=== PATIENT | male | born 1935 | race Asian ===

== ENCOUNTER 2018-06-25 16:22 | Inpatient (IN) | payer OTHER ==
--- NOTE | 2018-06-25 16:40 | PDOC ---
Rapid Medical Evaluation Time Seen by Provider: 06/25/18 16:35 Medical Evaluation: Allergies Allergy/AdvReac Type Severity Reaction Status Date / Time No Known Allergies Allergy Verified 06/25/18 16:32 06/25/18 16:35 I have performed a brief in-person evaluation of this patient. 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 No LOC, WHITEHEAD, dizziness, n/v. Pt also c/o diarrhea, ?chronic w/ weight loss. No abd pain, f/c. Had recent scope w/ ? pre-cancerous polyp, scheduled for CT in near future per son in law. Pt resides alone w/ h/o alzheimers, HTN, diverticulitis, gout. Sent to ED by outside PMD for evaluation and ? admission per son in law who also verbalized that family wants placement PMD Dr Caballero Pertinent physical exam findings:Stable and well tara and in NAD I have ordered the following:CTH/labs The patient will proceed to the ED for further evaluation. Discharge Disposition - Diagnosis FTT (failure to thrive) in adult Fall Qualifiers: Encounter type: initial encounter Qualified Code(s): W19.XXXA - Unspecified fall, initial encounter - Referrals - Patient Instructions - Post Discharge Activity
[2018-06-25] MEDS ORDERED: ONDANSETRON 4 MG/2 ML VIAL IVPUSH ONE (18:21)
[2018-06-25] MEDS ORDERED: SODIUM CHLORIDE 0.9% 500 ML INFUS.BAG IV ONE (18:22)
[2018-06-25] MEDS ORDERED: DEXTROSE 5%-NORMAL SALINE 1,000 ML IV SCH (18:30)
[2018-06-25 18:35] LABS: BASO % 0.4 % (0-2.0); EOS % 0.1 % (0-4.5); HEMATOCRIT 49.3 % (35.4-49); HEMOGLOBIN 17.1 GM/dL (11.7-16.9); LYMPH % 7.4 % (8-40); MCH 32.9 pg (25.7-33.7); MCHC 34.8 g/dl (32.0-35.9); MEAN CELL VOLUME 94.7 fl (80-96); MEAN PLT VOLUME 7.3 fl (7.5-11.1); MONO % 4.5 % (3.8-10.2); NEUT % 87.6 % (42.8-82.8); PLATELET COUNT 244 K/MM3 (134-434); RDW 13.3 % (11.9-15.9); WHITE BLOOD COUNT 12.4 K/mm3 (4.0-10.0)
--- NOTE | 2018-06-25 18:36 | PDOC ---
Documentation entered by Neha Steen SCRIBE, acting as scribe for Taya Pedraza MD. Taya Pedraza MD: This documentation has been prepared by the anjue, Neha Steen SCRIBE, under my direction and personally reviewed by me in its entirety. I confirm that the documentation accurately reflects all work, treatment, procedures, and medical decision making performed by me. History of Present Illness - General Chief Complaint: Altered Mental Status Stated Complaint: SENT BY PCP/UNSTEADY GAIT Time Seen by Provider: 06/25/18 16:35 History Source: Patient, Family Exam Limitations: No Limitations - History of Present Illness Initial Comments: 06/25/18 18:29 The patient is a 82 year old male with a significant past medical history of BPH , gout, hypertension, diverticulitis, arthritis, inguinal hernia, H. pylori, tubular adenoma, polyps, Alzheimer's dementia, hemorrhoids, kidney stones and leg edema who presents to the emergency department with frequent falls and gait instability for several months and progressively worsening memory loss/dementia x at least 1 year. As per the patients family, the patient went out last night to a restaurant and fell, amnesic to the event and was subsequently driven home by an employee of the restaurant. The patients family at bedside states that the patient has been experiencing deteriorating episodes in the past several months with noted weight loss, decreased PO intake, anorexia, generalized weakness, unsteady gait, and progressive short term memory loss. Of note there has been diarrhea/loose nonbloody stools x several months. The patient's family reports that the patient went to see his PCP Dr Ferrer this afternoon at about 3:30 pm subsequently sent him here for admission. It is noted that the patient had a recent colonoscopy procedure done approx 4 weeks ago for surveillance, which noted premalignant polyps. The patient's son in law and daughter states that the patient lives in his home alone but they live in the same building complex; he states that the patient is unable to properly take care of himself and they have been in the process of getting him a dietary service aide and/or facility placement given progression of his dementia. The patient denies any fever, chills, nausea, vomiting, diarrhea, constipation or urinary symptoms. He denies any chest pain, shortness of breath, headache or abdomen pain. Code status: full Allergies: Lisinopril Social history: Lives at home alone. No Tobacco use. No ETOH or drug use. Surgical history: cystoscopy with laser vaporization. Meds: as documented in EMR PMD: Dr. Ferrer Past History - Past Medical History Allergies/Adverse Reactions: Allergies Allergy/AdvReac Type Severity Reaction Status Date / Time No Known Allergies Allergy Verified 06/25/18 16:32 Home Medications: Ambulatory Orders Allopurinol [Zyloprim -] 100 mg PO DAILY 09/08/14 Amlodipine Besylate [Norvasc -] 10 mg PO DAILY 09/08/14 Losartan Potassium 50 mg PO DAILY 09/08/14 Cephalexin [Keflex] 500 mg PO TID #21 capsule 02/05/16 Tramadol HCl 50 mg PO TID #12 tablet MDD 3 02/05/16 COPD: No HTN: Yes Hypercholesterolemia: Yes Psychiatric Problems: Yes (DEMENTIA) Other medical history: GOUT - Suicide/Smoking/Psychosocial Hx Smoking Status: No Smoking History: Never smoked Have you smoked in the past 12 months: No If you are a former smoker, when did you quit?: 8 YRS Hx Alcohol Use: No Drug/Substance Use Hx: No Substance Use Type: None Hx Substance Use Treatment: No Review of Systems - Review of Systems Able to Perform ROS?: Yes Comments:: 06/25/18 18:29 Review of systems Constitutional: no fevers or chills. (+)weight loss. +anorexia, +generalized weakness. HEENT: no headache or dizziness. No visual/hearing disturbances. CVS: no cp or syncope. Resp: no sob. No cough. Gastrointestinal: no abdominal pain, nausea or vomiting. +diarrhea. Genitourinary: no urinary sx, hematuria. MUSCULOSKELETAL: No joint pain and swelling. No neck or back pain. SKIN: no redness or skin changes, no discharge, no rash. No wounds. Hematologic: no easy bruising/bleeding. NEUROLOGIC:(+)amnesia, general weakness, unsteady gait. +AMS. No headache, dizziness, LOC. No numbness or tingling. Psych: +depression. Allergic/Immunologic: no allergies All other systems reviewed and negative, or as documented in HPI. *Physical Exam - Vital Signs Last Vital Signs Temp Pulse Resp BP Pulse Ox 98.0 F 94 H 18 128/93 98 06/25/18 16:37 06/25/18 16:37 06/25/18 16:37 06/25/18 16:37 06/25/18 16:37 - Physical Exam Comments: 06/25/18 18:30 Physical exam: General: awake and alert, NAD. HEENT: (+)swelling and erythema with tenderness of small scab to right lateral upper eyebrow, +tenderness/swelling to right cheekbone, healing ecchymosis to left lateral eyebrow. PERRL, EOMI, clear conjunctiva, anicteric, very dry mucus membranes, clear oropharynx, no oral lesions.. no trismus, TMJ stable. Neck: neck supple, FROM Resp: CTAB, normal and even respirations, no respiratory distress CVS: RRR, no murmurs, 2+ peripheral pulses throughout, no peripheral edema Abdomen: soft, NTND, no peritoneal signs. Back: nontender, normal inspection and ROM MSK: no edema, SMALL x4, ROM intact. No clubbing or cyanosis. normal bulk and tone. pelvis stable, FROM at the hip and all prox joints. Neuro: alert, oriented to person time and place, speech clear. 5/5 loan manager and prox /distal strength in all extrem, SILT in all extrem. no cerebellar dysfunction, bilateral equal and symmetric finger to nose. unable to assess gait due to weakness Skin: warm and well perfused, cap refill <2 sec, normal color Psych: flat affect, calm and cooperative. 06/25/18 18:33 Heart Score/ECG Review #1 ECG reviewed & interpreted by me at: 16:55 General ECG Interpretation: Sinus Rhythm, Normal Rate, Normal Intervals Compared to previous ECG there are: No significant change 06/25/18 18:34 EKG normal sinus rhythm at 88 bpm, no interval abnormalities, narrow QRS, ST and T wave segments and morphology normal. Nonspecific T wave abnormalities ED Treatment Course - LABORATORY CBC & Chemistry Diagram: 06/26/18 05:30 06/26/18 05:30 - RADIOLOGY Radiology Studies Ordered: Category Date Time Status CERVICAL SPINE CT W/O CONTR [CT] Stat CT Scan 06/25/18 16:[address] W/O CONTRAST [CT] Stat CT Scan 06/25/18 17:[address] WITHOUT CONTRAST [CT] Stat CT Scan 06/25/18 16:59 Ordered Medical Decision Making - Medical Decision Making 06/25/18 18:33 I, Taya Pedraza MD, attest that this document has been prepared under my direction and personally reviewed by me in its entirety. I further attest, that it accurately reflects all work, treatment, procedures and medical decision -making performed by me. See HPI for details Vital signs reviewed, wnl. no systemic findings. DDx weakness: dehydration, infection, delirium, UTI, pneumonia, CVA, electrolyte /metabolic derangements, deconditioning, FTT, anorexia Prior notes reviewed, including admissions, discharges and consultations. laboratory results and imaging reviewed, basic labs and lytes wnl, notable for mild leukocytosis but no fever or systemic findings, also noted for hemoconcentration, clinically dehydrated so given IVF. UA_pending bilis mildly elevated, but no AP/RUQ tenderness Cardiac panel_unremarkable EKG normal sinus rhythm at 88 bpm, no interval abnormalities, narrow QRS, ST and T wave segments and morphology normal. Nonspecific T wave abnormalities ED course - IVF and zofran, had episode of N/V while getting IV/blood work - CT head/C spine and facial to eval for fx/bleed due to recent falls and facial trauma Admit for dehydration, worsening dementia, unsafe at home and frequent falls. Discussed results and management plan with pt and family member at bedside, agree with impression and plan 06/25/18 18:50 06/25/18 18:57 06/26/18 16:16 06/26/18 16:16 *DC/Admit/Observation/Transfer Diagnosis at time of Disposition: FTT (failure to thrive) in adult, Contusion of face, Dehydration Fall Qualifiers: Encounter type: initial encounter Qualified Code(s): W19.XXXA - Unspecified fall, initial encounter - Discharge Dispostion Condition at time of disposition: Guarded Decision to Admit order: Yes Decision to Admit order Date/Time: 06/25/18 18:57 Decision to Admit Order Category Date Time Status Decision to Admit to Hospital Routine Admission 06/25/18 18:56 Ordered - Referrals - Patient Instructions - Post Discharge Activity
[2018-06-25 19:57] LABS: ALBUMIN 3.7 g/dl (3.4-5.0); ALK PHOS 119 U/L (45-117); ANION GAP 13 MMOL/L (8-16); BILIRUBIN,TOTAL 2.6 mg/dL (0.2-1); BLOOD UREA NITROGEN 17 mg/dL (7-18); CALCIUM 9.1 mg/dL (8.5-10.1); CHLORIDE 96 mmol/L (98-107); CO2 23 mmol/L (21-32); CREATININE 0.7 mg/dL (0.55-1.3); GLUCOSE,RANDOM 135 mg/dL (74-106); LIPASE 87 U/L (73-393); SODIUM 132 mmol/L (136-145); TOT PROT 6.8 g/dl (6.4-8.2)
[2018-06-25 19:58] LABS: POTASSIUM 4.6 mmol/L (3.5-5.1); SGOT/AST 64 U/L (15-37); SGPT/ALT 19 U/L (13-61)
[2018-06-25] MEDS ORDERED: ONDANSETRON 4 MG/2 ML VIAL ONE (20:28)
--- NOTE | 2018-06-25 20:29 | PDOC ---
*Physical Exam - Vital Signs Last Vital Signs Temp Pulse Resp BP Pulse Ox 98.0 F 94 H 18 128/93 98 06/25/18 16:37 06/25/18 16:37 06/25/18 16:37 06/25/18 16:37 06/25/18 16:37 ED Treatment Course - LABORATORY CBC & Chemistry Diagram: 06/25/18 18:27 06/25/18 18:27 - ADDITIONAL ORDERS Additional order review: Laboratory Results 06/25/18 06/25/18 18:27 18:27 Sodium 132 L Potassium 4.6 Chloride 96 L Carbon Dioxide 23 Anion Gap 13 BUN 17 Creatinine 0.7 Creat Clearance w eGFR 108.24 Random Glucose 135 H Calcium 9.1 Total Bilirubin 2.6 H AST 64 H ALT 19 Alkaline Phosphatase 119 H Creatine Kinase 381 H Creatine Kinase Index 1.1 CK-MB (CK-2) 4.3 H Troponin I < 0.02 Total Protein 6.8 Albumin 3.7 Lipase 87 06/25/18 18:27 RBC 5.20 MCV 94.7 MCHC 34.8 RDW 13.3 MPV 7.3 L Neutrophils % 87.6 H D Lymphocytes % 7.4 L D Monocytes % 4.5 Eosinophils % 0.1 D Basophils % 0.4 Medical Decision Making - Medical Decision Making 06/25/18 20:28 Pt signed out to me. He lives alone and has progressive confusion. Fall. He will be admitted for 24hr obs. He is alert and awake at this time. He has a bruise at the right cheekbone. He has no fractures or findings on head. cspine CT, chest XR and all labs are normal. 06/25/18 20:30 Pt is slightly dehydrated; elevated hb/hct. And darrel card enzyme is higher than negative, but not positive. Needs further eval/monitoring. *DC/Admit/Observation/Transfer Diagnosis at time of Disposition: FTT (failure to thrive) in adult, Contusion of face, Dehydration Fall Qualifiers: Encounter type: initial encounter Qualified Code(s): W19.XXXA - Unspecified fall, initial encounter - Discharge Dispostion Condition at time of disposition: Guarded Decision to Admit order: Yes - Referrals Referrals: Liz Ferrer [Primary Care Provider] - - Patient Instructions - Post Discharge Activity
--- NOTE | 2018-06-25 20:48 | PN ---
Teaching Attending Note Name of Resident: Mercy Phelps ATTENDING PHYSICIAN STATEMENT I saw and evaluated the patient. I reviewed the resident's note and discussed the case with the resident. I agree with the resident's findings and plan as documented. SUBJECTIVE: Patient is an 82 year old man with PMH of BPH, gout, hypertension, diverticulitis, arthritis, inguinal hernia, H. pylori, tubular adenoma, polyps, Alzheimer's dementia, hemorrhoids, kidney stones and leg edema who presents to the ER with frequent falls and gait instability for several months and progressively worsening memory loss/dementia x at least 1 year. As per the patients family, the patient went out last night to a restaurant and fell, amnesic to the event and was subsequently driven home by an employee of the restaurant. Also has had weight loss, decreased PO intake, anorexia, generalized weakness, unsteady gait, and progressive short term memory loss. Of note there has been diarrhea/loose nonbloody stools for several months. The patient's family reports that the patient went to see his PCP Dr Ferrer this afternoon at about 3 :30 pm subsequently sent him here for admission. It is noted that the patient had a recent colonoscopy procedure done approx 4 weeks ago for surveillance, which noted premalignant polyps. Patient lives alone and is unable to properly take care of himself. The patient denies any fever, chills, nausea, vomiting, diarrhea, constipation or urinary symptoms. He denies any chest pain, shortness of breath, headache or abdominal pain. OBJECTIVE: Alert Vital Signs Period Temp Pulse Resp BP Sys/Rosales Pulse Ox Last 24 Hr 98.0 F 94 18 128/93 98 HEENT: No Jaundice, eye redness or discharge, PERRLA, EOMI. Normocephalic, atraumatic. Right cheek bone bruise. External ears are normal and hearing is grossly intact. No nasal discharge. Neck: Supple, nontender. No palpable adenopathy or thyromegaly. No JVD Chest: Good effort. Clear to auscultation and percussion. Heart: Regular. No S3, rub or murmur Abdomen: Not distended, soft, nontender and no HSM. No rebound or guarding. Normal bowel sounds. Ext: Peripheral pulses intact. No leg edema. Skin: Warm and dry. No petechiae, rash or ecchymosis. Neuro: Alert. Oriented x3. CN 2-12 grossly intact. Sensation grossly intact in all four extremities and DTR are symmetric. Psych: Appropriate mood and affect. Good insight. Current Medications Generic Name Dose Route Start Last Admin Trade Name Meliza PRN Reason Stop Dose Admin Dextrose/Sodium Chloride 1,000 mls @ 100 mls/hr 06/25/18 18:30 D5-Ns - IV ASDIR [facility] Home Medications Medication Instructions Recorded Allopurinol [Zyloprim -] 100 mg PO DAILY 09/08/14 Amlodipine Besylate [Norvasc -] 10 mg PO DAILY 09/08/14 Losartan Potassium 50 mg PO DAILY 09/08/14 Cephalexin [Keflex] 500 mg PO TID #21 capsule 02/05/16 Tramadol HCl 50 mg PO TID #12 tablet MDD 3 02/05/16 Abnormal Lab Results 06/25/18 06/25/18 06/25/18 18:27 18:27 18:27 WBC 12.4 H Hgb 17.1 H Hct 49.3 H D MPV 7.3 L Absolute Neuts (auto) 10.8 H Neutrophils % 87.6 H D Lymphocytes % 7.4 L D Sodium 132 L Chloride 96 L Random Glucose 135 H Total Bilirubin 2.6 H AST 64 H Alkaline Phosphatase 119 H Creatine Kinase 381 H CK-MB (CK-2) 4.3 H ASSESSMENT AND PLAN: 1. Altered Mental Status and Frequent Falls - Etiology unclear. Global debility may signal progression of his dementia. No fracture or abnormality on face, cervical and head CT scans. No acute infiltrate on CXR. Has features of dehydration, elevated LFTs and unexplained leukocytosis. Will get stat urinalysis, upper abdominal sonogram, hepatitis serology and trend LFTs. Hydrate gently with IV NS. Implement strict fall precautions. Consult Neurology and consider brain MRI after neurology input. Consult PT, province archivist and social secretary (?placement). 2. Hypertension - Restart outpatient antihypertensive drugs and revise regimen to ensure smooth [id number] good BP control. Nonpharmacologic measures to control hypertension like weight loss, salt restriction and exercise discussed. 3. DVT prophylaxis - Lovenox 40 mg SQ q 24 hours. 4. Advance directives - Full code
[2018-06-25 22:07] LABS: EPI CELLS 7.1 /HPF (0-5/HPF); URINE APPEARANCE CLOUDY; URINE BACTERIA 12.3 /hpf (NEGATIVE); URINE BILIRUBIN 1+ (NEGATIVE); URINE CASTS 78 /lpf (0-8); URINE COLOR DK YELLOW; URINE GLUCOSE (UA) NEGATIVE (NEGATIVE); URINE KETONE TRACE (NEGATIVE); URINE LEUK ESTERASE NEGATIVE (NEGATIVE); URINE NITRITE NEGATIVE (NEGATIVE); URINE PROTEIN 1+ (NEGATIVE); URINE RBC 2 /hpf (0-4); URINE WBC 8 /hpf (0-5)
--- NOTE | 2018-06-25 22:19 | HP ---
CHIEF COMPLAINT: PCP: Dr. Caballero HISTORY OF PRESENT ILLNESS: Patient is an 82 yo M with a past medical history of BPH, gout, hypertension, diverticulitis, arthritis, inguinal hernia, H. pylori, tubular adenoma, polyps, Alzheimer's dementia, hemorrhoids, kidney stones and leg edema, was dropped off by his Son in law because "him and his daughter didn't want to deal with me". Patient denies any symptoms. As per ER documentation, daughter and son in law stated he has been frequently falling over the last few months with decreased PO intake and weight loss. They also mentioned short term memory loss. Patient lives alone at home but his daughter and son in law live in the same apartment complex. He says his daughter has not been giving him much attention since marrying her "[place]" . He says things are difficult at home with his family but denies any form of abuse. He says his son in law didnt want to deal with him and told him the best place to go was the hospital. He denies urinary symptoms, sob, nausea, vomiting, chest pain, dizziness, diarrhea, headaches. ER course was notable for: (1) D5 NS @ 100 (2) Head, C Spine CT negative Recent Travel: denies PAST MEDICAL HISTORY: per hpi PAST SURGICAL HISTORY: n/a Social History: Smoking:denies Alcohol: denies Drugs: denies Family History: Allergies No Known Allergies Allergy (Verified 06/25/18 16:32) HOME MEDICATIONS: Home Medications Medication Instructions Recorded Allopurinol [Zyloprim -] 100 mg PO DAILY 09/08/14 Amlodipine Besylate [Norvasc -] 10 mg PO DAILY 09/08/14 Losartan Potassium 50 mg PO DAILY 09/08/14 Cephalexin [Keflex] 500 mg PO TID #21 capsule 02/05/16 Tramadol HCl 50 mg PO TID #12 tablet MDD 3 02/05/16 REVIEW OF SYSTEMS CONSTITUTIONAL: Absent: fever, chills, diaphoresis, generalized weakness, malaise, loss of appetite, weight change HEENT: Absent: rhinorrhea, nasal congestion, throat pain, throat swelling, difficulty swallowing, mouth swelling, ear pain, eye pain, visual changes CARDIOVASCULAR: Absent: chest pain, syncope, palpitations, irregular heart rate, lightheadedness , peripheral edema RESPIRATORY: Absent: cough, shortness of breath, dyspnea with exertion, orthopnea, wheezing, stridor, hemoptysis GASTROINTESTINAL: Absent: abdominal pain, abdominal distension, nausea, vomiting, diarrhea, constipation, melena, hematochezia GENITOURINARY: Absent: dysuria, frequency, urgency, hesitancy, hematuria, flank pain, genital pain HEMATOLOGIC/IMMUNOLOGIC: Absent: easy bleeding, easy bruising, lymphadenopathy, frequent infections ENDOCRINE: Absent: unexplained weight gain, unexplained weight loss, heat intolerance, cold intolerance PHYSICAL EXAMINATION Vital Signs - 24 hr 06/25/18 16:37 Temperature 98.0 F Pulse Rate 94 H Respiratory 18 Rate Blood Pressure 128/93 O2 Sat by Pulse 98 Oximetry (%) GENERAL: a/o x 3, in nad EYES: Pupils equal, round and reactive to light, extraocular movements intact, sclera anicteric, conjunctiva clear. No lid lag. EARS, NOSE, THROAT: oropharynx clear without exudates. Moist mucous membranes. NECK: supple without lymphadenopathy, JVD, or masses. LUNGS: Breath sounds equal, clear to auscultation bilaterally. No wheezes, and no crackles. No accessory muscle use. HEART: Regular rate and rhythm, normal S1 and S2 without murmur, rub or gallop. ABDOMEN: Soft, nontender, not distended, normoactive bowel sounds No hepatomegaly LOWER EXTREMITIES: 2+ pulses, warm, well-perfused. No calf tenderness. No peripheral edema. NEUROLOGICAL: Cranial nerves II-XII intact Laboratory Results - last 24 hr 06/25/18 06/25/18 06/25/18 18:27 18:27 18:27 WBC 12.4 H RBC 5.20 Hgb 17.1 H Hct 49.3 H D MCV 94.7 MCH 32.9 MCHC 34.8 RDW 13.3 Plt Count 244 MPV 7.3 L Absolute Neuts (auto) 10.8 H Neutrophils % 87.6 H D Lymphocytes % 7.4 L D Monocytes % 4.5 Eosinophils % 0.1 D Basophils % 0.4 Nucleated RBC % 0 Sodium 132 L Potassium 4.6 Chloride 96 L Carbon Dioxide 23 Anion Gap 13 BUN 17 Creatinine 0.7 Creat Clearance w eGFR 108.24 Random Glucose 135 H Calcium 9.1 Total Bilirubin 2.6 H AST 64 H ALT 19 Alkaline Phosphatase 119 H Creatine Kinase 381 H Creatine Kinase Index 1.1 CK-MB (CK-2) 4.3 H Troponin I < 0.02 Total Protein 6.8 Albumin 3.7 Lipase 87 ASSESSMENT/PLAN: 82 yo M with a pmhx of BPH, gout, hypertension, diverticulitis, arthritis, inguinal hernia, H. pylori, tubular adenoma, polyps, Alzheimer's dementia, hemorrhoids, kidney stones and leg edema, admitted for frequent falls over the last few months with decreased PO intake, weight loss, and memory loss. #AMS/Frequent falls -AMS likely from progression of Alzheimers dementia -Has features of Dehydration -U/A negative -Head CT negative -C spine CT negative -CXR unremarkable -Physical therapy -Fall precautions #Transaminitis -T. bili 2.4,Alk phos 381,AST 64, CK 381 -RUQ ultrasound -Hep panel #Hyponatremia -likely volume depleted -IV fluids -FU Am BMP #Hypochloremia -likely volume depleted -IV fluids -FU am BMP #HTN -resume home meds -needs [facility] rec. #FEN -IV fluids D5 ns @ 75 -monitor lytes -sodium controlled diet #Dvt ppx -hep sq Will likely need placement Visit type - Emergency Visit Emergency Visit: Yes ED Registration Date: 06/25/18 Care time: The patient presented to the Emergency Department on the above date and was hospitalized for further evaluation of their emergent condition. - New Patient This patient is new to me today: Yes Date on this admission: 06/29/18 - Critical Care Critical Care patient: No
[2018-06-26] MEDS: DEXTROSE 5%-0.45% SALINE 1,000 ML IV SCH ×2 (01:12→21:45)
[2018-06-26] MEDS: HEPARIN NA (PORCINE) 5,000 UNITS/ML 1ML VIAL SQ SCH ×3 (06:09→21:42)
[2018-06-26] MEDS: INSULIN SLIDING SCALE (NOVOLOG) 1 VIAL SQ SCH ×2 (06:09→17:40)
--- NOTE | 2018-06-26 08:19 | PN ---
Progress Note, Physician Chief Complaint: pleasantly demented denies any complaints History of Present Illness: 82 yo M with a past medical history of BPH, gout, hypertension, diverticulitis, arthritis, inguinal hernia, H. pylori, tubular adenoma, polyps, Alzheimer's dementia, hemorrhoids, kidney stones and leg edema, was dropped off by his Son in law because they are unable to take his care, patient had frequent falls yesterdu fall after eating out in restaurant a restaurant with family no LOC, lately patient had poor gait. - Current Medication List Current Medications: Active Medications Active Medications Allopurinol (Zyloprim -) 100 mg PO DAILY [facility] Amlodipine Besylate (Norvasc -) 10 mg PO DAILY [facility] Heparin Sodium (Porcine) (Heparin -) 5,000 unit SQ TID [facility] Last Admin: 06/26/18 06:09 Dose: 5,000 unit Dextrose/Sodium Chloride (D5-1/2ns -) 1,000 mls @ 75 mls/hr IV ASDIR [facility] Last Admin: 06/26/18 01:12 Dose: 75 mls/hr Insulin Aspart (Novolog Vial Sliding Scale -) 1 vial SQ BIDAC [facility]; Protocol Last Admin: 06/26/18 06:09 Dose: Not Given Losartan Potassium (Cozaar -) 50 mg PO DAILY [facility] Tramadol HCl (Ultram -) 50 mg PO Q8H PRN PRN Reason: PAIN 4-6 - Objective Vital Signs: Vital Signs Temperature 98.4 F 06/26/18 06:00 Pulse Rate 68 06/26/18 06:00 Respiratory Rate 18 06/26/18 06:00 Blood Pressure 132/91 06/26/18 06:00 O2 Sat by Pulse Oximetry (%) 96 06/26/18 06:16 Elderly man comfortable, not in distress HEENT: Mm moist, no anemia NECK: no JVd No Bruit CHEST: CTA B/L CVS: S2S2 r ABD: No distention, non tender EXT: No edema, Pulses + GUMMED TAPE PRESS OPERATOR: AOX2 non focal Additional Findings/Remarks: CBC, BMP 06/26/18 05:30 06/26/18 05:30 Problem List - Problems (1) Frequent falls Assessment/Plan: advancing dementia, needs fall precautions, PT evaluation, patient says, possible placement after discussing with the family. Code(s): R29.6 - REPEATED FALLS (2) Contusion of face Assessment/Plan: S/P Fall no fracture in CT head Code(s): S00.83XA - CONTUSION OF OTHER PART OF HEAD, INITIAL ENCOUNTER (3) Hypertension Assessment/Plan: Cont home meds BP is well controlled Code(s): I10 - ESSENTIAL (PRIMARY) HYPERTENSION (4) Gait difficulty Assessment/Plan: worsening Dementia, PT evaluation, possible placement for TRENA Code(s): R26.9 - UNSPECIFIED ABNORMALITIES OF GAIT AND MOBILITY (5) Gout Assessment/Plan: Cont allopurinol Code(s): M10.9 - GOUT, UNSPECIFIED
[2018-06-26 08:23] LABS: ALK PHOS 97 U/L (45-117); ANION GAP 9 MMOL/L (8-16); BILIRUBIN,TOTAL 2.7 mg/dL (0.2-1); BLOOD UREA NITROGEN 14 mg/dL (7-18); CALCIUM 8.4 mg/dL (8.5-10.1); CHLORIDE 101 mmol/L (98-107); CO2 26 mmol/L (21-32); CREATININE 0.7 mg/dL (0.55-1.3); GLUCOSE,RANDOM 100 mg/dL (74-106); MAGNESIUM 2.2 mg/dL (1.8-2.4); PHOSPHOROUS 2.5 mg/dL (2.5-4.9); POTASSIUM 3.8 mmol/L (3.5-5.1); SGOT/AST 42 U/L (15-37); SGPT/ALT 12 U/L (13-61); SODIUM 136 mmol/L (136-145); TOT PROT 5.5 g/dl (6.4-8.2)
[2018-06-26 09:51] LABS: BASO % 0.7 % (0-2.0); EOS % 0.3 % (0-4.5); HEMATOCRIT 41.7 % (35.4-49); HEMOGLOBIN 14.6 GM/dL (11.7-16.9); LYMPH % 12.3 % (8-40); MCH 33.5 pg (25.7-33.7); MCHC 35.1 g/dl (32.0-35.9); MEAN CELL VOLUME 95.4 fl (80-96); MEAN PLT VOLUME 7.5 fl (7.5-11.1); MONO % 7.2 % (3.8-10.2); NEUT % 79.5 % (42.8-82.8); PLATELET COUNT 203 K/MM3 (134-434); RBC 4.37 M/mm3 (4.00-5.60); RDW 13.3 % (11.9-15.9)
[2018-06-26] MEDS ORDERED: CEPHALEXIN MONOHYDRATE 500 MG CAPSULE (UD) PO SCH (14:00)
[2018-06-26] MEDS ORDERED: traMADol HCL 50 MG TABLET PO PRN (14:00)
--- NOTE | 2018-06-26 15:11 | EKG ---
Test Reason : Blood Pressure : / mmHG Vent. Rate : 088 BPM Atrial Rate : 088 BPM P-R Int : 154 ms QRS Dur : 086 ms QT Int : 390 ms P-R-T Axes : 055 029 055 degrees QTc Int : 471 ms NORMAL SINUS RHYTHM NORMAL ECG WHEN COMPARED WITH ECG OF 08-SEP-2014 09:01, NO SIGNIFICANT CHANGE WAS FOUND Confirmed by ANN MARIE DOSHI MD ([id number]) on 06/26/2018 3:10:39 PM Referred By: Confirmed By:ANN MARIE DOSHI MD
[2018-06-26 15:29] LABS: BILIRUBIN,DIRECT 0.5 mg/dL (0.0-0.2)
[2018-06-27 06:36] LABS: HEP.C VIRUS AB <0.1 s/co ratio (0.0-0.9)
[2018-06-27] MEDS: HEPARIN NA (PORCINE) 5,000 UNITS/ML 1ML VIAL SQ SCH ×3 (06:43→22:27)
[2018-06-27] MEDS: INSULIN SLIDING SCALE (NOVOLOG) 1 VIAL SQ SCH ×2 (06:44→17:28)
--- NOTE | 2018-06-27 07:52 | PN ---
Teaching Attending Note Name of Resident: [facility] ATTENDING PHYSICIAN STATEMENT I saw and evaluated the patient. I reviewed the resident's note and discussed the case with the resident. I agree with the resident's findings and plan as documented. SUBJECTIVE: Remained at base line feeling weak OBJECTIVE: Vital Signs Temperature 98.4 F 06/26/18 06:00 Pulse Rate 68 06/26/18 06:00 Respiratory Rate 18 06/26/18 06:00 Blood Pressure 132/91 06/26/18 06:00 O2 Sat by Pulse Oximetry (%) 96 06/26/18 06:16 Elderly man comfortable, not in distress HEENT: Mm moist, no anemia NECK: no JVd No Bruit CHEST: CTA B/L CVS: S2S2 r ABD: No distention, non tender EXT: No edema, Pulses + CAREER CENTER DIRECTOR: AOX2 non focal Active Medications Allopurinol (Zyloprim -) 100 mg PO DAILY [facility] Amlodipine Besylate (Norvasc -) 10 mg PO DAILY [facility] Heparin Sodium (Porcine) (Heparin -) 5,000 unit SQ TID [facility] Last Admin: 06/27/18 06:43 Dose: 5,000 unit Dextrose/Sodium Chloride (D5-1/2ns -) 1,000 mls @ 75 mls/hr IV ASDIR [facility] Last Admin: 06/26/18 21:45 Dose: Not Given Insulin Aspart (Novolog Vial Sliding Scale -) 1 vial SQ BIDAC [facility]; Protocol Last Admin: 06/27/18 06:44 Dose: Not Given Losartan Potassium (Cozaar -) 50 mg PO DAILY [facility] Tramadol HCl (Ultram -) 50 mg PO Q8H PRN PRN Reason: PAIN 4-6 ASSESSMENT AND PLAN:82 year old male with a significant past medical history of BPH, gout, hypertension, diverticulitis, arthritis, inguinal hernia, H. pylori, tubular adenoma, polyps, Alzheimer's dementia, hemorrhoids, kidney stones and leg edema who presents to the emergency department with frequent falls and gait instability for several months and progressively worsening memory loss/dementia x at least 1 year. today lab shows Hypokalemia Problem List - Problems (1) Frequent falls Assessment/Plan: advancing dementia, needs fall precautions, PT evaluation, patient says, possible placement after discussing with the family. Code(s): R29.6 - REPEATED FALLS (2) Contusion of face Assessment/Plan: S/P Fall no fracture in CT head Code(s): S00.83XA - CONTUSION OF OTHER PART OF HEAD, INITIAL ENCOUNTER (3) Hypertension Assessment/Plan: Cont home meds BP is well controlled Code(s): I10 - ESSENTIAL (PRIMARY) HYPERTENSION (4) Gait difficulty Assessment/Plan: worsening Dementia, PT evaluation, possible placement for [facility] Code(s): R26.9 - UNSPECIFIED ABNORMALITIES OF GAIT AND MOBILITY (5) Gout Assessment/Plan: Cont allopurinol Code(s): M10.9 - GOUT, UNSPECIFIED (6) Hypokalemia Assessment/Plan: Replete K F/U BMP anfd Magnesium Code(s): E87.6 - HYPOKALEMIA
[2018-06-27 07:53] LABS: BASO % 0.8 % (0-2.0); EOS % 1.5 % (0-4.5); HEMATOCRIT 41.1 % (35.4-49); HEMOGLOBIN 14.5 GM/dL (11.7-16.9); LYMPH % 19.5 % (8-40); MCH 33.3 pg (25.7-33.7); MCHC 35.3 g/dl (32.0-35.9); MEAN CELL VOLUME 94.3 fl (80-96); MEAN PLT VOLUME 7.4 fl (7.5-11.1); MONO % 7.9 % (3.8-10.2); NEUT % 70.3 % (42.8-82.8); PLATELET COUNT 189 K/MM3 (134-434); RBC 4.35 M/mm3 (4.00-5.60); RDW 13.3 % (11.9-15.9); WHITE BLOOD COUNT 6.2 K/mm3 (4.0-10.0)
[2018-06-27 08:18] LABS: ANION GAP 9 MMOL/L (8-16); BLOOD UREA NITROGEN 5 mg/dL (7-18); CALCIUM 8.3 mg/dL (8.5-10.1); CHLORIDE 96 mmol/L (98-107); CO2 27 mmol/L (21-32); CREATININE 0.6 mg/dL (0.55-1.3); GLUCOSE,RANDOM 118 mg/dL (74-106); SODIUM 132 mmol/L (136-145)
[2018-06-27] MEDS ORDERED: POTASSIUM CHLORIDE TABS 20 MEQ TABLET.ER (FP) PO ONE (08:52)
[2018-06-27] MEDS: ALLOPURINOL 100 MG TABLET (FP) PO SCH (09:51)
[2018-06-27] MEDS: LOSARTAN POTASSIUM 50 MG TABLET (FP) PO SCH (09:51)
[2018-06-27] MEDS: amLODIPine BESYLATE 10 MG TABLET (FP) PO SCH (09:52)
--- NOTE | 2018-06-27 13:52 | PN ---
Physical Exam: SUBJECTIVE: Patient seen and examined. No acute events overnight. Patient offers no new complaints. OBJECTIVE: Vital Signs Period Temp Pulse Resp BP Sys/Rosales Pulse Ox Last 24 Hr 98.0 F-99 F 72-87 20-20 119-158/80-104 96-96 GENERAL: a/o x 3, in nad EYES: Pupils equal, round and reactive to light, extraocular movements intact, sclera anicteric, conjunctiva clear. No lid lag. EARS, NOSE, THROAT: oropharynx clear without exudates. Moist mucous membranes. NECK: supple without lymphadenopathy, JVD, or masses. LUNGS: Breath sounds equal, clear to auscultation bilaterally. No wheezes, and no crackles. No accessory muscle use. HEART: Regular rate and rhythm, normal S1 and S2 without murmur, rub or gallop. ABDOMEN: Soft, nontender, not distended, normoactive bowel sounds No hepatomegaly LOWER EXTREMITIES: 2+ pulses, warm, well-perfused. No calf tenderness. No peripheral edema. NEUROLOGICAL: Cranial nerves II-XII intact Laboratory Results - last 24 hr 06/25/18 06/26/18 06/26/18 18:27 05:30 16:45 WBC RBC Hgb Hct MCV MCH MCHC RDW Plt Count MPV Absolute Neuts (auto) Neutrophils % Lymphocytes % Monocytes % Eosinophils % Basophils % Nucleated RBC % Sodium 132 L Potassium 4.6 Chloride 96 L Carbon Dioxide 23 Anion Gap 13 BUN 17 Creatinine 0.7 Creat Clearance w eGFR 108.24 POC Glucometer 122 Random Glucose 135 H Calcium 9.1 Total Bilirubin 2.6 H Direct Bilirubin 0.5 H AST 64 H ALT 19 Alkaline Phosphatase 119 H Total Protein 6.8 Albumin 3.7 Lipase 87 Hepatitis A IgM Ab Negative Hep Bs Antigen Negative Hep B Core IgM Ab Negative Hepatitis C Antibody <0.1 06/27/18 06/27/18 06/27/18 06:30 06:30 06:32 WBC 6.2 RBC 4.35 Hgb 14.5 Hct 41.1 MCV 94.3 MCH 33.3 MCHC 35.3 RDW 13.3 Plt Count 189 MPV 7.4 L Absolute Neuts (auto) 4.3 Neutrophils % 70.3 Lymphocytes % 19.5 D Monocytes % 7.9 Eosinophils % 1.5 D Basophils % 0.8 Nucleated RBC % 0 Sodium 132 L Potassium 3.0 L Chloride 96 L Carbon Dioxide 27 Anion Gap 9 BUN 5 L Creatinine 0.6 Creat Clearance w eGFR 129.31 POC Glucometer 120 Random Glucose 118 H Calcium 8.3 L Total Bilirubin Direct Bilirubin AST ALT Alkaline Phosphatase Total Protein Albumin Lipase Hepatitis A IgM Ab Hep Bs Antigen Hep B Core IgM Ab Hepatitis C Antibody 06/27/18 11:40 WBC RBC Hgb Hct MCV MCH MCHC RDW Plt Count MPV Absolute Neuts (auto) Neutrophils % Lymphocytes % Monocytes % Eosinophils % Basophils % Nucleated RBC % Sodium Potassium Chloride Carbon Dioxide Anion Gap BUN Creatinine Creat Clearance w eGFR POC Glucometer 133 Random Glucose Calcium Total Bilirubin Direct Bilirubin AST ALT Alkaline Phosphatase Total Protein Albumin Lipase Hepatitis A IgM Ab Hep Bs Antigen Hep B Core IgM Ab Hepatitis C Antibody Active Medications Generic Name Dose Route Start Last Admin Trade Name Freq PRN Reason Stop Dose Admin Allopurinol 100 mg 06/27/18 10:00 06/27/18 09:51 Zyloprim - PO 100 mg DAILY [facility] Administration Amlodipine Besylate 10 mg 06/27/18 10:00 06/27/18 09:52 Norvasc - PO 10 mg DAILY [facility] Administration Heparin Sodium (Porcine) 5,000 unit 06/26/18 06:00 06/27/18 13:17 Heparin - SQ 5,000 unit TID [facility] Administration Dextrose/Sodium Chloride 1,000 mls @ 75 mls/hr 06/25/18 22:15 06/26/18 21:45 D5-1/2ns - IV Not Given ASDIR [facility] Insulin Aspart 1 vial 06/26/18 07:00 06/27/18 06:44 Novolog Vial Sliding Scale - SQ Not Given BIDAC [facility] Protocol Losartan Potassium 50 mg 06/27/18 10:00 06/27/18 09:51 Cozaar - PO 50 mg DAILY [facility] Administration Tramadol HCl 50 mg 06/26/18 14:00 Ultram - PO Q8H PRN PAIN 4-6 ASSESSMENT/PLAN: 82 yo M with a pmhx of BPH, gout, hypertension, diverticulitis, arthritis, inguinal hernia, H. pylori, tubular adenoma, polyps, Alzheimer's dementia, hemorrhoids, kidney stones and leg edema, admitted for frequent falls over the last few months with decreased PO intake, weight loss, and memory loss. #Frequent falls -advancing dementia -needs fall precautions -PT evaluation -Will likely need placement #Contusion of face S/P Fall no fracture in CT head #Hypertension -Cont home meds -Cozaar 50mg, Amlodipine 10mg #Gait difficulty -worsening Dementia -PT evaluation -will likely need placement #Gout Cont allopurinol #FEN -d5 1/2NS @ 75ml/hour #dvt ppx -hep sq Visit type - Emergency Visit Emergency Visit: Yes ED Registration Date: 06/25/18 Care time: The patient presented to the Emergency Department on the above date and was hospitalized for further evaluation of their emergent condition. - New Patient This patient is new to me today: Yes Date on this admission: 06/27/18 - Critical Care Critical Care patient: No
[2018-06-27] MEDS: DEXTROSE 5%-0.45% SALINE 1,000 ML IV SCH (22:27)
[2018-06-28] MEDS ORDERED: LORazepam 2 MG/ML SDV VIAL IVPUSH ONE ×2 (00:15→22:24)
[2018-06-28] MEDS ORDERED: diphenhydrAMINE HCL 25 MG CAPSULE (FP) PO ONE (03:27)
[2018-06-28 07:21] LABS: ANION GAP 8 MMOL/L (8-16); BLOOD UREA NITROGEN 5 mg/dL (7-18); CALCIUM 8.9 mg/dL (8.5-10.1); CHLORIDE 94 mmol/L (98-107); CO2 28 mmol/L (21-32); CREATININE 0.6 mg/dL (0.55-1.3); GLUCOSE,RANDOM 107 mg/dL (74-106); POTASSIUM 3.3 mmol/L (3.5-5.1); SODIUM 131 mmol/L (136-145)
[2018-06-28] MEDS: HEPARIN NA (PORCINE) 5,000 UNITS/ML 1ML VIAL SQ SCH ×3 (07:28→23:39)
[2018-06-28] MEDS: INSULIN SLIDING SCALE (NOVOLOG) 1 VIAL SQ SCH ×2 (07:31→19:51)
[2018-06-28 08:18] LABS: BILIRUBIN,TOTAL 2.5 mg/dL (0.2-1)
[2018-06-28 13:23] VITALS: BMI 19.2
[2018-06-28] MEDS ORDERED: POTASSIUM CHLORIDE TABS 20 MEQ TABLET.ER (FP) PO ONE (15:22)
--- NOTE | 2018-06-28 15:39 | PN ---
Physical Exam: SUBJECTIVE: Patient seen and examined this AM. No acute overnight events as per nursing. OBJECTIVE: Vital Signs Period Temp Pulse Resp BP Sys/Rosales Pulse Ox Last 24 Hr 98.4 F-98.5 F 77-84 18-20 119-129/84-88 98-98 GENERAL: A&Ox1 (to person only; believes its november and denies being in the hospital), NAD HEAD: NCAT EYES: PERRL, EOMI ENT: moist mucous membranes LUNGS: Diminished breath sounds at the bases, no wheezes, no crackles HEART: Regular rate and rhythm, S1, S2 without murmur ABDOMEN: Soft, nontender, nondistended, + bowel sounds, no guarding EXTREMITIES: no edema NEUROLOGICAL: Confused, moving extremities freely SKIN: Warm, dry Laboratory Results - last 24 hr 06/27/18 06/28/18 06/28/18 16:45 05:30 06:29 Sodium 131 L Potassium 3.3 L Chloride 94 L Carbon Dioxide 28 Anion Gap 8 BUN 5 L Creatinine 0.6 Creat Clearance w eGFR 129.31 POC Glucometer 120 116 Random Glucose 107 H Calcium 8.9 Total Bilirubin 2.5 H Microbiology 06/25/18 21:57 Urine - Urine Clean Catch Urine Culture - Final Contaminated: Please Repeat Active Medications Allopurinol (Zyloprim -) 100 mg PO DAILY [facility] Last Admin: 06/27/18 09:51 Dose: 100 mg Amlodipine Besylate (Norvasc -) 10 mg PO DAILY [facility] Last Admin: 06/27/18 09:52 Dose: 10 mg Heparin Sodium (Porcine) (Heparin -) 5,000 unit SQ TID [facility] Last Admin: 06/28/18 07:28 Dose: Not Given Dextrose/Sodium Chloride (D5-1/2ns -) 1,000 mls @ 75 mls/hr IV ASDIR [facility] Last Admin: 06/27/18 22:27 Dose: Not Given Potassium Chloride (Potassium Chloride 10 Meq Premix Ivpb -) 10 meq in 100 mls @ 100 mls/hr IVPB Q60M [facility] Stop: 06/28/18 18:29 Insulin Aspart (Novolog Vial Sliding Scale -) 1 vial SQ BIDAC [facility]; Protocol Last Admin: 06/28/18 07:31 Dose: Not Given Losartan Potassium (Cozaar -) 50 mg PO DAILY [facility] Last Admin: 06/27/18 09:51 Dose: 50 mg Tramadol HCl (Ultram -) 50 mg PO Q8H PRN PRN Reason: PAIN 4-6 IMAGING: -CXR: Hyperinflation. No acute chest pathology. -CT C-Spine: No fracture is identified. -Head CT without contrast: No CT evidence of acute intracranial pathology. The intracranial structures demonstrate no definite interval change in comparison to a prior CT exam of 09/08/2014. There is a probable small parietal scalp soft tissue contusion along the midline posteriorly. -Facial bones CT without contrast: No acute fracture is identified. -Abdominal US: Fatty infiltration of the liver -EKG: NSR, VR 88, QTc 471 ASSESSMENT/PLAN: 82 y/o M with PMHx of BPH, Gout, HTN, Alzheimer's dementia admitted for frequent falls with decreased PO intake, weight loss, and memory loss. #Frequent falls -In the setting of advancing dementia -Tramadol 50mg PO Q8H PRN -PT evaluation -Fall precautions -Will likely need placement #Contusion of face -S/P Fall -Imaging noted above not suggestive of fx -Monitor #Elevated TBili + Elevated Alk Phos -In the setting of Fatty Liver (Noted on Abdominal US above) -Hep panel negative #HTN -Continue Amlodipine 10mg PO Daily, Losartan Potassium 50mg PO Daily #Gout -Allopurinol 100mg PO Daily #FEN -D5-1/2ns @ 75 mls/hr -Hypokalemia, Repleted -Sodium controlled diet #PPx -DVT: Heparin TID Visit type - Emergency Visit Emergency Visit: Yes ED Registration Date: 06/25/18 Care time: The patient presented to the Emergency Department on the above date and was hospitalized for further evaluation of their emergent condition. - New Patient This patient is new to me today: Yes Date on this admission: 06/28/18 - Critical Care Critical Care patient: No - Discharge Referral Referred to [facility] Med P.C.: No
--- NOTE | 2018-06-28 16:45 | PN ---
Physical Exam: SUBJECTIVE: Patient seen and examined at bedside. Remains comfortable albeit confused. OBJECTIVE: Vital Signs Period Temp Pulse Resp BP Sys/Rosales Pulse Ox Last 24 Hr 98.3 F-98.5 F 77-85 18-20 119-129/58-88 98-98 GENERAL: The patient is AAOX1 ? AT BASELINE HEENT : NAD, small bruise over fore head LUNGS: Breath sounds equal, clear to auscultation bilaterally, no wheezes, no crackles, no accessory muscle use. HEART: Regular rate and rhythm, S1, S2 without murmur, rub or gallop. ABDOMEN: Soft, nontender, nondistended, normoactive bowel sounds, no guarding, no rebound, no hepatosplenomegaly, no masses. EXTREMITIES: 2+ pulses, warm, well-perfused, no edema. NEUROLOGICAL: Cranial nerves II through XII grossly intact. Normal speech, gait not observed. PSYCH: Normal mood, normal affect. SKIN: Warm, dry, normal turgor, no rashes or lesions noted Laboratory Results - last 24 hr 06/27/18 06/28/18 06/28/18 16:45 05:30 06:29 Sodium 131 L Potassium 3.3 L Chloride 94 L Carbon Dioxide 28 Anion Gap 8 BUN 5 L Creatinine 0.6 Creat Clearance w eGFR 129.31 POC Glucometer 120 116 Random Glucose 107 H Calcium 8.9 Total Bilirubin 2.5 H Active Medications Generic Name Dose Route Start Last Admin Trade Name Freq PRN Reason Stop Dose Admin Allopurinol 100 mg 06/27/18 10:00 06/27/18 09:51 Zyloprim - PO 100 mg DAILY [facility] Administration Amlodipine Besylate 10 mg 06/27/18 10:00 06/27/18 09:52 Norvasc - PO 10 mg DAILY [facility] Administration Heparin Sodium (Porcine) 5,000 unit 06/26/18 06:00 06/28/18 07:28 Heparin - SQ Not Given TID [facility] Dextrose/Sodium Chloride 1,000 mls @ 75 mls/hr 06/25/18 22:15 06/27/18 22:27 D5-1/2ns - IV Not Given ASDIR [facility] Potassium Chloride 10 meq in 100 mls @ 100 mls/hr 06/28/18 15:30 Potassium Chloride 10 Meq Premix Ivpb - IVPB 06/28/18 18:29 Q60M [facility] Insulin Aspart 1 vial 06/26/18 07:00 06/28/18 07:31 Novolog Vial Sliding Scale - SQ Not Given BIDAC [facility] Protocol Losartan Potassium 50 mg 06/27/18 10:00 06/27/18 09:51 Cozaar - PO 50 mg DAILY [facility] Administration Tramadol HCl 50 mg 06/26/18 14:00 Ultram - PO Q8H PRN PAIN 4-6 ASSESSMENT/PLAN: 82 y/o M with PMHx of BPH, Gout, HTN, Alzheimer's dementia admitted for frequent falls with decreased PO intake, weight loss, and memory loss. # Functional decline with Frequent falls >> Trauma w/u negative. -In the setting of advancing dementia -Tramadol 50mg PO Q8H PRN -PT evaluation -Fall precautions -Will likely need placement #Contusion of face -S/P Fall -Imaging noted above not suggestive of fx #Elevated TBili + Elevated Alk Phos -In the setting of Fatty Liver (Noted on Abdominal US above) -Hep panel negative #HTN -Continue Amlodipine 10mg PO Daily, Losartan Potassium 50mg PO Daily #Gout -Allopurinol 100mg PO Daily #FEN -D5-1/2ns @ 75 mls/hr -Hypokalemia, being Repleted -Sodium controlled diet #PPx -DVT: Heparin TID Visit type - Emergency Visit Emergency Visit: Yes ED Registration Date: 06/25/18 Care time: The patient presented to the Emergency Department on the above date and was hospitalized for further evaluation of their emergent condition. - New Patient This patient is new to me today: Yes Date on this admission: 06/28/18 - Critical Care Critical Care patient: No - Discharge Referral Referred to [facility] Med P.C.: No
[2018-06-28] MEDS: LOSARTAN POTASSIUM 50 MG TABLET (FP) PO SCH (17:30)
[2018-06-28] MEDS: ALLOPURINOL 100 MG TABLET (FP) PO SCH (17:30)
[2018-06-28] MEDS: amLODIPine BESYLATE 10 MG TABLET (FP) PO SCH (17:30)
[2018-06-28] MEDS: KCL 10 MEQ IVPB 10 MEQ/100 ML INFUS.BAG IVPB SCH ×3 (17:31→23:40)
[2018-06-28] MEDS: DEXTROSE 5%-0.45% SALINE 1,000 ML IV SCH (23:38)
[2018-06-29] MEDS: HEPARIN NA (PORCINE) 5,000 UNITS/ML 1ML VIAL SQ SCH ×4 (05:49→21:08)
[2018-06-29] MEDS: INSULIN SLIDING SCALE (NOVOLOG) 1 VIAL SQ SCH ×2 (06:01→17:45)
[2018-06-29 07:41] LABS: ANION GAP 9 MMOL/L (8-16); BLOOD UREA NITROGEN 7 mg/dL (7-18); CALCIUM 9.2 mg/dL (8.5-10.1); CHLORIDE 95 mmol/L (98-107); CO2 28 mmol/L (21-32); CREATININE 0.6 mg/dL (0.55-1.3); GLUCOSE,RANDOM 105 mg/dL (74-106); MAGNESIUM 2.2 mg/dL (1.8-2.4); PHOSPHOROUS 2.9 mg/dL (2.5-4.9); POTASSIUM 3.6 mmol/L (3.5-5.1); SODIUM 133 mmol/L (136-145)
--- NOTE | 2018-06-29 10:38 | PN ---
Physical Exam: SUBJECTIVE: Patient seen and examined this AM. No new complaints. No acute overnight events as per nursing. OBJECTIVE: Vital Signs Period Temp Pulse Resp BP Sys/Rosales Pulse Ox Last 24 Hr 97.7 F-98.3 F 73-85 20-20 108-130/58-84 95 GENERAL: A&Ox2, NAD HEAD: Healing contusion over the Left lateral Orbital EYES: PERRL, EOMI ENT: moist mucous membranes LUNGS: Diminished breath sounds at the bases, no wheezes, no crackles HEART: Regular rate and rhythm, S1, S2 without murmur ABDOMEN: Soft, nontender, nondistended, + bowel sounds, no guarding EXTREMITIES: no edema NEUROLOGICAL: Confused, moving extremities freely SKIN: Warm, dry Laboratory Results - last 24 hr 06/28/18 06/29/18 06/29/18 18:35 05:30 05:44 Sodium 133 L Potassium 3.6 Chloride 95 L Carbon Dioxide 28 Anion Gap 9 BUN 7 Creatinine 0.6 Creat Clearance w eGFR 129.31 POC Glucometer 209 157 Random Glucose 105 Calcium 9.2 Phosphorus 2.9 Magnesium 2.2 Microbiology 06/25/18 21:57 Urine - Urine Clean Catch Urine Culture - Final Contaminated: Please Repeat Active Medications Allopurinol (Zyloprim -) 100 mg PO DAILY [facility] Last Admin: 06/28/18 17:30 Dose: 100 mg Amlodipine Besylate (Norvasc -) 10 mg PO DAILY [facility] Last Admin: 06/28/18 17:30 Dose: 10 mg Heparin Sodium (Porcine) (Heparin -) 5,000 unit SQ TID [facility] Last Admin: 06/29/18 05:49 Dose: 5,000 unit Dextrose/Sodium Chloride (D5-1/2ns -) 1,000 mls @ 75 mls/hr IV ASDIR [facility] Last Admin: 06/28/18 23:38 Dose: Not Given Insulin Aspart (Novolog Vial Sliding Scale -) 1 vial SQ BIDAC [facility]; Protocol Last Admin: 06/29/18 06:01 Dose: 2 units Losartan Potassium (Cozaar -) 50 mg PO DAILY [facility] Last Admin: 06/28/18 17:30 Dose: 50 mg Tramadol HCl (Ultram -) 50 mg PO Q8H PRN PRN Reason: PAIN 4-6 IMAGING: -CXR: Hyperinflation. No acute chest pathology. -CT C-Spine: No fracture is identified. -Head CT without contrast: No CT evidence of acute intracranial pathology. The intracranial structures demonstrate no definite interval change in comparison to a prior CT exam of 09/08/2014. There is a probable small parietal scalp soft tissue contusion along the midline posteriorly. -Facial bones CT without contrast: No acute fracture is identified. -Abdominal US: Fatty infiltration of the liver -EKG: NSR, VR 88, QTc 471 ASSESSMENT/PLAN: 82 y/o M with PMHx of BPH, Gout, HTN, Alzheimer's dementia admitted for frequent falls with decreased PO intake, weight loss, and memory loss. #Frequent falls -In the setting of advancing dementia -Tramadol 50mg PO Q8H PRN -PT evaluation -Fall precautions -Pending placement #Contusion of face -S/P Fall -Monitor #Elevated TBili + Elevated Alk Phos -In the setting of Fatty Liver (Noted on Abdominal US above) #HTN -Amlodipine 10mg PO Daily, Losartan Potassium 50mg PO Daily #Gout -Allopurinol 100mg PO Daily #FEN -D5-1/2ns @ 75 mls/hr -Hypokalemia, Repleted -Sodium controlled diet #PPx -DVT: Heparin TID Dispo: Pending placement Visit type - Emergency Visit Emergency Visit: Yes ED Registration Date: 06/25/18 Care time: The patient presented to the Emergency Department on the above date and was hospitalized for further evaluation of their emergent condition. - New Patient This patient is new to me today: No - Critical Care Critical Care patient: No - Discharge Referral Referred to [facility] Med P.C.: No
[2018-06-29] MEDS: LOSARTAN POTASSIUM 50 MG TABLET (FP) PO SCH (10:59)
[2018-06-29] MEDS: ALLOPURINOL 100 MG TABLET (FP) PO SCH (10:59)
[2018-06-29] MEDS: amLODIPine BESYLATE 10 MG TABLET (FP) PO SCH (10:59)
[2018-06-29] MEDS ORDERED: POTASSIUM CHLORIDE TABS 20 MEQ TABLET.ER (FP) PO ONE (11:00)
--- NOTE | 2018-06-29 11:10 | PN ---
Physical Exam: SUBJECTIVE: Patient seen and examined at bedside. Resting comfortably in bed. No events over night. OBJECTIVE: Vital Signs Period Temp Pulse Resp BP Sys/Rosales Pulse Ox Last 24 Hr 97.7 F-98.3 F 73-85 20-20 108-130/58-84 95 GENERAL: The patient is AA0X2 HEENT : Healing bruise over left orbit LUNGS: Breath sounds equal, clear to auscultation bilaterally, no wheezes, no crackles, no accessory muscle use. HEART: Regular rate and rhythm, S1, S2 without murmur, rub or gallop. ABDOMEN: Soft, nontender, nondistended, normoactive bowel sounds, no guarding, no rebound, no hepatosplenomegaly, no masses. EXTREMITIES: 2+ pulses, warm, well-perfused, no edema. NEUROLOGICAL: Cranial nerves II through XII grossly intact. Normal speech, gait not observed. Appears confused at baseline. PSYCH: No agitation. SKIN: Warm, dry, normal turgor, no rashes or lesions noted Laboratory Results - last 24 hr 06/28/18 06/29/18 06/29/18 18:35 05:30 05:44 Sodium 133 L Potassium 3.6 Chloride 95 L Carbon Dioxide 28 Anion Gap 9 BUN 7 Creatinine 0.6 Creat Clearance w eGFR 129.31 POC Glucometer 209 157 Random Glucose 105 Calcium 9.2 Phosphorus 2.9 Magnesium 2.2 Active Medications Generic Name Dose Route Start Last Admin Trade Name Freq PRN Reason Stop Dose Admin Allopurinol 100 mg 06/27/18 10:00 06/29/18 10:59 Zyloprim - PO 100 mg DAILY [facility] Administration Amlodipine Besylate 10 mg 06/27/18 10:00 06/29/18 10:59 Norvasc - PO 10 mg DAILY [facility] Administration Heparin Sodium (Porcine) 5,000 unit 06/26/18 06:00 06/29/18 05:49 Heparin - SQ 5,000 unit TID [facility] Administration Dextrose/Sodium Chloride 1,000 mls @ 75 mls/hr 06/25/18 22:15 06/28/18 23:38 D5-1/2ns - IV Not Given ASDIR [facility] Insulin Aspart 1 vial 06/26/18 07:00 06/29/18 06:01 Novolog Vial Sliding Scale - SQ 2 units BIDAC [facility] Administration Protocol Losartan Potassium 50 mg 06/27/18 10:00 06/29/18 10:59 Cozaar - PO 50 mg DAILY [facility] Administration Tramadol HCl 50 mg 06/26/18 14:00 Ultram - PO Q8H PRN PAIN 4-6 ASSESSMENT/PLAN: 82 y/o M with PMHx of BPH, Gout, HTN, Alzheimer's dementia admitted for frequent falls with decreased PO intake, weight loss, and memory loss. # Functional decline with Frequent falls >> Trauma w/u negative. -In the setting of advancing dementia -Tramadol 50mg PO Q8H PRN -PT evaluation -Fall precautions -Will likely need placement # Hyponatremia , mild. # Hypokalemia >> repleted. #Contusion of face -S/P Fall -Imaging noted above not suggestive of fx #Elevated TBili + Elevated Alk Phos -In the setting of Fatty Liver (Noted on Abdominal US above) -Hep panel negative #HTN -Continue Amlodipine 10mg PO Daily, Losartan Potassium 50mg PO Daily #Gout -Allopurinol 100mg PO Daily #FEN - Would d/c IVF given tolerating diet. #PPx -DVT: Heparin sc TID Awaiting placement to SNF/STR. pLAN d/w the physician internist in round. Visit type - Emergency Visit Emergency Visit: Yes ED Registration Date: 06/25/18 Care time: The patient presented to the Emergency Department on the above date and was hospitalized for further evaluation of their emergent condition. - New Patient This patient is new to me today: No - Critical Care Critical Care patient: No - Discharge Referral Referred to [facility] Med P.C.: No
[2018-06-30] MEDS: INSULIN SLIDING SCALE (NOVOLOG) 1 VIAL SQ SCH ×2 (06:28→16:07)
[2018-06-30 08:14] LABS: ANION GAP 6 MMOL/L (8-16); BLOOD UREA NITROGEN 7 mg/dL (7-18); CALCIUM 9.2 mg/dL (8.5-10.1); CHLORIDE 97 mmol/L (98-107); CO2 29 mmol/L (21-32); CREATININE 0.6 mg/dL (0.55-1.3); GLUCOSE,RANDOM 110 mg/dL (74-106); MAGNESIUM 2.3 mg/dL (1.8-2.4); PHOSPHOROUS 4.6 mg/dL (2.5-4.9); POTASSIUM 3.7 mmol/L (3.5-5.1); SODIUM 132 mmol/L (136-145)
[2018-06-30] MEDS: amLODIPine BESYLATE 10 MG TABLET (FP) PO SCH (10:04)
[2018-06-30] MEDS: LOSARTAN POTASSIUM 50 MG TABLET (FP) PO SCH (10:04)
[2018-06-30] MEDS: ALLOPURINOL 100 MG TABLET (FP) PO SCH (10:04)
[2018-06-30] MEDS: HEPARIN NA (PORCINE) 5,000 UNITS/ML 1ML VIAL SQ SCH ×2 (14:30→21:30)
--- NOTE | 2018-06-30 15:35 | PN ---
Physical Exam: SUBJECTIVE: Patient seen and examined this AM. No new complaints. No acute overnight events as per nursing. OBJECTIVE: Vital Signs Period Temp Pulse Resp BP Sys/Rosales Pulse Ox Last 24 Hr 97.4 F-98.3 F 72-86 18-20 98-130/66-86 99 GENERAL: A&Ox2, NAD HEAD: Healing contusion over the Left lateral Orbital EYES: PERRL, EOMI ENT: moist mucous membranes LUNGS: Diminished breath sounds at the bases, no wheezes, no crackles HEART: Regular rate and rhythm, S1, S2 without murmur ABDOMEN: Soft, nontender, nondistended, + bowel sounds, no guarding EXTREMITIES: no edema NEUROLOGICAL: Moving extremities freely SKIN: Warm, dry Laboratory Results - last 24 hr 06/29/18 06/30/18 17:43 06:30 Sodium 132 L Potassium 3.7 Chloride 97 L Carbon Dioxide 29 Anion Gap 6 L BUN 7 Creatinine 0.6 Creat Clearance w eGFR 129.31 POC Glucometer 126 Random Glucose 110 H Calcium 9.2 Phosphorus 4.6 Magnesium 2.3 Microbiology 06/25/18 21:57 Urine - Urine Clean Catch Urine Culture - Final Contaminated: Please Repeat Active Medications Allopurinol (Zyloprim -) 100 mg PO DAILY [facility] Last Admin: 06/30/18 10:04 Dose: 100 mg Amlodipine Besylate (Norvasc -) 10 mg PO DAILY [facility] Last Admin: 06/30/18 10:04 Dose: 10 mg Heparin Sodium (Porcine) (Heparin -) 5,000 unit SQ TID [facility] Last Admin: 06/29/18 21:08 Dose: 5,000 unit Insulin Aspart (Novolog Vial Sliding Scale -) 1 vial SQ BIDAC [facility]; Protocol Last Admin: 06/29/18 17:45 Dose: Not Given Losartan Potassium (Cozaar -) 50 mg PO DAILY [facility] Last Admin: 06/30/18 10:04 Dose: 50 mg Tramadol HCl (Ultram -) 50 mg PO Q8H PRN PRN Reason: PAIN 4-6 IMAGING: -CXR: Hyperinflation. No acute chest pathology. -CT C-Spine: No fracture is identified. -Head CT without contrast: No CT evidence of acute intracranial pathology. The intracranial structures demonstrate no definite interval change in comparison to a prior CT exam of 09/08/2014. There is a probable small parietal scalp soft tissue contusion along the midline posteriorly. -Facial bones CT without contrast: No acute fracture is identified. -Abdominal US: Fatty infiltration of the liver -EKG: NSR, VR 88, QTc 471 ASSESSMENT/PLAN: 82 y/o M with PMHx of BPH, Gout, HTN, Alzheimer's dementia admitted for frequent falls with decreased PO intake, weight loss, and memory loss. #Frequent falls -In the setting of advancing dementia -Tramadol 50mg PO Q8H PRN -Physical therapy, Fall precautions -Family request Palliative care consult, appreciate rec's -Psych (Dr. Hicsk) Consult pending for capacity #Contusion of face -S/P Fall -Monitor #Elevated TBili + Elevated Alk Phos -In the setting of Fatty Liver (Noted on Abdominal US above) #HTN -Amlodipine 10mg PO Daily, Losartan Potassium 50mg PO Daily #Gout -Allopurinol 100mg PO Daily #FEN -No standing fluids -Lytes WNL -Sodium controlled diet #PPx -DVT: Heparin TID Dispo: Pending placement Visit type - Emergency Visit Emergency Visit: Yes ED Registration Date: 06/25/18 Care time: The patient presented to the Emergency Department on the above date and was hospitalized for further evaluation of their emergent condition. - New Patient This patient is new to me today: No - Critical Care Critical Care patient: No - Discharge Referral Referred to [facility] Med [facility].C.: No
--- NOTE | 2018-06-30 17:41 | PN ---
Teaching Attending Note Name of Resident: Beverly Mix ATTENDING PHYSICIAN STATEMENT I saw and evaluated the patient. I reviewed the resident's note and discussed the case with the resident. I agree with the resident's findings and plan as documented. SUBJECTIVE: denies pain. OBJECTIVE: NAD Cv : RRR Lungs: CTAB Ext : no edema ASSESSMENT AND PLAN: 82 y/o man with h/o dementia, BPH, gout, HTN and other problems who presented with recurrent falls and decline in his functional status. 1- recurrent falls. - No fx on imaging - TSH , nl, check B12 - PT . 2- Transaminitis, with indirect bilirubinemia: US with fatty liver. monitor hepatitis serology , missing the Hep B surface Abs. will add 3- agitation , likely acute delirium. improved. off restraints since am 4- goals of care. psych eval for capacity, for MOLSt form. as of now, full code dispo : rehab probably tomorrow
--- NOTE | 2018-06-30 23:11 | PN ---
Mental Health Exam - Mental Status Exam Alert and Oriented to: Time (alert orientated by 2. ), Place Cognitive Function: Grossly Intact Patient Appearance: Unkempt, Disheveled (unshaven) Mood: Apprehensive Affect: Mood Congruent Patient Behavior: Restless, Cooperative Speech Pattern: Clear (accented british. ) Voice Loudness: Normal Thought Process: Intact, Goal Oriented Thought Disorder: Not Present Hallucinations: None Suicidal Ideation: None Homicidal Ideation: None Insight/Judgement: Fair Sleep: Fair Appetite: Fair Muscle strength/Tone: Normal Gait/Station: Deferred (having falln noted bruising on right side of head, confirmed ct scan of head) Additional Comments: Consult called for capacity to make own descisions. 82 yo man seeen at bedside, seeking water (was unable to find the word). He is alert, orientated by 2. Denies any psychiatric history. Unstable gait, clear in communication, no psychosis or depression but does have life review. Has diagnosis of dementia. Client currently has capacity to make own descisions.
[2018-07-01] MEDS: HEPARIN NA (PORCINE) 5,000 UNITS/ML 1ML VIAL SQ SCH (06:26)
[2018-07-01] MEDS: INSULIN SLIDING SCALE (NOVOLOG) 1 VIAL SQ SCH (06:27)
[2018-07-01 07:12] LABS: ANION GAP 7 MMOL/L (8-16); BLOOD UREA NITROGEN 11 mg/dL (7-18); CHLORIDE 98 mmol/L (98-107); CO2 29 mmol/L (21-32); CREATININE 0.8 mg/dL (0.55-1.3); GLUCOSE,RANDOM 87 mg/dL (74-106); MAGNESIUM 2.3 mg/dL (1.8-2.4); PHOSPHOROUS 4.5 mg/dL (2.5-4.9); POTASSIUM 3.8 mmol/L (3.5-5.1); SODIUM 134 mmol/L (136-145)
[2018-07-01] MEDS ORDERED: amLODIPine BESYLATE 10 MG TABLET (FP) PO SCH (10:00)
[2018-07-01] MEDS ORDERED: LOSARTAN POTASSIUM 50 MG TABLET (FP) PO SCH (10:00)
[2018-07-01] MEDS ORDERED: ALLOPURINOL 100 MG TABLET (FP) PO SCH (10:00)
[2018-07-01] MEDS ORDERED: HEPARIN NA (PORCINE) 5,000 UNITS/ML 1ML VIAL SQ SCH (14:00)
--- NOTE | 2018-07-01 14:05 | DS ---
Physical Exam: SUBJECTIVE: Patient seen and examined this AM. No new complaints. No acute overnight events as per nursing. OBJECTIVE: Vital Signs Period Temp Pulse Resp BP Sys/Rosales Pulse Ox Last 24 Hr 97.5 F-98.9 F 75-83 18-20 86-109/57-71 99 PHYSICAL EXAM GENERAL: A&Ox2, NAD HEAD: Healing contusion over the Left lateral Orbital EYES: PERRL, EOMI ENT: moist mucous membranes LUNGS: Diminished breath sounds at the bases, no wheezes, no crackles HEART: Regular rate and rhythm, S1, S2 without murmur ABDOMEN: Soft, nontender, nondistended, + bowel sounds, no guarding EXTREMITIES: no edema NEUROLOGICAL: Moving extremities freely SKIN: Warm, dry LABS Laboratory Last Values WBC 6.2 K/mm3 (4.0-10.0) 06/27/18 06:30 RBC 4.35 M/mm3 (4.00-5.60) 06/27/18 06:30 Hgb 14.5 GM/dL (11.7-16.9) 06/27/18 06:30 Hct 41.1 % (35.4-49) 06/27/18 06:30 MCV 94.3 fl (80-96) 06/27/18 06:30 MCH 33.3 pg (25.7-33.7) 06/27/18 06:30 MCHC 35.3 g/dl (32.0-35.9) 06/27/18 06:30 RDW 13.3 % (11.9-15.9) 06/27/18 06:30 Plt Count 189 K/MM3 (134-434) 06/27/18 06:30 MPV 7.4 fl (7.5-11.1) L 06/27/18 06:30 Absolute Neuts (auto) 4.3 K/mm3 (1.5-8.0) 06/27/18 06:30 Neutrophils % 70.3 % (42.8-82.8) 06/27/18 06:30 Lymphocytes % 19.5 % (8-40) D 06/27/18 06:30 Monocytes % 7.9 % (3.8-10.2) 06/27/18 06:30 Eosinophils % 1.5 % (0-4.5) D 06/27/18 06:30 Basophils % 0.8 % (0-2.0) 06/27/18 06:30 Nucleated RBC % 0 % (0-0) 06/27/18 06:30 Sodium 134 mmol/L (136-145) L 07/01/18 06:00 Potassium 3.8 mmol/L (3.5-5.1) 07/01/18 06:00 Chloride 98 mmol/L (98-107) 07/01/18 06:00 Carbon Dioxide 29 mmol/L (21-32) 07/01/18 06:00 Anion Gap 7 MMOL/L (8-16) L 07/01/18 06:00 BUN 11 mg/dL (7-18) 07/01/18 06:00 Creatinine 0.8 mg/dL (0.55-1.3) 07/01/18 06:00 Creat Clearance w eGFR 92.78 (>60) 07/01/18 06:00 POC Glucometer 113 UNITS (80-120) 06/30/18 16:06 Random Glucose 87 mg/dL (74-106) 07/01/18 06:00 Calcium 9.0 mg/dL (8.5-10.1) 07/01/18 06:00 Phosphorus 4.5 mg/dL (2.5-4.9) 07/01/18 06:00 Magnesium 2.3 mg/dL (1.8-2.4) 07/01/18 06:00 Total Bilirubin 2.5 mg/dL (0.2-1) H 06/28/18 05:30 Direct Bilirubin 0.5 mg/dL (0.0-0.2) H 06/25/18 18:27 AST 42 U/L (15-37) H 06/26/18 05:30 ALT 12 U/L (13-61) L 06/26/18 05:30 Alkaline Phosphatase 97 U/L (45-117) 06/26/18 05:30 Creatine Kinase 381 U/L (26-308) H 06/25/18 18:27 Creatine Kinase Index 1.1 % (0.0-5.0) 06/25/18 18:27 CK-MB (CK-2) 4.3 ng/mL (0.5-3.6) H 06/25/18 18:27 Troponin I < 0.02 ng/ml (0.00-0.05) 06/25/18 18:27 Total Protein 5.5 g/dl (6.4-8.2) L 06/26/18 05:30 Albumin 3.0 g/dl (3.4-5.0) L 06/26/18 05:30 Lipase 87 U/L (73-393) 06/25/18 18:27 Vitamin B12 721 pg/ml (193-986) 06/30/18 06:30 TSH 0.68 uIU/ml (0.358-3.74) 06/26/18 05:30 Urine Color Dk yellow 06/25/18 21:57 Urine Appearance Cloudy 06/25/18 21:57 Urine pH 5.0 (5.0-8.0) 06/25/18 21:57 Ur Specific [place] 1.027 (1.010-1.035) 06/25/18 21:57 Urine Protein 1+ (NEGATIVE) H 06/25/18 21:57 Urine Glucose (UA) Negative (NEGATIVE) 06/25/18 21:57 Urine Ketones Trace (NEGATIVE) H 06/25/18 21:57 Urine Blood Negative (NEGATIVE) 06/25/18 21:57 Urine Nitrite Negative (NEGATIVE) 06/25/18 21:57 Urine Bilirubin 1+ (NEGATIVE) H 06/25/18 21:57 Urine Urobilinogen 1.0 mg/dL (0.2-1.0) 06/25/18 21:57 Ur Leukocyte Esterase Negative (NEGATIVE) 06/25/18 21:57 Urine WBC (Auto) 8 /hpf (0-5) 06/25/18 21:57 Urine RBC (Auto) 2 /hpf (0-4) 06/25/18 21:57 Urine Casts (Auto) 78 /lpf (0-8) 06/25/18 21:57 U Epithel Cells (Auto) 7.1 /HPF (0-5/HPF) 06/25/18 21:57 Urine Bacteria (Auto) 12.3 /hpf (NEGATIVE) 06/25/18 21:57 Hepatitis A IgM Ab Negative (Negative) 06/26/18 05:30 Hep Bs Antigen Negative (Negative) 06/26/18 05:30 Hep B Core IgM Ab Negative (Negative) 06/26/18 05:30 Hepatitis C Antibody <0.1 s/co ratio (0.0-0.9) 06/26/18 05:30 Microbiology 06/25/18 21:57 Urine - Urine Clean Catch Urine Culture - Final Contaminated: Please Repeat IMAGING: -CXR: Hyperinflation. No acute chest pathology. -CT C-Spine: No fracture is identified. -Head CT without contrast: No CT evidence of acute intracranial pathology. The intracranial structures demonstrate no definite interval change in comparison to a prior CT exam of 09/08/2014. There is a probable small parietal scalp soft tissue contusion along the midline posteriorly. -Facial bones CT without contrast: No acute fracture is identified. -Abdominal US: Fatty infiltration of the liver -EKG: NSR, VR 88, QTc 471 HOSPITAL COURSE: Date of Admission:06/25/18 Date of Discharge: 07/01/18 82 y/o M with PMHx of BPH, Gout, HTN, Alzheimer's dementia admitted for frequent falls with decreased PO intake, weight loss, and memory loss. Micro and labwork noted above. Patient has multiple falls in the setting of advancing dementia. Imaging was not significant for any fractures. Patient received physical therapy during his stay. His Left orbital contusion improved. He continued all of his home meds during his stay. Patient was evaluated by Psych and deemed to have capacity. Palliative care was consulted for goals of care and at this time, patient remains full code. Patient was discharged to SNF with strict instructions for medication compliance and physician follow up. Minutes to complete discharge: 36 Discharge Summary Reason For Visit: SYNCOPE/CCONTUSION OF FACE/FAILURE TO THRIVE IN Current Active Problems Contusion of face (Acute) Dehydration (Acute) Frequent falls (Acute) Hypokalemia (Acute) Condition: Stable - Instructions Diet, Activity, Other Instructions: You were admitted to the hospital because after a fall. You are being discharged to rehab to help strengthen your muscles. Follow up with the following physicians: 1. Primary care physician in one week Continue all your other medications as prescribed Please return to the ER if you have any signs or symptoms of chest pain, shortness of breath, uncontrollable fever, chills, nausea, vomiting, numbness, tingling, or weakness in any part of your body, changes in vision, slurred speech, changes in speech/gait, or dizziness. Please return to the ER if symptoms persist, worsen, or new symptoms arise. Disposition: [facility] - Home Medications Comprehensive Discharge Medication List: Ambulatory Orders Allopurinol [Zyloprim -] 100 mg PO DAILY 09/08/14 Amlodipine Besylate [Norvasc -] 10 mg PO DAILY 09/08/14 Losartan Potassium 50 mg PO DAILY 09/08/14 This patient is new to me today: No Emergency Visit: Yes ED Registration Date: 06/25/18 Care time: The patient presented to the Emergency Department on the above date and was hospitalized for further evaluation of their emergent condition. Critical Care patient: No - Discharge Referral Referred to [facility] Med P.C.: No
[2018-07-01] MEDS ORDERED: INSULIN SLIDING SCALE (NOVOLOG) 1 VIAL SQ SCH (16:30)
[2018-07-01 17:25] VITALS: BP 96/64; PULSE 76; TEMP 98.2
[2018-07-01] MEDS ORDERED: INSULIN (NOVOLOG) ASPART 100 UNITS/ML 10ML VIAL ONE (17:25)
--- NOTE | 2018-07-01 17:58 | PN ---
Teaching Attending Note Name of Resident: Beverly Mix ATTENDING PHYSICIAN STATEMENT I saw and evaluated the patient. I reviewed the resident's note and discussed the case with the resident. I agree with the resident's findings and plan as documented. SUBJECTIVE: Seen and examined at bedside. Feeling better, no acute events OBJECTIVE: Vital Signs Period Temp Pulse Resp BP Sys/Rosales Pulse Ox Last 24 Hr 97.5 F-98.9 F 71-83 18-20 86-109/57-71 99 Active Medications Allopurinol (Zyloprim -) 100 mg PO DAILY [facility] Last Admin: 07/01/18 09:58 Dose: 100 mg Amlodipine Besylate (Norvasc -) 10 mg PO DAILY [facility] Last Admin: 07/01/18 09:58 Dose: 10 mg Heparin Sodium (Porcine) (Heparin -) 5,000 unit SQ TID [facility] Last Admin: 07/01/18 14:09 Dose: 5,000 unit Insulin Aspart (Novolog Vial Sliding Scale -) 1 vial SQ BIDAC [facility]; Protocol Last Admin: 07/01/18 17:41 Dose: Not Given Losartan Potassium (Cozaar -) 50 mg PO DAILY [facility] Last Admin: 07/01/18 09:58 Dose: 50 mg Laboratory Last Values WBC 6.2 K/mm3 (4.0-10.0) 06/27/18 06:30 RBC 4.35 M/mm3 (4.00-5.60) 06/27/18 06:30 Hgb 14.5 GM/dL (11.7-16.9) 06/27/18 06:30 Hct 41.1 % (35.4-49) 06/27/18 06:30 MCV 94.3 fl (80-96) 06/27/18 06:30 MCH 33.3 pg (25.7-33.7) 06/27/18 06:30 MCHC 35.3 g/dl (32.0-35.9) 06/27/18 06:30 RDW 13.3 % (11.9-15.9) 06/27/18 06:30 Plt Count 189 K/MM3 (134-434) 06/27/18 06:30 MPV 7.4 fl (7.5-11.1) L 06/27/18 06:30 Absolute Neuts (auto) 4.3 K/mm3 (1.5-8.0) 06/27/18 06:30 Neutrophils % 70.3 % (42.8-82.8) 06/27/18 06:30 Lymphocytes % 19.5 % (8-40) D 06/27/18 06:30 Monocytes % 7.9 % (3.8-10.2) 06/27/18 06:30 Eosinophils % 1.5 % (0-4.5) D 06/27/18 06:30 Basophils % 0.8 % (0-2.0) 06/27/18 06:30 Nucleated RBC % 0 % (0-0) 06/27/18 06:30 Sodium 134 mmol/L (136-145) L 07/01/18 06:00 Potassium 3.8 mmol/L (3.5-5.1) 07/01/18 06:00 Chloride 98 mmol/L (98-107) 07/01/18 06:00 Carbon Dioxide 29 mmol/L (21-32) 07/01/18 06:00 Anion Gap 7 MMOL/L (8-16) L 07/01/18 06:00 BUN 11 mg/dL (7-18) 07/01/18 06:00 Creatinine 0.8 mg/dL (0.55-1.3) 07/01/18 06:00 Creat Clearance w eGFR 92.78 (>60) 07/01/18 06:00 POC Glucometer 97 UNITS (80-120) 07/01/18 17:40 Random Glucose 87 mg/dL (74-106) 07/01/18 06:00 Calcium 9.0 mg/dL (8.5-10.1) 07/01/18 06:00 Phosphorus 4.5 mg/dL (2.5-4.9) 07/01/18 06:00 Magnesium 2.3 mg/dL (1.8-2.4) 07/01/18 06:00 Total Bilirubin 2.5 mg/dL (0.2-1) H 06/28/18 05:30 Direct Bilirubin 0.5 mg/dL (0.0-0.2) H 06/25/18 18:27 AST 42 U/L (15-37) H 06/26/18 05:30 ALT 12 U/L (13-61) L 06/26/18 05:30 Alkaline Phosphatase 97 U/L (45-117) 06/26/18 05:30 Creatine Kinase 381 U/L (26-308) H 06/25/18 18:27 Creatine Kinase Index 1.1 % (0.0-5.0) 06/25/18 18:27 CK-MB (CK-2) 4.3 ng/mL (0.5-3.6) H 06/25/18 18:27 Troponin I < 0.02 ng/ml (0.00-0.05) 06/25/18 18:27 Total Protein 5.5 g/dl (6.4-8.2) L 06/26/18 05:30 Albumin 3.0 g/dl (3.4-5.0) L 06/26/18 05:30 Lipase 87 U/L (73-393) 06/25/18 18:27 Vitamin B12 721 pg/ml (193-986) 06/30/18 06:30 TSH 0.68 uIU/ml (0.358-3.74) 06/26/18 05:30 Urine Color Dk yellow 06/25/18 21:57 Urine Appearance Cloudy 06/25/18 21:57 Urine pH 5.0 (5.0-8.0) 06/25/18 21:57 Ur Specific [place] 1.027 (1.010-1.035) 06/25/18 21:57 Urine Protein 1+ (NEGATIVE) H 06/25/18 21:57 Urine Glucose (UA) Negative (NEGATIVE) 06/25/18 21:57 Urine Ketones Trace (NEGATIVE) H 06/25/18 21:57 Urine Blood Negative (NEGATIVE) 06/25/18 21:57 Urine Nitrite Negative (NEGATIVE) 06/25/18 21:57 Urine Bilirubin 1+ (NEGATIVE) H 06/25/18 21:57 Urine Urobilinogen 1.0 mg/dL (0.2-1.0) 06/25/18 21:57 Ur Leukocyte Esterase Negative (NEGATIVE) 06/25/18 21:57 Urine WBC (Auto) 8 /hpf (0-5) 06/25/18 21:57 Urine RBC (Auto) 2 /hpf (0-4) 06/25/18 21:57 Urine Casts (Auto) 78 /lpf (0-8) 06/25/18 21:57 U Epithel Cells (Auto) 7.1 /HPF (0-5/HPF) 06/25/18 21:57 Urine Bacteria (Auto) 12.3 /hpf (NEGATIVE) 06/25/18 21:57 Hepatitis A IgM Ab Negative (Negative) 06/26/18 05:30 Hep Bs Antigen Negative (Negative) 06/26/18 05:30 Hep B Core IgM Ab Negative (Negative) 06/26/18 05:30 Hepatitis C Antibody <0.1 s/co ratio (0.0-0.9) 06/26/18 05:30 ALL IMAGING REPORTS REVIEWED PHYSICAL EXAM: GENERAL: NAD, LEFT ORBITAL CONTUSION HEALING, SMALL AREA OF BRUISING CVS: S1S2 RRR LUNGS CTA BL UNLABORED ABDOMEN: SOFT, NTND, NABS EXT: 2+DPP, NO C/C/E ASSESSMENT AND PLAN: 82 y/o man with h/o dementia, BPH, HTN and other problems who presented with recurrent falls and decline in his functional status. 1) Unstable Gait, multiple falls, advanced dementia -no acute fractures -PT eval appreciated -STR transfer for conditioning -comfortable and off restraints -has full capacity 2) Transaminitis, with indirect bilirubinemia -US with fatty liver -monitor o/p, trending down -Hep B surface Abs pending, otherwise negative panel 3)HTN controlled on norvasc and losartan 4)Gout on allopurinol
== END 2018-07-01 19:03 | DRG 57 ==
LOC: JER 16:22 → JERBED 20:32 → J4W 06-26 02:01 → J8W 06-29 20:32
PROVIDERS: ADMIT Internal Medicine; ATTEND Internal Medicine
DX: G30.9 Alzheimer's disease, unspecified (principal); E87.8 Other disorders of electrolyte and fluid balance, not elsewhere classified; E86.0 Dehydration; Z78.1 Physical restraint status; F02.80 Dementia in other diseases classified elsewhere, unspecified severity, without behavioral disturbance, psychotic disturbance, mood disturbance, and anxiety; R63.0 Anorexia; E87.6 Hypokalemia; R55 Syncope and collapse; R29.6 Repeated falls; R26.9 Unspecified abnormalities of gait and mobility; I10 Essential (primary) hypertension; Z87.891 Personal history of nicotine dependence; S00.83XA Contusion of other part of head, initial encounter; W01.0XXA Fall on same level from slipping, tripping and stumbling without subsequent striking against object, initial encounter; Z91.81 History of falling; Y93.89 Activity, other specified; Y92.511 Restaurant or cafe as the place of occurrence of the external cause; Y99.8 Other external cause status; Z86.73 Personal history of transient ischemic attack (TIA), and cerebral infarction without residual deficits
CPT/HCPCS: 36415; 70450-TC; 70486-TC; 71045-TC-FY; 72125-TC; 76705-TC; 80048; 80053; 80074; 81003; 82247; 82248; 82550; 82553; 82607; 82962; 83690; 83735; 84100; 84443; 84484; 85025; 86706; 87086; 93005; 93010; 97116-GP; 99283-25; J1644

== ENCOUNTER 2018-10-13 18:01 | Inpatient (IN) | payer OTHER ==
[2018-10-13 18:22] VITALS: BMI 21.3
--- NOTE | 2018-10-13 19:05 | PDOC ---
History of Present Illness - General Chief Complaint: Injury Stated Complaint: FALL Time Seen by Provider: 10/13/18 19:05 History Source: Patient, Skilled Nursing Records Exam Limitations: Dementia, Language Barrier (divehi, cyracom [id number]) - History of Present Illness Initial Comments: 10/13/18 22:31 82 yo M pmh HTN and dementia sent from [facility] after an unwitnessed fall with pos head strike and probable LOC. Not on AC. Patient does not remember event and is a poor historian. He is not endorsing f/c/n/v/abdpain/chestpain/sob/ lightheaded/numbness/tingling/weakness. NKDA Past History - Past Medical History Allergies/Adverse Reactions: Allergies Allergy/AdvReac Type Severity Reaction Status Date / Time No Known Allergies Allergy Verified 10/13/18 18:16 Home Medications: Ambulatory Orders Allopurinol [Zyloprim -] 100 mg PO DAILY 09/08/14 Amlodipine Besylate [Norvasc -] 10 mg PO DAILY 09/08/14 Losartan Potassium 50 mg PO DAILY 09/08/14 COPD: No Dementia: Yes GI Disorders: Yes (H. PYLORI, DIVERTICULITIS) Disorders: Yes (KIDNEY STONES, BPH) HTN: Yes Hypercholesterolemia: Yes Psychiatric Problems: Yes (DEMENTIA) - Suicide/Smoking/Psychosocial Hx Smoking Status: No Smoking History: Unknown if ever smoked Have you smoked in the past 12 months: No If you are a former smoker, when did you quit?: 8 YRS Information on smoking cessation initiated: No Hx Alcohol Use: No Drug/Substance Use Hx: No Substance Use Type: None Hx Substance Use Treatment: No Review of Systems - Review of Systems Able to Perform ROS?: Yes Comments:: 10/13/18 22:31 CONSTITUTIONAL: Denies F / C HEENT: Denies headache, lightheadedness. Denies sore throat, rhinorrhea. RESP: Denies SOB, cough CARD: Denies chest pain, palpitations GI: Denies N / V / D, abdominal pain, bloody stool, inability to tolerate PO : Denies dysuria, hematuria, frequency NEURO: Denies numbness, tingling, weakness *Physical Exam - Vital Signs Last Vital Signs Temp Pulse Resp BP Pulse Ox 97.3 F L 79 18 101/59 L 97 10/13/18 18:12 10/13/18 18:12 10/13/18 18:12 10/13/18 18:12 10/13/18 18:12 - Physical Exam Comments: 10/13/18 22:32 GEN: Resting comfortably in bed, NAD. HEENT: 2x2cm hematoma on the left posterior scalp, no active bleeding or oozing. No bony deformities. EOMI, PERRLA, CN II-XII intact. No cervical spinal tenderness. NEURO: Alert and oriented x2 to person and time only, does not recognize place. Sensation equal and intact throughout. 5/5 strength UE b/l. 4/5 strength LE b/ l. Can ambulate well. BACK: No TTP of vertebral column or paraspinal region. CV: S1/S2, RRR, no m/r/g LUNG: CTAB, no wheezes, crackles, rales, rhonchi. GI: soft, ndnt, +BS. Mass palpated in the suprapubic/LLQ. EXTREMITIES: 2+ distal pulses. No LE edema. No obvious deformities of all extremities. ED Treatment Course - LABORATORY CBC & Chemistry Diagram: 10/13/18 20:50 10/13/18 20:50 Medical Decision Making - Medical Decision Making 10/13/18 21:27 82 yo M sent from [facility] for unwitnessed fall w/ head strike and probable LOC ; not on AC. Has a nonbleeding posterior scalp hematoma. Pt is a poor historian. Syncope vs Mechanical Fall vs Dehydration - CBC, CMP, BNP, cardiac, PT/INR - CT Head and Neck - CXR, EKG 10/13/18 22:14 Trop neg f/u CT fluids admit obs-tele //signed out to night team *DC/Admit/Observation/Transfer Diagnosis at time of Disposition: Syncope Qualifiers: Syncope type: unspecified Qualified Code(s): R55 - Syncope and collapse - Discharge Dispostion Condition at time of disposition: Guarded Decision to Admit order: Yes - Referrals - Patient Instructions - Post Discharge Activity
[2018-10-13] MEDS ORDERED: DIPHTH,PERTUSS(ACELL),TET 0.5 ML DISP.SYRIN IM ONE (19:49)
[2018-10-13 21:21] LABS: INR 0.93 (0.83-1.09)
[2018-10-13 21:22] LABS: BASO % 0.7 % (0-2.0); EOS % 16.5 % (0-4.5); HEMATOCRIT 38.8 % (35.4-49); HEMOGLOBIN 13.4 GM/dL (11.7-16.9); LYMPH % 17.9 % (8-40); MCHC 34.4 g/dl (32.0-35.9); MEAN CELL VOLUME 89.9 fl (80-96); MEAN PLT VOLUME 6.8 fl (7.5-11.1); MONO % 8.2 % (3.8-10.2); NEUT % 56.7 % (42.8-82.8); PLATELET COUNT 314 K/MM3 (134-434); RBC 4.31 M/mm3 (4.00-5.60); RDW 12.6 % (11.9-15.9); WHITE BLOOD COUNT 7.1 K/mm3 (4.0-10.0)
[2018-10-13] MEDS ORDERED: OLANZapine 7.5 MG TABLET PO ONE (21:22)
[2018-10-13 21:24] LABS: ACTIVATED PTT 33.8 SECONDS (25.2-36.5)
[2018-10-13 21:28] LABS: ALBUMIN 3.6 g/dl (3.4-5.0); BILIRUBIN,TOTAL 0.8 mg/dL (0.2-1); BLOOD UREA NITROGEN 22.9 mg/dL (7-18); CALCIUM 9.2 mg/dL (8.5-10.1); CREATININE 0.7 mg/dL (0.55-1.3); N-TERMINAL BNP 18.7 pg/ml (5-450); POTASSIUM 4.2 mmol/L (3.5-5.1); TOT PROT 6.4 g/dl (6.4-8.2)
[2018-10-13] MEDS ORDERED: SODIUM CHLORIDE 0.9% 500 ML INFUS.BAG IV ONE (21:40)
[2018-10-13] MEDS ORDERED: OLANZapine 10 MG TABLET ONE (21:41)
[2018-10-13] MEDS ORDERED: INSULIN (NOVOLOG) ASPART 100 UNITS/ML 10ML VIAL ONE (21:42)
--- NOTE | 2018-10-13 23:01 | PDOC ---
Documentation entered by Ely Dunn SCRIBE, acting as scribe for Nicole Solorzano DO. Nicole Solorzano DO: This documentation has been prepared by the Mona srivastava Mackenzie, SCRIBE, under my direction and personally reviewed by me in its entirety. I confirm that the documentation accurately reflects all work, treatment, procedures, and medical decision making performed by me. 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 Patient is unaware if he suffered a LOC or struck his head. Denies any genitourinary symptoms. 10/13/18 21:25 - Physicial Exam PE: GENERAL: Awake, in no acute distress HEAD: No signs of trauma EYES: ENT:clear without exudates. Moist mucosa NECK: Normal ROM, LUNGS:. Normal work of breathing. HEART: Regular rate and rhythm, ABDOMEN: Soft, nondistended CHEST WALL: BACK: No midline tenderness. EXTREMITIES:. No erythema, or tenderness NEUROLOGICAL: Alert, SKIN: Warm, Dry 10/13/18 21:27 - Medical Decision Making 10/13/18 22:50 82-year-old male with history of dementia found on the floor at his living facility CT scan head and cervical spine show no acute traumatic injury Will admit for presumed syncope
--- NOTE | 2018-10-13 23:20 | PDOC ---
*Physical Exam - Vital Signs Last Vital Signs Temp Pulse Resp BP Pulse Ox 97.3 F L 79 18 101/59 L 97 10/13/18 18:12 10/13/18 18:12 10/13/18 18:12 10/13/18 18:12 10/13/18 18:12 ED Treatment Course - LABORATORY CBC & Chemistry Diagram: 10/13/18 20:50 10/13/18 20:50 - ADDITIONAL ORDERS Additional order review: Laboratory Results 10/13/18 10/13/18 10/13/18 20:50 20:50 20:50 PT with INR 11.00 INR 0.93 PTT (Actin FS) 33.8 Sodium 137 Potassium 4.2 Chloride 101 Carbon Dioxide 28 Anion Gap 8 BUN 22.9 H Creatinine 0.7 Est GFR (CKD-EPI)AfAm 102.58 Est GFR (CKD-EPI)NonAf 88.50 Random Glucose 127 H Calcium 9.2 Total Bilirubin 0.8 AST 20 ALT 11 L Alkaline Phosphatase 70 Creatine Kinase 268 Creatine Kinase Index 0.7 CK-MB (CK-2) 2.0 Troponin I < 0.02 B-Natriuretic Peptide 18.7 Total Protein 6.4 Albumin 3.6 10/13/18 20:50 RBC 4.31 MCV 89.9 MCHC 34.4 RDW 12.6 MPV 6.8 L Neutrophils % 56.7 Lymphocytes % 17.9 Monocytes % 8.2 Eosinophils % 16.5 H D Basophils % 0.7 - Medications Given in the ED: ED Medications Discontinued Medications Generic Name Dose Route Start Last Admin Trade Name Freq PRN Reason Stop Dose Admin Olanzapine 7.5 mg 10/13/18 21:22 10/13/18 21:45 Zyprexa - PO 10/13/18 21:23 7.5 mg ONCE ONE Administration Sodium Chloride 1,000 ml 10/13/18 21:40 10/13/18 22:38 Normal Saline - IV 10/13/18 21:41 1,000 ml ONCE ONE Administration Medical Decision Making - Medical Decision Making 10/13/18 23:15 Signed out by Niels Lopez 82 y/o M hx of dementia, bph, htn , hld, diverticulitis, gout, arthritis, inguinal hernia, presents from [facility] after and unwitnessed fall. Ddx: Syncope vs mechanical fall vs dehydration To Do's: patient admitted for presumed syncope. Awaiting Ct head and spine results. Pt admitted to tele-obs for syncope. Results Head CT:No acute intracranial pathology. No change from previous CT on 06/25/2018 CT C-spine: No fracture identified. multiple degenerative changes and advanced periodontal disease. -Pt. agitated in the ED. Received olanzapine ,haldol and ativan x1 10/14/18 07:24 *DC/Admit/Observation/Transfer Diagnosis at time of Disposition: Syncope Qualifiers: Syncope type: unspecified Qualified Code(s): R55 - Syncope and collapse - Discharge Dispostion Condition at time of disposition: Guarded - Referrals - Patient Instructions - Post Discharge Activity
[2018-10-13] MEDS ORDERED: HALOPERIDOL LACTATE 5 MG/ML ONE (23:33)
[2018-10-13] MEDS ORDERED: HALOPERIDOL LACTATE 5 MG/ML IM ONE (23:54)
[2018-10-14] MEDS ORDERED: DIPHTH,PERTUSS(ACELL),TET 0.5 ML DISP.SYRIN IM ONE (00:17)
[2018-10-14] MEDS ORDERED: LORazepam 20 MG/10 ML 10 ML MDV ONE (00:38)
--- NOTE | 2018-10-14 06:15 | HP ---
CHIEF COMPLAINT: s/p fall PCP: Dr. Benavides HISTORY OF PRESENT ILLNESS: 82 year old male with PMHX of BPH, HTN, HLD, Kidney stone, Diverticulitis, gout, arthritis, inguinal hernia, Alzheimer's dementia sent from [facility] after an unwitnessed fall with posterior head strike and probable LOC. Patient is not on AC. Patient does not remember event and is a poor historian. Patient denies CP,SOB, lightheaded/numbness/tingling/weakness. ER course was notable for: (1) head CT, CT spine- negative (2) given 1L IVF (3)agitated will ativan, haldol, and zyprexa x1 Recent Travel: no PAST MEDICAL HISTORY: BPH, HTN, HLD, Kidney stone, Diverticulitis, gout, arthritis, inguinal hernia, Alzheimer's dementia PAST SURGICAL HISTORY:Cataract Removal, hemorrhoidectomy at age 21 in [facility] Social History: Smoking:former smoker quite 8 years ago Alcohol: history, currently denies Drugs: no Family History: Heart Disease: Father (80s of heart), Other: Father, Mother ( at 104) Allergies: No Known Allergies Allergy (Verified 10/13/18 18:16) HOME MEDICATIONS: Home Medications Medication Instructions Recorded Allopurinol [Zyloprim -] 100 mg PO DAILY 09/08/14 Amlodipine Besylate [Norvasc -] 10 mg PO DAILY 09/08/14 Losartan Potassium 50 mg PO DAILY 09/08/14 REVIEW OF SYSTEMS ROS: limited due dementia CONSTITUTIONAL: Denies fever HEENT: Denies headache, no change in vision RESP: Denies cough CARD: Denies chest pain GI: Denies N / V / abdominal pain : Denies dysuria, hematuria NEURO: Denies weakness PHYSICAL EXAMINATION Vital Signs - 24 hr 10/13/18 18:12 Temperature 97.3 F L Pulse Rate 79 Respiratory 18 Rate Blood Pressure 101/59 L O2 Sat by Pulse 97 Oximetry (%) GEN: confused, NAD HEENT: posterior hematoma, EOMI, PERRLA, No JVD Cardio: s1/s2, no s3 resp; CTA b/l abd: soft, NT, ND, BS+ Extremity : no edema Neuro: awake with confusion Laboratory Results - last 24 hr 10/13/18 10/13/18 10/13/18 20:50 20:50 20:50 WBC 7.1 RBC 4.31 Hgb 13.4 Hct 38.8 MCV 89.9 MCH 31.0 MCHC 34.4 RDW 12.6 Plt Count 314 D MPV 6.8 L Absolute Neuts (auto) 4.0 Neutrophils % 56.7 Lymphocytes % 17.9 Monocytes % 8.2 Eosinophils % 16.5 H D Basophils % 0.7 Nucleated RBC % 0 PT with INR 11.00 INR 0.93 PTT (Actin FS) 33.8 Sodium Potassium Chloride Carbon Dioxide Anion Gap BUN Creatinine Est GFR (CKD-EPI)AfAm Est GFR (CKD-EPI)NonAf Random Glucose Calcium Total Bilirubin AST ALT Alkaline Phosphatase Creatine Kinase 268 Creatine Kinase Index 0.7 CK-MB (CK-2) 2.0 Troponin I < 0.02 B-Natriuretic Peptide Total Protein Albumin 10/13/18 20:50 WBC RBC Hgb Hct MCV MCH MCHC RDW Plt Count MPV Absolute Neuts (auto) Neutrophils % Lymphocytes % Monocytes % Eosinophils % Basophils % Nucleated RBC % PT with INR INR PTT (Actin FS) Sodium 137 Potassium 4.2 Chloride 101 Carbon Dioxide 28 Anion Gap 8 BUN 22.9 H Creatinine 0.7 Est GFR (CKD-EPI)AfAm 102.58 Est GFR (CKD-EPI)NonAf 88.50 Random Glucose 127 H Calcium 9.2 Total Bilirubin 0.8 AST 20 ALT 11 L Alkaline Phosphatase 70 Creatine Kinase Creatine Kinase Index CK-MB (CK-2) Troponin I B-Natriuretic Peptide 18.7 Total Protein 6.4 Albumin 3.6 ASSESSMENT/PLAN: 82 year old male with PMHX of BPH, HTN, HLD, Kidney stone, Diverticulitis, gout , arthritis, inguinal hernia, Alzheimer's dementia sent from [facility] after an unwitnessed fall with posterior head strike and probable LOC. Patient is not on AC. Patient does not remember event and is a poor historian. # Syncope # Mechanical Fall -admit to tel for obs Head CT:No acute intracranial pathology. CT C-spine: No fracture identified. multiple degenerative changes and advanced periodontal disease. Trops: negative lytes normal In ED given I L IVF, haldol, ativan, Zyprexa x1 - consider cardiology follow up if noted with further episode of syncope - monitor for safety/ fall precaution #HTN - continue with Norvasc - continue with Losartan #Gout - continue with Allopurinol Problem List - Problem (1) Syncope Code(s): R55 - SYNCOPE AND COLLAPSE Qualifiers: Syncope type: unspecified Qualified Code(s): R55 - Syncope and collapse (2) Frequent falls Code(s): R29.6 - REPEATED FALLS (3) Dementia Code(s): F03.90 - UNSPECIFIED DEMENTIA WITHOUT BEHAVIORAL DISTURBANCE (4) Gout Code(s): M10.9 - GOUT, UNSPECIFIED (5) Hypertension Code(s): I10 - ESSENTIAL (PRIMARY) HYPERTENSION Visit type - Emergency Visit Emergency Visit: Yes ED Registration Date: 10/13/18 Care time: The patient presented to the Emergency Department on the above date and was hospitalized for further evaluation of their emergent condition. - New Patient This patient is new to me today: Yes Date on this admission: 10/14/18 - Critical Care Critical Care patient: No
[2018-10-14] MEDS ORDERED: amLODIPine BESYLATE 10 MG TABLET (FP) PO SCH ×2 (10:00→13:34)
[2018-10-14] MEDS ORDERED: LOSARTAN POTASSIUM 50 MG TABLET (FP) PO SCH ×2 (10:00→13:34)
--- NOTE | 2018-10-14 11:00 | EKG ---
Test Reason : Blood Pressure : / mmHG Vent. Rate : 072 BPM Atrial Rate : 072 BPM P-R Int : 142 ms QRS Dur : 086 ms QT Int : 426 ms P-R-T Axes : 044 017 044 degrees QTc Int : 466 ms SINUS RHYTHM WITH FUSION COMPLEXES Confirmed by VALERIO CARSON MD ([id number]) on 10/14/2018 11:00:28 AM Referred By: Confirmed By:VALERIO CARSON MD
--- NOTE | 2018-10-14 11:07 | EKG ---
Test Reason : Blood Pressure : / mmHG Vent. Rate : 074 BPM Atrial Rate : 074 BPM P-R Int : 118 ms QRS Dur : 082 ms QT Int : 408 ms P-R-T Axes : 024 015 027 degrees QTc Int : 452 ms POOR DATA QUALITY, INTERPRETATION MAY BE ADVERSELY AFFECTED NORMAL SINUS RHYTHM NORMAL ECG WHEN COMPARED WITH ECG OF 25-JUN-2018 16:54, NO SIGNIFICANT CHANGE WAS FOUND Confirmed by VALERIO CARSON MD ([id number]) on 10/14/2018 11:07:00 AM Referred By: Confirmed By:VALERIO CARSON MD
[2018-10-14] MEDS: HEPARIN NA (PORCINE) 5,000 UNITS/ML 1ML VIAL SQ SCH ×2 (12:04→22:00)
[2018-10-14] MEDS: ALLOPURINOL 100 MG TABLET (FP) PO SCH (12:05)
--- NOTE | 2018-10-14 13:31 | PN ---
Progress Note, Physician Chief Complaint: pateint admitted s/p fall awake - Current Medication List Current Medications: Active Medications Allopurinol (Zyloprim -) 100 mg PO DAILY [facility] Last Admin: 10/14/18 12:05 Dose: 100 mg Amlodipine Besylate (Norvasc -) 10 mg PO DAILY [facility] Last Admin: 10/14/18 12:04 Dose: 10 mg Heparin Sodium (Porcine) (Heparin -) 5,000 unit SQ BID [facility] Last Admin: 10/14/18 12:04 Dose: 5,000 unit Losartan Potassium (Cozaar -) 50 mg PO DAILY [facility] Last Admin: 10/14/18 12:05 Dose: 50 mg - Objective Vital Signs: Vital Signs Temperature 97.3 F L 10/13/18 18:12 Pulse Rate 100 H 10/14/18 06:24 Respiratory Rate 18 10/14/18 06:24 Blood Pressure 105/65 10/14/18 06:24 O2 Sat by Pulse Oximetry (%) 98 10/14/18 06:24 Constitutional: Yes: Calm Cardiovascular: Yes: Regular Rate and Rhythm, S1, S2 Respiratory: Yes: Diminished Gastrointestinal: Yes: Normal Bowel Sounds, Soft Edema: No Labs: CBC, BMP 10/13/18 20:50 10/13/18 20:50 INR, PTT INR 0.93 (0.83-1.09) 10/13/18 20:50 Problem List - Problems (1) Dementia Assessment/Plan: neurology eval psych eval Code(s): F03.90 - UNSPECIFIED DEMENTIA WITHOUT BEHAVIORAL DISTURBANCE (2) Frequent falls Assessment/Plan: ct scan c spine no fracture PT eval neurology dvt ppx UA and urine culture ordered r/o infectious eiltoogy check b12,folate,tsh,rpr hold norvasc and losartan dvt ppx Code(s): R29.6 - REPEATED FALLS
[2018-10-14] MEDS ORDERED: OLANZapine 5 MG TABLET PO ONE (14:11)
--- NOTE | 2018-10-14 14:14 | CON.PSY ---
Psychiatry Consult Chief Complaint: 82 [place] old male with Dementia with severe BVehavioral disturbances seen for Psych eval. [facility] Very agitated and thrashing in Bed. Symptoms: reports: Memory Impairment, Restlessness, Aggressivity, Impulsivity - Previous Psychiatric Treatment Outpatient: None Inpatient: None - Previous Substance Abuse Treatment Outpatient: None Inpatient: None - Current Medications Current Medications: Active Medications Allopurinol (Zyloprim -) 100 mg PO DAILY [facility] Last Admin: 10/14/18 12:05 Dose: 100 mg Heparin Sodium (Porcine) (Heparin -) 5,000 unit SQ BID [facility] Last Admin: 10/14/18 12:04 Dose: 5,000 unit - Allergies Allergies: Allergies Allergy/AdvReac Type Severity Reaction Status Date / Time No Known Allergies Allergy Verified 10/13/18 18:16 - Current Living Status Usual Living Arrangement: Care Home - Current Mental Status Evaluation Appearance: Disheveled Attitude: Guarded - Affect Affect: Constrictive Appropriateness: Not Appropriate - Mood Mood: Irritable - Speech/Language Expressive: Delayed - Psychomotor Activity Psychomotor Activity: Agitated - Thought Process Thought Process: Circumstantial - Thought Content Hallucinations: Absent Delusions: Absent - Self Perception Self Perception: Depersonalization - Cognition Attention: Diminished Memory, Short Term: 0/3 Memory, Remote with Promptin/3 - Concentration Serial Sevens Intact: No Simple Calculations Intact: No - Abstraction Proverb Interpretation: Idiosyncratic Judgement: Severely Impaired - Insight Insight: Impaired - Impulse Control Impulse Control: Severly Impaired - Suicidal Ideation Suicidal Ideation: No - Homicidal Ideation Homicidal Ideation: No Assessment/Plan 1) re start Zyprexa 5mg po bid.
[2018-10-14] MEDS ORDERED: OLANZapine 5 MG TABLET PO SCH (22:00)
[2018-10-14] MEDS: OLANZapine 5 MG TABLET PO SCH (22:00)
[2018-10-15 07:48] LABS: BASO % 0.4 % (0-2.0); EOS % 13.3 % (0-4.5); HEMATOCRIT 42.4 % (35.4-49); HEMOGLOBIN 14.5 GM/dL (11.7-16.9); LYMPH % 16.7 % (8-40); MCH 31.4 pg (25.7-33.7); MCHC 34.3 g/dl (32.0-35.9); MEAN CELL VOLUME 91.5 fl (80-96); MEAN PLT VOLUME 6.9 fl (7.5-11.1); MONO % 7.2 % (3.8-10.2); NEUT % 62.4 % (42.8-82.8); PLATELET COUNT 336 K/MM3 (134-434); RBC 4.63 M/mm3 (4.00-5.60); RDW 12.6 % (11.9-15.9); WHITE BLOOD COUNT 7.7 K/mm3 (4.0-10.0)
[2018-10-15 08:12] LABS: ALBUMIN 3.8 g/dl (3.4-5.0); BILIRUBIN,TOTAL 1.1 mg/dL (0.2-1); BLOOD UREA NITROGEN 14.8 mg/dL (7-18); CALCIUM 9.5 mg/dL (8.5-10.1); CREATININE 0.6 mg/dL (0.55-1.3); TOT PROT 6.9 g/dl (6.4-8.2)
[2018-10-15] MEDS: HEPARIN NA (PORCINE) 5,000 UNITS/ML 1ML VIAL SQ SCH ×2 (10:15→22:32)
[2018-10-15] MEDS: ALLOPURINOL 100 MG TABLET (FP) PO SCH (10:18)
[2018-10-15] MEDS: OLANZapine 5 MG TABLET PO SCH ×2 (10:18→23:47)
--- NOTE | 2018-10-15 10:22 | CONSULT ---
Consult - text type - Consultation Consultation Note: NEUROLOGY CONSULT GREATLY APPRECIATED: Events discussed with nursing staff who report pt's bladder distended and inability to void. This 82 yo man from [facility] with pmhx HTN, dementia, and gout. Hx of recurrent falls and imbalance per last hospitalization 05/2018. On: allopurinol, amlodipine, losartan. Found in [facility] after unwitnessed fall. Pt unable to provide cogent history. While in ED, became agitated and multiple attempts to get OOB. Seen by psych and started on Zyprexa 5 mg po BID. Head Ct (reviewed): Mod diffuse cerebral atrophy with deep sulcal widening. CT of c spine: noted marked C4/C5 central canal stenosis WBC 7.1; K74=176; TSH 0.54; RPR= non-reactive EKG NSR ANDREW: BP 105/65 supine. Cor reg. No bruit. Scabbed small hematoma posterior scalp. Sl reduced neck ROM. Neg SLR. Ecchymosis R knee. Wearing diaper. NEURO: Awakens to name but rests with eyes closed. Calm, cooperative. OX to name. Knows his . No Place. Month. Year. + glabella. CNII-CNXII: Full EOM's with full landry. No facial. gag ok. Motor: No drift or tremor. Strength normal. Reflexes brisk with spread into finger flexors, crossed adduction at knees and present AJ's. Plantars silent. Coordination: No obvious FTN dystaxia. Sensation: Feels pinch in all fours. Gait: deferred Impression: Fall with possible head injury (age indeterminate). 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 Possibly worsened by Toxic-Metabolic Encephalopathy (r/o UTI) All likely contributing to gait dysfunction Suggest: Encourage hydration. [place] with TV. OOB to Chair. Mobilize with PT. Await UA, C & S via straight cath, bladder scan and perdomo per nursing/house team Orthostatic BP's MRI of C spine (C-) Avoid oversedation. Consider use of Zyprexa (as per Psyche) on a PRN basis. Pt eval for gait safety Consider Donepezil 5 mg q AM (may improve cognition and behavior). Pt requires SNF level of care Thank you very much, Phil Patel MD
[2018-10-15 13:37] LABS: PH,URINE 5.5 (5.0-8.0); URINE APPEARANCE CLEAR; URINE BILIRUBIN NEGATIVE (NEGATIVE); URINE COLOR YELLOW; URINE GLUCOSE (UA) NEGATIVE (NEGATIVE); URINE KETONE NEGATIVE (NEGATIVE); URINE LEUK ESTERASE NEGATIVE (NEGATIVE); URINE NITRITE NEGATIVE (NEGATIVE); URINE PROTEIN NEGATIVE (NEGATIVE); URINE UROBILINOGEN 0.2 mg/dL (0.2-1.0)
--- NOTE | 2018-10-15 14:48 | PN ---
Progress Note, Physician Chief Complaint: patient seen and examined and in bed - Current Medication List Current Medications: Active Medications Allopurinol (Zyloprim -) 100 mg PO DAILY [facility] Last Admin: 10/15/18 10:18 Dose: 100 mg Heparin Sodium (Porcine) (Heparin -) 5,000 unit SQ BID [facility] Last Admin: 10/15/18 10:15 Dose: 5,000 unit Olanzapine (Zyprexa -) 5 mg PO BID [facility] Last Admin: 10/15/18 10:18 Dose: 5 mg - Objective Vital Signs: Vital Signs Temperature 98.5 F 10/15/18 14:00 Pulse Rate 102 H 10/15/18 14:00 Respiratory Rate 20 10/15/18 14:00 Blood Pressure 155/84 10/15/18 14:00 O2 Sat by Pulse Oximetry (%) 95 10/15/18 09:00 Constitutional: Yes: Calm Cardiovascular: Yes: Regular Rate and Rhythm, S1, S2 Respiratory: Yes: CTA Bilaterally, Diminished Gastrointestinal: Yes: Normal Bowel Sounds, Soft Labs: CBC, BMP 10/15/18 06:00 10/15/18 06:00 INR, PTT INR 0.93 (0.83-1.09) 10/13/18 20:50 Problem List - Problems (1) Dementia Assessment/Plan: neurology eval psych eval noited for zyprexa bid Code(s): F03.90 - UNSPECIFIED DEMENTIA WITHOUT BEHAVIORAL DISTURBANCE (2) Frequent falls Assessment/Plan: ct scan c spine no fracture PT eval dvt ppx UA and urine culture ordered r/o infectious eiltoogy check b12,folate,tsh,rpr hold norvasc and losartan dvt ppx Code(s): R29.6 - REPEATED FALLS
[2018-10-15] MEDS: amLODIPine BESYLATE 10 MG TABLET (FP) PO SCH (15:24)
[2018-10-16] MEDS: amLODIPine BESYLATE 10 MG TABLET (FP) PO SCH (10:36)
[2018-10-16] MEDS: ALLOPURINOL 100 MG TABLET (FP) PO SCH (10:36)
[2018-10-16] MEDS: HEPARIN NA (PORCINE) 5,000 UNITS/ML 1ML VIAL SQ SCH ×2 (10:36→21:32)
[2018-10-16] MEDS: OLANZapine 5 MG TABLET PO SCH ×2 (10:37→22:44)
--- NOTE | 2018-10-16 13:18 | PN ---
Progress Note, Physician Chief Complaint: AWAKE EVENTS AND NOTES REVIEWED ON TELE NO NEW ALARMS - Current Medication List Current Medications: Active Medications Allopurinol (Zyloprim -) 100 mg PO DAILY [facility] Last Admin: 10/16/18 10:36 Dose: 100 mg Amlodipine Besylate (Norvasc -) 10 mg PO DAILY [facility] Last Admin: 10/16/18 10:36 Dose: 10 mg Heparin Sodium (Porcine) (Heparin -) 5,000 unit SQ BID [facility] Last Admin: 10/16/18 10:36 Dose: 5,000 unit Olanzapine (Zyprexa -) 5 mg PO BID [facility] Last Admin: 10/16/18 10:37 Dose: 5 mg - Objective Vital Signs: Vital Signs Temperature 97.9 F 10/16/18 10:00 Pulse Rate 80 10/16/18 10:00 Respiratory Rate 20 10/16/18 10:00 Blood Pressure 106/59 L 10/16/18 10:00 O2 Sat by Pulse Oximetry (%) 97 10/16/18 09:00 Constitutional: Yes: Mild Distress Cardiovascular: Yes: Pulse Irregular Respiratory: Yes: WNL Gastrointestinal: Yes: Soft Genitourinary: Yes: Incontinence Musculoskeletal: Yes: Muscle Weakness Edema: Yes Edema: LLE: Trace, RLE: Trace Integumentary: Yes: Rash, Venous Stasis Changes Wound/Incision: Yes: Open to air Neurological: Yes: Confusion, Pre-Existing Deficit, Weakness ...Motor Strength: LLE, RLE Psychiatric: Yes: Other Labs: CBC, BMP 10/15/18 06:00 10/15/18 06:00 INR, PTT INR 0.93 (0.83-1.09) 10/13/18 20:50 Problem List - Problems (1) Dementia Code(s): F03.90 - UNSPECIFIED DEMENTIA WITHOUT BEHAVIORAL DISTURBANCE (2) Syncope Code(s): R55 - SYNCOPE AND COLLAPSE Qualifiers: Syncope type: unspecified Qualified Code(s): R55 - Syncope and collapse (3) Contusion of face Code(s): S00.83XA - CONTUSION OF OTHER PART OF HEAD, INITIAL ENCOUNTER (4) Dehydration Code(s): E86.0 - DEHYDRATION (5) Frequent falls Code(s): R29.6 - REPEATED FALLS (6) Gait difficulty Code(s): R26.9 - UNSPECIFIED ABNORMALITIES OF GAIT AND MOBILITY (7) Hypertension Code(s): I10 - ESSENTIAL (PRIMARY) HYPERTENSION Assessment/Plan NEUROLOGY WORKUP CHECK PT EVAL OOB WITH ASSIST ONLY SNF PLACEMENT MONITOR TELE ALARMS
[2018-10-17] MEDS: OLANZapine 5 MG TABLET PO SCH ×2 (10:13→22:00)
[2018-10-17] MEDS: amLODIPine BESYLATE 10 MG TABLET (FP) PO SCH (10:13)
[2018-10-17] MEDS: ALLOPURINOL 100 MG TABLET (FP) PO SCH (10:13)
[2018-10-17] MEDS: HEPARIN NA (PORCINE) 5,000 UNITS/ML 1ML VIAL SQ SCH ×2 (10:14→21:59)
--- NOTE | 2018-10-17 10:24 | PN ---
Progress Note, Physician Chief Complaint: NO CHANGES MORE ALERT TODAY - Current Medication List Current Medications: Active Medications Allopurinol (Zyloprim -) 100 mg PO DAILY [facility] Last Admin: 10/17/18 10:13 Dose: 100 mg Amlodipine Besylate (Norvasc -) 10 mg PO DAILY [facility] Last Admin: 10/17/18 10:13 Dose: 10 mg Heparin Sodium (Porcine) (Heparin -) 5,000 unit SQ BID [facility] Last Admin: 10/17/18 10:14 Dose: 5,000 unit Olanzapine (Zyprexa -) 5 mg PO BID [facility] Last Admin: 10/17/18 10:13 Dose: 5 mg - Objective Vital Signs: Vital Signs Temperature 98.2 F 10/17/18 05:00 Pulse Rate 78 10/17/18 05:00 Respiratory Rate 20 10/17/18 09:00 Blood Pressure 106/71 10/17/18 05:00 O2 Sat by Pulse Oximetry (%) 97 10/17/18 09:00 Constitutional: Yes: Mild Distress Cardiovascular: Yes: Regular Rate and Rhythm Respiratory: Yes: WNL Gastrointestinal: Yes: WNL Genitourinary: Yes: Incontinence Musculoskeletal: Yes: Muscle Weakness Edema: No Neurological: Yes: Confusion ...Motor Strength: LLE, RLE Labs: CBC, BMP 10/15/18 06:00 10/15/18 06:00 INR, PTT INR 0.93 (0.83-1.09) 10/13/18 20:50 Problem List - Problems (1) Dementia Code(s): F03.90 - UNSPECIFIED DEMENTIA WITHOUT BEHAVIORAL DISTURBANCE (2) Syncope Code(s): R55 - SYNCOPE AND COLLAPSE Qualifiers: Syncope type: unspecified Qualified Code(s): R55 - Syncope and collapse (3) Contusion of face Code(s): S00.83XA - CONTUSION OF OTHER PART OF HEAD, INITIAL ENCOUNTER (4) Dehydration Code(s): E86.0 - DEHYDRATION (5) Frequent falls Code(s): R29.6 - REPEATED FALLS (6) Gait difficulty Code(s): R26.9 - UNSPECIFIED ABNORMALITIES OF GAIT AND MOBILITY (7) Hypertension Code(s): I10 - ESSENTIAL (PRIMARY) HYPERTENSION Assessment/Plan NEUROLOGY WORKUP MRI CSPINE PENDING CHECK PT EVAL OOB WITH ASSIST ONLY SNF PLACEMENT MONITOR TELE ALARMS
[2018-10-17 11:36] LABS: HEMATOCRIT 39.4 % (35.4-49); HEMOGLOBIN 13.7 GM/dL (11.7-16.9); MCH 31.1 pg (25.7-33.7); MCHC 34.7 g/dl (32.0-35.9); MEAN CELL VOLUME 89.4 fl (80-96); MEAN PLT VOLUME 6.8 fl (7.5-11.1); PLATELET COUNT 326 K/MM3 (134-434); RBC 4.41 M/mm3 (4.00-5.60); RDW 12.8 % (11.9-15.9); WHITE BLOOD COUNT 6.6 K/mm3 (4.0-10.0)
[2018-10-17 11:58] LABS: BLOOD UREA NITROGEN 14.4 mg/dL (7-18); CREATININE 0.7 mg/dL (0.55-1.3); MAGNESIUM 2.2 mg/dL (1.8-2.4); POTASSIUM 3.9 mmol/L (3.5-5.1)
[2018-10-17] MEDS ORDERED: PT OWN MED DRAWER 7, Y5N ONE (21:12)
[2018-10-18] MEDS: OLANZapine 5 MG TABLET PO SCH ×2 (09:18→21:31)
[2018-10-18] MEDS: HEPARIN NA (PORCINE) 5,000 UNITS/ML 1ML VIAL SQ SCH ×2 (09:18→21:31)
[2018-10-18] MEDS: ALLOPURINOL 100 MG TABLET (FP) PO SCH (09:18)
[2018-10-18] MEDS: amLODIPine BESYLATE 10 MG TABLET (FP) PO SCH (09:18)
--- NOTE | 2018-10-18 14:17 | PN ---
Progress Note, Physician Chief Complaint: awake alert calm no restraints - Current Medication List Current Medications: Active Medications Allopurinol (Zyloprim -) 100 mg PO DAILY [facility] Last Admin: 10/18/18 09:18 Dose: 100 mg Amlodipine Besylate (Norvasc -) 10 mg PO DAILY [facility] Last Admin: 10/18/18 09:18 Dose: 10 mg Heparin Sodium (Porcine) (Heparin -) 5,000 unit SQ BID [facility] Last Admin: 10/18/18 09:18 Dose: 5,000 unit Olanzapine (Zyprexa -) 5 mg PO BID [facility] Last Admin: 10/18/18 09:18 Dose: 5 mg - Objective Vital Signs: Vital Signs Temperature 98 F 10/18/18 05:45 Pulse Rate 111 H 10/18/18 05:45 Respiratory Rate 18 10/18/18 07:38 Blood Pressure 110/74 10/18/18 05:45 O2 Sat by Pulse Oximetry (%) 97 10/18/18 07:38 Constitutional: Yes: Calm, Thin Cardiovascular: Yes: Regular Rate and Rhythm, S1, S2 Respiratory: Yes: CTA Bilaterally Gastrointestinal: Yes: Normal Bowel Sounds, Soft Edema: No Labs: CBC, BMP 10/17/18 11:10 10/17/18 11:10 INR, PTT INR 0.93 (0.83-1.09) 10/13/18 20:50 Problem List - Problems (1) Dementia Assessment/Plan: neurology eval noted donezipil 5mg psych eval noited for zyprexa bid Code(s): F03.90 - UNSPECIFIED DEMENTIA WITHOUT BEHAVIORAL DISTURBANCE (2) Frequent falls Assessment/Plan: ct scan c spine no fracture PT eval noted MRI of c spine ordered dvt ppx UA clear check b12,folate,tsh,rpr- all normal hold norvasc and losartan given low BP dvt ppx Code(s): R29.6 - REPEATED FALLS
--- NOTE | 2018-10-19 08:16 | PN ---
Progress Note, Physician History of Present Illness: PERIODS OF AGITATION - Current Medication List Current Medications: Active Medications Allopurinol (Zyloprim -) 100 mg PO DAILY [facility] Last Admin: 10/18/18 09:18 Dose: 100 mg Donepezil HCl (Aricept -) 5 mg PO DAILY [facility] Heparin Sodium (Porcine) (Heparin -) 5,000 unit SQ BID [facility] Last Admin: 10/18/18 21:31 Dose: 5,000 unit Olanzapine (Zyprexa -) 5 mg PO BID [facility] Last Admin: 10/18/18 21:31 Dose: 5 mg - Objective Vital Signs: Vital Signs Temperature 98.4 F 10/19/18 05:00 Pulse Rate 78 10/19/18 05:00 Respiratory Rate 18 10/19/18 05:00 Blood Pressure 120/76 10/19/18 05:00 O2 Sat by Pulse Oximetry (%) 95 10/18/18 21:00 Cardiovascular: Yes: Regular Rate and Rhythm Respiratory: Yes: Regular, CTA Bilaterally Gastrointestinal: Yes: Normal Bowel Sounds, Soft Labs: CBC, BMP 10/17/18 11:10 10/17/18 11:10 INR, PTT INR 0.93 (0.83-1.09) 10/13/18 20:50 Assessment/Plan Problems (1) Dementia Assessment/Plan: neurology eval noted donezipil 5mg psych eval noited for zyprexa bid NEURO AND PSYCH FOLLOW UP Code(s): F03.90 - UNSPECIFIED DEMENTIA WITHOUT BEHAVIORAL DISTURBANCE (2) Frequent falls Assessment/Plan: ct scan c spine no fracture PT eval noted MRI of c spine ordered dvt ppx UA clear check b12,folate,tsh,rpr- all normal hold norvasc and losartan given low BP dvt ppx Code(s): R29.6 - REPEATED FALLS
[2018-10-19] MEDS ORDERED: PT OWN MED DRAWER 7, Y5N ONE (10:04)
[2018-10-19] MEDS: OLANZapine 5 MG TABLET PO SCH ×2 (10:12→21:01)
[2018-10-19] MEDS: ALLOPURINOL 100 MG TABLET (FP) PO SCH (10:12)
[2018-10-19] MEDS: DONEPEZIL HCL 5 MG TABLET (FP) PO SCH (10:12)
[2018-10-19] MEDS: HEPARIN NA (PORCINE) 5,000 UNITS/ML 1ML VIAL SQ SCH ×2 (10:13→21:02)
--- NOTE | 2018-10-20 08:51 | PN ---
Progress Note, Physician - Current Medication List Current Medications: Active Medications Allopurinol (Zyloprim -) 100 mg PO DAILY [facility] Last Admin: 10/19/18 10:12 Dose: 100 mg Donepezil HCl (Aricept -) 5 mg PO DAILY [facility] Last Admin: 10/19/18 10:12 Dose: 5 mg Heparin Sodium (Porcine) (Heparin -) 5,000 unit SQ BID [facility] Last Admin: 10/19/18 21:02 Dose: 5,000 unit Olanzapine (Zyprexa -) 5 mg PO BID [facility] Last Admin: 10/19/18 21:01 Dose: 5 mg - Objective Vital Signs: Vital Signs Temperature 98.9 F 10/20/18 05:00 Pulse Rate 109 H 10/20/18 05:00 Respiratory Rate 20 10/20/18 08:25 Blood Pressure 116/78 10/20/18 05:00 O2 Sat by Pulse Oximetry (%) 95 10/20/18 08:25 Cardiovascular: Yes: Regular Rate and Rhythm Respiratory: Yes: Regular, CTA Bilaterally Gastrointestinal: Yes: Normal Bowel Sounds, Soft Labs: CBC, BMP 10/17/18 11:10 10/17/18 11:10 INR, PTT INR 0.93 (0.83-1.09) 10/13/18 20:50 Assessment/Plan Problems (1) Dementia Assessment/Plan: neurology eval noted donezipil 5mg psych eval noited for zyprexa bid NEURO AND PSYCH FOLLOW UP Code(s): F03.90 - UNSPECIFIED DEMENTIA WITHOUT BEHAVIORAL DISTURBANCE (2) Frequent falls Assessment/Plan: ct scan c spine no fracture--neuro noted--difficult to get mri NS consult PT eval noted MRI of c spine ordered dvt ppx UA clear check b12,folate,tsh,rpr- all normal hold norvasc and losartan given low BP dvt ppx Code(s): R29.6 - REPEATED FALLS
[2018-10-20] MEDS: OLANZapine 5 MG TABLET PO SCH ×2 (09:39→23:17)
[2018-10-20] MEDS: HEPARIN NA (PORCINE) 5,000 UNITS/ML 1ML VIAL SQ SCH ×2 (09:40→21:53)
[2018-10-20] MEDS: ALLOPURINOL 100 MG TABLET (FP) PO SCH (09:42)
[2018-10-20] MEDS: DONEPEZIL HCL 5 MG TABLET (FP) PO SCH (09:42)
[2018-10-20] MEDS ORDERED: PT OWN MED DRAWER 7, Y5N ONE (23:16)
--- NOTE | 2018-10-21 08:13 | PN ---
Progress Note, Physician - Current Medication List Current Medications: Active Medications Allopurinol (Zyloprim -) 100 mg PO DAILY [facility] Last Admin: 10/20/18 09:42 Dose: 100 mg Donepezil HCl (Aricept -) 5 mg PO DAILY [facility] Last Admin: 10/20/18 09:42 Dose: 5 mg Heparin Sodium (Porcine) (Heparin -) 5,000 unit SQ BID [facility] Last Admin: 10/20/18 21:53 Dose: 5,000 unit Olanzapine (Zyprexa -) 5 mg PO BID [facility] Last Admin: 10/20/18 23:17 Dose: 5 mg - Objective Vital Signs: Vital Signs Temperature 97.9 F 10/21/18 06:00 Pulse Rate 104 H 10/21/18 06:00 Respiratory Rate 20 10/21/18 06:00 Blood Pressure 145/81 10/21/18 06:00 O2 Sat by Pulse Oximetry (%) 95 10/20/18 21:00 Cardiovascular: Yes: S1, S2 Respiratory: Yes: Regular, CTA Bilaterally Gastrointestinal: Yes: Soft, Tenderness Labs: CBC, BMP 10/17/18 11:10 10/17/18 11:10 INR, PTT INR 0.93 (0.83-1.09) 10/13/18 20:50 Problem List - Problems (1) Abdominal pain Assessment/Plan: labs ct scan monitor Code(s): R10.9 - UNSPECIFIED ABDOMINAL PAIN Assessment/Plan Problems (1) Dementia Assessment/Plan: neurology eval noted donezipil 5mg psych eval noited for zyprexa bid NEURO AND PSYCH FOLLOW UP Code(s): F03.90 - UNSPECIFIED DEMENTIA WITHOUT BEHAVIORAL DISTURBANCE (2) Frequent falls Assessment/Plan: ct scan c spine no fracture--neuro noted--difficult to get mri NS consult PT eval noted MRI of c spine ordered dvt ppx UA clear check b12,folate,tsh,rpr- all normal hold norvasc and losartan given low BP dvt ppx Code(s): R29.6 - REPEATED FALLS
[2018-10-21 11:25] LABS: BASO % 0.6 % (0-2.0); EOS % 5.8 % (0-4.5); HEMATOCRIT 38.7 % (35.4-49); HEMOGLOBIN 13.3 GM/dL (11.7-16.9); MCH 30.8 pg (25.7-33.7); MCHC 34.2 g/dl (32.0-35.9); MEAN CELL VOLUME 89.9 fl (80-96); MEAN PLT VOLUME 7.4 fl (7.5-11.1); MONO % 7.8 % (3.8-10.2); NEUT % 75.8 % (42.8-82.8); PLATELET COUNT 352 K/MM3 (134-434); RBC 4.31 M/mm3 (4.00-5.60); RDW 12.7 % (11.9-15.9); WHITE BLOOD COUNT 13.3 K/mm3 (4.0-10.0)
[2018-10-21 11:43] LABS: ALBUMIN 3.1 g/dl (3.4-5.0); BLOOD UREA NITROGEN 17.9 mg/dL (7-18); CREATININE 0.7 mg/dL (0.55-1.3); POTASSIUM 4.1 mmol/L (3.5-5.1); TOT PROT 6.1 g/dl (6.4-8.2)
--- NOTE | 2018-10-21 19:37 | FALL ---
Fall Exam - Event Witnessed fall: No Location of Fall: Patient Room Fall from: Bed - Pre-Fall Mental Status: Alert, Disoriented Current Medications: Current Medications Generic Name Dose Route Start Last Admin Trade Name Meliza PRN Reason Stop Dose Admin Allopurinol 100 mg 10/21/18 19:30 Zyloprim - PO DAILY [facility] Donepezil HCl 5 mg 10/21/18 19:30 Aricept - PO DAILY [facility] Olanzapine 5 mg 10/21/18 22:00 Zyprexa - PO BID [facility] - Post-Fall Patient Outcome: No Injury Exam Findings: Alert, Oriented to name.Head: Normocephalic non traumatic. Neck: soft-nontender, FROM. Heart: RRR, S1,S2, Lungs- CTAB, Musculoskeletal: non- tender, no obvious deformity. Extremities: FROM, no external rotation, no shortening. Hips/Pelvis: nontender, no crepitus. Treatment: None Vital Signs: Vital Signs Temperature 98.9 F 10/21/18 16:01 Pulse Rate 78 10/21/18 16:01 Respiratory Rate 18 10/21/18 16:01 Blood Pressure 122/78 10/21/18 16:01 O2 Sat by Pulse Oximetry (%) 95 10/20/18 21:00 LOC Post-Fall: Unchanged Identify factors for HIGH RISK for Head Injury: None of the above (unwitnessed fall has Dementia hx- denies pain)
--- NOTE | 2018-10-21 19:42 | HOSP ---
Subjective - Review of Symptoms Events since last encounter: Hospitalist Encounter Notified by RN that the patient had an unwitnessed fall, was asked to assess. Subjective: Arrived to nursing station, patient is alert to name only- baseline. Hx Dementia Per the RN, patient was at nursing station earlier and fell asleep, he was placed back in bed, with bed alarm. Bed alarm went off, RN found patient on the floor, he denies pain or injury. This is a 82 y/o man with a PMHx of Dementia. Admitted for Cystitis. Plan: Fall Exam Protocol Head CT Fall Precautions Neurological: Yes: Confusion Physical Examination Vital Signs: Vital Signs Temperature 98.9 F 10/21/18 16:01 Pulse Rate 78 10/21/18 16:01 Respiratory Rate 18 10/21/18 16:01 Blood Pressure 122/78 10/21/18 16:01 O2 Sat by Pulse Oximetry (%) 95 10/20/18 21:00 Constitutional: Yes: No Distress, Calm, Thin Eyes: Yes: WNL, Conjunctiva Clear, EOM Intact, PERRL HENT: Yes: WNL, Atraumatic, Normocephalic Neck: Yes: WNL, Supple, Trachea Midline Cardiovascular: Yes: WNL, Regular Rate and Rhythm, S1, S2 Respiratory: Yes: WNL, Regular, CTA Bilaterally Gastrointestinal: Yes: Normal Bowel Sounds, Soft. No: Tenderness ...Rectal Exam: Yes: Deferred Renal/: Yes: Incontinence Breast(s): Yes: WNL Musculoskeletal: Yes: WNL Extremities: Yes: WNL Edema: No Peripheral Pulses WNL: Yes Integumentary: Yes: WNL Neurological: Yes: Alert, Confusion, Cran Nerves II-XII Intact ...Motor Strength: WNL Psychiatric: Yes: Alert Labs: CBC, BMP 10/21/18 10:25 10/21/18 10:25 Hospitalist Encounter Outcome: Head CT report- No ICH Patient per RN remains confused, restless.
[2018-10-21] MEDS ORDERED: PT OWN MED DRAWER 7, Y5N ONE (20:31)
[2018-10-21] MEDS: ALLOPURINOL 100 MG TABLET (FP) PO SCH (20:33)
[2018-10-21] MEDS: DONEPEZIL HCL 5 MG TABLET (FP) PO SCH (20:33)
[2018-10-21] MEDS: OLANZapine 5 MG TABLET PO SCH (21:48)
[2018-10-21] MEDS ORDERED: diphenhydrAMINE HCL 25 MG CAPSULE (FP) PO ONE (23:11)
[2018-10-22] MEDS ORDERED: ALLOPURINOL 100 MG TABLET (FP) PO SCH (10:00)
[2018-10-22] MEDS ORDERED: DONEPEZIL HCL 5 MG TABLET (FP) PO SCH (10:00)
[2018-10-22] MEDS ORDERED: BISACODYL 5 MG TABLET.DR (FP) PO ONE (10:15)
--- NOTE | 2018-10-22 10:17 | PN ---
Progress Note, Physician - Current Medication List Current Medications: Active Medications Allopurinol (Zyloprim -) 100 mg PO DAILY [facility] Last Admin: 10/21/18 20:33 Dose: 100 mg Donepezil HCl (Aricept -) 5 mg PO DAILY [facility] Last Admin: 10/21/18 20:33 Dose: 5 mg Olanzapine (Zyprexa -) 5 mg PO BID [facility] Last Admin: 10/21/18 21:48 Dose: 5 mg - Objective Vital Signs: Vital Signs Temperature 98.8 F 10/22/18 05:37 Pulse Rate 105 H 10/22/18 05:37 Respiratory Rate 18 10/22/18 05:37 Blood Pressure 133/79 10/22/18 05:37 O2 Sat by Pulse Oximetry (%) 95 10/21/18 21:00 Cardiovascular: Yes: S1, S2 Respiratory: Yes: Regular, CTA Bilaterally Gastrointestinal: Yes: Normal Bowel Sounds, Soft, Tenderness Labs: CBC, BMP 10/21/18 10:25 10/21/18 10:25 INR, PTT INR 0.93 (0.83-1.09) 10/13/18 20:50 Problem List - Problems (1) Abdominal pain Assessment/Plan: labs ct scan noted -constipation--thick bladder monitor Code(s): R10.9 - UNSPECIFIED ABDOMINAL PAIN (2) Constipation Assessment/Plan: dulcolox and enema Code(s): K59.00 - CONSTIPATION, UNSPECIFIED (3) Bladder wall thickening Assessment/Plan: urology consult initial ua neg--repeat Code(s): N32.89 - OTHER SPECIFIED DISORDERS OF BLADDER Assessment/Plan Problems (1) Dementia Assessment/Plan: neurology eval noted donezipil 5mg psych eval noited for zyprexa bid NEURO AND PSYCH FOLLOW UP Code(s): F03.90 - UNSPECIFIED DEMENTIA WITHOUT BEHAVIORAL DISTURBANCE (2) Frequent falls Assessment/Plan: ct scan c spine no fracture--neuro noted--difficult to get mri NS consult PT eval noted MRI of c spine ordered dvt ppx UA clear check b12,folate,tsh,rpr- all normal hold norvasc and losartan given low BP dvt ppx Code(s): R29.6 - REPEATED FALLS
[2018-10-22] MEDS: ALLOPURINOL 100 MG TABLET (FP) PO SCH (10:25)
[2018-10-22] MEDS: DONEPEZIL HCL 5 MG TABLET (FP) PO SCH (10:25)
[2018-10-22] MEDS: OLANZapine 5 MG TABLET PO SCH ×2 (10:26→22:04)
--- NOTE | 2018-10-22 12:38 | CON.GU ---
Consult Consult Specialty:: Reason for Consultation:: bladder wall thickening - History of Present Illness Chief Complaint: fall History of Present Illness: 82 year old male with PMHX of BPH, HTN, HLD, Kidney stone, Diverticulitis, gout , arthritis, inguinal hernia, Alzheimer's dementia sent from [facility] after an unwitnessed fall with posterior head strike and probable LOC. Patient is not on AC. Patient does not remember event and is a poor historian. Patient denies CP,SOB, lightheaded/numbness/tingling/weakness. CTAP showed bladder wall thickening and perivesical fat stranding w neg u/a and cons req. ER course was notable for: (1) head CT, CT spine- negative (2) given 1L IVF (3)agitated will ativan, haldol, and zyprexa x1 - History Source History Provided By: Medical Record Limitations to Obtaining History: No Limitations - Past Medical History Cardio/Vascular: Yes: HTN Gastrointestinal: Yes: Diverticulitis (diagnoses at [facility] 09/06/14 ) Renal/: Yes: UTI Rheumatology: Yes: Gout - Past Surgical History Past Surgical History: Yes: Cataract Removal (pt is not sure of the type of his recent eye surgery) - Alcohol/Substance Use Hx Alcohol Use: No History of Substance Use: reports: None - Smoking History Smoking history: Former smoker Have you smoked in the past 12 months: No If you are a former smoker, when did you quit?: 8 YRS - Social History Usual Living Arrangement: [employer] 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 Home Medications - Allergies Allergies/Adverse Reactions: Allergies Allergy/AdvReac Type Severity Reaction Status Date / Time No Known Allergies Allergy Verified 10/13/18 18:16 - Home Medications Home Medications: Ambulatory Orders Allopurinol [Zyloprim -] 100 mg PO DAILY 09/08/14 Amlodipine Besylate [Norvasc -] 10 mg PO DAILY 09/08/14 Losartan Potassium 50 mg PO DAILY 09/08/14 Family Disease History - Family Disease History Family Disease History: Heart Disease: Father (80s of heart), Other: Father, Mother ( at 104), Brother (7 brothers all in [place]), Sister (in [place]) Physical Exam- Vital Signs: Vital Signs Temperature 98.8 F 10/22/18 05:37 Pulse Rate 105 H 10/22/18 05:37 Respiratory Rate 18 10/22/18 05:37 Blood Pressure 133/79 10/22/18 05:37 O2 Sat by Pulse Oximetry (%) 95 10/21/18 21:00 Labs: CBC, BMP 10/21/18 10:25 10/21/18 10:25 Imaging - Results Cat Scan: Report Reviewed Problem List - Problems (1) Bladder wall thickening Assessment/Plan: rpt u/a, ur cx, rx w abxs if +, cystoscopy in my office after disch Code(s): N32.89 - OTHER SPECIFIED DISORDERS OF BLADDER (2) Incomplete bladder emptying Assessment/Plan: would rec perdomo but he pulls them out so do intermitt st cath prn, tamsulosin Code(s): R33.9 - RETENTION OF URINE, UNSPECIFIED
[2018-10-22] MEDS ORDERED: PT OWN MED DRAWER 7, Y5N ONE (21:24)
[2018-10-22] MEDS: POLYETHYLENE GLYCOL 3350 119 GM BTL PO SCH (22:04)
[2018-10-22 23:22] LABS: EPI CELLS 0.3 /HPF (0-5/HPF); HYALINE CASTS 79 /lpf (0-8); PH,URINE 7.5 (5.0-8.0); URINE APPEARANCE CLOUDY; URINE BACTERIA 2188.9 /hpf (NEGATIVE); URINE BILIRUBIN NEGATIVE (NEGATIVE); URINE COLOR YELLOW; URINE GLUCOSE (UA) NEGATIVE (NEGATIVE); URINE KETONE NEGATIVE (NEGATIVE); URINE LEUK ESTERASE 2+ (NEGATIVE); URINE NITRITE NEGATIVE (NEGATIVE); URINE PROTEIN 3+ (NEGATIVE); URINE RBC 30 /hpf (0-4); URINE WBC 164 /hpf (0-5)
[2018-10-23 01:05] LABS: URINE CRYSTALS TRIPLE PHOSPHATE /hpf
[2018-10-23] MEDS ORDERED: PT OWN MED DRAWER 7, Y5N ONE (09:40)
[2018-10-23] MEDS ORDERED: CEFTRIAXONE 1 GM in DEXTROSE 5%-WATER - 100 ML IVPB SCH (10:00)
[2018-10-23 10:08] LABS: BASO % 0.3 % (0-2.0); EOS % 1.1 % (0-4.5); HEMATOCRIT 38.1 % (35.4-49); HEMOGLOBIN 13.3 GM/dL (11.7-16.9); LYMPH % 5.9 % (8-40); MCH 31.1 pg (25.7-33.7); MEAN CELL VOLUME 88.9 fl (80-96); MEAN PLT VOLUME 7.2 fl (7.5-11.1); MONO % 6.5 % (3.8-10.2); NEUT % 86.2 % (42.8-82.8); PLATELET COUNT 386 K/MM3 (134-434); RBC 4.28 M/mm3 (4.00-5.60); RDW 12.5 % (11.9-15.9); WHITE BLOOD COUNT 14.9 K/mm3 (4.0-10.0)
[2018-10-23] MEDS: ALLOPURINOL 100 MG TABLET (FP) PO SCH (10:17)
[2018-10-23] MEDS: DONEPEZIL HCL 5 MG TABLET (FP) PO SCH (10:17)
[2018-10-23] MEDS: DUTASTERIDE 0.5 MG CAP (FP) PO SCH (10:17)
[2018-10-23] MEDS: POLYETHYLENE GLYCOL 3350 119 GM BTL PO SCH ×2 (10:17→22:58)
[2018-10-23] MEDS: OLANZapine 5 MG TABLET PO SCH ×2 (10:17→22:56)
[2018-10-23] MEDS ORDERED: CEFTRIAXONE 1 GM in DEXTROSE 5%-WATER - 50 ML IVPB SCH (10:45)
[2018-10-23 10:50] LABS: BILIRUBIN,TOTAL 1.3 mg/dL (0.2-1); BLOOD UREA NITROGEN 27.7 mg/dL (7-18); CALCIUM 8.7 mg/dL (8.5-10.1); CREATININE 0.9 mg/dL (0.55-1.3); POTASSIUM 3.9 mmol/L (3.5-5.1); TOT PROT 6.2 g/dl (6.4-8.2)
--- NOTE | 2018-10-23 12:09 | PN ---
Progress Note, Physician - Current Medication List Current Medications: Active Medications Allopurinol (Zyloprim -) 100 mg PO DAILY [facility] Last Admin: 10/23/18 10:17 Dose: 100 mg Donepezil HCl (Aricept -) 5 mg PO DAILY [facility] Last Admin: 10/23/18 10:17 Dose: 5 mg Dutasteride (Avodart -) 0.5 mg PO DAILY [facility] Last Admin: 10/23/18 10:17 Dose: 0.5 mg Ceftriaxone Sodium 1 gm/ (Dextrose) 50 mls @ 100 mls/hr IVPB DAILY [facility]; Protocol Olanzapine (Zyprexa -) 5 mg PO BID [facility] Last Admin: 10/23/18 10:17 Dose: 5 mg Polyethylene Glycol (Miralax (For Daily Use) -) 17 gm PO BID [facility] Last Admin: 10/23/18 10:17 Dose: 17 grams - Objective Vital Signs: Vital Signs Temperature 98.3 F 10/23/18 09:00 Pulse Rate 100 H 10/23/18 09:00 Respiratory Rate 20 10/23/18 09:00 Blood Pressure 124/78 10/23/18 09:00 O2 Sat by Pulse Oximetry (%) 95 10/23/18 09:00 Cardiovascular: Yes: S1, S2 Respiratory: Yes: Regular, CTA Bilaterally Gastrointestinal: Yes: Normal Bowel Sounds, Soft Genitourinary: Yes: Bladder Distention Labs: CBC, BMP 10/23/18 09:38 10/23/18 09:38 INR, PTT INR 0.93 (0.83-1.09) 10/13/18 20:50 Problem List - Problems (1) Abdominal pain Assessment/Plan: labs ct scan noted -constipation--thick bladder monitor Code(s): R10.9 - UNSPECIFIED ABDOMINAL PAIN (2) Constipation Assessment/Plan: dulcolox and enema Code(s): K59.00 - CONSTIPATION, UNSPECIFIED (3) Bladder wall thickening Assessment/Plan: urology consult initial ua neg--repeat Code(s): N32.89 - OTHER SPECIFIED DISORDERS OF BLADDER (4) Urinary retention Assessment/Plan: intermittent cath avodart Code(s): R33.9 - RETENTION OF URINE, UNSPECIFIED Assessment/Plan Problems (1) Dementia Assessment/Plan: neurology eval noted donezipil 5mg psych eval noited for zyprexa bid NEURO AND PSYCH FOLLOW UP Code(s): F03.90 - UNSPECIFIED DEMENTIA WITHOUT BEHAVIORAL DISTURBANCE (2) Frequent falls Assessment/Plan: ct scan c spine no fracture--neuro noted--difficult to get mri NS consult PT eval noted MRI of c spine ordered dvt ppx UA clear check b12,folate,tsh,rpr- all normal hold norvasc and losartan given low BP dvt ppx Code(s): R29.6 - REPEATED FALLS
[2018-10-23] MEDS ORDERED: cefTRIAXone SODIUM 1 GM VIAL ONE (12:22)
[2018-10-23] MEDS ORDERED: DEXTROSE 5%-WATER - 50 ML IVPB ONE (12:23)
[2018-10-23] MEDS: CEFTRIAXONE 1 GM in DEXTROSE 5%-WATER - 50 ML IVPB SCH (12:42)
[2018-10-24] MEDS: POLYETHYLENE GLYCOL 3350 119 GM BTL PO SCH ×2 (10:00→21:38)
[2018-10-24] MEDS ORDERED: PT OWN MED DRAWER 7, Y5N ONE (10:14)
[2018-10-24] MEDS: DUTASTERIDE 0.5 MG CAP (FP) PO SCH (10:55)
[2018-10-24] MEDS: ALLOPURINOL 100 MG TABLET (FP) PO SCH (10:55)
[2018-10-24] MEDS: DONEPEZIL HCL 5 MG TABLET (FP) PO SCH (10:55)
[2018-10-24] MEDS: CEFTRIAXONE 1 GM in DEXTROSE 5%-WATER - 50 ML IVPB SCH (10:55)
[2018-10-24] MEDS: OLANZapine 5 MG TABLET PO SCH ×2 (10:56→21:38)
[2018-10-24] MEDS ORDERED: TAMSULOSIN HCL 0.4 MG CAP PO ONE (11:40)
--- NOTE | 2018-10-24 11:40 | PN ---
Progress Note, Physician - Current Medication List Current Medications: Active Medications Allopurinol (Zyloprim -) 100 mg PO DAILY [facility] Last Admin: 10/24/18 10:55 Dose: 100 mg Donepezil HCl (Aricept -) 5 mg PO DAILY [facility] Last Admin: 10/24/18 10:55 Dose: 5 mg Dutasteride (Avodart -) 0.5 mg PO DAILY [facility] Last Admin: 10/24/18 10:55 Dose: 0.5 mg Ceftriaxone Sodium 1 gm/ (Dextrose) 50 mls @ 100 mls/hr IVPB DAILY [facility]; Protocol Last Admin: 10/24/18 10:55 Dose: 100 mls/hr Olanzapine (Zyprexa -) 5 mg PO BID [facility] Last Admin: 10/24/18 10:56 Dose: 5 mg Polyethylene Glycol (Miralax (For Daily Use) -) 17 gm PO BID [facility] Last Admin: 10/23/18 22:58 Dose: 17 grams - Objective Vital Signs: Vital Signs Temperature 98 F 10/24/18 05:00 Pulse Rate 88 10/24/18 05:00 Respiratory Rate 18 10/24/18 05:00 Blood Pressure 109/45 L 10/24/18 05:00 O2 Sat by Pulse Oximetry (%) 93 L 10/23/18 21:00 Cardiovascular: Yes: Regular Rate and Rhythm Respiratory: Yes: Regular, CTA Bilaterally Gastrointestinal: Yes: Normal Bowel Sounds, Soft Genitourinary: Yes: Other (retention) Labs: CBC, BMP 10/23/18 09:38 10/23/18 09:38 INR, PTT INR 0.93 (0.83-1.09) 10/13/18 20:50 Problem List - Problems (1) Abdominal pain Assessment/Plan: labs ct scan noted -constipation--thick bladder monitor Code(s): R10.9 - UNSPECIFIED ABDOMINAL PAIN (2) Constipation Assessment/Plan: dulcolox and enema Code(s): K59.00 - CONSTIPATION, UNSPECIFIED (3) Bladder wall thickening Assessment/Plan: urology consult initial ua neg--repeat Code(s): N32.89 - OTHER SPECIFIED DISORDERS OF BLADDER (4) Urinary retention Assessment/Plan: intermittent cath avodart and flomax Code(s): R33.9 - RETENTION OF URINE, UNSPECIFIED Assessment/Plan Problems (1) Dementia Assessment/Plan: neurology eval noted donezipil 5mg psych eval noited for zyprexa bid NEURO AND PSYCH FOLLOW UP Code(s): F03.90 - UNSPECIFIED DEMENTIA WITHOUT BEHAVIORAL DISTURBANCE (2) Frequent falls Assessment/Plan: ct scan c spine no fracture--neuro noted--difficult to get mri NS consult PT eval noted MRI of c spine ordered dvt ppx UA clear check b12,folate,tsh,rpr- all normal hold norvasc and losartan given low BP dvt ppx Code(s): R29.6 - REPEATED FALLS
[2018-10-25 07:07] LABS: EOS % 9.9 % (0-4.5); HEMATOCRIT 35.4 % (35.4-49); HEMOGLOBIN 12.4 GM/dL (11.7-16.9); LYMPH % 18.7 % (8-40); MEAN CELL VOLUME 88.4 fl (80-96); MONO % 9.4 % (3.8-10.2); PLATELET COUNT 428 K/MM3 (134-434); RBC 4.01 M/mm3 (4.00-5.60); RDW 12.7 % (11.9-15.9); WHITE BLOOD COUNT 7.5 K/mm3 (4.0-10.0)
[2018-10-25 07:18] LABS: ALBUMIN 2.8 g/dl (3.4-5.0); BILIRUBIN,TOTAL 0.6 mg/dL (0.2-1); BLOOD UREA NITROGEN 11.9 mg/dL (7-18); CALCIUM 8.7 mg/dL (8.5-10.1); CREATININE 0.5 mg/dL (0.55-1.3); TOT PROT 5.7 g/dl (6.4-8.2)
[2018-10-25] MEDS ORDERED: cefTRIAXone SODIUM 1 GM VIAL ONE (09:25)
[2018-10-25] MEDS ORDERED: DEXTROSE 5%-WATER - 50 ML IVPB ONE (09:26)
[2018-10-25] MEDS: DUTASTERIDE 0.5 MG CAP (FP) PO SCH (09:35)
[2018-10-25] MEDS: ALLOPURINOL 100 MG TABLET (FP) PO SCH (09:36)
[2018-10-25] MEDS: TAMSULOSIN HCL 0.4 MG CAP PO SCH (09:36)
[2018-10-25] MEDS: DONEPEZIL HCL 5 MG TABLET (FP) PO SCH (09:36)
[2018-10-25] MEDS: OLANZapine 5 MG TABLET PO SCH ×2 (09:36→21:11)
[2018-10-25] MEDS: POLYETHYLENE GLYCOL 3350 119 GM BTL PO SCH ×2 (09:36→21:12)
--- NOTE | 2018-10-25 11:59 | PN ---
Progress Note, Physician Chief Complaint: patient seen in bed with vest restraint urinary retetion to see patient - Current Medication List Current Medications: Active Medications Allopurinol (Zyloprim -) 100 mg PO DAILY [facility] Last Admin: 10/25/18 09:36 Dose: 100 mg Donepezil HCl (Aricept -) 5 mg PO DAILY [facility] Last Admin: 10/25/18 09:36 Dose: 5 mg Dutasteride (Avodart -) 0.5 mg PO DAILY [facility] Last Admin: 10/25/18 09:35 Dose: 0.5 mg Ceftriaxone Sodium 1 gm/ (Dextrose) 50 mls @ 100 mls/hr IVPB DAILY [facility]; Protocol Last Admin: 10/24/18 10:55 Dose: 100 mls/hr Olanzapine (Zyprexa -) 5 mg PO BID [facility] Last Admin: 10/25/18 09:36 Dose: 5 mg Polyethylene Glycol (Miralax (For Daily Use) -) 17 gm PO BID [facility] Last Admin: 10/25/18 09:36 Dose: 17 grams Tamsulosin HCl (Flomax -) 0.4 mg PO DAILY@0830 [facility] Last Admin: 10/25/18 09:36 Dose: 0.4 mg - Objective Vital Signs: Vital Signs Temperature 97.8 F 10/25/18 09:00 Pulse Rate 97 H 10/25/18 09:00 Respiratory Rate 20 10/25/18 09:00 Blood Pressure 118/77 10/25/18 09:00 O2 Sat by Pulse Oximetry (%) 97 10/25/18 09:00 Constitutional: Yes: Calm Cardiovascular: Yes: Regular Rate and Rhythm, S1, S2 Respiratory: Yes: CTA Bilaterally Gastrointestinal: Yes: Normal Bowel Sounds, Soft Edema: No Neurological: Yes: Alert, Oriented (to name) Labs: CBC, BMP 10/25/18 05:50 10/25/18 05:50 INR, PTT INR 0.93 (0.83-1.09) 10/13/18 20:50 Problem List - Problems (1) Incomplete bladder emptying Assessment/Plan: urology follow up on flomax nursing stafe straight cath patient frequently possible cytoscopy elevated Alk phos check GGTP? bone sourse Code(s): R33.9 - RETENTION OF URINE, UNSPECIFIED (2) Dementia Assessment/Plan: neurology eval noted donezipil 5mg psych eval noited for zyprexa bid Code(s): F03.90 - UNSPECIFIED DEMENTIA WITHOUT BEHAVIORAL DISTURBANCE (3) Frequent falls Assessment/Plan: ct scan c spine no fracture PT eval noted MRI of c spine ordered dvt ppx UA clear check b12,folate,tsh,rpr- all normal hold norvasc and losartan given low BP dvt ppx Code(s): R29.6 - REPEATED FALLS
[2018-10-25] MEDS: CEFTRIAXONE 1 GM in DEXTROSE 5%-WATER - 50 ML IVPB SCH (12:12)
--- NOTE | 2018-10-25 14:10 | PN ---
DIANA Salamanca Note Chief Complaint: pt unable to void, requires st cath History of Present Illness: ur retention - Objective Vital Signs: Vital Signs Temperature 97.8 F 10/25/18 09:00 Pulse Rate 97 H 10/25/18 09:00 Respiratory Rate 20 10/25/18 09:00 Blood Pressure 118/77 10/25/18 09:00 O2 Sat by Pulse Oximetry (%) 97 10/25/18 09:00 Gastrointestinal: Yes: Soft, Tenderness (SP) Labs/Additional Data: CBC, BMP 10/25/18 05:50 10/25/18 05:50 INR, PTT INR 0.93 (0.83-1.09) 10/13/18 20:50 Problem List - Problems (1) Bladder wall thickening Code(s): N32.89 - OTHER SPECIFIED DISORDERS OF BLADDER (2) Incomplete bladder emptying Assessment/Plan: cystoscopy Friday 10/27 Code(s): R33.9 - RETENTION OF URINE, UNSPECIFIED
[2018-10-26 08:16] LABS: BASO % 1.9 % (0-2.0); EOS % 11.8 % (0-4.5); HEMATOCRIT 36.6 % (35.4-49); HEMOGLOBIN 12.7 GM/dL (11.7-16.9); LYMPH % 19.1 % (8-40); MCH 30.9 pg (25.7-33.7); MCHC 34.7 g/dl (32.0-35.9); MEAN CELL VOLUME 88.9 fl (80-96); MEAN PLT VOLUME 7.1 fl (7.5-11.1); MONO % 11.2 % (3.8-10.2); PLATELET COUNT 469 K/MM3 (134-434); RBC 4.12 M/mm3 (4.00-5.60); RDW 12.4 % (11.9-15.9); WHITE BLOOD COUNT 6.3 K/mm3 (4.0-10.0)
--- NOTE | 2018-10-26 08:28 | PN ---
Progress Note, Physician - Current Medication List Current Medications: Active Medications Allopurinol (Zyloprim -) 100 mg PO DAILY [facility] Last Admin: 10/25/18 09:36 Dose: 100 mg Donepezil HCl (Aricept -) 5 mg PO DAILY [facility] Last Admin: 10/25/18 09:36 Dose: 5 mg Dutasteride (Avodart -) 0.5 mg PO DAILY [facility] Last Admin: 10/25/18 09:35 Dose: 0.5 mg Ceftriaxone Sodium 1 gm/ (Dextrose) 50 mls @ 100 mls/hr IVPB DAILY [facility]; Protocol Last Admin: 10/25/18 12:12 Dose: 100 mls/hr Olanzapine (Zyprexa -) 5 mg PO BID [facility] Last Admin: 10/25/18 21:11 Dose: 5 mg Polyethylene Glycol (Miralax (For Daily Use) -) 17 gm PO BID [facility] Last Admin: 10/25/18 21:12 Dose: 17 grams Tamsulosin HCl (Flomax -) 0.4 mg PO DAILY@0830 [facility] Last Admin: 10/25/18 09:36 Dose: 0.4 mg - Objective Vital Signs: Vital Signs Temperature 9797.6 F H 10/26/18 05:00 Pulse Rate 79 10/26/18 05:00 Respiratory Rate 20 10/26/18 05:00 Blood Pressure 119/86 10/26/18 05:00 O2 Sat by Pulse Oximetry (%) 97 10/25/18 21:00 Cardiovascular: Yes: Regular Rate and Rhythm Respiratory: Yes: Regular, CTA Bilaterally Gastrointestinal: Yes: Normal Bowel Sounds, Soft, Other (suprapubic tenderness) Labs: INR, PTT INR 0.93 (0.83-1.09) 10/13/18 20:50 Problem List - Problems (1) Abdominal pain Assessment/Plan: labs ct scan noted -constipation--thick bladder monitor Code(s): R10.9 - UNSPECIFIED ABDOMINAL PAIN (2) Constipation Assessment/Plan: dulcolox and enema Code(s): K59.00 - CONSTIPATION, UNSPECIFIED (3) Bladder wall thickening Assessment/Plan: urology consult initial ua neg--repeat Code(s): N32.89 - OTHER SPECIFIED DISORDERS OF BLADDER (4) Urinary retention Assessment/Plan: intermittent cath avodart and flomax CYSTO in AM Code(s): R33.9 - RETENTION OF URINE, UNSPECIFIED Assessment/Plan Problems (1) Dementia Assessment/Plan: neurology eval noted donezipil 5mg psych eval noited for zyprexa bid NEURO AND PSYCH FOLLOW UP Code(s): F03.90 - UNSPECIFIED DEMENTIA WITHOUT BEHAVIORAL DISTURBANCE (2) Frequent falls Assessment/Plan: ct scan c spine no fracture--neuro noted--difficult to get mri NS consult PT eval noted MRI of c spine ordered dvt ppx UA clear check b12,folate,tsh,rpr- all normal hold norvasc and losartan given low BP dvt ppx Code(s): R29.6 - REPEATED FALLS
[2018-10-26 09:04] LABS: BILIRUBIN,TOTAL 0.5 mg/dL (0.2-1); BLOOD UREA NITROGEN 10.7 mg/dL (7-18); CALCIUM 9.1 mg/dL (8.5-10.1); CREATININE 0.5 mg/dL (0.55-1.3); POTASSIUM 4.2 mmol/L (3.5-5.1)
[2018-10-26] MEDS ORDERED: cefTRIAXone SODIUM 1 GM VIAL ONE (09:23)
[2018-10-26] MEDS ORDERED: DEXTROSE 5%-WATER - 50 ML IVPB ONE (09:23)
[2018-10-26] MEDS: DONEPEZIL HCL 5 MG TABLET (FP) PO SCH (09:51)
[2018-10-26] MEDS: CEFTRIAXONE 1 GM in DEXTROSE 5%-WATER - 50 ML IVPB SCH (09:51)
[2018-10-26] MEDS: POLYETHYLENE GLYCOL 3350 119 GM BTL PO SCH ×2 (09:51→21:48)
[2018-10-26] MEDS: TAMSULOSIN HCL 0.4 MG CAP PO SCH (09:51)
[2018-10-26] MEDS: DUTASTERIDE 0.5 MG CAP (FP) PO SCH (09:51)
[2018-10-26] MEDS: ALLOPURINOL 100 MG TABLET (FP) PO SCH (09:51)
[2018-10-26] MEDS ORDERED: PT OWN MED DRAWER 7, Y5N ONE ×2 (10:35→10:46)
[2018-10-26] MEDS: OLANZapine 5 MG TABLET PO SCH ×2 (10:36→21:48)
--- NOTE | 2018-10-27 08:00 | PN ---
Progress Note, Physician - Current Medication List Current Medications: Active Medications Allopurinol (Zyloprim -) 100 mg PO DAILY [facility] Last Admin: 10/26/18 09:51 Dose: 100 mg Donepezil HCl (Aricept -) 5 mg PO DAILY [facility] Last Admin: 10/26/18 09:51 Dose: 5 mg Dutasteride (Avodart -) 0.5 mg PO DAILY [facility] Last Admin: 10/26/18 09:51 Dose: 0.5 mg Ceftriaxone Sodium 1 gm/ (Dextrose) 50 mls @ 100 mls/hr IVPB DAILY [facility]; Protocol Last Admin: 10/26/18 09:51 Dose: 100 mls/hr Olanzapine (Zyprexa -) 5 mg PO BID [facility] Last Admin: 10/26/18 21:48 Dose: 5 mg Polyethylene Glycol (Miralax (For Daily Use) -) 17 gm PO BID [facility] Last Admin: 10/26/18 21:48 Dose: 17 grams Tamsulosin HCl (Flomax -) 0.4 mg PO DAILY@0830 [facility] Last Admin: 10/26/18 09:51 Dose: 0.4 mg - Objective Vital Signs: Vital Signs Temperature 97.7 F 10/27/18 06:10 Pulse Rate 79 10/27/18 06:10 Respiratory Rate 20 10/27/18 06:10 Blood Pressure 121/85 10/27/18 06:10 O2 Sat by Pulse Oximetry (%) 97 10/26/18 21:00 Labs: CBC, BMP 10/26/18 06:39 10/26/18 06:39 INR, PTT INR 0.93 (0.83-1.09) 10/13/18 20:50 Problem List - Problems (1) Abdominal pain Code(s): R10.9 - UNSPECIFIED ABDOMINAL PAIN (2) Constipation Code(s): K59.00 - CONSTIPATION, UNSPECIFIED (3) Bladder wall thickening Code(s): N32.89 - OTHER SPECIFIED DISORDERS OF BLADDER (4) Urinary retention Code(s): R33.9 - RETENTION OF URINE, UNSPECIFIED
[2018-10-27] MEDS ORDERED: DEXTROSE 5%-WATER - 50 ML IVPB ONE (08:54)
[2018-10-27] MEDS ORDERED: cefTRIAXone SODIUM 1 GM VIAL ONE (08:54)
[2018-10-27] MEDS: DONEPEZIL HCL 5 MG TABLET (FP) PO SCH (09:03)
[2018-10-27] MEDS: TAMSULOSIN HCL 0.4 MG CAP PO SCH (09:03)
[2018-10-27] MEDS: ALLOPURINOL 100 MG TABLET (FP) PO SCH (09:03)
[2018-10-27] MEDS: CEFTRIAXONE 1 GM in DEXTROSE 5%-WATER - 50 ML IVPB SCH (09:03)
[2018-10-27] MEDS: DUTASTERIDE 0.5 MG CAP (FP) PO SCH (09:03)
[2018-10-27] MEDS: OLANZapine 5 MG TABLET PO SCH ×2 (09:03→21:16)
[2018-10-27] MEDS: POLYETHYLENE GLYCOL 3350 119 GM BTL PO SCH ×2 (09:04→21:02)
--- NOTE | 2018-10-27 09:25 | PN ---
Progress Note, Physician - Current Medication List Current Medications: Active Medications Allopurinol (Zyloprim -) 100 mg PO DAILY [facility] Last Admin: 10/27/18 09:03 Dose: 100 mg Donepezil HCl (Aricept -) 5 mg PO DAILY [facility] Last Admin: 10/27/18 09:03 Dose: 5 mg Dutasteride (Avodart -) 0.5 mg PO DAILY [facility] Last Admin: 10/27/18 09:03 Dose: 0.5 mg Ceftriaxone Sodium 1 gm/ (Dextrose) 50 mls @ 100 mls/hr IVPB DAILY [facility]; Protocol Last Admin: 10/27/18 09:03 Dose: 100 mls/hr Olanzapine (Zyprexa -) 5 mg PO BID [facility] Last Admin: 10/27/18 09:03 Dose: 5 mg Polyethylene Glycol (Miralax (For Daily Use) -) 17 gm PO BID [facility] Last Admin: 10/27/18 09:04 Dose: Not Given Tamsulosin HCl (Flomax -) 0.4 mg PO DAILY@0830 [facility] Last Admin: 10/27/18 09:03 Dose: 0.4 mg - Objective Vital Signs: Vital Signs Temperature 97.8 F 10/27/18 09:02 Pulse Rate 75 10/27/18 09:02 Respiratory Rate 18 10/27/18 09:02 Blood Pressure 108/63 10/27/18 09:02 O2 Sat by Pulse Oximetry (%) 97 10/26/18 21:00 Cardiovascular: Yes: S1, S2 Respiratory: Yes: Regular, CTA Bilaterally Gastrointestinal: Yes: Normal Bowel Sounds, Soft, Other (SP tenderness) Labs: CBC, BMP 10/26/18 06:39 10/26/18 06:39 INR, PTT INR 0.93 (0.83-1.09) 10/13/18 20:50 Problem List - Problems (1) Abdominal pain Assessment/Plan: labs ct scan noted -constipation--thick bladder monitor Code(s): R10.9 - UNSPECIFIED ABDOMINAL PAIN (2) Constipation Assessment/Plan: dulcolox and enema Code(s): K59.00 - CONSTIPATION, UNSPECIFIED (3) Bladder wall thickening Assessment/Plan: urology consult initial ua neg--repeat Code(s): N32.89 - OTHER SPECIFIED DISORDERS OF BLADDER (4) Urinary retention Assessment/Plan: intermittent cath avodart and flomax CYSTO Today Code(s): R33.9 - RETENTION OF URINE, UNSPECIFIED Assessment/Plan Problems (1) Dementia Assessment/Plan: neurology eval noted donezipil 5mg psych eval noited for zyprexa bid NEURO AND PSYCH FOLLOW UP Code(s): F03.90 - UNSPECIFIED DEMENTIA WITHOUT BEHAVIORAL DISTURBANCE (2) Frequent falls Assessment/Plan: ct scan c spine no fracture--neuro noted--difficult to get mri NS consult PT eval noted MRI of c spine ordered dvt ppx UA clear check b12,folate,tsh,rpr- all normal hold norvasc and losartan given low BP dvt ppx Code(s): R29.6 - REPEATED FALLS
[2018-10-27] MEDS ORDERED: LIDOCAINE HCL 2% JELLY 10 ML CARTRIDGE TP ONE (14:00)
[2018-10-27] MEDS ORDERED: MIDAZOLAM HCL 2 MG/2 ML SINGLE DOSE VIAL ONE (14:32)
[2018-10-27] MEDS ORDERED: LIDOCAINE HCL 2% JELLY 10 ML CARTRIDGE ONE (15:07)
[2018-10-27] MEDS ORDERED: PROPOFOL 20 ML ONE (15:21)
--- NOTE | 2018-10-27 16:12 | OP ---
Operative Note - Note: Operative Date: 10/27/18 Pre-Operative Diagnosis: urinary retention Operation: cystoscopy Findings: 1000 ml PVR, nl prostate Post-Operative Diagnosis: Same as Pre-op Surgeon: Ry Gamez Anesthesiologist/SIDE PIECE COVERER: Leila Rayo Anesthesia: Fractional Estimated Blood Loss (mls): 0 Operative Report Dictated: Yes
--- NOTE | 2018-10-27 22:06 | OP ---
DATE OF OPERATION: 10/27/2018 PREOPERATIVE DIAGNOSIS: Urinary retention. POSTOPERATIVE DIAGNOSIS: Urinary retention. PROCEDURE: Flexible cystoscopy. SURGEON: Ry Gamez MD OSTEOPATHIC NEUROLOGIST: None. ANESTHESIA: IV sedation plus local. ANESTHESIOLOGIST: MARILU Shipley SPECIMENS: None. CULTURES: None. DRAINS: An 18-Greenlandic Hernandez catheter. ESTIMATED BLOOD LOSS: None. COMPLICATIONS: None. DESCRIPTION OF PROCEDURE: Patient was brought in the operating room, placed on the operating table in supine position. After the administration of intravenous sedation, intravenous antibiotics were administered. Genitals were prepped and draped in usual sterile manner. Next, 10 mL of 2% lidocaine gel was instilled per urethra. Flexible cystoscope was introduced into the anterior urethra under direct vision. Anterior urethra was normal. The prostatic urethra was nonobstructive. The bladder was entered and thoroughly inspected. There were no foreign bodies, tumors, stones, or inflammation. Both ureteral orifices were in their usual location with clear efflux bilaterally. Prior to doing the cystoscopy, the bladder was emptied with a post-void residual of approximately 1 L. Bladder was emptied. Cystoscope removed. He tolerated the procedure well, transferred to recovery in stable condition. PLAN: Patient needs a suprapubic cystostomy. We will schedule this for October 29. Nick [id number] cc: Marybeth Benavides MD
[2018-10-28] MEDS ORDERED: DEXTROSE 5%-WATER - 50 ML IVPB ONE (09:06)
[2018-10-28] MEDS ORDERED: cefTRIAXone SODIUM 1 GM VIAL ONE (09:06)
[2018-10-28] MEDS: OLANZapine 5 MG TABLET PO SCH ×2 (09:10→22:30)
[2018-10-28] MEDS: DONEPEZIL HCL 5 MG TABLET (FP) PO SCH (09:10)
[2018-10-28] MEDS: ALLOPURINOL 100 MG TABLET (FP) PO SCH (09:10)
[2018-10-28] MEDS: TAMSULOSIN HCL 0.4 MG CAP PO SCH (09:10)
[2018-10-28] MEDS: CEFTRIAXONE 1 GM in DEXTROSE 5%-WATER - 50 ML IVPB SCH (09:11)
[2018-10-28] MEDS ORDERED: PT OWN MED DRAWER 7, Y5N ONE (09:37)
--- NOTE | 2018-10-28 09:39 | PN ---
Progress Note, Physician Chief Complaint: Urinary Retention Frequent Falls Dementia History of Present Illness: Previous notes and events reviewed awake and alert, confused NAD denies chest pain or SOB patient in bed with vest restraint cystoscopy done yesterday - Current Medication List Current Medications: Active Medications Allopurinol (Zyloprim -) 100 mg PO DAILY [facility] Last Admin: 10/28/18 09:10 Dose: 100 mg Donepezil HCl (Aricept -) 5 mg PO DAILY [facility] Last Admin: 10/28/18 09:10 Dose: 5 mg Dutasteride (Avodart -) 0.5 mg PO DAILY [facility] Ceftriaxone Sodium 1 gm/ (Dextrose) 50 mls @ 100 mls/hr IVPB DAILY [facility]; Protocol Last Admin: 10/28/18 09:11 Dose: 100 mls/hr Olanzapine (Zyprexa -) 5 mg PO BID [facility] Last Admin: 10/28/18 09:10 Dose: 5 mg Polyethylene Glycol (Miralax (For Daily Use) -) 17 gm PO BID [facility] Last Admin: 10/27/18 21:02 Dose: Not Given Tamsulosin HCl (Flomax -) 0.4 mg PO DAILY@0830 [facility] Last Admin: 10/28/18 09:10 Dose: 0.4 mg - Objective Vital Signs: Vital Signs Temperature 98.1 F 10/28/18 09:24 Pulse Rate 74 10/28/18 09:24 Respiratory Rate 20 10/28/18 09:24 Blood Pressure 110/68 10/28/18 09:24 O2 Sat by Pulse Oximetry (%) 98 10/27/18 21:00 Constitutional: Yes: No Distress, Calm Eyes: Yes: Conjunctiva Clear HENT: Yes: Atraumatic Cardiovascular: Yes: Regular Rate and Rhythm Respiratory: Yes: Regular, CTA Bilaterally Gastrointestinal: Yes: Normal Bowel Sounds, Soft Genitourinary: Yes: Incontinence Musculoskeletal: Yes: Muscle Weakness Extremities: Yes: WNL Edema: No Neurological: Yes: Alert, Pre-Existing Deficit, Weakness Psychiatric: Yes: Alert, Oriented (to name only) Labs: CBC, BMP 10/26/18 06:39 10/26/18 06:39 INR, PTT INR 0.93 (0.83-1.09) 10/13/18 20:50 Microbiology 10/22/18 23:00 Urine - Urine - Catheterized Urine Culture - Final Proteus Mirabilis 10/15/18 11:30 Urine - Urine Hernandez Urine Culture - Final NO GROWTH OBTAINED Problem List - Problems (1) Dementia Assessment/Plan: -Aricept and Zyprexa -Neurology and Psychology on board Code(s): F03.90 - UNSPECIFIED DEMENTIA WITHOUT BEHAVIORAL DISTURBANCE (2) Syncope Assessment/Plan: -Fall precaution -PT -Head CT scan no CT evidence of acute intracranial pathology Code(s): R55 - SYNCOPE AND COLLAPSE Qualifiers: Syncope type: unspecified Qualified Code(s): R55 - Syncope and collapse (3) Urinary retention Assessment/Plan: -Urology on board -cystoscopy yesterday -Flomax -urology plan for suprapubic cystostomy -bladder scan prn -straight cath q6h prn Code(s): R33.9 - RETENTION OF URINE, UNSPECIFIED (4) Frequent falls Assessment/Plan: -fall precaution -PT Code(s): R29.6 - REPEATED FALLS (5) Hypertension Assessment/Plan: -BP meds on hold / fall -monitor BP Code(s): I10 - ESSENTIAL (PRIMARY) HYPERTENSION Assessment/Plan see problem list dvt ppx
[2018-10-28] MEDS: DUTASTERIDE 0.5 MG CAP (FP) PO SCH (09:42)
[2018-10-28] MEDS: POLYETHYLENE GLYCOL 3350 119 GM BTL PO SCH ×2 (09:42→22:29)
[2018-10-29 07:18] LABS: HEMATOCRIT 37.3 % (35.4-49); HEMOGLOBIN 12.7 GM/dL (11.7-16.9); MCH 30.5 pg (25.7-33.7); MCHC 34.2 g/dl (32.0-35.9); MEAN CELL VOLUME 89.2 fl (80-96); MEAN PLT VOLUME 6.4 fl (7.5-11.1); PLATELET COUNT 490 K/MM3 (134-434); RBC 4.18 M/mm3 (4.00-5.60); RDW 12.4 % (11.9-15.9)
[2018-10-29 07:40] LABS: BILIRUBIN,TOTAL 0.3 mg/dL (0.2-1); BLOOD UREA NITROGEN 11.9 mg/dL (7-18); CALCIUM 9.1 mg/dL (8.5-10.1); CREATININE 0.6 mg/dL (0.55-1.3); POTASSIUM 4.3 mmol/L (3.5-5.1); TOT PROT 5.7 g/dl (6.4-8.2)
[2018-10-29] MEDS: TAMSULOSIN HCL 0.4 MG CAP PO SCH (09:41)
[2018-10-29] MEDS ORDERED: cefTRIAXone SODIUM 1 GM VIAL ONE (09:44)
[2018-10-29] MEDS ORDERED: DEXTROSE 5%-WATER - 50 ML IVPB ONE (09:45)
[2018-10-29] MEDS: DONEPEZIL HCL 5 MG TABLET (FP) PO SCH (10:14)
[2018-10-29] MEDS: DUTASTERIDE 0.5 MG CAP (FP) PO SCH (10:14)
[2018-10-29] MEDS: OLANZapine 5 MG TABLET PO SCH ×2 (10:15→21:27)
[2018-10-29] MEDS: POLYETHYLENE GLYCOL 3350 119 GM BTL PO SCH ×2 (10:15→21:27)
[2018-10-29] MEDS: CEFTRIAXONE 1 GM in DEXTROSE 5%-WATER - 50 ML IVPB SCH (10:15)
[2018-10-29] MEDS: ALLOPURINOL 100 MG TABLET (FP) PO SCH (10:15)
[2018-10-29] MEDS ORDERED: SODIUM CHLORIDE 1,000 ML IV SCH ×2 (11:00→16:22)
--- NOTE | 2018-10-29 11:40 | EKG ---
Test Reason : Blood Pressure : / mmHG Vent. Rate : 070 BPM Atrial Rate : 070 BPM P-R Int : 156 ms QRS Dur : 098 ms QT Int : 422 ms P-R-T Axes : 046 016 047 degrees QTc Int : 455 ms NORMAL SINUS RHYTHM Confirmed by VALERIO CARSON MD ([id number]) on 10/29/2018 11:40:24 AM Referred By: TESSA WALSH DR Confirmed By:VALERIO CARSON MD
--- NOTE | 2018-10-29 12:58 | PN ---
Progress Note, Physician Chief Complaint: Urinary Retention Frequent Falls Dementia History of Present Illness: Previous notes and events reviewed awake and alert, confused NAD denies chest pain or SOB cystoscopy done patient is NPO for suprapubic cystostomy--EKG NSR and CXR shows no acute pathology - Current Medication List Current Medications: Active Medications Allopurinol (Zyloprim -) 100 mg PO DAILY [facility] Last Admin: 10/29/18 10:15 Dose: Not Given Donepezil HCl (Aricept -) 5 mg PO DAILY [facility] Last Admin: 10/29/18 10:14 Dose: Not Given Dutasteride (Avodart -) 0.5 mg PO DAILY [facility] Last Admin: 10/29/18 10:14 Dose: Not Given Ceftriaxone Sodium 1 gm/ (Dextrose) 50 mls @ 100 mls/hr IVPB DAILY [facility]; Protocol Last Admin: 10/29/18 10:15 Dose: 100 mls/hr Sodium Chloride (Normal Saline -) 1,000 mls @ 42 mls/hr IV ASDIR [facility] Last Admin: 10/29/18 11:11 Dose: 42 mls/hr Olanzapine (Zyprexa -) 5 mg PO BID [facility] Last Admin: 10/29/18 10:15 Dose: Not Given Polyethylene Glycol (Miralax (For Daily Use) -) 17 gm PO BID [facility] Last Admin: 10/29/18 10:15 Dose: Not Given Tamsulosin HCl (Flomax -) 0.4 mg PO DAILY@0830 [facility] Last Admin: 10/29/18 09:41 Dose: Not Given - Objective Vital Signs: Vital Signs Temperature 97.6 F 10/29/18 10:00 Pulse Rate 72 10/29/18 10:00 Respiratory Rate 22 H 10/29/18 10:00 Blood Pressure 111/76 10/29/18 10:00 O2 Sat by Pulse Oximetry (%) 95 10/28/18 21:00 Constitutional: Yes: No Distress, Calm Eyes: Yes: Conjunctiva Clear HENT: Yes: Atraumatic Cardiovascular: Yes: Regular Rate and Rhythm Respiratory: Yes: Regular, CTA Bilaterally Gastrointestinal: Yes: Normal Bowel Sounds, Soft Genitourinary: Yes: Incontinence Musculoskeletal: Yes: Muscle Weakness Extremities: Yes: WNL Edema: No Neurological: Yes: Alert, Pre-Existing Deficit Psychiatric: Yes: Alert Labs: CBC, BMP 10/29/18 06:30 10/29/18 06:30 INR, PTT INR 0.93 (0.83-1.09) 10/13/18 20:50 Microbiology 10/22/18 23:00 Urine - Urine - Catheterized Urine Culture - Final Proteus Mirabilis 10/15/18 11:30 Urine - Urine Hernandez Urine Culture - Final NO GROWTH OBTAINED Problem List - Problems (1) Dementia Assessment/Plan: -Aricept and Zyprexa -Neurology and Psychology on board Code(s): F03.90 - UNSPECIFIED DEMENTIA WITHOUT BEHAVIORAL DISTURBANCE (2) Syncope Assessment/Plan: -Fall precaution -PT -Head CT scan no CT evidence of acute intracranial pathology Code(s): R55 - SYNCOPE AND COLLAPSE Qualifiers: Syncope type: unspecified Qualified Code(s): R55 - Syncope and collapse (3) Urinary retention Assessment/Plan: -Urology on board -cystoscopy yesterday -Flomax -urology plan for suprapubic cystostomy today-NPO maintained -EKG NSR and CXR no acute pathology -bladder scan prn -straight cath q6h prn Code(s): R33.9 - RETENTION OF URINE, UNSPECIFIED (4) Frequent falls Assessment/Plan: -fall precaution -PT Code(s): R29.6 - REPEATED FALLS (5) Hypertension Assessment/Plan: -BP meds on hold 2/ fall -monitor BP Code(s): I10 - ESSENTIAL (PRIMARY) HYPERTENSION Assessment/Plan see problem list dvt ppx
--- NOTE | 2018-10-29 13:50 | OP ---
Operative Note - Note: Operative Date: 10/29/18 Pre-Operative Diagnosis: urinary retention, neurogenic bladder Operation: cystoscopy, suprapubic cystostomy Findings: neurogenic bladder Post-Operative Diagnosis: Same as Pre-op Surgeon: Ry Gamez Anesthesiologist/RESORT MANAGER: Chad Thompson Anesthesia: General Estimated Blood Loss (mls): 0 Drains & Tubes with Location: 24 fr SP perdomo, 60 ml balloon Operative Report Dictated: Yes
[2018-10-29] MEDS ORDERED: GENTAMICIN SO4 80 MG/2 ML VIAL ONE (15:38)
[2018-10-29] MEDS ORDERED: GENTAMICIN 80MG PREMIX BAG IVPB ONE (15:38)
[2018-10-29] MEDS ORDERED: ONDANSETRON 4 MG/2 ML VIAL IVPUSH PRN (16:34)
--- NOTE | 2018-10-29 18:18 | OP ---
DATE OF OPERATION: 10/29/2018 PREOPERATIVE DIAGNOSIS: Neurogenic bladder, urinary retention. POSTOPERATIVE DIAGNOSIS: Neurogenic bladder, urinary retention. PROCEDURE: Cystoscopy and suprapubic cystostomy. SURGEON: Vladimir Gamez MD ANESTHESIOLOGY TEACHER: None. ANESTHESIA: General via laryngeal mask. ANESTHESIOLOGIST: Rajinder Mcclain MD SPECIMENS: None. CULTURES: None. DRAINS: 24-Kiswahili suprapubic Hernandez catheter, 60 mL in the balloon. ESTIMATED BLOOD LOSS: None. COMPLICATIONS: None. DESCRIPTION OF PROCEDURE: Patient was brought into the operating room, placed on the operating room table in supine position. After administration of intravenous antibiotics, sequential compression devices were placed. General anesthesia was administered via laryngeal mask. The patient was placed in a dorsal lithotomy position, and the groin was shaved 1st and the lower abdomen and genitals were prepped and draped in usual sterile manner. Curved Lowsley retractor was inserted into the anterior urethra and advanced into the bladder. It was brought up against the anterior abdominal wall, and a 1-cm transverse incision was made 2 fingerbreadths cephalad to the symphysis pubis in the midline. Using a scalpel, the fascia was incised. Now the Lowsley retractor was brought up against the anterior abdominal wall. Using electrocautery, it was cut down upon the Lowsley retractor then it was brought out through the skin incision. The Lowsley retractor was opened. A 0 silk tie was placed through it and through the eye of the 24-Kiswahili Hernandez catheter. Lowsley retractor was then closed, and the Hernandez catheter was now brought into the bladder with the Lowsley retractor and then brought out through the urethra. The silk stitch was cut and now under cystoscopic guidance, the suprapubic Hernandez catheter was withdrawn into the bladder under direct vision. Once in the bladder, the Hernandez catheter suprapubic tube balloon was inflated with 60 mL of water. It was brought up against the anterior bladder wall. Drainage was clear. He tolerated the procedure well. Cystoscope was removed. The wound was sterilely dressed with compressive dressing and suprapubic was placed to gravity drainage. Transferred to the recovery room in stable condition. PLAN: Change suprapubic tube in 6 weeks in my office or at the [place] [facility]. VLADIMIR GAMEZ M.D. [id number] cc: Marybeth Benavides MD
[2018-10-29] MEDS: LACTATED RINGERS SOLUTION 1,000 ML IV SCH (19:50)
[2018-10-29] MEDS ORDERED: ACETAMINOPHEN 325 MG TABLET (FP) PO ONE (23:42)
[2018-10-30] MEDS ORDERED: DEXTROSE 5%-WATER - 50 ML IVPB ONE (09:09)
[2018-10-30] MEDS ORDERED: cefTRIAXone SODIUM 1 GM VIAL ONE (09:09)
[2018-10-30] MEDS: ALLOPURINOL 100 MG TABLET (FP) PO SCH (09:13)
[2018-10-30] MEDS: CEFTRIAXONE 1 GM in DEXTROSE 5%-WATER - 50 ML IVPB SCH (09:13)
[2018-10-30] MEDS: OLANZapine 5 MG TABLET PO SCH ×2 (09:13→21:13)
[2018-10-30] MEDS: DUTASTERIDE 0.5 MG CAP (FP) PO SCH (09:14)
[2018-10-30] MEDS: TAMSULOSIN HCL 0.4 MG CAP PO SCH (09:15)
[2018-10-30] MEDS: DONEPEZIL HCL 5 MG TABLET (FP) PO SCH (09:28)
[2018-10-30] MEDS: POLYETHYLENE GLYCOL 3350 119 GM BTL PO SCH ×2 (09:28→21:13)
--- NOTE | 2018-10-30 13:32 | PN ---
Progress Note, Physician - Current Medication List Current Medications: Active Medications Allopurinol (Zyloprim -) 100 mg PO DAILY [facility] Last Admin: 10/30/18 09:13 Dose: 100 mg Donepezil HCl (Aricept -) 5 mg PO DAILY [facility] Last Admin: 10/30/18 09:28 Dose: 5 mg Dutasteride (Avodart -) 0.5 mg PO DAILY [facility] Last Admin: 10/30/18 09:14 Dose: 0.5 mg Ceftriaxone Sodium 1 gm/ (Dextrose) 50 mls @ 100 mls/hr IVPB DAILY [facility]; Protocol Last Admin: 10/30/18 09:13 Dose: 100 mls/hr Sodium Chloride (Normal Saline -) 1,000 mls @ 42 mls/hr IV ASDIR [facility] Last Admin: 10/29/18 19:50 Dose: 42 mls/hr Lactated Ringer's (Lactated Ringers Solution) 1,000 mls @ 75 mls/hr IV ASDIR [facility] Last Admin: 10/29/18 19:50 Dose: Not Given Olanzapine (Zyprexa -) 5 mg PO BID [facility] Last Admin: 10/30/18 09:13 Dose: 5 mg Ondansetron HCl (Zofran Injection) 4 mg IVPUSH Q6H PRN PRN Reason: NAUSEA AND/OR VOMITING Polyethylene Glycol (Miralax (For Daily Use) -) 17 gm PO BID [facility] Last Admin: 10/30/18 09:28 Dose: 17 gm Tamsulosin HCl (Flomax -) 0.4 mg PO DAILY@0830 [facility] Last Admin: 10/30/18 09:15 Dose: 0.4 mg - Objective Vital Signs: Vital Signs Temperature 99.1 F 10/30/18 10:00 Pulse Rate 84 10/30/18 10:00 Respiratory Rate 18 10/30/18 10:00 Blood Pressure 124/78 10/30/18 10:00 O2 Sat by Pulse Oximetry (%) 90 L 10/29/18 21:00 Cardiovascular: Yes: Regular Rate and Rhythm Respiratory: Yes: Regular, CTA Bilaterally Gastrointestinal: Yes: Normal Bowel Sounds, Soft Genitourinary: Yes: Other (SPT) Labs: CBC, BMP 10/29/18 06:30 10/29/18 06:30 INR, PTT INR 0.93 (0.83-1.09) 10/13/18 20:50 Problem List - Problems (1) Abdominal pain Code(s): R10.9 - UNSPECIFIED ABDOMINAL PAIN (2) Constipation Code(s): K59.00 - CONSTIPATION, UNSPECIFIED (3) Bladder wall thickening Code(s): N32.89 - OTHER SPECIFIED DISORDERS OF BLADDER (4) Urinary retention Code(s): R33.9 - RETENTION OF URINE, UNSPECIFIED Assessment/Plan - Problems (1) Dementia Assessment/Plan: -Aricept and Zyprexa -Neurology and Psychology on board Code(s): F03.90 - UNSPECIFIED DEMENTIA WITHOUT BEHAVIORAL DISTURBANCE (2) Syncope Assessment/Plan: -Fall precaution -PT -Head CT scan no CT evidence of acute intracranial pathology Code(s): R55 - SYNCOPE AND COLLAPSE Qualifiers: Syncope type: unspecified Qualified Code(s): R55 - Syncope and collapse (3) Urinary retention Assessment/Plan: -Urology on board -cystoscopy SPT Placed -Flomax -urology plan for suprapubic cystostomy today-NPO maintained -EKG NSR and CXR no acute pathology Code(s): R33.9 - RETENTION OF URINE, UNSPECIFIED (4) Frequent falls Assessment/Plan: -fall precaution -PT Code(s): R29.6 - REPEATED FALLS (5) Hypertension Assessment/Plan: -BP meds on hold 2/2 fall -monitor BP Code(s): I10 - ESSENTIAL (PRIMARY) HYPERTENSION Assessment/Plan see problem list dvt ppx
[2018-10-30] MEDS: LACTATED RINGERS SOLUTION 1,000 ML IV SCH (16:45)
--- NOTE | 2018-10-30 17:22 | PN ---
Progress Note (short form) - Note Progress Note: Anesthesia post op note POD#1. S/P cystoscopy and suprapubic cystostomy under GA, pat seen and examined. VSS. No apparent post anesthesia complications.
[2018-10-31] MEDS ORDERED: cefTRIAXone SODIUM 1 GM VIAL ONE (08:53)
[2018-10-31] MEDS ORDERED: DEXTROSE 5%-WATER - 50 ML IVPB ONE (08:53)
[2018-10-31] MEDS: DUTASTERIDE 0.5 MG CAP (FP) PO SCH (09:58)
[2018-10-31] MEDS: TAMSULOSIN HCL 0.4 MG CAP PO SCH (09:58)
[2018-10-31] MEDS: ALLOPURINOL 100 MG TABLET (FP) PO SCH (09:58)
[2018-10-31] MEDS: CEFTRIAXONE 1 GM in DEXTROSE 5%-WATER - 50 ML IVPB SCH (09:58)
[2018-10-31] MEDS: OLANZapine 5 MG TABLET PO SCH ×2 (09:58→21:36)
[2018-10-31] MEDS: DONEPEZIL HCL 5 MG TABLET (FP) PO SCH (09:58)
[2018-10-31] MEDS: POLYETHYLENE GLYCOL 3350 119 GM BTL PO SCH ×2 (10:02→21:37)
--- NOTE | 2018-10-31 10:59 | PN ---
Progress Note, Physician - Current Medication List Current Medications: Active Medications Allopurinol (Zyloprim -) 100 mg PO DAILY [facility] Last Admin: 10/31/18 09:58 Dose: 100 mg Donepezil HCl (Aricept -) 5 mg PO DAILY [facility] Last Admin: 10/31/18 09:58 Dose: 5 mg Dutasteride (Avodart -) 0.5 mg PO DAILY [facility] Last Admin: 10/31/18 09:58 Dose: 0.5 mg Ceftriaxone Sodium 1 gm/ (Dextrose) 50 mls @ 100 mls/hr IVPB DAILY [facility]; Protocol Last Admin: 10/31/18 09:58 Dose: 100 mls/hr Ondansetron HCl (Zofran Injection) 4 mg IVPUSH Q6H PRN PRN Reason: NAUSEA AND/OR VOMITING Polyethylene Glycol (Miralax (For Daily Use) -) 17 gm PO BID [facility] Last Admin: 10/31/18 10:02 Dose: 17 gm Tamsulosin HCl (Flomax -) 0.4 mg PO DAILY@0830 [facility] Last Admin: 10/31/18 09:58 Dose: 0.4 mg - Objective Vital Signs: Vital Signs Temperature 97.1 F L 10/31/18 10:00 Pulse Rate 68 10/31/18 10:00 Respiratory Rate 18 10/31/18 10:00 Blood Pressure 131/88 10/31/18 10:00 O2 Sat by Pulse Oximetry (%) 95 10/30/18 21:00 Cardiovascular: Yes: Regular Rate and Rhythm Respiratory: Yes: Regular, CTA Bilaterally Gastrointestinal: Yes: Normal Bowel Sounds, Soft Genitourinary: Yes: Other (SPT) Labs: CBC, BMP 10/29/18 06:30 10/29/18 06:30 INR, PTT INR 0.93 (0.83-1.09) 10/13/18 20:50 Problem List - Problems (1) Abdominal pain Code(s): R10.9 - UNSPECIFIED ABDOMINAL PAIN (2) Constipation Code(s): K59.00 - CONSTIPATION, UNSPECIFIED (3) Bladder wall thickening Code(s): N32.89 - OTHER SPECIFIED DISORDERS OF BLADDER (4) Urinary retention Code(s): R33.9 - RETENTION OF URINE, UNSPECIFIED Assessment/Plan - Problems (1) Dementia Assessment/Plan: -Aricept -Increase Zyprexa -Neurology and Psychology on board Code(s): F03.90 - UNSPECIFIED DEMENTIA WITHOUT BEHAVIORAL DISTURBANCE (2) Syncope Assessment/Plan: -Fall precaution -PT -Head CT scan no CT evidence of acute intracranial pathology Code(s): R55 - SYNCOPE AND COLLAPSE Qualifiers: Syncope type: unspecified Qualified Code(s): R55 - Syncope and collapse (3) Urinary retention Assessment/Plan: -Urology on board -cystoscopy SPT Placed -Flomax -SPT placed -EKG NSR and CXR no acute pathology Code(s): R33.9 - RETENTION OF URINE, UNSPECIFIED (4) Frequent falls Assessment/Plan: -fall precaution -PT Code(s): R29.6 - REPEATED FALLS (5) Hypertension Assessment/Plan: -BP meds on hold 2/2 fall -monitor BP Code(s): I10 - ESSENTIAL (PRIMARY) HYPERTENSION Assessment/Plan see problem list dvt ppx
[2018-10-31] MEDS ORDERED: OLANZapine 5 MG TABLET PO SCH (11:15)
[2018-10-31] MEDS ORDERED: OLANZapine 5 MG TABLET PO ONE (12:15)
[2018-10-31] MEDS: ACETAMINOPHEN 325 MG TABLET (FP) PO SCH ×3 (12:24→21:34)
[2018-11-01] MEDS: ACETAMINOPHEN 325 MG TABLET (FP) PO SCH ×6 (01:17→21:01)
[2018-11-01 06:49] LABS: BASO % 0.8 % (0-2.0); EOS % 8.4 % (0-4.5); HEMATOCRIT 37.6 % (35.4-49); HEMOGLOBIN 12.8 GM/dL (11.7-16.9); LYMPH % 18.4 % (8-40); MCH 30.5 pg (25.7-33.7); MCHC 34.2 g/dl (32.0-35.9); MEAN CELL VOLUME 89.2 fl (80-96); MEAN PLT VOLUME 6.3 fl (7.5-11.1); MONO % 8.3 % (3.8-10.2); NEUT % 64.1 % (42.8-82.8); PLATELET COUNT 463 K/MM3 (134-434); RBC 4.21 M/mm3 (4.00-5.60); RDW 12.8 % (11.9-15.9); WHITE BLOOD COUNT 10.3 K/mm3 (4.0-10.0)
[2018-11-01] MEDS: TAMSULOSIN HCL 0.4 MG CAP PO SCH (08:31)
[2018-11-01] MEDS ORDERED: DEXTROSE 5%-WATER - 50 ML IVPB ONE (09:16)
[2018-11-01] MEDS ORDERED: cefTRIAXone SODIUM 1 GM VIAL ONE (09:16)
[2018-11-01] MEDS: DUTASTERIDE 0.5 MG CAP (FP) PO SCH (09:18)
[2018-11-01] MEDS: ALLOPURINOL 100 MG TABLET (FP) PO SCH (09:18)
[2018-11-01] MEDS: OLANZapine 5 MG TABLET PO SCH ×2 (09:18→21:01)
[2018-11-01] MEDS: CEFTRIAXONE 1 GM in DEXTROSE 5%-WATER - 50 ML IVPB SCH (09:18)
[2018-11-01] MEDS: DONEPEZIL HCL 5 MG TABLET (FP) PO SCH (09:18)
[2018-11-01] MEDS: POLYETHYLENE GLYCOL 3350 119 GM BTL PO SCH ×2 (09:38→21:02)
--- NOTE | 2018-11-01 11:54 | PN ---
Progress Note, Physician - Current Medication List Current Medications: Active Medications Acetaminophen (Tylenol -) 650 mg PO Q4H [facility] Last Admin: 11/01/18 08:30 Dose: 650 mg Allopurinol (Zyloprim -) 100 mg PO DAILY [facility] Last Admin: 11/01/18 09:18 Dose: 100 mg Donepezil HCl (Aricept -) 5 mg PO DAILY [facility] Last Admin: 11/01/18 09:18 Dose: 5 mg Dutasteride (Avodart -) 0.5 mg PO DAILY [facility] Last Admin: 11/01/18 09:18 Dose: 0.5 mg Ceftriaxone Sodium 1 gm/ (Dextrose) 50 mls @ 100 mls/hr IVPB DAILY [facility]; Protocol Last Admin: 11/01/18 09:18 Dose: 100 mls/hr Olanzapine (Zyprexa -) 10 mg PO BID [facility] Last Admin: 11/01/18 09:18 Dose: 10 mg Ondansetron HCl (Zofran Injection) 4 mg IVPUSH Q6H PRN PRN Reason: NAUSEA AND/OR VOMITING Polyethylene Glycol (Miralax (For Daily Use) -) 17 gm PO BID [facility] Last Admin: 11/01/18 09:38 Dose: 17 grams Tamsulosin HCl (Flomax -) 0.4 mg PO DAILY@0830 [facility] Last Admin: 11/01/18 08:31 Dose: 0.4 mg - Objective Vital Signs: Vital Signs Temperature 97.9 F 11/01/18 05:45 Pulse Rate 64 11/01/18 05:45 Respiratory Rate 20 11/01/18 05:45 Blood Pressure 129/84 11/01/18 05:45 O2 Sat by Pulse Oximetry (%) 96 10/31/18 21:00 Cardiovascular: Yes: S1, S2 Respiratory: Yes: Regular, CTA Bilaterally Gastrointestinal: Yes: Normal Bowel Sounds, Soft Genitourinary: Yes: Other (spt) Labs: CBC, BMP 11/01/18 06:25 10/29/18 06:30 INR, PTT INR 0.93 (0.83-1.09) 10/13/18 20:50 Problem List - Problems (1) Abdominal pain Assessment/Plan: labs ct scan noted -constipation--thick bladder monitor Code(s): R10.9 - UNSPECIFIED ABDOMINAL PAIN (2) Constipation Assessment/Plan: dulcolox and enema Code(s): K59.00 - CONSTIPATION, UNSPECIFIED (3) Bladder wall thickening Assessment/Plan: urology consult initial ua neg--repeat Code(s): N32.89 - OTHER SPECIFIED DISORDERS OF BLADDER (4) Urinary retention Assessment/Plan: intermittent cath avodart and flomax CYSTO Today Code(s): R33.9 - RETENTION OF URINE, UNSPECIFIED
[2018-11-02] MEDS: ACETAMINOPHEN 325 MG TABLET (FP) PO SCH ×5 (01:13→17:06)
[2018-11-02] MEDS: TAMSULOSIN HCL 0.4 MG CAP PO SCH (08:30)
[2018-11-02] MEDS: DONEPEZIL HCL 5 MG TABLET (FP) PO SCH (10:26)
[2018-11-02] MEDS: DUTASTERIDE 0.5 MG CAP (FP) PO SCH (10:27)
[2018-11-02] MEDS: POLYETHYLENE GLYCOL 3350 119 GM BTL PO SCH (10:27)
[2018-11-02] MEDS: OLANZapine 5 MG TABLET PO SCH (10:27)
[2018-11-02] MEDS: ALLOPURINOL 100 MG TABLET (FP) PO SCH (10:27)
[2018-11-02] MEDS ORDERED: cefTRIAXone SODIUM 1 GM VIAL ONE (12:14)
[2018-11-02] MEDS ORDERED: DEXTROSE 5%-WATER - 50 ML IVPB ONE (12:15)
[2018-11-02] MEDS: CEFTRIAXONE 1 GM in DEXTROSE 5%-WATER - 50 ML IVPB SCH (12:17)
[2018-11-02 13:04] VITALS: BP 119/67
[2018-11-02 13:27] VITALS: PULSE 77; TEMP 97.6
--- NOTE | 2018-11-02 15:17 | DS ---
Physical Examination Vital Signs: Vital Signs Temperature 97.6 F 11/02/18 13:26 Pulse Rate 77 11/02/18 13:26 Respiratory Rate 18 11/02/18 13:26 Blood Pressure 119/67 11/02/18 13:26 O2 Sat by Pulse Oximetry (%) 94 L 11/02/18 09:00 Constitutional: Yes: No Distress, Calm Eyes: Yes: Conjunctiva Clear HENT: Yes: Atraumatic Cardiovascular: Yes: Regular Rate and Rhythm Respiratory: Yes: Regular, CTA Bilaterally Gastrointestinal: Yes: Normal Bowel Sounds, Soft Renal/: Yes: Hernandez Present Musculoskeletal: Yes: Muscle Weakness Extremities: Yes: WNL Edema: No Neurological: Yes: Alert, Confusion, Pre-Existing Deficit Psychiatric: Yes: Alert Labs: CBC, BMP 11/01/18 06:25 10/29/18 06:30 Discharge Summary Reason For Visit: SYNCOPE Current Active Problems Abdominal pain (Acute) Bladder wall thickening (Acute) Constipation (Acute) Dementia (Acute) Incomplete bladder emptying (Acute) Syncope (Acute) Urinary retention (Acute) Procedures: Principal: Suprapubic cystostomy Hospital Course: Patient is an 82 y/o male with past medical history of BPH, HTN, HLD, Kidney Stone, Diverticulitis, Gout, Arthritis, Inguinal Hernia, Alzheimer's Dementia. Patient was sent from [facility] for unwitnessed fall, with posterior head strike and possible LOC. While in patient he was found with UTI and was treated and completed antibiotic course. Followed by urology for urine retention. Patient had cystoscopy done then had suprapubic catheter placed. Condition: Stable - Instructions Diet, Activity, Other Instructions: follow up with pmd follow up with Urologist Dr Gamez continue with medication as prescribed return to ER if develop fever, respiratory distress, chest pain Referrals: Ry Gamez MD [Staff Physician] - Disposition: LONGTERM FACILITY - Home Medications Comprehensive Discharge Medication List: Ambulatory Orders Allopurinol [Zyloprim -] 100 mg PO DAILY 09/08/14 Amlodipine Besylate [Norvasc -] 10 mg PO DAILY 09/08/14 Losartan Potassium 50 mg PO DAILY 09/08/14 Acetaminophen [Tylenol .Regular Strength -] 650 mg PO Q4H tablet 11/02/18 Donepezil HCl [Aricept -] 5 mg PO DAILY tablet 11/02/18 Dutasteride [Avodart] 0.5 mg PO DAILY cap 11/02/18 Olanzapine [Zyprexa -] 10 mg PO BID tablet 11/02/18 Polyethylene Glycol 3350 [Miralax 119 gm Btl -] 17 gm PO BID bottle 11/02/18 Tamsulosin HCl [Flomax -] 0.4 mg PO DAILY@0830 cap.er.24h 11/02/18
== END 2018-11-02 20:35 | DRG 57 ==
LOC: JER 18:01 → JERBED 22:12 → OBSVTOIN 10-14 07:01 → J4W 10-14 08:28 → J5S 10-27 18:41 → J6S 10-31 20:48
PROVIDERS: ADMIT Family Medicine; ATTEND Family Medicine
PROC: 0TJB8ZZ Inspection of Bladder, Via Natural or Artificial Opening Endoscopic (ICD-10-PCS; principal; 2018-10-27 13:00)
PROC: 0T9B80Z Drainage of Bladder with Drainage Device, Via Natural or Artificial Opening Endoscopic (ICD-10-PCS; 2018-10-29)
DX: G30.9 Alzheimer's disease, unspecified (principal); G95.89 Other specified diseases of spinal cord; F02.80 Dementia in other diseases classified elsewhere, unspecified severity, without behavioral disturbance, psychotic disturbance, mood disturbance, and anxiety; R55 Syncope and collapse; I10 Essential (primary) hypertension; N40.0 Benign prostatic hyperplasia without lower urinary tract symptoms; E78.5 Hyperlipidemia, unspecified; N30.90 Cystitis, unspecified without hematuria; M10.9 Gout, unspecified; K40.90 Unilateral inguinal hernia, without obstruction or gangrene, not specified as recurrent; Z87.891 Personal history of nicotine dependence; R29.6 Repeated falls; M48.02 Spinal stenosis, cervical region; E86.0 Dehydration; S00.03XA Contusion of scalp, initial encounter; K59.00 Constipation, unspecified; N32.89 Other specified disorders of bladder; R33.9 Retention of urine, unspecified; N31.9 Neuromuscular dysfunction of bladder, unspecified; W19.XXXA Unspecified fall, initial encounter; Y93.89 Activity, other specified; Y92.128 Other place in nursing home as the place of occurrence of the external cause; Y99.8 Other external cause status
CPT/HCPCS: 36415; 70450-TC; 71045-TC-FY; 72125-TC; 74177-TC; 80048; 80053; 81003; 82550; 82553; 82607; 82962; 82977; 83690; 83735; 83880; 84443; 84484; 85025; 85027; 85610; 85730; 86593; 87086; 87186; 90715; 93005; 93010; 94760; 97116-GP; 97161-GP; 99284-25; G0378; J1644; J7030

== ENCOUNTER 2018-11-03 03:16 | Inpatient (IN) | payer OTHER ==
[2018-11-03 08:23] LABS: BASO % 1.3 % (0-2.0); EOS % 7.1 % (0-4.5); HEMATOCRIT 38.2 % (35.4-49); LYMPH % 16.2 % (8-40); MCH 30.2 pg (25.7-33.7); MEAN CELL VOLUME 88.7 fl (80-96); MEAN PLT VOLUME 6.5 fl (7.5-11.1); MONO % 5.6 % (3.8-10.2); NEUT % 69.8 % (42.8-82.8); PLATELET COUNT 448 K/MM3 (134-434); RBC 4.31 M/mm3 (4.00-5.60); RDW 12.7 % (11.9-15.9); WHITE BLOOD COUNT 7.7 K/mm3 (4.0-10.0)
[2018-11-03 08:53] LABS: ALBUMIN 3.1 g/dl (3.4-5.0); BILIRUBIN,TOTAL 0.2 mg/dL (0.2-1); BLOOD UREA NITROGEN 11.3 mg/dL (7-18); CALCIUM 9.3 mg/dL (8.5-10.1); CREATININE 0.7 mg/dL (0.55-1.3); POTASSIUM 4.4 mmol/L (3.5-5.1); TOT PROT 6.2 g/dl (6.4-8.2)
--- NOTE | 2018-11-03 08:56 | PDOC ---
Documentation entered by Liza Maguire SCRIBE, acting as scribe for Vladimir Ivey MD. Vladimir Ivey MD: This documentation has been prepared by the Andrez srivastava Sammi, SCRIBE, under my direction and personally reviewed by me in its entirety. I confirm that the documentation accurately reflects all work, treatment, procedures, and medical decision making performed by me. History of Present Illness - General Chief Complaint: Urinary Catheter Problem Stated Complaint: ACCIDENTAL REMOVAL OF CATHETER Time Seen by Provider: 11/03/18 07:21 - History of Present Illness Initial Comments: 11/03/18 07:53 The patient is an 82 year old male with h/o BPH, HTN, HLD, Kidney Stone, Diverticulitis, Gout, Arthritis, Inguinal Hernia, Alzheimer's Dementia, urinary retention s/p suprapubic catheter (10/27/18) who presents from [facility] to the emergency department for evaluation of a cut to his suprapubic catheter. The patient is demented and unable to provide a history. Per MA report, pt somehow cut the distal end of his suprapubic catheter. Pt has no recollection. Denies any complaints at this time. Allergies: NKA Past History - Past Medical History Allergies/Adverse Reactions: Allergies Allergy/AdvReac Type Severity Reaction Status Date / Time No Known Allergies Allergy Verified 11/03/18 06:22 Home Medications: Ambulatory Orders Allopurinol [Zyloprim -] 100 mg PO DAILY 09/08/14 Amlodipine Besylate [Norvasc -] 10 mg PO DAILY 09/08/14 Losartan Potassium 50 mg PO DAILY 09/08/14 Acetaminophen [Tylenol .Regular Strength -] 650 mg PO Q4H tablet 11/02/18 Donepezil HCl [Aricept -] 5 mg PO DAILY tablet 11/02/18 Dutasteride [Avodart] 0.5 mg PO DAILY cap 11/02/18 Olanzapine [Zyprexa -] 10 mg PO BID tablet 11/02/18 Polyethylene Glycol 3350 [Miralax 119 gm Btl -] 17 gm PO BID bottle 11/02/18 Tamsulosin HCl [Flomax -] 0.4 mg PO DAILY@0830 cap.er.24h 11/02/18 COPD: No Dementia: Yes GI Disorders: Yes (H. PYLORI, DIVERTICULITIS) Disorders: Yes (KIDNEY STONES, BPH) HTN: Yes Hypercholesterolemia: Yes Psychiatric Problems: Yes (DEMENTIA) - Suicide/Smoking/Psychosocial Hx Smoking Status: No Smoking History: Never smoked Have you smoked in the past 12 months: No If you are a former smoker, when did you quit?: 8 YRS Hx Alcohol Use: No Drug/Substance Use Hx: No Substance Use Type: None Hx Substance Use Treatment: No Review of Systems - Review of Systems Comments:: 11/03/18 07:54 GENERAL/CONSTITUTIONAL: No fever or chills. No weakness. HEAD, EYES, EARS, NOSE AND THROAT: No change in vision. No ear pain or discharge. No sore throat. CARDIOVASCULAR: No chest pain, no shortness of breath, no loss of consciousness RESPIRATORY: No cough, wheezing, or hemoptysis. GASTROINTESTINAL: No nausea, vomiting, diarrhea or constipation. GENITOURINARY: No dysuria, frequency, or change in urination. MUSCULOSKELETAL: No joint or muscle swelling or pain. No neck or back pain. SKIN: No rash NEUROLOGIC: No vertigo, no change in strength/sensation. ENDOCRINE: No increased thirst. No abnormal weight change. HEMATOLOGIC/LYMPHATIC: No anemia, easy bleeding, or history of blood clots. ALLERGIC/IMMUNOLOGIC: No hives or skin allergy. *Physical Exam - Vital Signs Last Vital Signs Temp Pulse Resp BP Pulse Ox 98.5 F 82 18 148/87 99 11/03/18 03:40 11/03/18 03:40 11/03/18 03:40 11/03/18 03:40 11/03/18 03:40 - Physical Exam Comments: 11/03/18 08:58 GENERAL: Awake, alert, in no acute distress. HEAD: No signs of trauma EYES: PERRLA, EOMI, sclera anicteric, conjunctiva clear ENT: Auricles normal inspection, hearing grossly normal, nares patent, oropharynx clear without exudates. Moist mucosa NECK: Nontender, no stepoffs, Normal ROM, supple, no lymphadenopathy, JVD, or masses LUNGS: Breath sounds equal, clear to auscultation bilaterally. No wheezes, and no crackles HEART: Regular rate and rhythm, normal S1 and S2, no murmurs, rubs or gallops ABDOMEN: + suprapubic catheter in place, distal end cut off, draining clear urine, abdomen soft, nontender, normoactive bowel sounds. No guarding, no rebound. No masses EXTREMITIES: Normal range of motion, no edema. No clubbing or cyanosis. No cords, erythema, or tenderness NEUROLOGICAL: Cranial nerves II through XII intact. 5/5 strength and sensation in all extremities, Normal speech, normal gait, normal cerebellar function SKIN: Warm, Dry, normal turgor, no rashes or lesions noted. ED Treatment Course - LABORATORY CBC & Chemistry Diagram: 11/03/18 08:00 11/03/18 08:00 Medical Decision Making - Medical Decision Making 11/03/18 08:01 82 M with recent suprapubic cath placed for urinary retention, presenting to ED after cutting off the end of his catheter. Pt with no complaints at this time. Call placed to Dr. Gamez awaiting call back. 11/03/18 08:[address] Gamez. Suprapubic cath cannot be changed out until 1 month after placement. Pt will either need to leave current catheter in place or will need to go to OR for replacement. Discussed with Krishna Henderson and Dr. Benavides, who will admit pt. *DC/Admit/Observation/Transfer Diagnosis at time of Disposition: Suprapubic catheter dysfunction - Discharge Dispostion Decision to Admit order: Yes - Referrals - Patient Instructions - Post Discharge Activity - Attestations Physician Attestion: 11/03/18 09:02 I, Dr. Vladimir Ivey MD, attest that this document has been prepared under my direction and personally reviewed by me in its entirety. I further attest, that it accurately reflects all work, treatment, procedures and medical decision -making performed by me.
[2018-11-03 09:05] LABS: EPI CELLS 4.4 /HPF (0-5/HPF); HYALINE CASTS 10 /lpf (0-8); URINE APPEARANCE CLEAR; URINE BACTERIA 2.7 /hpf (NEGATIVE); URINE BILIRUBIN NEGATIVE (NEGATIVE); URINE COLOR YELLOW; URINE GLUCOSE (UA) NEGATIVE (NEGATIVE); URINE KETONE NEGATIVE (NEGATIVE); URINE LEUK ESTERASE NEGATIVE (NEGATIVE); URINE NITRITE NEGATIVE (NEGATIVE); URINE PROTEIN NEGATIVE (NEGATIVE); URINE RBC 14 /hpf (0-4); URINE UROBILINOGEN 0.2 mg/dL (0.2-1.0); URINE WBC 2 /hpf (0-5)
[2018-11-03] MEDS: ACETAMINOPHEN 325 MG TABLET (FP) PO SCH ×3 (13:20→21:39)
--- NOTE | 2018-11-03 13:22 | CON.GU ---
Consult Consult Specialty:: Reason for Consultation:: damaged SPT - History of Present Illness Chief Complaint: cut SPT History of Present Illness: 82 year old male with h/o BPH, HTN, HLD, Kidney Stone, Diverticulitis, Gout, Arthritis, Inguinal Hernia, Alzheimer's Dementia, urinary retention s/p suprapubic catheter (10/27/18) who presents from [facility] to the emergency department for evaluation of a cut to his suprapubic catheter. The patient is demented and unable to provide a history. [facility] somehow [facility] the distal end of his suprapubic catheter. Pt has no recollection. Denies any complaints at this time. cons req. - History Source History Provided By: Medical Record Limitations to Obtaining History: No Limitations - Past Medical History Cardio/Vascular: Yes: HTN Gastrointestinal: Yes: Diverticulitis (diagnoses at [facility] 09/06/14 ) Renal/: Yes: Neurogenic Bladder, UTI Rheumatology: Yes: Gout - Past Surgical History Past Surgical History: Yes: Cataract Removal (pt is not sure of the type of his recent eye surgery) - Alcohol/Substance Use Hx Alcohol Use: No History of Substance Use: reports: None - Smoking History Smoking history: Never smoked Have you smoked in the past 12 months: No If you are a former smoker, when did you quit?: 8 YRS - Social History Usual Living Arrangement: Snf 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 Home Medications - Allergies Allergies/Adverse Reactions: Allergies Allergy/AdvReac Type Severity Reaction Status Date / Time No Known Allergies Allergy Verified 11/03/18 06:22 - Home Medications Home Medications: Ambulatory Orders Allopurinol [Zyloprim -] 100 mg PO DAILY 09/08/14 Amlodipine Besylate [Norvasc -] 10 mg PO DAILY 09/08/14 Losartan Potassium 50 mg PO DAILY 09/08/14 Acetaminophen [Tylenol .Regular Strength -] 650 mg PO Q4H tablet 11/02/18 Donepezil HCl [Aricept -] 5 mg PO DAILY tablet 11/02/18 Dutasteride [Avodart] 0.5 mg PO DAILY cap 11/02/18 Olanzapine [Zyprexa -] 10 mg PO BID tablet 11/02/18 Polyethylene Glycol 3350 [Miralax 119 gm Btl -] 17 gm PO BID bottle 11/02/18 Tamsulosin HCl [Flomax -] 0.4 mg PO DAILY@0830 cap.er.24h 11/02/18 Family Disease History - Family Disease History Family Disease History: Heart Disease: Father (80s of heart), Other: Father, Mother ( at 104), Brother (7 brothers all in [place]), Sister (in [place]) Physical Exam- Vital Signs: Vital Signs Temperature 98 F 11/03/18 08:25 Pulse Rate 73 11/03/18 08:25 Respiratory Rate 19 11/03/18 08:25 Blood Pressure 141/89 11/03/18 08:25 O2 Sat by Pulse Oximetry (%) 98 11/03/18 08:26 Gastrointestinal: Yes: Other (cut spt) Labs: CBC, BMP 11/03/18 08:00 11/03/18 08:00 Problem List - Problems (1) Suprapubic catheter dysfunction Assessment/Plan: cysto and SP cystostomy 11/04 Code(s): T83.010A - BREAKDOWN (MECHANICAL) OF CYSTOSTOMY CATHETER, INIT ENCNTR
--- NOTE | 2018-11-03 16:57 | HP ---
Admitting History and Physical - Primary Care Physician PCP: Marybeth Benavides - Admission Chief Complaint: Malfunction Suprapubic Catheter History of Present Illness: Patient is an 82 y/o male with past medical history of BPH, HTN, HLD, Kidney Stone, Diverticulitis, Gout, Arthritis, Inguinal Hernia, Alzheimer's Dementia, Urinary Retention s/p suprapubic catheter placement 10/27/18. Patient is poor informant and information taken from medical record. Patient presented to ER for evaluation after cut was made in suprapubic catheter. Patient has no recollection as to what happened or why he is in hospital. 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 Cardiovascular: Yes: HTN Gastrointestinal: Yes: Diverticulitis (diagnoses at [facility] 09/06/14 ) Renal/: Yes: Neurogenic Bladder, UTI Rheumatology: Yes: Gout - Past Surgical History Past Surgical History: Yes: Cataract Removal (pt is not sure of the type of his recent eye surgery) - Smoking History Smoking history: Never smoked Have you smoked in the past 12 months: No If you are a former smoker, when did you quit?: 8 YRS - Alcohol/Substance Use Hx Alcohol Use: No History of Substance Use: reports: None - Social History Usual Living Arrangement: Yes: Long-Term ADL: Support Services 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 History of Recent Travel: No Home Medications - Allergies Allergies/Adverse Reactions: Allergies Allergy/AdvReac Type Severity Reaction Status Date / Time No Known Allergies Allergy Verified 11/03/18 06:22 - Home Medications Home Medications: Ambulatory Orders Allopurinol [Zyloprim -] 100 mg PO DAILY 09/08/14 Amlodipine Besylate [Norvasc -] 10 mg PO DAILY 09/08/14 Losartan Potassium 50 mg PO DAILY 09/08/14 Acetaminophen [Tylenol .Regular Strength -] 650 mg PO Q4H tablet 11/02/18 Donepezil HCl [Aricept -] 5 mg PO DAILY tablet 11/02/18 Dutasteride [Avodart] 0.5 mg PO DAILY cap 11/02/18 Olanzapine [Zyprexa -] 10 mg PO BID tablet 11/02/18 Polyethylene Glycol 3350 [Miralax 119 gm Btl -] 17 gm PO BID bottle 11/02/18 Tamsulosin HCl [Flomax -] 0.4 mg PO DAILY@0830 cap.er.24h 11/02/18 Family Disease History - Family Disease History Family Disease History: Heart Disease: Father (80s of heart), Other: Father, Mother ( at 104), Brother (7 brothers all in [place]), Sister (in [place]) Review of Systems - Review of Systems Constitutional: reports: No Symptoms Eyes: reports: No Symptoms HENT: reports: No Symptoms Neck: reports: No Symptoms Cardiovascular: reports: No Symptoms Respiratory: reports: No Symptoms Gastrointestinal: reports: No Symptoms Genitourinary: reports: No Symptoms Breasts: reports: No Symptoms Reported Musculoskeletal: reports: No Symptoms Integumentary: reports: No Symptoms Neurological: reports: No Symptoms Endocrine: reports: No Symptoms Hematology/Lymphatic: reports: No Symptoms Psychiatric: reports: No Symptoms Physical Examination Vital Signs: Vital Signs Temperature 98.4 F 11/03/18 14:00 Pulse Rate 82 11/03/18 14:00 Respiratory Rate 18 11/03/18 14:00 Blood Pressure 127/74 11/03/18 14:00 O2 Sat by Pulse Oximetry (%) 98 11/03/18 08:26 Constitutional: Yes: No Distress, Calm Eyes: Yes: Conjunctiva Clear HENT: Yes: Atraumatic Neck: Yes: Supple Cardiovascular: Yes: Regular Rate and Rhythm Respiratory: Yes: Regular, CTA Bilaterally Gastrointestinal: Yes: Normal Bowel Sounds, Soft Renal/: Yes: Hernandez Present (cut suprapubic catheter) Musculoskeletal: Yes: Muscle Weakness Extremities: Yes: WNL Edema: No Neurological: Yes: Alert, Confusion, Pre-Existing Deficit Psychiatric: Yes: Alert, Oriented (to person and ) Labs: CBC, BMP 11/03/18 08:00 11/03/18 08:00 Problem List - Problems (1) Suprapubic catheter dysfunction Assessment/Plan: -Urology on board -patient scheduled for suprapubic cystostomy on 11/04 -EKG and CXR ordered for Preop Code(s): T83.010A - BREAKDOWN (MECHANICAL) OF CYSTOSTOMY CATHETER, INIT ENCNTR (2) Dementia Assessment/Plan: -Aricept Code(s): F03.90 - UNSPECIFIED DEMENTIA WITHOUT BEHAVIORAL DISTURBANCE (3) Gout Assessment/Plan: -Allopurinol Code(s): M10.9 - GOUT, UNSPECIFIED (4) Hypertension Assessment/Plan: -Amlodipine and losartan -low Na diet Code(s): I10 - ESSENTIAL (PRIMARY) HYPERTENSION Assessment/Plan see problem list dvt ppx
[2018-11-03 17:41] VITALS: BMI 26.5
[2018-11-03] MEDS: POLYETHYLENE GLYCOL 3350 119 GM BTL PO SCH (21:40)
[2018-11-03] MEDS: OLANZapine 5 MG TABLET PO SCH (21:41)
[2018-11-03] MEDS: HEPARIN NA (PORCINE) 5,000 UNITS/ML 1ML VIAL SQ SCH (23:32)
[2018-11-04] MEDS: ACETAMINOPHEN 325 MG TABLET (FP) PO SCH ×6 (02:58→21:06)
[2018-11-04 08:14] LABS: EOS % 11.1 % (0-4.5); HEMATOCRIT 36.3 % (35.4-49); HEMOGLOBIN 12.6 GM/dL (11.7-16.9); LYMPH % 25.8 % (8-40); MCH 30.5 pg (25.7-33.7); MCHC 34.6 g/dl (32.0-35.9); MEAN CELL VOLUME 88.1 fl (80-96); MEAN PLT VOLUME 6.9 fl (7.5-11.1); MONO % 7.8 % (3.8-10.2); NEUT % 54.3 % (42.8-82.8); PLATELET COUNT 439 K/MM3 (134-434); RBC 4.12 M/mm3 (4.00-5.60); RDW 12.9 % (11.9-15.9)
[2018-11-04] MEDS ORDERED: TAMSULOSIN HCL 0.4 MG CAP PO SCH (08:30)
[2018-11-04 08:36] LABS: ALBUMIN 3.2 g/dl (3.4-5.0); BILIRUBIN,TOTAL 0.4 mg/dL (0.2-1); BLOOD UREA NITROGEN 11.4 mg/dL (7-18); CREATININE 0.6 mg/dL (0.55-1.3); MAGNESIUM 2.3 mg/dL (1.8-2.4); PHOSPHOROUS 3.9 mg/dL (2.5-4.9); POTASSIUM 4.1 mmol/L (3.5-5.1); TOT PROT 6.2 g/dl (6.4-8.2)
[2018-11-04] MEDS: OLANZapine 5 MG TABLET PO SCH ×2 (09:53→21:05)
[2018-11-04] MEDS: HEPARIN NA (PORCINE) 5,000 UNITS/ML 1ML VIAL SQ SCH (09:53)
[2018-11-04] MEDS: POLYETHYLENE GLYCOL 3350 119 GM BTL PO SCH ×2 (09:53→21:10)
[2018-11-04] MEDS ORDERED: LOSARTAN POTASSIUM 50 MG TABLET (FP) PO SCH (10:00)
[2018-11-04] MEDS ORDERED: DUTASTERIDE 0.5 MG CAP (FP) PO SCH (10:00)
[2018-11-04] MEDS ORDERED: ALLOPURINOL 100 MG TABLET (FP) PO SCH (10:00)
[2018-11-04] MEDS ORDERED: amLODIPine BESYLATE 10 MG TABLET (FP) PO SCH (10:00)
[2018-11-04] MEDS ORDERED: DONEPEZIL HCL 5 MG TABLET (FP) PO SCH ×2 (10:00→22:00)
[2018-11-04] MEDS ORDERED: ROCURONIUM BROMIDE 50 MG/5 ML SYRINGE ONE (12:39)
[2018-11-04] MEDS ORDERED: PROPOFOL 20 ML ONE (12:39)
[2018-11-04] MEDS ORDERED: SUCCINYLCHOLINE CHLORIDE 200 MG/10 ML SYRINGE ONE (12:39)
[2018-11-04] MEDS ORDERED: MIDAZOLAM HCL 2 MG/2 ML SINGLE DOSE VIAL ONE (12:40)
--- NOTE | 2018-11-04 12:49 | OP ---
Operative Note - Note: Operative Date: 11/04/18 Pre-Operative Diagnosis: malfuntioning SP tube, neurogenic bladder Operation: SP cystostomy, cystoscopy Findings: SP tube completely cut mid catheter Post-Operative Diagnosis: Same as Pre-op Anesthesia: Fractional Estimated Blood Loss (mls): 0 Drains & Tubes with Location: 24 fr perdomo SPT ml balloon Operative Report Dictated: Yes
--- NOTE | 2018-11-04 13:00 | PN ---
Progress Note, Physician Chief Complaint: Malfunction Suprapubic Catheter History of Present Illness: Previous notes and events reviewed awake and alert NAD CXR with no acute pathology and EKG NSR --medically cleared for procedure patient scheduled for suprapubic cystostomy, cystoscopy - Current Medication List Current Medications: Active Medications Acetaminophen (Tylenol -) 650 mg PO Q4HPO [facility] Last Admin: 11/04/18 10:46 Dose: Not Given Allopurinol (Zyloprim -) 100 mg PO DAILY [facility] Last Admin: 11/04/18 09:53 Dose: Not Given Amlodipine Besylate (Norvasc -) 10 mg PO DAILY [facility] Last Admin: 11/04/18 09:53 Dose: Not Given Donepezil HCl (Aricept -) 5 mg PO DAILY [facility] Last Admin: 11/04/18 09:52 Dose: Not Given Dutasteride (Avodart -) 0.5 mg PO DAILY [facility] Last Admin: 11/04/18 09:53 Dose: Not Given Losartan Potassium (Cozaar -) 50 mg PO DAILY [facility] Last Admin: 11/04/18 09:53 Dose: Not Given Olanzapine (Zyprexa -) 10 mg PO BID [facility] Last Admin: 11/04/18 09:53 Dose: Not Given Polyethylene Glycol (Miralax (For Daily Use) -) 17 gm PO BID [facility] Last Admin: 11/04/18 09:53 Dose: Not Given Tamsulosin HCl (Flomax -) 0.4 mg PO DAILY@0830 [facility] Last Admin: 11/04/18 08:32 Dose: Not Given - Objective Vital Signs: Vital Signs Temperature 98.6 F 11/04/18 09:34 Pulse Rate 78 11/04/18 09:34 Respiratory Rate 18 11/04/18 09:34 Blood Pressure 116/78 11/04/18 09:34 O2 Sat by Pulse Oximetry (%) 95 11/04/18 09:00 Constitutional: Yes: No Distress, Calm Eyes: Yes: Conjunctiva Clear HENT: Yes: Atraumatic Cardiovascular: Yes: Regular Rate and Rhythm Respiratory: Yes: Regular, CTA Bilaterally Gastrointestinal: Yes: Normal Bowel Sounds, Soft Genitourinary: Yes: Hernandez Present (suprapubic catheter) Musculoskeletal: Yes: Muscle Weakness Extremities: Yes: WNL Edema: No Neurological: Yes: Alert, Confusion Psychiatric: Yes: Alert Labs: CBC, BMP 11/04/18 06:30 11/04/18 06:30 - ....Imaging Chest X-ray: Report Reviewed Problem List - Problems (1) Suprapubic catheter dysfunction Assessment/Plan: -Urology on board -patient scheduled for suprapubic cystostomy this morning Code(s): T83.010A - BREAKDOWN (MECHANICAL) OF CYSTOSTOMY CATHETER, INIT ENCNTR (2) Dementia Assessment/Plan: -Aricept Code(s): F03.90 - UNSPECIFIED DEMENTIA WITHOUT BEHAVIORAL DISTURBANCE (3) Gout Assessment/Plan: -Allopurinol Code(s): M10.9 - GOUT, UNSPECIFIED (4) Hypertension Assessment/Plan: -Amlodipine and losartan -low Na diet Code(s): I10 - ESSENTIAL (PRIMARY) HYPERTENSION Assessment/Plan see problem list dvt ppx
[2018-11-04] MEDS ORDERED: ceFAZolin SODIUM 1 GM VIAL IVPB ONE (13:05)
--- NOTE | 2018-11-04 13:48 | OP ---
DATE OF OPERATION: 11/04/2018 PREOPERATIVE DIAGNOSIS: Malfunctioning suprapubic tube and neurogenic bladder. POSTOPERATIVE DIAGNOSIS: Malfunctioning suprapubic tube and neurogenic bladder. PROCEDURE: Cystoscopy and suprapubic cystostomy. SURGEON: Ry Perez MD DIGITAL DESIGN ENGINEER: None. ANESTHESIA: IV sedation. ANESTHESIOLOGIST: Ari Bernal MD SPECIMENS: None. CULTURES: None. DRAINS: A 24-Albanian Hernandez catheter suprapubic tube, 60-mL balloon. ESTIMATED BLOOD LOSS: None. COMPLICATIONS: None. DESCRIPTION OF PROCEDURE: Patient was brought into the operating room, placed on the operating room table in the supine position. After administration of intravenous sedation, intravenous antibiotics, patient was placed in the dorsal lithotomy position, and the genitals, perineum, lower abdomen, and thighs were prepped and draped in the usual sterile manner. The partially cut indwelling suprapubic tube sutures were cut. Balloon then was able to be emptied after these sutures were cut, and it was removed, and a new 24-Albanian suprapubic Hernandez catheter was placed, 20 mL was placed in the balloon. Cystoscopy was performed. Confirmed the balloons position within the bladder. The suprapubic Hernandez catheter balloon was inflated with an additional 40 mL for a total of 60 mL in the balloon. It was sutured in place with interrupted [address] It was place on gravity drainage. He tolerated the procedure well. Sterile dressing was applied. He transferred to recovery room in stable condition. RY PEREZ M.D. [id number]
[2018-11-04] MEDS ORDERED: ONDANSETRON 4 MG/2 ML VIAL IVPUSH PRN (13:51)
[2018-11-04] MEDS ORDERED: LACTATED RINGERS SOLUTION 1,000 ML IV SCH (14:00)
[2018-11-05] MEDS: ACETAMINOPHEN 325 MG TABLET (FP) PO SCH ×6 (01:43→22:18)
[2018-11-05 07:45] LABS: ALBUMIN 3.1 g/dl (3.4-5.0); BILIRUBIN,TOTAL 0.4 mg/dL (0.2-1); BLOOD UREA NITROGEN 10.2 mg/dL (7-18); CALCIUM 9.3 mg/dL (8.5-10.1); CREATININE 0.6 mg/dL (0.55-1.3); POTASSIUM 4.2 mmol/L (3.5-5.1); TOT PROT 5.9 g/dl (6.4-8.2)
[2018-11-05 07:47] LABS: HEMATOCRIT 38.4 % (35.4-49); HEMOGLOBIN 12.8 GM/dL (11.7-16.9); MCH 29.8 pg (25.7-33.7); MCHC 33.4 g/dl (32.0-35.9); MEAN CELL VOLUME 89.1 fl (80-96); MEAN PLT VOLUME 6.9 fl (7.5-11.1); PLATELET COUNT 416 K/MM3 (134-434); RBC 4.31 M/mm3 (4.00-5.60); RDW 12.8 % (11.9-15.9); WHITE BLOOD COUNT 6.5 K/mm3 (4.0-10.0)
[2018-11-05] MEDS: LOSARTAN POTASSIUM 50 MG TABLET (FP) PO SCH (10:44)
[2018-11-05] MEDS: ALLOPURINOL 100 MG TABLET (FP) PO SCH (10:44)
[2018-11-05] MEDS: TAMSULOSIN HCL 0.4 MG CAP PO SCH (10:44)
[2018-11-05] MEDS: OLANZapine 5 MG TABLET PO SCH ×2 (10:44→22:16)
[2018-11-05] MEDS: amLODIPine BESYLATE 10 MG TABLET (FP) PO SCH (10:45)
[2018-11-05] MEDS: DUTASTERIDE 0.5 MG CAP (FP) PO SCH (10:45)
[2018-11-05] MEDS: POLYETHYLENE GLYCOL 3350 119 GM BTL PO SCH ×2 (10:53→22:26)
--- NOTE | 2018-11-05 12:31 | PN ---
Progress Note, Physician Chief Complaint: patient seen and examined in vest restraint s/p suprapubic cath placement - Current Medication List Current Medications: Active Medications Acetaminophen (Tylenol -) 650 mg PO Q4HPO [facility] Last Admin: 11/05/18 10:50 Dose: 650 mg Allopurinol (Zyloprim -) 100 mg PO DAILY [facility] Last Admin: 11/05/18 10:44 Dose: 100 mg Amlodipine Besylate (Norvasc -) 10 mg PO DAILY [facility] Last Admin: 11/05/18 10:45 Dose: 10 mg Donepezil HCl (Aricept -) 5 mg PO HS [facility] Last Admin: 11/04/18 21:05 Dose: 5 mg Dutasteride (Avodart -) 0.5 mg PO DAILY [facility] Last Admin: 11/05/18 10:45 Dose: 0.5 mg Fentanyl (Sublimaze Injection -) 25 mcg IVPUSH [id number] PRN PRN Reason: PAIN-PACU ORDER X 4 DOSES ONLY Losartan Potassium (Cozaar -) 50 mg PO DAILY [facility] Last Admin: 11/05/18 10:44 Dose: 50 mg Olanzapine (Zyprexa -) 10 mg PO BID [facility] Last Admin: 11/05/18 10:44 Dose: 10 mg Ondansetron HCl (Zofran Injection) 4 mg IVPUSH Q6H PRN PRN Reason: NAUSEA AND/OR VOMITING Polyethylene Glycol (Miralax (For Daily Use) -) 17 gm PO BID [facility] Last Admin: 11/05/18 10:53 Dose: 17 gm Tamsulosin HCl (Flomax -) 0.4 mg PO DAILY@0830 [facility] Last Admin: 11/05/18 10:44 Dose: 0.4 mg - Objective Vital Signs: Vital Signs Temperature 97.8 F 11/05/18 05:49 Pulse Rate 79 11/05/18 05:49 Respiratory Rate 20 11/05/18 05:49 Blood Pressure 132/90 11/05/18 05:49 O2 Sat by Pulse Oximetry (%) 96 11/04/18 21:00 Constitutional: Yes: Anxious Cardiovascular: Yes: Regular Rate and Rhythm, S1, S2 Respiratory: Yes: CTA Bilaterally Gastrointestinal: Yes: Soft Edema: No Labs: CBC, BMP 11/05/18 06:55 11/05/18 06:55 Problem List - Problems (1) Suprapubic catheter dysfunction Assessment/Plan: suprapubic cystostomy and cystoscopy Code(s): T83.010A - BREAKDOWN (MECHANICAL) OF CYSTOSTOMY CATHETER, INIT ENCNTR (2) Dementia Assessment/Plan: psych eval [id number] bid aricept Code(s): F03.90 - UNSPECIFIED DEMENTIA WITHOUT BEHAVIORAL DISTURBANCE (3) Hypertension Assessment/Plan: cozaar Code(s): I10 - ESSENTIAL (PRIMARY) HYPERTENSION
--- NOTE | 2018-11-05 17:40 | CON.PSY ---
Psychiatry Consult Chief Complaint: Aggressive and self damagingt behaviour. patient with severe Dementia displaying significant behaviour disturbances, pulling out tubes. Symptoms: reports: Memory Impairment, Impulsivity, Depersonalization, Disorganized/Disruptive Thoughts - Previous Psychiatric Treatment Outpatient: None Inpatient: None - Previous Substance Abuse Treatment Outpatient: None Inpatient: None - Current Medications Current Medications: Active Medications Acetaminophen (Tylenol -) 650 mg PO Q4HPO [facility] Last Admin: 11/05/18 15:00 Dose: 650 mg Allopurinol (Zyloprim -) 100 mg PO DAILY [facility] Last Admin: 11/05/18 10:44 Dose: 100 mg Amlodipine Besylate (Norvasc -) 10 mg PO DAILY [facility] Last Admin: 11/05/18 10:45 Dose: 10 mg Dutasteride (Avodart -) 0.5 mg PO DAILY [facility] Last Admin: 11/05/18 10:45 Dose: 0.5 mg Fentanyl (Sublimaze Injection -) 25 mcg IVPUSH [id number] PRN PRN Reason: PAIN-PACU ORDER X 4 DOSES ONLY Heparin Sodium (Porcine) (Heparin -) 5,000 unit SQ BID [facility] Losartan Potassium (Cozaar -) 50 mg PO DAILY [facility] Last Admin: 11/05/18 10:44 Dose: 50 mg Olanzapine (Zyprexa -) 10 mg PO BID [facility] Last Admin: 11/05/18 10:44 Dose: 10 mg Ondansetron HCl (Zofran Injection) 4 mg IVPUSH Q6H PRN PRN Reason: NAUSEA AND/OR VOMITING Polyethylene Glycol (Miralax (For Daily Use) -) 17 gm PO BID [facility] Last Admin: 11/05/18 10:53 Dose: 17 gm Tamsulosin HCl (Flomax -) 0.4 mg PO DAILY@0830 [facility] Last Admin: 11/05/18 10:44 Dose: 0.4 mg - Allergies Allergies: Allergies Allergy/AdvReac Type Severity Reaction Status Date / Time No Known Allergies Allergy Verified 11/03/18 06:22 - Current Living Status Usual Living Arrangement: Correction - Current Mental Status Evaluation Appearance: Disheveled Attitude: Belligerent - Affect Affect: Constrictive Appropriateness: Not Appropriate - Mood Mood: Irritable - Speech/Language Expressive: Delayed - Psychomotor Activity Psychomotor Activity: Hyperactive - Thought Process Thought Process: Circumstantial - Thought Content Hallucinations: Absent Delusions: Absent - Self Perception Self Perception: Depersonalization - Concentration Serial Sevens Intact: No Simple Calculations Intact: No - Abstraction Proverb Interpretation: Impaired Judgement: Severely Impaired - Insight Insight: Impaired - Impulse Control Impulse Control: Severly Impaired - Suicidal Ideation Suicidal Ideation: No - Homicidal Ideation Homicidal Ideation: No Assessment/Plan 1) continue with Zyprexa 10 mg po bid. 2) add [id number] 125 mg SP caps Po bid.
[2018-11-05] MEDS: DIVALPROEX SODIUM 125 MG SPRINKLE CAPS PO SCH (22:16)
[2018-11-05] MEDS: HEPARIN NA (PORCINE) 5,000 UNITS/ML 1ML VIAL SQ SCH (22:19)
[2018-11-06] MEDS: ACETAMINOPHEN 325 MG TABLET (FP) PO SCH ×6 (01:52→22:35)
[2018-11-06] MEDS: TAMSULOSIN HCL 0.4 MG CAP PO SCH (09:53)
[2018-11-06] MEDS ORDERED: PT OWN MED DRAWER 7, Y5N ONE ×3 (10:40→21:56)
[2018-11-06] MEDS: DIVALPROEX SODIUM 125 MG SPRINKLE CAPS PO SCH ×2 (10:43→22:33)
[2018-11-06] MEDS: POLYETHYLENE GLYCOL 3350 119 GM BTL PO SCH ×2 (10:43→22:34)
[2018-11-06] MEDS: DUTASTERIDE 0.5 MG CAP (FP) PO SCH (10:43)
[2018-11-06] MEDS: LOSARTAN POTASSIUM 50 MG TABLET (FP) PO SCH (10:43)
[2018-11-06] MEDS: OLANZapine 5 MG TABLET PO SCH ×2 (10:43→22:33)
[2018-11-06] MEDS: amLODIPine BESYLATE 10 MG TABLET (FP) PO SCH (10:44)
[2018-11-06] MEDS: HEPARIN NA (PORCINE) 5,000 UNITS/ML 1ML VIAL SQ SCH ×2 (10:44→22:34)
[2018-11-06] MEDS: ALLOPURINOL 100 MG TABLET (FP) PO SCH (10:44)
--- NOTE | 2018-11-06 11:27 | PN ---
Progress Note, Physician - Current Medication List Current Medications: Active Medications Acetaminophen (Tylenol -) 650 mg PO Q4HPO [facility] Last Admin: 11/06/18 10:46 Dose: 650 mg Allopurinol (Zyloprim -) 100 mg PO DAILY [facility] Last Admin: 11/06/18 10:44 Dose: 100 mg Amlodipine Besylate (Norvasc -) 10 mg PO DAILY [facility] Last Admin: 11/06/18 10:44 Dose: 10 mg Divalproex Sodium (Depakote Sprinkle Caps -) 125 mg PO BID [facility] Last Admin: 11/06/18 10:43 Dose: 125 mg Dutasteride (Avodart -) 0.5 mg PO DAILY [facility] Last Admin: 11/06/18 10:43 Dose: 0.5 mg Fentanyl (Sublimaze Injection -) 25 mcg IVPUSH [id number] PRN PRN Reason: PAIN-PACU ORDER X 4 DOSES ONLY Heparin Sodium (Porcine) (Heparin -) 5,000 unit SQ BID [facility] Last Admin: 11/06/18 10:44 Dose: 5,000 unit Losartan Potassium (Cozaar -) 50 mg PO DAILY [facility] Last Admin: 11/06/18 10:43 Dose: 50 mg Olanzapine (Zyprexa -) 10 mg PO BID [facility] Last Admin: 11/06/18 10:43 Dose: 10 mg Ondansetron HCl (Zofran Injection) 4 mg IVPUSH Q6H PRN PRN Reason: NAUSEA AND/OR VOMITING Polyethylene Glycol (Miralax (For Daily Use) -) 17 gm PO BID [facility] Last Admin: 11/06/18 10:43 Dose: 17 gm Tamsulosin HCl (Flomax -) 0.4 mg PO DAILY@0830 [facility] Last Admin: 11/06/18 09:53 Dose: 0.4 mg - Objective Vital Signs: Vital Signs Temperature 98.1 F 11/06/18 06:00 Pulse Rate 82 11/06/18 06:00 Respiratory Rate 18 11/06/18 06:00 Blood Pressure 137/62 11/06/18 06:00 O2 Sat by Pulse Oximetry (%) 94 L 11/05/18 21:00 Cardiovascular: Yes: Regular Rate and Rhythm Respiratory: Yes: Regular, CTA Bilaterally Gastrointestinal: Yes: Normal Bowel Sounds, Soft Genitourinary: Yes: Other (spt) Labs: CBC, BMP 11/05/18 06:55 11/05/18 06:55 Assessment/Plan - Problems (1) Suprapubic catheter dysfunction Assessment/Plan: suprapubic cystostomy and cystoscopy Code(s): T83.010A - BREAKDOWN (MECHANICAL) OF CYSTOSTOMY CATHETER, INIT ENCNTR (2) Dementia Assessment/Plan: psych eval zyrepxa bid aricept Code(s): F03.90 - UNSPECIFIED DEMENTIA WITHOUT BEHAVIORAL DISTURBANCE (3) Hypertension Assessment/Plan: cozaar Code(s): I10 - ESSENTIAL (PRIMARY) HYPERTENSION
[2018-11-07] MEDS: ACETAMINOPHEN 325 MG TABLET (FP) PO SCH ×6 (01:36→17:40)
[2018-11-07] MEDS: TAMSULOSIN HCL 0.4 MG CAP PO SCH (08:47)
[2018-11-07] MEDS: LOSARTAN POTASSIUM 50 MG TABLET (FP) PO SCH (09:57)
[2018-11-07] MEDS: amLODIPine BESYLATE 10 MG TABLET (FP) PO SCH (09:57)
[2018-11-07] MEDS: OLANZapine 5 MG TABLET PO SCH ×2 (09:58→21:54)
[2018-11-07] MEDS: ALLOPURINOL 100 MG TABLET (FP) PO SCH (09:58)
[2018-11-07] MEDS: HEPARIN NA (PORCINE) 5,000 UNITS/ML 1ML VIAL SQ SCH ×2 (09:58→21:54)
[2018-11-07] MEDS: DIVALPROEX SODIUM 125 MG SPRINKLE CAPS PO SCH ×2 (09:58→21:54)
[2018-11-07] MEDS: POLYETHYLENE GLYCOL 3350 119 GM BTL PO SCH ×2 (09:58→21:54)
[2018-11-07] MEDS: DUTASTERIDE 0.5 MG CAP (FP) PO SCH (09:58)
--- NOTE | 2018-11-07 11:40 | PN ---
Progress Note, Physician - Current Medication List Current Medications: Active Medications Acetaminophen (Tylenol -) 650 mg PO Q4HPO [facility] Last Admin: 11/07/18 10:34 Dose: 650 mg Allopurinol (Zyloprim -) 100 mg PO DAILY [facility] Last Admin: 11/07/18 09:58 Dose: 100 mg Amlodipine Besylate (Norvasc -) 10 mg PO DAILY [facility] Last Admin: 11/07/18 09:57 Dose: 10 mg Divalproex Sodium (Depakote Sprinkle Caps -) 125 mg PO BID [facility] Last Admin: 11/07/18 09:58 Dose: 125 mg Dutasteride (Avodart -) 0.5 mg PO DAILY [facility] Last Admin: 11/07/18 09:58 Dose: 0.5 mg Fentanyl (Sublimaze Injection -) 25 mcg IVPUSH [id number] PRN PRN Reason: PAIN-PACU ORDER X 4 DOSES ONLY Heparin Sodium (Porcine) (Heparin -) 5,000 unit SQ BID [facility] Last Admin: 11/07/18 09:58 Dose: 5,000 unit Losartan Potassium (Cozaar -) 50 mg PO DAILY [facility] Last Admin: 11/07/18 09:57 Dose: 50 mg Olanzapine (Zyprexa -) 10 mg PO BID [facility] Last Admin: 11/07/18 09:58 Dose: 10 mg Ondansetron HCl (Zofran Injection) 4 mg IVPUSH Q6H PRN PRN Reason: NAUSEA AND/OR VOMITING Polyethylene Glycol (Miralax (For Daily Use) -) 17 gm PO BID [facility] Last Admin: 11/07/18 09:58 Dose: 17 gm Tamsulosin HCl (Flomax -) 0.4 mg PO DAILY@0830 [facility] Last Admin: 11/07/18 08:47 Dose: 0.4 mg - Objective Vital Signs: Vital Signs Temperature 97.5 F L 11/06/18 18:00 Pulse Rate 72 11/07/18 05:47 Respiratory Rate 18 11/07/18 05:47 Blood Pressure 114/75 11/07/18 05:47 O2 Sat by Pulse Oximetry (%) 96 11/06/18 09:00 Respiratory: Yes: Regular, CTA Bilaterally Gastrointestinal: Yes: Normal Bowel Sounds, Soft Genitourinary: Yes: Hernandez Present (spt) Labs: CBC, BMP 11/05/18 06:55 11/05/18 06:55 Assessment/Plan - Problems (1) Suprapubic catheter dysfunction Assessment/Plan: suprapubic cystostomy and cystoscopy Code(s): T83.010A - BREAKDOWN (MECHANICAL) OF CYSTOSTOMY CATHETER, INIT ENCNTR (2) Dementia Assessment/Plan: psych eval zyrepxa bid aricept Code(s): F03.90 - UNSPECIFIED DEMENTIA WITHOUT BEHAVIORAL DISTURBANCE (3) Hypertension Assessment/Plan: cozaar Code(s): I10 - ESSENTIAL (PRIMARY) HYPERTENSION
--- NOTE | 2018-11-07 17:11 | EKG ---
Test Reason : Blood Pressure : / mmHG Vent. Rate : 077 BPM Atrial Rate : 077 BPM P-R Int : 156 ms QRS Dur : 086 ms QT Int : 400 ms P-R-T Axes : 054 030 054 degrees QTc Int : 452 ms NORMAL SINUS RHYTHM NORMAL ECG WHEN COMPARED WITH ECG OF 29-OCT-2018 09:57, NO SIGNIFICANT CHANGE WAS FOUND Confirmed by HEIDI RICO MD ([id number]) on 11/07/2018 5:11:14 PM Referred By: Confirmed By:HEIDI RICO MD
[2018-11-08] MEDS: ACETAMINOPHEN 325 MG TABLET (FP) PO SCH ×7 (01:36→23:07)
[2018-11-08] MEDS ORDERED: PT OWN MED DRAWER 7, Y5N ONE ×3 (09:07→23:06)
[2018-11-08] MEDS: TAMSULOSIN HCL 0.4 MG CAP PO SCH (09:41)
[2018-11-08] MEDS: amLODIPine BESYLATE 10 MG TABLET (FP) PO SCH (09:42)
[2018-11-08] MEDS: OLANZapine 5 MG TABLET PO SCH ×2 (09:42→23:06)
[2018-11-08] MEDS: DUTASTERIDE 0.5 MG CAP (FP) PO SCH (09:42)
[2018-11-08] MEDS: HEPARIN NA (PORCINE) 5,000 UNITS/ML 1ML VIAL SQ SCH ×2 (09:42→23:07)
[2018-11-08] MEDS: LOSARTAN POTASSIUM 50 MG TABLET (FP) PO SCH (09:42)
[2018-11-08] MEDS: ALLOPURINOL 100 MG TABLET (FP) PO SCH (09:42)
[2018-11-08] MEDS: DIVALPROEX SODIUM 125 MG SPRINKLE CAPS PO SCH ×2 (09:48→23:07)
[2018-11-08] MEDS: POLYETHYLENE GLYCOL 3350 119 GM BTL PO SCH ×2 (09:50→23:08)
--- NOTE | 2018-11-08 12:07 | PN ---
Progress Note, Physician Chief Complaint: Malfunction Suprapubic Catheter History of Present Illness: Previous notes and events reviewed awake and alert NAD POD #4 suprapubic cystostomy denies complaints - Current Medication List Current Medications: Active Medications Acetaminophen (Tylenol -) 650 mg PO Q4HPO [facility] Last Admin: 11/08/18 09:47 Dose: 650 mg Allopurinol (Zyloprim -) 100 mg PO DAILY [facility] Last Admin: 11/08/18 09:42 Dose: 100 mg Amlodipine Besylate (Norvasc -) 10 mg PO DAILY [facility] Last Admin: 11/08/18 09:42 Dose: 10 mg Divalproex Sodium (Depakote Sprinkle Caps -) 125 mg PO BID [facility] Last Admin: 11/08/18 09:48 Dose: 125 mg Dutasteride (Avodart -) 0.5 mg PO DAILY [facility] Last Admin: 11/08/18 09:42 Dose: 0.5 mg Fentanyl (Sublimaze Injection -) 25 mcg IVPUSH [id number] PRN PRN Reason: PAIN-PACU ORDER X 4 DOSES ONLY Heparin Sodium (Porcine) (Heparin -) 5,000 unit SQ BID [facility] Last Admin: 11/08/18 09:42 Dose: 5,000 unit Losartan Potassium (Cozaar -) 50 mg PO DAILY [facility] Last Admin: 11/08/18 09:42 Dose: 50 mg Olanzapine (Zyprexa -) 10 mg PO BID [facility] Last Admin: 11/08/18 09:42 Dose: 10 mg Ondansetron HCl (Zofran Injection) 4 mg IVPUSH Q6H PRN PRN Reason: NAUSEA AND/OR VOMITING Polyethylene Glycol (Miralax (For Daily Use) -) 17 gm PO BID [facility] Last Admin: 11/08/18 09:50 Dose: 17 gm Tamsulosin HCl (Flomax -) 0.4 mg PO DAILY@0830 [facility] Last Admin: 11/08/18 09:41 Dose: 0.4 mg - Objective Vital Signs: Vital Signs Temperature 97.2 F L 11/08/18 09:02 Pulse Rate 82 11/08/18 09:02 Respiratory Rate 18 11/08/18 09:02 Blood Pressure 105/71 11/08/18 09:02 O2 Sat by Pulse Oximetry (%) 96 11/06/18 09:00 Constitutional: Yes: No Distress, Calm Eyes: Yes: Conjunctiva Clear HENT: Yes: Atraumatic Cardiovascular: Yes: Regular Rate and Rhythm Respiratory: Yes: Regular, CTA Bilaterally Gastrointestinal: Yes: Normal Bowel Sounds, Soft Genitourinary: Yes: Hernandez Present Musculoskeletal: Yes: Muscle Weakness Extremities: Yes: WNL Edema: No Neurological: Yes: Alert, Pre-Existing Deficit Psychiatric: Yes: Alert Labs: CBC, BMP 11/05/18 06:55 11/05/18 06:55 Microbiology 11/03/18 08:00 Urine - Urine Clean Catch Urine Culture - Final NO GROWTH OBTAINED Problem List - Problems (1) Suprapubic catheter dysfunction Assessment/Plan: -Urology on board -POD #4 suprapubic cystostomy Code(s): T83.010A - BREAKDOWN (MECHANICAL) OF CYSTOSTOMY CATHETER, INIT ENCNTR (2) Dementia Assessment/Plan: -Aricept and Zyprexa -Psych consult and ad Depakote SP to regimen Code(s): F03.90 - UNSPECIFIED DEMENTIA WITHOUT BEHAVIORAL DISTURBANCE (3) Gout Assessment/Plan: -Allopurinol Code(s): M10.9 - GOUT, UNSPECIFIED (4) Hypertension Assessment/Plan: -Amlodipine and losartan -low Na diet Code(s): I10 - ESSENTIAL (PRIMARY) HYPERTENSION Assessment/Plan see problem list dvt ppx begin d/c planning for return to SNF
[2018-11-09] MEDS: ACETAMINOPHEN 325 MG TABLET (FP) PO SCH ×6 (02:55→23:34)
[2018-11-09 07:59] LABS: HEMATOCRIT 38.6 % (35.4-49); HEMOGLOBIN 13.4 GM/dL (11.7-16.9); MCH 30.5 pg (25.7-33.7); MCHC 34.8 g/dl (32.0-35.9); MEAN CELL VOLUME 87.6 fl (80-96); MEAN PLT VOLUME 6.9 fl (7.5-11.1); PLATELET COUNT 403 K/MM3 (134-434); RBC 4.41 M/mm3 (4.00-5.60); RDW 12.6 % (11.9-15.9); WHITE BLOOD COUNT 8.8 K/mm3 (4.0-10.0)
[2018-11-09 08:23] LABS: ALBUMIN 3.2 g/dl (3.4-5.0); BILIRUBIN,TOTAL 0.5 mg/dL (0.2-1); BLOOD UREA NITROGEN 12.4 mg/dL (7-18); CALCIUM 9.5 mg/dL (8.5-10.1); CREATININE 0.6 mg/dL (0.55-1.3); POTASSIUM 4.1 mmol/L (3.5-5.1); TOT PROT 6.2 g/dl (6.4-8.2)
[2018-11-09] MEDS ORDERED: PT OWN MED DRAWER 7, Y5N ONE (09:15)
[2018-11-09] MEDS: TAMSULOSIN HCL 0.4 MG CAP PO SCH (10:20)
[2018-11-09] MEDS: HEPARIN NA (PORCINE) 5,000 UNITS/ML 1ML VIAL SQ SCH ×2 (10:20→23:31)
[2018-11-09] MEDS: DIVALPROEX SODIUM 125 MG SPRINKLE CAPS PO SCH ×2 (10:20→23:32)
[2018-11-09] MEDS: DUTASTERIDE 0.5 MG CAP (FP) PO SCH (10:20)
[2018-11-09] MEDS: ALLOPURINOL 100 MG TABLET (FP) PO SCH (10:21)
[2018-11-09] MEDS: OLANZapine 5 MG TABLET PO SCH ×2 (10:21→23:30)
[2018-11-09] MEDS: POLYETHYLENE GLYCOL 3350 119 GM BTL PO SCH ×2 (10:23→23:33)
[2018-11-09] MEDS: amLODIPine BESYLATE 10 MG TABLET (FP) PO SCH (10:27)
[2018-11-09] MEDS: LOSARTAN POTASSIUM 50 MG TABLET (FP) PO SCH (12:27)
--- NOTE | 2018-11-09 14:45 | DS ---
Physical Examination Vital Signs: Vital Signs Temperature 97.6 F 11/09/18 13:46 Pulse Rate 84 11/09/18 13:46 Respiratory Rate 20 11/09/18 13:46 Blood Pressure 116/68 11/09/18 13:46 O2 Sat by Pulse Oximetry (%) 94 L 11/09/18 09:00 Constitutional: Yes: No Distress, Calm Eyes: Yes: Conjunctiva Clear HENT: Yes: Atraumatic Cardiovascular: Yes: Regular Rate and Rhythm Respiratory: Yes: Regular, CTA Bilaterally Gastrointestinal: Yes: Normal Bowel Sounds, Soft Musculoskeletal: Yes: Muscle Weakness Extremities: Yes: WNL Edema: No Neurological: Yes: Alert, Oriented Psychiatric: Yes: Alert, Oriented Labs: CBC, BMP 11/09/18 07:32 11/09/18 07:32 Discharge Summary Reason For Visit: SUPRAPUBIC CATHETER DYSFUNCTION Current Active Problems Suprapubic catheter dysfunction (Acute) Hospital Course: Patient is an 82 y/o male with past medical history of BPH, HTN, HLD, Kidney Stone, Diverticulitis, Gout, Arthritis, Inguinal Hernia, Alzheimer's Dementia, Urinary Retention s/p suprapubic catheter placement 10/27/18. Patient is poor informant and information taken from medical record. Patient presented to ER for evaluation after cut was made in suprapubic catheter. Patient has no recollection as to what happened or why he is in hospital. Had suprapubic cystostomy with Urology Dr Gamez. Suprapubic catheter draining clear yellow urine. Laboratory Tests 11/03/18 11/03/18 11/03/18 08:00 08:00 08:00 WBC 7.7 RBC 4.31 Hgb 13.0 Hct 38.2 MCV 88.7 MCH 30.2 MCHC 34.0 RDW 12.7 Plt Count 448 H MPV 6.5 L Absolute Neuts (auto) 5.4 Neutrophils % 69.8 Lymphocytes % 16.2 Monocytes % 5.6 Eosinophils % 7.1 H Basophils % 1.3 Nucleated RBC % 0 Sodium 140 Potassium 4.4 Chloride 104 Carbon Dioxide 28 Anion Gap 7 L BUN 11.3 Creatinine 0.7 Est GFR (CKD-EPI)AfAm 102.58 Est GFR (CKD-EPI)NonAf 88.50 POC Glucometer Random Glucose 104 Calcium 9.3 Phosphorus Magnesium Total Bilirubin 0.2 AST 28 ALT 18 Alkaline Phosphatase 134 H Total Protein 6.2 L Albumin 3.1 L Urine Color Yellow Urine Appearance Clear Urine pH 6.0 Ur Specific [place] 1.007 L Urine Protein Negative Urine Glucose (UA) Negative Urine Ketones Negative Urine Blood 2+ H Urine Nitrite Negative Urine Bilirubin Negative Urine Urobilinogen 0.2 Ur Leukocyte Esterase Negative Urine WBC (Auto) 2 Urine RBC (Auto) 14 Urine Casts (Auto) 10 U Epithel Cells (Auto) 4.4 U Sm Round Cell (Auto) None seen Urine Bacteria (Auto) 2.7 11/03/18 11/04/18 11/04/18 12:04 06:30 06:30 WBC 7.0 RBC 4.12 Hgb 12.6 Hct 36.3 MCV 88.1 MCH 30.5 MCHC 34.6 RDW 12.9 Plt Count 439 H MPV 6.9 L Absolute Neuts (auto) 3.8 Neutrophils % 54.3 D Lymphocytes % 25.8 D Monocytes % 7.8 Eosinophils % 11.1 H Basophils % 1.0 Nucleated RBC % 0 Sodium 140 Potassium 4.1 Chloride 100 Carbon Dioxide 28 Anion Gap 12 BUN 11.4 Creatinine 0.6 Est GFR (CKD-EPI)AfAm 109.29 Est GFR (CKD-EPI)NonAf 94.29 POC Glucometer 95 Random Glucose 103 Calcium 9.0 Phosphorus 3.9 Magnesium 2.3 Total Bilirubin 0.4 AST 23 ALT 17 Alkaline Phosphatase 129 H Total Protein 6.2 L Albumin 3.2 L Urine Color Urine Appearance Urine pH Ur Specific [place] Urine Protein Urine Glucose (UA) Urine Ketones Urine Blood Urine Nitrite Urine Bilirubin Urine Urobilinogen Ur Leukocyte Esterase Urine WBC (Auto) Urine RBC (Auto) Urine Casts (Auto) U Epithel Cells (Auto) U Sm Round Cell (Auto) Urine Bacteria (Auto) 11/05/18 11/05/18 11/05/18 06:55 06:55 11:42 WBC 6.5 RBC 4.31 Hgb 12.8 Hct 38.4 MCV 89.1 MCH 29.8 MCHC 33.4 RDW 12.8 Plt Count 416 MPV 6.9 L Absolute Neuts (auto) Neutrophils % Lymphocytes % Monocytes % Eosinophils % Basophils % Nucleated RBC % Sodium 139 Potassium 4.2 Chloride 104 Carbon Dioxide 28 Anion Gap 7 L BUN 10.2 Creatinine 0.6 Est GFR (CKD-EPI)AfAm 109.29 Est GFR (CKD-EPI)NonAf 94.29 POC Glucometer 145 Random Glucose 106 Calcium 9.3 Phosphorus Magnesium Total Bilirubin 0.4 AST 27 ALT 17 Alkaline Phosphatase 118 H Total Protein 5.9 L Albumin 3.1 L Urine Color Urine Appearance Urine pH Ur Specific [place] Urine Protein Urine Glucose (UA) Urine Ketones Urine Blood Urine Nitrite Urine Bilirubin Urine Urobilinogen Ur Leukocyte Esterase Urine WBC (Auto) Urine RBC (Auto) Urine Casts (Auto) U Epithel Cells (Auto) U Sm Round Cell (Auto) Urine Bacteria (Auto) 11/05/18 11/05/18 11/06/18 17:40 21:04 06:09 WBC RBC Hgb Hct MCV MCH MCHC RDW Plt Count MPV Absolute Neuts (auto) Neutrophils % Lymphocytes % Monocytes % Eosinophils % Basophils % Nucleated RBC % Sodium Potassium Chloride Carbon Dioxide Anion Gap BUN Creatinine Est GFR (CKD-EPI)AfAm Est GFR (CKD-EPI)NonAf POC Glucometer 125 135 118 Random Glucose Calcium Phosphorus Magnesium Total Bilirubin AST ALT Alkaline Phosphatase Total Protein Albumin Urine Color Urine Appearance Urine pH Ur Specific [place] Urine Protein Urine Glucose (UA) Urine Ketones Urine Blood Urine Nitrite Urine Bilirubin Urine Urobilinogen Ur Leukocyte Esterase Urine WBC (Auto) Urine RBC (Auto) Urine Casts (Auto) U Epithel Cells (Auto) U Sm Round Cell (Auto) Urine Bacteria (Auto) 11/06/18 11/09/18 11/09/18 12:09 07:32 07:32 WBC 8.8 RBC 4.41 Hgb 13.4 Hct 38.6 MCV 87.6 MCH 30.5 MCHC 34.8 RDW 12.6 Plt Count 403 MPV 6.9 L Absolute Neuts (auto) Neutrophils % Lymphocytes % Monocytes % Eosinophils % Basophils % Nucleated RBC % Sodium 139 Potassium 4.1 Chloride 104 Carbon Dioxide 29 Anion Gap 6 L BUN 12.4 Creatinine 0.6 Est GFR (CKD-EPI)AfAm 109.29 Est GFR (CKD-EPI)NonAf 94.29 POC Glucometer 176 Random Glucose 115 H Calcium 9.5 Phosphorus Magnesium Total Bilirubin 0.5 AST 31 ALT 21 Alkaline Phosphatase 127 H Total Protein 6.2 L Albumin 3.2 L Urine Color Urine Appearance Urine pH Ur Specific [place] Urine Protein Urine Glucose (UA) Urine Ketones Urine Blood Urine Nitrite Urine Bilirubin Urine Urobilinogen Ur Leukocyte Esterase Urine WBC (Auto) Urine RBC (Auto) Urine Casts (Auto) U Epithel Cells (Auto) U Sm Round Cell (Auto) Urine Bacteria (Auto) Active Medications Generic Name Dose Route Start Last Admin Trade Name Meliza PRN Reason Stop Dose Admin Acetaminophen 650 mg 11/07/18 10:30 11/09/18 14:40 Tylenol - PO 650 mg Q4HPO [facility] Administration Allopurinol 100 mg 11/05/18 10:00 11/09/18 10:21 Zyloprim - PO 100 mg DAILY [facility] Administration Amlodipine Besylate 10 mg 11/05/18 10:00 11/09/18 10:27 Norvasc - PO 10 mg DAILY [facility] Administration Divalproex Sodium 125 mg 11/05/18 22:00 11/09/18 10:20 Depakote Sprinkle Caps - PO 125 mg BID [facility] Administration Dutasteride 0.5 mg 11/05/18 10:00 11/09/18 10:20 Avodart - PO 0.5 mg DAILY [facility] Administration Fentanyl 25 mcg 11/04/18 13:51 Sublimaze Injection - IVPUSH [id number] PRN PAIN-PACU ORDER X 4 DOSES ONLY Heparin Sodium (Porcine) 5,000 unit 11/05/18 22:00 11/09/18 10:20 Heparin - SQ 5,000 unit BID [facility] Administration Losartan Potassium 50 mg 11/05/18 10:00 11/09/18 12:27 Cozaar - PO 50 mg DAILY [facility] Administration Olanzapine 10 mg 11/04/18 22:00 11/09/18 10:21 Zyprexa - PO 10 mg BID [facility] Administration Ondansetron HCl 4 mg 11/04/18 13:51 Zofran Injection IVPUSH Q6H PRN NAUSEA AND/OR VOMITING Polyethylene Glycol 17 gm 11/04/18 22:00 11/09/18 10:23 Miralax (For Daily Use) - PO 17 gm BID [facility] Administration Tamsulosin HCl 0.4 mg 11/05/18 08:30 11/09/18 10:20 Flomax - PO 0.4 mg DAILY@0830 [facility] Administration Microbiology 11/03/18 08:00 Urine - Urine Clean Catch Urine Culture - Final NO GROWTH OBTAINED Condition: Stable - Instructions Diet, Activity, Other Instructions: follow up with PMD follow up with Urologist Dr Gamez continue with medication regimen as prescribed return to ER if develop severe pain, respiratory distress, chest pain Referrals: Ry Gamez MD [Staff Physician] - Disposition: [facility] HOME [facility]ILITY - Home Medications Comprehensive Discharge Medication List: Ambulatory Orders Allopurinol [Zyloprim -] 100 mg PO DAILY 09/08/14 Amlodipine Besylate [Norvasc -] 10 mg PO DAILY 09/08/14 Losartan Potassium 50 mg PO DAILY 09/08/14 Acetaminophen [Tylenol .Regular Strength -] 650 mg PO Q4H tablet 11/02/18 Donepezil HCl [Aricept -] 5 mg PO DAILY tablet 11/02/18 Dutasteride [Avodart] 0.5 mg PO DAILY cap 11/02/18 Olanzapine [Zyprexa -] 10 mg PO BID tablet 11/02/18 Polyethylene Glycol 3350 [Miralax 119 gm Btl -] 17 gm PO BID bottle 11/02/18 Tamsulosin HCl [Flomax -] 0.4 mg PO DAILY@0830 cap.er.24h 11/02/18
[2018-11-10] MEDS: ACETAMINOPHEN 325 MG TABLET (FP) PO SCH ×4 (03:34→10:16)
[2018-11-10 07:56] VITALS: BP 99/59; PULSE 86; TEMP 97.9
[2018-11-10] MEDS: DUTASTERIDE 0.5 MG CAP (FP) PO SCH (09:30)
[2018-11-10] MEDS: OLANZapine 5 MG TABLET PO SCH (09:30)
[2018-11-10] MEDS: TAMSULOSIN HCL 0.4 MG CAP PO SCH (09:30)
[2018-11-10] MEDS: ALLOPURINOL 100 MG TABLET (FP) PO SCH (09:30)
[2018-11-10] MEDS: HEPARIN NA (PORCINE) 5,000 UNITS/ML 1ML VIAL SQ SCH (09:31)
[2018-11-10] MEDS: LOSARTAN POTASSIUM 50 MG TABLET (FP) PO SCH (09:31)
[2018-11-10] MEDS: amLODIPine BESYLATE 10 MG TABLET (FP) PO SCH (09:31)
[2018-11-10] MEDS: DIVALPROEX SODIUM 125 MG SPRINKLE CAPS PO SCH (09:31)
[2018-11-10] MEDS: POLYETHYLENE GLYCOL 3350 119 GM BTL PO SCH (09:31)
== END 2018-11-10 10:50 | DRG 699 ==
LOC: JER 03:16 → JERBED 08:51 → J5S 10:14
PROVIDERS: ADMIT Family Medicine; ATTEND Family Medicine
PROC: 0T2BX0Z Change Drainage Device in Bladder, External Approach (ICD-10-PCS; principal; 2018-11-04 13:30)
DX: T83.010A Breakdown (mechanical) of cystostomy catheter, initial encounter (principal); F02.81 Dementia in other diseases classified elsewhere, unspecified severity, with behavioral disturbance; Y83.9 Surgical procedure, unspecified as the cause of abnormal reaction of the patient, or of later complication, without mention of misadventure at the time of the procedure; I10 Essential (primary) hypertension; G30.9 Alzheimer's disease, unspecified; N31.9 Neuromuscular dysfunction of bladder, unspecified; N40.0 Benign prostatic hyperplasia without lower urinary tract symptoms; E78.5 Hyperlipidemia, unspecified; M10.9 Gout, unspecified
CPT/HCPCS: 36415; 70450-TC; 71045-TC-FY; 72125-TC; 80053; 81003; 82962; 83735; 84100; 85025; 85027; 87086; 93005; 93010; 94760; 99284-25; J1644

== ENCOUNTER 2018-11-14 03:15 | Inpatient (IN) | payer OTHER ==
[2018-11-14 04:03] VITALS: BMI 21.0
--- NOTE | 2018-11-14 05:16 | PDOC ---
Attending Attestation - Resident Resident Name: Kimberli Ybarra - ED Attending Attestation I have performed the following: I have examined & evaluated the patient, The case was reviewed & discussed with the resident, I agree w/resident's findings & plan - HPI HPI: 11/14/18 06:28 Pt pulled out his suprapubic catheter, - Physicial Exam PE: 11/14/18 06:29 Agree with resident exam - Medical Decision Making 11/14/18 06:29 Pt will be admitted to hospitalist; urology will have to place another catheter.
--- NOTE | 2018-11-14 05:45 | PDOC ---
History of Present Illness - General Chief Complaint: Urinary Catheter Problem Stated Complaint: REMOVED SUPRAPUBIC TUBE Time Seen by Provider: 11/14/18 05:03 - History of Present Illness Initial Comments: 11/14/18 05:44 HPI: 82 y/o M with hx of BPH, HTN, HLD, Kidney Stone, Diverticulitis, Gout, Arthritis , Inguinal Hernia, Alzheimer's Dementia, urinary retention s/p suprapubic catheter (10/27/18) by Dr Vera pruett DCd 11/09/18 from [facility] for transected catheter presenting from [facility] for removed suprapubic catheter. Patient is poor historian and history was from handoff by EMS. Attempted to reach [facility] for further information but no asnwer after multiple calls. PMHx: as noted above ROS: as noted SHx: unkwn Allergies: NKDA ROS: unable to be performed 2/2 to patient mental status PE: GENERAL: Awake, alert, no acute distress HEAD: No signs of trauma, normocephalic, atraumatic EYES: EOMI, sclera anicteric, conjunctiva clear ENT: Auricles normal inspection, hearing grossly normal, nares patent, oropharynx clear without exudates. Moist mucosa NECK: Normal ROM, no lymphadenopathy LUNGS: No increased work of breathing, symmetrical chest rise, clear to auscultation bilaterally, no wheezes, crackles or rhonchi HEART: Regular rate and rhythm, normal S1 and S2, no murmurs, peripheral pulses 2+ and equal bilaterally. ABDOMEN: Soft, nondistended, nontender, normoactive bowel sounds. suprapubic catheter site clean with no surrounding erythema, unclear of tract maturation, catheter completely removed and attached to skin by single stitch, nontender, no purulent drainage EXTREMITIES: Normal inspection, Normal range of motion, no edema. No clubbing or cyanosis. NEUROLOGICAL: Cranial nerves II through XII grossly intact. Normal speech, normal gait, no focal sensorimotor deficits SKIN: Warm, Dry, normal turgor, no rashes or lesions noted Past History - Past Medical History Allergies/Adverse Reactions: Allergies Allergy/AdvReac Type Severity Reaction Status Date / Time No Known Allergies Allergy Verified 11/14/18 04:03 Home Medications: Ambulatory Orders Allopurinol [Zyloprim -] 100 mg PO DAILY 09/08/14 Amlodipine Besylate [Norvasc -] 10 mg PO DAILY 09/08/14 Losartan Potassium 50 mg PO DAILY 09/08/14 Donepezil HCl [Aricept -] 5 mg PO DAILY tablet 11/02/18 Dutasteride [Avodart] 0.5 mg PO DAILY cap 11/02/18 Olanzapine [Zyprexa -] 10 mg PO BID tablet 11/02/18 Polyethylene Glycol 3350 [Miralax 119 gm Btl -] 17 gm PO BID bottle 11/02/18 Tamsulosin HCl [Flomax -] 0.4 mg PO DAILY@0830 cap.er.24h 11/02/18 Divalproex Sprinkle [Depakote Sprinkle -] 125 mg PO BID cap.sprink 11/09/18 Acetaminophen [Tylenol .Regular Strength -] 325 mg PO Q4H PRN 11/14/18 Cholecalciferol (Vitamin D3) [D3-50] 50,000 unit PO WEEKLY 11/14/18 COPD: No Dementia: Yes GI Disorders: Yes (H. PYLORI, DIVERTICULITIS) Disorders: Yes (KIDNEY STONES, BPH) HTN: Yes Hypercholesterolemia: Yes Psychiatric Problems: Yes (DEMENTIA) Other medical history: GOUT - Suicide/Smoking/Psychosocial Hx Smoking Status: No Smoking History: Unknown if ever smoked Have you smoked in the past 12 months: No If you are a former smoker, when did you quit?: 8 YRS Hx Alcohol Use: No Drug/Substance Use Hx: No Substance Use Type: None Hx Substance Use Treatment: No *Physical Exam - Vital Signs Last Vital Signs Temp Pulse Resp BP Pulse Ox 97.6 F 71 18 110/80 97 11/14/18 03:51 11/14/18 03:51 11/14/18 03:51 11/14/18 03:51 11/14/18 03:51 ED Treatment Course - LABORATORY CBC & Chemistry Diagram: 11/14/18 05:40 11/14/18 05:40 Medical Decision Making - Medical Decision Making 11/14/18 05:57 82 y/o M with hx of BPH, HTN, HLD, Kidney Stone, Diverticulitis, Gout, Arthritis , Inguinal Hernia, Alzheimer's Dementia, urinary retention s/p suprapubic catheter (10/27/18) by Dr Vera pruett DCd 11/09/18 from [facility] for transected catheter presenting from [facility] for removed suprapubic catheter. Vitals wnl. PE notable for removed subprapubic catheter and patent insertion site with no erythmea, drainange, purulence -cbc, cmp, coags -will admit for urology consult and catheter placement -admitted under Dr Benavides *DC/Admit/Observation/Transfer Diagnosis at time of Disposition: Suprapubic catheter dysfunction Qualifiers: Encounter type: subsequent encounter Qualified Code(s): T83.010D - Breakdown ( mechanical) of cystostomy catheter, subsequent encounter - Discharge Dispostion Condition at time of disposition: Stable Decision to Admit order: Yes - Referrals - Patient Instructions - Post Discharge Activity
[2018-11-14 05:51] LABS: BASO % 0.3 % (0-2.0); EOS % 12.6 % (0-4.5); HEMATOCRIT 34.1 % (35.4-49); HEMOGLOBIN 11.6 GM/dL (11.7-16.9); LYMPH % 29.3 % (8-40); MCH 29.6 pg (25.7-33.7); MEAN CELL VOLUME 86.9 fl (80-96); MEAN PLT VOLUME 6.9 fl (7.5-11.1); MONO % 10.3 % (3.8-10.2); NEUT % 47.5 % (42.8-82.8); PLATELET COUNT 329 K/MM3 (134-434); RBC 3.93 M/mm3 (4.00-5.60); RDW 12.6 % (11.9-15.9); WHITE BLOOD COUNT 4.1 K/mm3 (4.0-10.0)
--- NOTE | 2018-11-14 06:01 | HP ---
Admitting History and Physical - Primary Care Physician PCP: Marybeth Benavides - Admission Chief Complaint: Pulled out Suprapubic Catheter History of Present Illness: This is a 82 y/o man from [facility] with a PMHx of Dementia, HTN, Urinary Retention, Gout, Frequent Falls. Who presents to the ED for dislodgement of suprapubic catheter. Patient was recently admitted and had a suprapubic catheter placed by Dr. Gamez. Patient is unable to provide HPI due to Dementia. 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: Yes: Alzheimer's, Dementia Cardiovascular: Yes: HTN Gastrointestinal: Yes: Diverticulitis (diagnoses at [facility] 09/06/14 ) Renal/: Yes: Neurogenic Bladder, UTI Rheumatology: Yes: Gout - Past Surgical History Past Surgical History: Yes: Cataract Removal (pt is not sure of the type of his recent eye surgery) - Smoking History Smoking history: Unknown if ever smoked Have you smoked in the past 12 months: No If you are a former smoker, when did you quit?: 8 YRS - Alcohol/Substance Use Hx Alcohol Use: No History of Substance Use: reports: None - Social History ADL: Support Services 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 [employer] History of Recent Travel: No Home Medications - Allergies Allergies/Adverse Reactions: Allergies Allergy/AdvReac Type Severity Reaction Status Date / Time No Known Allergies Allergy Verified 11/14/18 04:03 - Home Medications Home Medications: Ambulatory Orders Allopurinol [Zyloprim -] 100 mg PO DAILY 09/08/14 Amlodipine Besylate [Norvasc -] 10 mg PO DAILY 09/08/14 Losartan Potassium 50 mg PO DAILY 09/08/14 Donepezil HCl [Aricept -] 5 mg PO DAILY tablet 11/02/18 Dutasteride [Avodart] 0.5 mg PO DAILY cap 11/02/18 Olanzapine [Zyprexa -] 10 mg PO BID tablet 11/02/18 Polyethylene Glycol 3350 [Miralax 119 gm Btl -] 17 gm PO BID bottle 11/02/18 Tamsulosin HCl [Flomax -] 0.4 mg PO DAILY@0830 cap.er.24h 11/02/18 Divalproex Sprinkle [Depakote Sprinkle -] 125 mg PO BID cap.sprink 11/09/18 Acetaminophen [Tylenol .Regular Strength -] 325 mg PO Q4H PRN 11/14/18 Cholecalciferol (Vitamin D3) [D3-50] 50,000 unit PO WEEKLY 11/14/18 Family Disease History - Family Disease History Family Disease History: Heart Disease: Father (80s of heart), Other: Father, Mother ( at 104), Brother (7 brothers all in [place]), Sister (in [place]) Review of Systems Unable to obtain ROS, reason: Dementia Physical Examination Vital Signs: Vital Signs Temperature 97.6 F 11/14/18 03:51 Pulse Rate 71 11/14/18 03:51 Respiratory Rate 18 11/14/18 03:51 Blood Pressure 110/80 11/14/18 03:51 O2 Sat by Pulse Oximetry (%) 97 11/14/18 03:51 Constitutional: Yes: No Distress, Calm, Thin Eyes: Yes: Conjunctiva Clear, PERRL HENT: Yes: WNL, Atraumatic, Normocephalic Neck: Yes: WNL, Supple, Trachea Midline Cardiovascular: Yes: WNL, Regular Rate and Rhythm, S1, S2 Respiratory: Yes: WNL, Regular, CTA Bilaterally Gastrointestinal: Yes: Normal Bowel Sounds, Soft, Other (suprapubic opening- no drainage). No: Tenderness, Tenderness, Epigastrium ...Rectal Exam: Yes: Deferred Renal/: Yes: Incontinence Breast(s): Yes: WNL Musculoskeletal: Yes: WNL Extremities: Yes: WNL Edema: No Peripheral Pulses WNL: Yes Neurological: Yes: Confusion, Cran Nerves II-XII Intact ...Motor Strength: WNL Psychiatric: Yes: Alert Labs: Laboratory Results - last 24 hr 11/14/18 11/14/18 11/14/18 05:40 05:40 05:40 WBC 4.1 RBC 3.93 L Hgb 11.6 L Hct 34.1 L MCV 86.9 MCH 29.6 MCHC 34.0 RDW 12.6 Plt Count 329 MPV 6.9 L Absolute Neuts (auto) 1.9 Neutrophils % 47.5 Lymphocytes % 29.3 Monocytes % 10.3 H Eosinophils % 12.6 H Basophils % 0.3 Nucleated RBC % 0 PT with INR 11.60 INR 0.98 Sodium 136 Potassium 3.8 Chloride 101 Carbon Dioxide 28 Anion Gap 7 L BUN 13.1 Creatinine 0.6 Est GFR (CKD-EPI)AfAm 109.29 Est GFR (CKD-EPI)NonAf 94.29 Random Glucose 122 H Calcium 9.0 Total Bilirubin 0.6 AST 18 ALT 16 Alkaline Phosphatase 121 H Total Protein 6.0 L Albumin 3.1 L Problem List - Problems (1) Dislodged Hernandez catheter Assessment/Plan: Per [facility] records- patient removed suprapubic catheter- hx Dementia Appreciate Urology consult Code(s): T83.021A - DISPLACEMENT OF INDWELLING URETHRAL CATHETER, INIT (2) Urinary retention Assessment/Plan: Bladder scan Urology consult- placement of Suprapubic Catheter Code(s): R33.9 - RETENTION OF URINE, UNSPECIFIED (3) Dementia Assessment/Plan: Continue home meds fall precautions Code(s): F03.90 - UNSPECIFIED DEMENTIA WITHOUT BEHAVIORAL DISTURBANCE (4) Gait difficulty Assessment/Plan: Fall Precautions Code(s): R26.9 - UNSPECIFIED ABNORMALITIES OF GAIT AND MOBILITY (5) Gout Assessment/Plan: Stable Continue home meds Code(s): M10.9 - GOUT, UNSPECIFIED Assessment/Plan This is a 82 y/o man from [facility] with a PMHx of Dementia, HTN, Urinary Retention, Gout. Admitted for Dislodged Suprapubic Catheter for further evaluation of their emergent condition. Plan: See Problem List FEN PO fluids as tolerated Replete lytes prn Low Na Diet DVT ppx OOB SCDs Heparin SQ Dispo: Requires Inpatient Care Visit type - Emergency Visit Emergency Visit: Yes ED Registration Date: 11/14/18 Care time: The patient presented to the Emergency Department on the above date and was hospitalized for further evaluation of their emergent condition. - New Patient This patient is new to me today: Yes Date on this admission: 11/14/18 - Critical Care Critical Care patient: No
[2018-11-14 06:18] LABS: ALBUMIN 3.1 g/dl (3.4-5.0); BILIRUBIN,TOTAL 0.6 mg/dL (0.2-1); BLOOD UREA NITROGEN 13.1 mg/dL (7-18); CREATININE 0.6 mg/dL (0.55-1.3); POTASSIUM 3.8 mmol/L (3.5-5.1)
[2018-11-14 06:25] LABS: INR 0.98 (0.83-1.09); PROTHROMBIN TIME (PATIENT) 11.6 SEC (9.7-13.0)
[2018-11-14] MEDS ORDERED: ACETAMINOPHEN 325 MG TABLET (FP) PO PRN (07:58)
[2018-11-14] MEDS ORDERED: CHOLECALCIFEROL 50000 UNIT PO SCH (08:00)
[2018-11-14] MEDS ORDERED: [UNRECOGNIZED DRUG - OTHER] PO SCH (08:00)
[2018-11-14] MEDS ORDERED: TAMSULOSIN HCL 0.4 MG CAP ONE (08:34)
[2018-11-14] MEDS: TAMSULOSIN HCL 0.4 MG CAP PO SCH (08:36)
--- NOTE | 2018-11-14 10:37 | CON.GU ---
Consult Consult Specialty:: Reason for Consultation:: dislodged SPT - History of Present Illness Chief Complaint: dislodged SPT History of Present Illness: 82 y/o man from [facility] with a PMHx of Dementia, HTN, Urinary Retention, Gout, Frequent Falls. Who presents to the ED for dislodgement of suprapubic catheter. Patient was recently admitted and had a suprapubic catheter placed by Dr. Gamez. Patient is unable to provide HPI due to Dementia. cons req. 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: Alzheimer's, Dementia Cardio/Vascular: Yes: HTN Gastrointestinal: Yes: Diverticulitis (diagnoses at [facility] 09/06/14 ) Renal/: Yes: Neurogenic Bladder, UTI Rheumatology: Yes: Gout - Past Surgical History Past Surgical History: Yes: Cataract Removal (pt is not sure of the type of his recent eye surgery) - Alcohol/Substance Use Hx Alcohol Use: No History of Substance Use: reports: None - Smoking History Smoking history: Unknown if ever smoked Have you smoked in the past 12 months: No If you are a former smoker, when did you quit?: 8 YRS - Social History Usual Living Arrangement: Care Home ADL: Support Services 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 of 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 Travel: No Home Medications - Allergies Allergies/Adverse Reactions: Allergies Allergy/AdvReac Type Severity Reaction Status Date / Time No Known Allergies Allergy Verified 11/14/18 04:03 - Home Medications Home Medications: Ambulatory Orders Allopurinol [Zyloprim -] 100 mg PO DAILY 09/08/14 Amlodipine Besylate [Norvasc -] 10 mg PO DAILY 09/08/14 Losartan Potassium 50 mg PO DAILY 09/08/14 Donepezil HCl [Aricept -] 5 mg PO DAILY tablet 11/02/18 Dutasteride [Avodart] 0.5 mg PO DAILY cap 11/02/18 Olanzapine [Zyprexa -] 10 mg PO BID tablet 11/02/18 Polyethylene Glycol 3350 [Miralax 119 gm Btl -] 17 gm PO BID bottle 11/02/18 Tamsulosin HCl [Flomax -] 0.4 mg PO DAILY@0830 cap.er.24h 11/02/18 Divalproex Sprinkle [Depakote Sprinkle -] 125 mg PO BID cap.sprink 11/09/18 Acetaminophen [Tylenol .Regular Strength -] 325 mg PO Q4H PRN 11/14/18 Cholecalciferol (Vitamin D3) [D3-50] 50,000 unit PO WEEKLY 11/14/18 Family Disease History - Family Disease History Family Disease History: Heart Disease: Father (80s of heart), Other: Father, Mother ( at 104), Brother (7 brothers all in [place]), Sister (in [place]) Physical Exam- Vital Signs: Vital Signs Temperature 97.3 F L 11/14/18 08:20 Pulse Rate 74 11/14/18 08:20 Respiratory Rate 18 11/14/18 08:20 Blood Pressure 101/61 11/14/18 08:20 O2 Sat by Pulse Oximetry (%) 95 11/14/18 08:20 Gastrointestinal: Yes: Soft (SPT completely out, cystostomy tract closed) Labs: CBC, BMP 11/14/18 05:40 11/14/18 05:40 Problem List - Problems (1) Dislodged Hernandez catheter Code(s): T83.021A - DISPLACEMENT OF INDWELLING URETHRAL CATHETER, INIT (2) BPH NOS w ur obs/LUTS Assessment/Plan: tamsulosin, trial of void, turp if unable to void Code(s): N40.1 - BENIGN PROSTATIC HYPERPLASIA WITH LOWER URINARY TRACT SYMP (3) Incomplete bladder emptying Code(s): R33.9 - RETENTION OF URINE, UNSPECIFIED
[2018-11-14] MEDS ORDERED: PT OWN MED DRAWER 7, Y5N ONE (11:11)
--- NOTE | 2018-11-14 11:11 | PN ---
Progress Note, Physician Chief Complaint: Dislodged Suprapubic catheter History of Present Illness: NAD Demented+ agitated Seen by Urology - Current Medication List Current Medications: Active Medications Acetaminophen (Tylenol -) 325 mg PO Q4H PRN PRN Reason: PAIN Allopurinol (Zyloprim -) 100 mg PO DAILY [facility] Amlodipine Besylate (Norvasc -) 10 mg PO DAILY [facility] Divalproex Sodium (Depakote Sprinkle Caps -) 125 mg PO BID [facility] Donepezil HCl (Aricept -) 5 mg PO DAILY [facility] Dutasteride (Avodart -) 0.5 mg PO DAILY [facility] Enoxaparin Sodium (Lovenox -) 40 mg SQ DAILY [facility] Losartan Potassium (Cozaar -) 50 mg PO DAILY [facility] Non-Formulary Medication (Cholecalciferol (Vitamin D3) [D3-50]) 50,000 unit PO WEEKLY [facility] Olanzapine (Zyprexa -) 10 mg PO BID [facility] Polyethylene Glycol (Miralax (For Daily Use) -) 17 gm PO BID [facility] Tamsulosin HCl (Flomax -) 0.4 mg PO DAILY@0830 [facility] Last Admin: 11/14/18 08:36 Dose: 0.4 mg - Objective Vital Signs: Vital Signs Temperature 97.3 F L 11/14/18 08:20 Pulse Rate 74 11/14/18 08:20 Respiratory Rate 18 11/14/18 08:20 Blood Pressure 101/61 11/14/18 08:20 O2 Sat by Pulse Oximetry (%) 95 11/14/18 08:20 Constitutional: Yes: Anxious, Thin Cardiovascular: Yes: Regular Rate and Rhythm Respiratory: Yes: Regular Gastrointestinal: Yes: Normal Bowel Sounds, Soft Genitourinary: Yes: Incontinence Musculoskeletal: Yes: Muscle Weakness Extremities: Yes: WNL Edema: No Peripheral Pulses WNL: Yes Neurological: Yes: Alert, Confusion Psychiatric: Yes: Agitated Labs: CBC, BMP 11/14/18 05:40 11/14/18 05:40 INR, PTT INR 0.98 (0.83-1.09) 11/14/18 05:40 Problem List - Problems (1) BPH NOS w ur obs/LUTS Assessment/Plan: -Seen by Urology -Continue tamsulosin + Avodart -Voiding trial -Bladder scan in 12 hours -Would need TURP if unable to void Code(s): N40.1 - BENIGN PROSTATIC HYPERPLASIA WITH LOWER URINARY TRACT SYMP (2) Dislodged Hernandez catheter Code(s): T83.021A - DISPLACEMENT OF INDWELLING URETHRAL CATHETER, INIT (3) Dementia Assessment/Plan: -Continue meds Code(s): F03.90 - UNSPECIFIED DEMENTIA WITHOUT BEHAVIORAL DISTURBANCE Assessment/Plan see problem list DVT prophylaxis
[2018-11-14] MEDS: ALLOPURINOL 100 MG TABLET (FP) PO SCH (11:17)
[2018-11-14] MEDS: DUTASTERIDE 0.5 MG CAP (FP) PO SCH (11:17)
[2018-11-14] MEDS: DONEPEZIL HCL 5 MG TABLET (FP) PO SCH (11:17)
[2018-11-14] MEDS: LOSARTAN POTASSIUM 50 MG TABLET (FP) PO SCH (11:17)
[2018-11-14] MEDS: amLODIPine BESYLATE 10 MG TABLET (FP) PO SCH (11:17)
[2018-11-14] MEDS: POLYETHYLENE GLYCOL 3350 119 GM BTL PO SCH ×2 (11:21→22:07)
[2018-11-14] MEDS: ENOXAPARIN NA (PORCINE) 40 MG/0.4 ML DISP.SYRIN SQ SCH (11:22)
[2018-11-14] MEDS: OLANZapine 10 MG TABLET PO SCH ×2 (12:40→22:05)
[2018-11-14] MEDS: DIVALPROEX SODIUM 125 MG SPRINKLE CAPS PO SCH ×2 (13:43→22:05)
[2018-11-15] MEDS ORDERED: PT OWN MED DRAWER 7, Y5N ONE ×2 (06:13→21:39)
[2018-11-15] MEDS: ENOXAPARIN NA (PORCINE) 40 MG/0.4 ML DISP.SYRIN SQ SCH (10:42)
[2018-11-15] MEDS: TAMSULOSIN HCL 0.4 MG CAP PO SCH (10:42)
[2018-11-15] MEDS: LOSARTAN POTASSIUM 50 MG TABLET (FP) PO SCH (10:44)
[2018-11-15] MEDS: DUTASTERIDE 0.5 MG CAP (FP) PO SCH (10:44)
[2018-11-15] MEDS: DONEPEZIL HCL 5 MG TABLET (FP) PO SCH (10:44)
[2018-11-15] MEDS: DIVALPROEX SODIUM 125 MG SPRINKLE CAPS PO SCH ×2 (10:45→21:48)
[2018-11-15] MEDS: OLANZapine 10 MG TABLET PO SCH ×2 (10:45→21:48)
[2018-11-15] MEDS: ALLOPURINOL 100 MG TABLET (FP) PO SCH (10:45)
[2018-11-15] MEDS: POLYETHYLENE GLYCOL 3350 119 GM BTL PO SCH ×2 (10:45→21:49)
[2018-11-15] MEDS: amLODIPine BESYLATE 10 MG TABLET (FP) PO SCH (10:45)
--- NOTE | 2018-11-15 11:30 | PN ---
Progress Note, Physician Chief Complaint: patient seen and examined voiding minimally now had distended bladder NPO for TURP tpday - Current Medication List Current Medications: Active Medications Acetaminophen (Tylenol -) 325 mg PO Q4H PRN PRN Reason: PAIN Allopurinol (Zyloprim -) 100 mg PO DAILY [facility] Last Admin: 11/15/18 10:45 Dose: Not Given Amlodipine Besylate (Norvasc -) 10 mg PO DAILY [facility] Last Admin: 11/15/18 10:45 Dose: Not Given Divalproex Sodium (Depakote Sprinkle Caps -) 125 mg PO BID [facility] Last Admin: 11/15/18 10:45 Dose: Not Given Donepezil HCl (Aricept -) 5 mg PO DAILY [facility] Last Admin: 11/15/18 10:44 Dose: Not Given Dutasteride (Avodart -) 0.5 mg PO DAILY [facility] Last Admin: 11/15/18 10:44 Dose: Not Given Enoxaparin Sodium (Lovenox -) 40 mg SQ DAILY [facility] Last Admin: 11/15/18 10:42 Dose: Not Given Losartan Potassium (Cozaar -) 50 mg PO DAILY [facility] Last Admin: 11/15/18 10:44 Dose: Not Given Non-Formulary Medication (Cholecalciferol (Vitamin D3) [D3-50]) 50,000 unit PO WEEKLY [facility] Olanzapine (Zyprexa -) 10 mg PO BID [facility] Last Admin: 11/15/18 10:45 Dose: Not Given Polyethylene Glycol (Miralax (For Daily Use) -) 17 gm PO BID [facility] Last Admin: 11/15/18 10:45 Dose: Not Given Tamsulosin HCl (Flomax -) 0.4 mg PO DAILY@0830 [facility] Last Admin: 11/15/18 10:42 Dose: 0.4 mg - Objective Vital Signs: Vital Signs Temperature 98.1 F 11/15/18 10:00 Pulse Rate 99 H 11/15/18 10:00 Respiratory Rate 18 11/15/18 10:00 Blood Pressure 100/66 11/15/18 10:00 O2 Sat by Pulse Oximetry (%) 95 11/15/18 00:00 Constitutional: Yes: Calm Cardiovascular: Yes: Regular Rate and Rhythm, S1, S2 Respiratory: Yes: CTA Bilaterally Gastrointestinal: Yes: Normal Bowel Sounds, Soft Genitourinary: Yes: Bladder Distention (supratubic tenderness), Other Edema: No Neurological: Yes: Alert Labs: CBC, BMP 11/14/18 05:40 11/14/18 05:40 INR, PTT INR 0.98 (0.83-1.09) 11/14/18 05:40 Problem List - Problems (1) BPH NOS w ur obs/LUTS Assessment/Plan: NPO for turp today spoke to dr satish flynn [facility] Code(s): N40.1 - BENIGN PROSTATIC HYPERPLASIA WITH LOWER URINARY TRACT SYMP (2) Dementia Assessment/Plan: on depakote and aricept olanzipine bid Code(s): F03.90 - UNSPECIFIED DEMENTIA WITHOUT BEHAVIORAL DISTURBANCE (3) Hypertension Assessment/Plan: stop norvasc given low BP stop losartan for now Code(s): I10 - ESSENTIAL (PRIMARY) HYPERTENSION
--- NOTE | 2018-11-15 16:02 | OP ---
Operative Note - Note: Operative Date: 11/15/18 Pre-Operative Diagnosis: BPH, urinary retention Operation: TURP Findings: BPH w HANSEN Surgeon: Ry Gamez Anesthesiologist/PRIVATE INQUIRY AGENT: Chad Thompson Anesthesia: General Estimated Blood Loss (mls): 0 Drains & Tubes with Location: [address] 30 ml perdomo Operative Report Dictated: Yes
[2018-11-15] MEDS ORDERED: ceFAZolin SODIUM 1 GM VIAL IVPB ONE (16:07)
[2018-11-15] MEDS ORDERED: LIDOCAINE HCL/PF 2% SDV 5ML VIAL ONE (16:14)
[2018-11-15] MEDS ORDERED: PROPOFOL 20 ML ONE ×2 (16:15)
[2018-11-15] MEDS ORDERED: DEXAMETHASONE SOD PHOSPHATE 4 MG/1 ML VIAL ONE (16:40)
[2018-11-15] MEDS ORDERED: KETOROLAC TROMETHAMINE 30 MG/1 ML VIAL ONE (16:40)
[2018-11-15] MEDS ORDERED: PROMETHAZINE HCL 25 MG/1 ML VIAL IVPUSH PRN ×2 (16:45→17:40)
[2018-11-15] MEDS ORDERED: LACTATED RINGERS SOLUTION 1,000 ML IV SCH (16:45)
[2018-11-15] MEDS ORDERED: ONDANSETRON 4 MG/2 ML VIAL IVPUSH PRN ×2 (16:45→17:40)
[2018-11-15] MEDS ORDERED: ACETAMINOPHEN 325 MG TABLET (FP) PO PRN (17:40)
[2018-11-15] MEDS: CEFAZOLIN 1 GM in DEXTROSE 5%-WATER - 50 ML IVPB SCH (18:50)
--- NOTE | 2018-11-15 20:56 | OP ---
DATE OF OPERATION: 11/15/2018 PREOPERATIVE DIAGNOSES: Benign prostatic hyperplasia, urinary retention. POSTOPERATIVE DIAGNOSES: Benign prostatic hyperplasia, urinary retention. PROCEDURE: Transurethral resection of the prostate. SURGEON: Ry Gamez MD GRADUATE NURSE: None. ANESTHESIA: General via laryngeal mask. ANESTHESIOLOGIST: Chad Thompson MD SPECIMENS: Prostate tissue. CULTURES: None. DRAINS: A 22-Guamanian 3-way Hernandez catheter, 30-mL balloon. ESTIMATED BLOOD LOSS: 30 mL. COMPLICATIONS: None. DESCRIPTION OF PROCEDURE: Patient was brought in the operating room, placed on the operating table in supine position. After the administration of general anesthesia via laryngeal mask, intravenous antibiotics were administered. Sequential compression devices were placed. Patient was placed in dorsal lithotomy position. Perineum and genitals were prepped and draped in usual sterile manner. A 22-Guamanian continuous-flow resectoscope was inserted into the bladder under direct vision. Anterior urethra was normal. The prostatic urethra measured approximately 4 cm in length and demonstrated [id number] bilobar occlusion. The bladder was entered and thoroughly inspected. There were no foreign bodies, tumors, stones, or inflammation. Both ureteral orifices were in their usual location with clear efflux bilaterally. The working element, Fajardo resectoscope was inserted, and transurethral resection of the prostate was done in the standard fashion by first creating a groove in the 2 o'clock position of the left lateral lobe from the area of the bladder neck to the verumontanum down to the level of the capsular fibers. The left lateral lobe of the prostate was then sequentially resected from the 2 to the 6 o'clock position from the area of the bladder neck to the verumontanum down to the level of the capsular fibers. In a similar manner, the right lateral lobe of the prostate was resected. The roof of the prostate was resected, and the floor of the prostate was resected. All obstructive prostatic tissue from the bladder neck to the verumontanum was resected down to the capsular fibers. All resected prostatic tissue was removed from the bladder with the Melissa evacuator. Hemostasis was assured with electrocautery. The bladder was left full, the instruments removed. A 22-Guamanian 3-way Hernandez catheter was inserted into the bladder; 30 mL was placed in the balloon, placed on continuous bladder irrigation. Return blood tinged. He tolerated the procedure well, transferred to the recovery room in stable condition. RY GAMEZ M.D. [id number]
[2018-11-15] MEDS: LACTATED RINGERS SOLUTION 1,000 ML IV SCH (21:47)
[2018-11-16] MEDS ORDERED: ceFAZolin SODIUM 1 GM VIAL ONE ×2 (01:16→09:11)
[2018-11-16] MEDS ORDERED: DEXTROSE 5%-WATER - 50 ML IVPB ONE ×2 (01:16→09:11)
[2018-11-16] MEDS: CEFAZOLIN 1 GM in DEXTROSE 5%-WATER - 50 ML IVPB SCH ×2 (01:37→09:14)
[2018-11-16] MEDS: LACTATED RINGERS SOLUTION 1,000 ML IV SCH ×2 (03:11→17:58)
--- NOTE | 2018-11-16 07:32 | PN ---
Progres Note Chief Complaint: pt w/o c/o History of Present Illness: POD # 1 s/p TURP - Objective Vital Signs: Vital Signs Temperature 97.8 F 11/16/18 06:00 Pulse Rate 92 H 11/16/18 06:00 Respiratory Rate 18 11/16/18 06:00 Blood Pressure 140/69 11/16/18 06:00 O2 Sat by Pulse Oximetry (%) 97 11/15/18 18:11 Constitutional: Yes: Well Nourished, No Distress, Calm Gastrointestinal: Yes: WNL Genitourinary: Yes: Perdomo Present. No: Hematuria Labs/Additional Data: INR, PTT INR 0.98 (0.83-1.09) 11/14/18 05:40 Problem List - Problems (1) BPH NOS w ur obs/LUTS Assessment/Plan: krystle cbi, cont 1:1, will remove perdomo in AM 11/17 Code(s): N40.1 - BENIGN PROSTATIC HYPERPLASIA WITH LOWER URINARY TRACT SYMP (2) Incomplete bladder emptying Code(s): R33.9 - RETENTION OF URINE, UNSPECIFIED
[2018-11-16 07:40] LABS: BASO % 0.4 % (0-2.0); HEMATOCRIT 33.4 % (35.4-49); HEMOGLOBIN 11.3 GM/dL (11.7-16.9); LYMPH % 8.8 % (8-40); MCH 29.7 pg (25.7-33.7); MCHC 33.8 g/dl (32.0-35.9); MEAN CELL VOLUME 87.8 fl (80-96); MEAN PLT VOLUME 7.4 fl (7.5-11.1); MONO % 8.4 % (3.8-10.2); NEUT % 81.4 % (42.8-82.8); PLATELET COUNT 324 K/MM3 (134-434); RBC 3.81 M/mm3 (4.00-5.60); RDW 12.7 % (11.9-15.9); WHITE BLOOD COUNT 7.4 K/mm3 (4.0-10.0)
[2018-11-16 08:29] LABS: BILIRUBIN,TOTAL 1.1 mg/dL (0.2-1); BLOOD UREA NITROGEN 10.6 mg/dL (7-18); CALCIUM 8.6 mg/dL (8.5-10.1); CREATININE 0.6 mg/dL (0.55-1.3); POTASSIUM 4.2 mmol/L (3.5-5.1); TOT PROT 5.7 g/dl (6.4-8.2)
[2018-11-16] MEDS: TAMSULOSIN HCL 0.4 MG CAP PO SCH (08:58)
[2018-11-16] MEDS ORDERED: PT OWN MED DRAWER 7, Y5N ONE (09:11)
[2018-11-16] MEDS: ENOXAPARIN NA (PORCINE) 40 MG/0.4 ML DISP.SYRIN SQ SCH (09:13)
[2018-11-16] MEDS: ALLOPURINOL 100 MG TABLET (FP) PO SCH (09:14)
[2018-11-16] MEDS: OLANZapine 10 MG TABLET PO SCH ×2 (09:14→22:28)
[2018-11-16] MEDS: DONEPEZIL HCL 5 MG TABLET (FP) PO SCH (09:14)
[2018-11-16] MEDS: DIVALPROEX SODIUM 125 MG SPRINKLE CAPS PO SCH ×2 (09:14→22:28)
[2018-11-16] MEDS: POLYETHYLENE GLYCOL 3350 119 GM BTL PO SCH ×2 (09:14→22:28)
[2018-11-16] MEDS: DUTASTERIDE 0.5 MG CAP (FP) PO SCH (09:14)
--- NOTE | 2018-11-16 10:03 | PN ---
Progress Note, Physician Chief Complaint: Dislodged Suprapubic catheter History of Present Illness: NAD Demented Seen by Urology POD1 TURP Operative Date: 11/15/18 Pre-Operative Diagnosis: BPH, urinary retention Operation: TURP Findings: BPH w HANSEN Surgeon: Ry Gamez Anesthesiologist/KITCHEN OPERATOR: Chad Thompson - Current Medication List Current Medications: Active Medications Acetaminophen (Tylenol -) 325 mg PO Q4H PRN PRN Reason: PAIN Allopurinol (Zyloprim -) 100 mg PO DAILY [facility] Last Admin: 11/16/18 09:14 Dose: 100 mg Divalproex Sodium (Depakote Sprinkle Caps -) 125 mg PO BID [facility] Last Admin: 11/16/18 09:14 Dose: 125 mg Donepezil HCl (Aricept -) 5 mg PO DAILY [facility] Last Admin: 11/16/18 09:14 Dose: 5 mg Dutasteride (Avodart -) 0.5 mg PO DAILY [facility] Last Admin: 11/16/18 09:14 Dose: 0.5 mg Enoxaparin Sodium (Lovenox -) 40 mg SQ DAILY [facility] Last Admin: 11/16/18 09:13 Dose: 40 mg Cefazolin Sodium 1 gm/ (Dextrose) 50 mls @ 100 mls/hr IVPB Q8H-IV [facility] Last Admin: 11/16/18 09:14 Dose: 100 mls/hr Lactated Ringer's (Lactated Ringers Solution) 1,000 mls @ 125 mls/hr IV ASDIR [facility] Last Admin: 11/16/18 03:11 Dose: 125 mls/hr Non-Formulary Medication (Cholecalciferol (Vitamin D3) [D3-50]) 50,000 unit PO WEEKLY [facility] Olanzapine (Zyprexa -) 10 mg PO BID [facility] Last Admin: 11/16/18 09:14 Dose: 10 mg Ondansetron HCl (Zofran Injection) 4 mg IVPUSH Q6H PRN PRN Reason: NAUSEA AND/OR VOMITING Polyethylene Glycol (Miralax (For Daily Use) -) 17 gm PO BID [facility] Last Admin: 11/16/18 09:14 Dose: 17 gm Promethazine HCl (Phenergan Injection -) 12.5 mg IVPUSH Q6H PRN PRN Reason: NAUSEA-FOR RESCUE AFTER 15 MIN Tamsulosin HCl (Flomax -) 0.4 mg PO DAILY@0830 [facility] Last Admin: 11/16/18 08:58 Dose: 0.4 mg - Objective Vital Signs: Vital Signs Temperature 98.3 F 11/16/18 08:59 Pulse Rate 87 11/16/18 08:59 Respiratory Rate 20 11/16/18 08:59 Blood Pressure 127/71 11/16/18 08:59 O2 Sat by Pulse Oximetry (%) 97 11/16/18 00:00 Constitutional: Yes: No Distress, Calm, Thin Cardiovascular: Yes: Regular Rate and Rhythm Respiratory: Yes: Regular Gastrointestinal: Yes: WNL, Normal Bowel Sounds, Soft Genitourinary: Yes: Hernandez Present Musculoskeletal: Yes: Muscle Weakness Extremities: Yes: WNL Edema: No Peripheral Pulses WNL: Yes Neurological: Yes: Alert, Confusion Psychiatric: Yes: Alert Labs: CBC, BMP 11/16/18 06:35 11/16/18 06:35 INR, PTT INR 0.98 (0.83-1.09) 11/14/18 05:40 Problem List - Problems (1) BPH NOS w ur obs/LUTS Assessment/Plan: -Seen by Urology -Continue tamsulosin + Avodart -D/C Hernandez in AM -Voiding trial in AM Code(s): N40.1 - BENIGN PROSTATIC HYPERPLASIA WITH LOWER URINARY TRACT SYMP (2) Dislodged Hernandez catheter Code(s): T83.021A - DISPLACEMENT OF INDWELLING URETHRAL CATHETER, INIT (3) Dementia Assessment/Plan: -Continue meds Code(s): F03.90 - UNSPECIFIED DEMENTIA WITHOUT BEHAVIORAL DISTURBANCE
--- NOTE | 2018-11-16 14:04 | PN ---
Progress Note (short form) - Note Progress Note: POD 1 s/p TURP under [place]. Patient doing well, no complaints.
[2018-11-17] MEDS: LACTATED RINGERS SOLUTION 1,000 ML IV SCH (05:05)
[2018-11-17] MEDS: TAMSULOSIN HCL 0.4 MG CAP PO SCH ×3 (08:58→11:39)
--- NOTE | 2018-11-17 10:44 | PN ---
Progress Note, Physician Chief Complaint: Dislodged Suprapubic catheter History of Present Illness: NAD Demented Seen by Urology POD2 TURP Operative Date: 11/15/18 Pre-Operative Diagnosis: BPH, urinary retention Operation: TURP Findings: BPH w HANSEN Surgeon: Ry Gamez Anesthesiologist/DOUBLER OPERATOR: Chad Thompson - Current Medication List Current Medications: Active Medications Acetaminophen (Tylenol -) 325 mg PO Q4H PRN PRN Reason: PAIN Allopurinol (Zyloprim -) 100 mg PO DAILY [facility] Last Admin: 11/16/18 09:14 Dose: 100 mg Divalproex Sodium (Depakote Sprinkle Caps -) 125 mg PO BID [facility] Last Admin: 11/16/18 22:28 Dose: 125 mg Donepezil HCl (Aricept -) 5 mg PO DAILY [facility] Last Admin: 11/16/18 09:14 Dose: 5 mg Dutasteride (Avodart -) 0.5 mg PO DAILY [facility] Last Admin: 11/16/18 09:14 Dose: 0.5 mg Enoxaparin Sodium (Lovenox -) 40 mg SQ DAILY [facility] Last Admin: 11/16/18 09:13 Dose: 40 mg Ergocalciferol (Drisdol -) 50,000 unit PO Fr@1000 [facility] Lactated Ringer's (Lactated Ringers Solution) 1,000 mls @ 75 mls/hr IV ASDIR [facility] Last Admin: 11/17/18 05:05 Dose: 75 mls/hr Olanzapine (Zyprexa -) 10 mg PO BID [facility] Last Admin: 11/16/18 22:28 Dose: 10 mg Ondansetron HCl (Zofran Injection) 4 mg IVPUSH Q6H PRN PRN Reason: NAUSEA AND/OR VOMITING Polyethylene Glycol (Miralax (For Daily Use) -) 17 gm PO BID [facility] Last Admin: 11/16/18 22:28 Dose: 17 gm Promethazine HCl (Phenergan Injection -) 12.5 mg IVPUSH Q6H PRN PRN Reason: NAUSEA-FOR RESCUE AFTER 15 MIN Tamsulosin HCl (Flomax -) 0.4 mg PO DAILY@0830 [facility] Last Admin: 11/17/18 09:07 Dose: Not Given - Objective Vital Signs: Vital Signs Temperature 97.4 F L 11/17/18 08:58 Pulse Rate 79 09/18/19 08:58 Respiratory Rate 18 11/17/18 08:58 Blood Pressure 96/41 L 11/17/18 08:58 O2 Sat by Pulse Oximetry (%) 99 11/16/18 22:00 Constitutional: Yes: Well Nourished, No Distress, Calm Cardiovascular: Yes: Regular Rate and Rhythm Gastrointestinal: Yes: Normal Bowel Sounds, Soft Genitourinary: Yes: Incontinence Musculoskeletal: Yes: WNL Extremities: Yes: WNL Edema: No Peripheral Pulses WNL: Yes Neurological: Yes: Alert, Confusion Psychiatric: Yes: Alert Labs: CBC, BMP 11/16/18 06:35 11/16/18 06:35 INR, PTT INR 0.98 (0.83-1.09) 11/14/18 05:40 Problem List - Problems (1) BPH NOS w ur obs/LUTS Assessment/Plan: -Seen by Urology -Continue tamsulosin + Avodart -Hernandez discontinue this AM -Pt voided Code(s): N40.1 - BENIGN PROSTATIC HYPERPLASIA WITH LOWER URINARY TRACT SYMP (2) Dislodged Hernandez catheter Code(s): T83.021A - DISPLACEMENT OF INDWELLING URETHRAL CATHETER, INIT (3) Dementia Assessment/Plan: -Continue meds -D/C restraints x 24 hours, -d/c to SNF Code(s): F03.90 - UNSPECIFIED DEMENTIA WITHOUT BEHAVIORAL DISTURBANCE Assessment/Plan see problem list DVT prophylaxis
[2018-11-17] MEDS ORDERED: PT OWN MED DRAWER 7, Y5N ONE ×3 (10:56→20:40)
[2018-11-17] MEDS: ENOXAPARIN NA (PORCINE) 40 MG/0.4 ML DISP.SYRIN SQ SCH (10:57)
[2018-11-17] MEDS: DUTASTERIDE 0.5 MG CAP (FP) PO SCH (11:39)
[2018-11-17] MEDS: DONEPEZIL HCL 5 MG TABLET (FP) PO SCH (11:39)
[2018-11-17] MEDS: DIVALPROEX SODIUM 125 MG SPRINKLE CAPS PO SCH ×2 (11:40→21:35)
[2018-11-17] MEDS: ALLOPURINOL 100 MG TABLET (FP) PO SCH (11:40)
[2018-11-17] MEDS: OLANZapine 10 MG TABLET PO SCH ×2 (11:40→21:35)
[2018-11-17] MEDS: POLYETHYLENE GLYCOL 3350 119 GM BTL PO SCH ×2 (12:41→21:36)
--- NOTE | 2018-11-17 18:00 | PATH ---
Surgical Pathology Report Patient Name: MOOKIE LNAD [facility]. Rec. #: [id number] /Age/Gender: 1935 (Age: 82) / M Account: [id number] Location: [address] [place] [address]/[facility] Taken: 11/15/2018 Received: 11/16/2018 Reported: 11/17/2018 Physicians: Ry Gamez M.D. Specimen(s) Received PROSTATE TISSUE Clinical History BPH Final Diagnosis PROSTATE TISSUE, TRANSURETHRAL RESECTION OF PROSTATE: BENIGN PROSTATIC TISSUE WITH PATCHY ACUTE AND CHRONIC INFLAMMATION, GLANDULAR AND STROMAL HYPERPLASIA. Electronically Signed Payton Reyes M.D. Gross Description Received in formalin labeled "prostate tissue" are multiple fragments of white-pham soft tissue consistent with prostate chips measuring 6 x 4 x 1.5 cm in aggregate. Entire specimen is submitted in 4 cassettes. MLSZ/11/16/2018 sanml/11/16/2018
[2018-11-17] MEDS ORDERED: LORazepam 2 MG/ML SDV VIAL IVPUSH ONE (19:41)
[2018-11-18] MEDS ORDERED: LORazepam 2 MG/ML SDV VIAL IVPUSH ONE (03:04)
[2018-11-18] MEDS: TAMSULOSIN HCL 0.4 MG CAP PO SCH (08:41)
[2018-11-18] MEDS ORDERED: PT OWN MED DRAWER 7, Y5N ONE ×3 (10:14→20:23)
[2018-11-18] MEDS: OLANZapine 10 MG TABLET PO SCH ×2 (10:27→21:38)
[2018-11-18] MEDS: DONEPEZIL HCL 5 MG TABLET (FP) PO SCH (10:27)
[2018-11-18] MEDS: ALLOPURINOL 100 MG TABLET (FP) PO SCH (10:27)
[2018-11-18] MEDS: DIVALPROEX SODIUM 125 MG SPRINKLE CAPS PO SCH ×2 (10:27→21:38)
[2018-11-18] MEDS: DUTASTERIDE 0.5 MG CAP (FP) PO SCH (10:28)
[2018-11-18] MEDS: POLYETHYLENE GLYCOL 3350 119 GM BTL PO SCH ×2 (10:28→21:38)
[2018-11-18] MEDS: ENOXAPARIN NA (PORCINE) 40 MG/0.4 ML DISP.SYRIN SQ SCH (10:32)
--- NOTE | 2018-11-18 11:11 | PN ---
Progress Note, Physician Chief Complaint: Dislodged Suprapubic Catheter History of Present Illness: Previous notes and events reviewed awake and alert NAD patient noted with Gross Hematura Bladder Scan by RN shows >500cc - Current Medication List Current Medications: Active Medications Acetaminophen (Tylenol -) 325 mg PO Q4H PRN PRN Reason: PAIN Allopurinol (Zyloprim -) 100 mg PO DAILY [facility] Last Admin: 11/18/18 10:27 Dose: 100 mg Divalproex Sodium (Depakote Sprinkle Caps -) 125 mg PO BID [facility] Last Admin: 11/18/18 10:27 Dose: 125 mg Donepezil HCl (Aricept -) 5 mg PO DAILY [facility] Last Admin: 11/18/18 10:27 Dose: 5 mg Dutasteride (Avodart -) 0.5 mg PO DAILY [facility] Last Admin: 11/18/18 10:28 Dose: 0.5 mg Enoxaparin Sodium (Lovenox -) 40 mg SQ DAILY [facility] Last Admin: 11/18/18 10:32 Dose: 40 mg Ergocalciferol (Drisdol -) 50,000 unit PO Fr@1000 [facility] Olanzapine (Zyprexa -) 10 mg PO BID [facility] Last Admin: 11/18/18 10:27 Dose: 10 mg Ondansetron HCl (Zofran Injection) 4 mg IVPUSH Q6H PRN PRN Reason: NAUSEA AND/OR VOMITING Polyethylene Glycol (Miralax (For Daily Use) -) 17 gm PO BID [facility] Last Admin: 11/18/18 10:28 Dose: 17 gm Promethazine HCl (Phenergan Injection -) 12.5 mg IVPUSH Q6H PRN PRN Reason: NAUSEA-FOR RESCUE AFTER 15 MIN Tamsulosin HCl (Flomax -) 0.4 mg PO DAILY@0830 [facility] Last Admin: 11/18/18 08:41 Dose: 0.4 mg - Objective Vital Signs: Vital Signs Temperature 97.5 F L 11/18/18 08:25 Pulse Rate 88 11/18/18 10:25 Respiratory Rate 20 11/18/18 10:25 Blood Pressure 118/79 11/18/18 10:25 O2 Sat by Pulse Oximetry (%) 97 11/17/18 21:00 Constitutional: Yes: No Distress, Calm Eyes: Yes: Conjunctiva Clear HENT: Yes: Atraumatic Cardiovascular: Yes: Regular Rate and Rhythm Respiratory: Yes: Regular, CTA Bilaterally Gastrointestinal: Yes: Normal Bowel Sounds, Soft, Tenderness (suprapubic) Genitourinary: Yes: Hematuria, Incontinence Musculoskeletal: Yes: Muscle Weakness Extremities: Yes: WNL Edema: No Neurological: Yes: Alert, Confusion Psychiatric: Yes: Alert Labs: CBC, BMP 11/16/18 06:35 11/16/18 06:35 INR, PTT INR 0.98 (0.83-1.09) 11/14/18 05:40 Problem List - Problems (1) Hematuria Assessment/Plan: -Urology on board -POD #3 TURP -monitor CBC -will need FC re-insert Code(s): R31.9 - HEMATURIA, UNSPECIFIED (2) BPH NOS w ur obs/LUTS Assessment/Plan: -Urology on board -POD #3 TURP -Tamsulosin, Avodart -Bladder Scan with >500cc -reinsert FC Code(s): N40.1 - BENIGN PROSTATIC HYPERPLASIA WITH LOWER URINARY TRACT SYMP (3) Dementia Assessment/Plan: -Aricept Code(s): F03.90 - UNSPECIFIED DEMENTIA WITHOUT BEHAVIORAL DISTURBANCE (4) Hypertension Assessment/Plan: -low Na diet Code(s): I10 - ESSENTIAL (PRIMARY) HYPERTENSION Assessment/Plan see problem list dvt ppx
[2018-11-18 13:36] LABS: HEMATOCRIT 37.2 % (35.4-49); HEMOGLOBIN 12.5 GM/dL (11.7-16.9); MCH 29.5 pg (25.7-33.7); MCHC 33.7 g/dl (32.0-35.9); MEAN CELL VOLUME 87.6 fl (80-96); MEAN PLT VOLUME 7.6 fl (7.5-11.1); PLATELET COUNT 374 K/MM3 (134-434); RBC 4.25 M/mm3 (4.00-5.60); WHITE BLOOD COUNT 12.1 K/mm3 (4.0-10.0)
[2018-11-18] MEDS ORDERED: ACETAMINOPHEN 325 MG TABLET (FP) PO PRN (15:11)
--- NOTE | 2018-11-18 16:33 | HOSP ---
Subjective - Review of Symptoms Cardiovascular: Yes: Other Neurological: Yes: Confusion Physical Examination Vital Signs: Vital Signs Temperature 99.5 F 11/18/18 15:15 Pulse Rate 112 H 11/18/18 15:15 Respiratory Rate 22 H 11/18/18 15:15 Blood Pressure 116/66 11/18/18 15:10 O2 Sat by Pulse Oximetry (%) 97 11/17/18 21:00 Constitutional: Yes: No Distress, Calm Cardiovascular: Yes: Regular Rate and Rhythm Labs: CBC, BMP 11/18/18 12:54 11/16/18 06:35 Hospitalist Encounter Assessment: This is a 82 y/o man from [facility] with a PMHx of Dementia, HTN, Urinary Retention, Gout, Frequent Falls. Who presents to the ED for dislodgement of suprapubic catheter. Patient was recently admitted and had a suprapubic catheter placed by Dr. Gamez. Patient is unable to provide HPI due to Dementia. I was asked to read his EKG that was ordered today. He is having tremors and the EKG done shows poor data quality. Would repeat EKG. ordered placed.
--- NOTE | 2018-11-18 17:31 | PN ---
Jadyn Note History of Present Illness: pt unable to void today and has gross hematuria - Objective Vital Signs: Vital Signs Temperature 99.5 F 11/18/18 15:15 Pulse Rate 112 H 11/18/18 15:15 Respiratory Rate 22 H 11/18/18 15:15 Blood Pressure 116/66 11/18/18 15:10 O2 Sat by Pulse Oximetry (%) 97 11/17/18 21:00 Gastrointestinal: Yes: Soft, Distention (sp), Tenderness Labs/Additional Data: CBC, BMP 11/18/18 12:54 11/16/18 06:35 INR, PTT INR 0.98 (0.83-1.09) 11/14/18 05:40 Problem List - Problems (1) BPH NOS w ur obs/LUTS Code(s): N40.1 - BENIGN PROSTATIC HYPERPLASIA WITH LOWER URINARY TRACT SYMP (2) Incomplete bladder emptying Assessment/Plan: [address] perdomo inserted, bladder irrigated Code(s): R33.9 - RETENTION OF URINE, UNSPECIFIED (3) Hematuria Code(s): R31.9 - HEMATURIA, UNSPECIFIED
--- NOTE | 2018-11-18 17:41 | PN ---
Progress Note (short form) - Note Progress Note: ID consult dictated imp/reccd leukocytosis most likely secondary to urinary retention perdomo just placed by urologist with hematuria noted pod #3 s/p TURP send ua and urine culture would observe if he has fever would obtain blood cultures and start ceftriaxone Problem List - Problems (1) Leukocytosis Code(s): D72.829 - ELEVATED WHITE BLOOD CELL COUNT, UNSPECIFIED (2) Urinary retention Code(s): R33.9 - RETENTION OF URINE, UNSPECIFIED (3) S/P TURP Code(s): Z90.79 - ACQUIRED ABSENCE OF OTHER GENITAL ORGAN(S)
[2018-11-18 19:25] LABS: EPI CELLS 1.5 /HPF (0-5/HPF); HYALINE CASTS 31 /lpf (0-8); URINE APPEARANCE CLOUDY; URINE BACTERIA 21.2 /hpf (NEGATIVE); URINE BILIRUBIN NEGATIVE (NEGATIVE); URINE COLOR RED; URINE GLUCOSE (UA) NEGATIVE (NEGATIVE); URINE KETONE NEGATIVE (NEGATIVE); URINE LEUK ESTERASE 3+ (NEGATIVE); URINE NITRITE NEGATIVE (NEGATIVE); URINE PROTEIN 2+ (NEGATIVE); URINE RBC 659 /hpf (0-4); URINE WBC 498 /hpf (0-5)
--- NOTE | 2018-11-18 19:37 | CONS ---
DATE OF CONSULTATION: 11/18/2018 HISTORY OF PRESENT ILLNESS: The patient is an 82-year-old man who resides at the senior living. He has a history of BPH and urinary retention. On October 27, he had a cystoscopy. On October 29, this was followed by a cystoscopy with suprapubic cystostomy with a diagnosis neurogenic bladder. He was then readmitted in October. His suprapubic tube was malfunctioning and it was noted to be partially cut. A new suprapubic tube was placed. He now returned again on the with a dislodged suprapubic tube. He was seen by Dr. Gamez and underwent a TURP with plans not to replace his suprapubic tube. He is not postop. He received cefazolin perioperatively. He is now postop day no. 3 . He was intermittently having some hematuria. He was also noted to have a temperature of 99.5 rectally with a white count of 12, which is why I have been asked to see him. He was just seen by the urologist as the patient was unable to void and had gross hematuria. The urologist placed a Hernandez catheter with improvement with 1300 mL of blood-tinged urine and the patient reports feeling much improved. He denies any shortness of breath or cough and is resting comfortably. PAST MEDICAL HISTORY: Notable for Alzheimer dementia, hypertension, diverticulitis, urinary tract infection and gout. PAST SURGICAL HISTORY: Notable for cataract surgery. FAMILY HISTORY: Notable for heart disease in his father. Most of his siblings are in [place]. SOCIAL HISTORY: It is not known if he has ever smoked. He was born in [place]. 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 ALLERGIES: No known drug allergies. HOME MEDICATIONS: Allopurinol, amlodipine, Losartan, Aricept. Avodart, Zyprexa, MiraLAX, tamsulosin, Depakote and vitamin D. PHYSICAL EXAMINATION: Vital Signs: T-max is 99.5 rectally. Heart rate is 112, blood pressure is 116/66, respiratory rate is 22. HEENT: Normocephalic. His eyes are anicteric. Neck: Supple. Lungs: Clear to auscultation. Heart: Regular rate and rhythm. Abdomen: Soft, nontender. His suprapubic site is clean without any erythema or drainage. His Hernandez is draining blood-tinged urine that appears clear. There is no evidence of any purulence. Extremities: Without edema. He has no phlebitis. LABORATORY DATA: White count is 12.1. Hemoglobin is 12.5, platelets are 374. His INR is 0.98. BUN and creatinine are 10 and 0.5. LFTs are normal. A urinalysis shows 2+ blood. He had a urine culture this past September that grew a Proteus mirabilis that was resistant to nitrofurantoin only. In summary, this is an 82-year-old man who I suspect has leukocytosis, most likely secondary to urinary retention. He appears quite comfortable now that his Hernandez has been placed. He is post-op day no. 3, status post TURP. We will send a urinalysis, urine culture and otherwise observe. If he has fever, will obtain blood cultures and start ceftriaxone. Further recommendations to follow. CHRISTELLE SELBY M.D. [id number]
[2018-11-19] MEDS ORDERED: ERGOCALCIFEROL (VIT D2) 50,000 UNIT (1.25 MG) CAPSULE PO SCH (10:00)
--- NOTE | 2018-11-19 11:58 | PN ---
Progres Note Chief Complaint: pt w/o c/o History of Present Illness: POD # 4 s/p TURP - Objective Vital Signs: Vital Signs Temperature 98.2 F 11/19/18 00:58 Pulse Rate 95 H 11/19/18 00:58 Respiratory Rate 22 H 11/19/18 03:36 Blood Pressure 120/77 11/19/18 00:58 O2 Sat by Pulse Oximetry (%) 96 11/19/18 03:36 Gastrointestinal: Yes: Normal Bowel Sounds, Soft Genitourinary: Yes: Hernandez Present. No: Hematuria Kidneys: Yes: WNL Pelvis: Yes: WNL Testicles: Yes: WNL Scrotum: Yes: WNL Penis: Yes: WNL Labs/Additional Data: CBC, BMP 11/18/18 12:54 11/16/18 06:35 INR, PTT INR 0.98 (0.83-1.09) 11/14/18 05:40 Problem List - Problems (1) BPH NOS w ur obs/LUTS Code(s): N40.1 - BENIGN PROSTATIC HYPERPLASIA WITH LOWER URINARY TRACT SYMP (2) Incomplete bladder emptying Assessment/Plan: trial of void today Code(s): R33.9 - RETENTION OF URINE, UNSPECIFIED (3) Hematuria Code(s): R31.9 - HEMATURIA, UNSPECIFIED (4) Leukocytosis Assessment/Plan: ur cx, iv abxs if WBC fails to normalize Code(s): D72.829 - ELEVATED WHITE BLOOD CELL COUNT, UNSPECIFIED
--- NOTE | 2018-11-19 13:25 | PN ---
Progress Note, Physician Chief Complaint: Dislodged Suprapubic Catheter History of Present Illness: Previous notes and events reviewed sleeping but responsive to tactile stimuli NAD FC no hematuria noted patient had low grade fever yesterday and leukocytosis - Current Medication List Current Medications: Active Medications Acetaminophen (Tylenol -) 325 mg PO Q4H PRN PRN Reason: PAIN Acetaminophen (Tylenol -) 650 mg PO Q6H PRN PRN Reason: FEVER Allopurinol (Zyloprim -) 100 mg PO DAILY [facility] Last Admin: 11/18/18 10:27 Dose: 100 mg Divalproex Sodium (Depakote Sprinkle Caps -) 125 mg PO BID [facility] Last Admin: 11/18/18 21:38 Dose: 125 mg Donepezil HCl (Aricept -) 5 mg PO DAILY [facility] Last Admin: 11/18/18 10:27 Dose: 5 mg Dutasteride (Avodart -) 0.5 mg PO DAILY [facility] Last Admin: 11/18/18 10:28 Dose: 0.5 mg Enoxaparin Sodium (Lovenox -) 40 mg SQ DAILY [facility] Last Admin: 11/18/18 10:32 Dose: 40 mg Ergocalciferol (Drisdol -) 50,000 unit PO Fr@1000 [facility] Olanzapine (Zyprexa -) 10 mg PO BID [facility] Last Admin: 11/18/18 21:38 Dose: 10 mg Ondansetron HCl (Zofran Injection) 4 mg IVPUSH Q6H PRN PRN Reason: NAUSEA AND/OR VOMITING Polyethylene Glycol (Miralax (For Daily Use) -) 17 gm PO BID [facility] Last Admin: 11/18/18 21:38 Dose: 17 gm Promethazine HCl (Phenergan Injection -) 12.5 mg IVPUSH Q6H PRN PRN Reason: NAUSEA-FOR RESCUE AFTER 15 MIN Tamsulosin HCl (Flomax -) 0.4 mg PO DAILY@0830 [facility] Last Admin: 11/18/18 08:41 Dose: 0.4 mg - Objective Vital Signs: Vital Signs Temperature 98.2 F 11/19/18 00:58 Pulse Rate 95 H 11/19/18 00:58 Respiratory Rate 22 H 11/19/18 03:36 Blood Pressure 120/77 11/19/18 00:58 O2 Sat by Pulse Oximetry (%) 96 11/19/18 03:36 Constitutional: Yes: No Distress, Calm Eyes: Yes: Conjunctiva Clear HENT: Yes: Atraumatic Cardiovascular: Yes: Regular Rate and Rhythm Respiratory: Yes: Regular, CTA Bilaterally Gastrointestinal: Yes: Normal Bowel Sounds, Soft Genitourinary: Yes: Hernandez Present (no hematuria) Musculoskeletal: Yes: Muscle Weakness Extremities: Yes: WNL Edema: No Neurological: Yes: Alert, Pre-Existing Deficit Psychiatric: Yes: Alert Labs: CBC, BMP 11/18/18 12:54 11/16/18 06:35 INR, PTT INR 0.98 (0.83-1.09) 11/14/18 05:40 Problem List - Problems (1) Hematuria Assessment/Plan: -Urology on board -POD #4 TURP -monitor CBC -FC re-inserted, will d/c FC to assess trial void Code(s): R31.9 - HEMATURIA, UNSPECIFIED (2) BPH NOS w ur obs/LUTS Assessment/Plan: -Urology on board -POD #4 TURP -Tamsulosin, Avodart -reinserted FC, will d/c FC for trial void Code(s): N40.1 - BENIGN PROSTATIC HYPERPLASIA WITH LOWER URINARY TRACT SYMP (3) Dementia Assessment/Plan: -Aricept Code(s): F03.90 - UNSPECIFIED DEMENTIA WITHOUT BEHAVIORAL DISTURBANCE (4) Hypertension Assessment/Plan: -low Na diet Code(s): I10 - ESSENTIAL (PRIMARY) HYPERTENSION (5) Leukocytosis Assessment/Plan: -ID on board -UA shows 3+ leuks, 3+ blood, Protein 2+ -UC pending -afebrile Code(s): D72.829 - ELEVATED WHITE BLOOD CELL COUNT, UNSPECIFIED Assessment/Plan see problem list dvt ppx
--- NOTE | 2018-11-19 14:31 | EKG ---
Test Reason : Blood Pressure : / mmHG Vent. Rate : 106 BPM Atrial Rate : 106 BPM P-R Int : 152 ms QRS Dur : 084 ms QT Int : 356 ms P-R-T Axes : 052 024 050 degrees QTc Int : 472 ms POOR DATA QUALITY, INTERPRETATION MAY BE ADVERSELY AFFECTED SINUS TACHYCARDIA WITH FREQUENT PREMATURE VENTRICULAR COMPLEXES OTHERWISE NORMAL ECG WHEN COMPARED WITH ECG OF 18-NOV-2018 15:47, PREMATURE VENTRICULAR COMPLEXES ARE NOW PRESENT Confirmed by VALERIO CARSON MD ([id number]) on 11/19/2018 2:30:53 PM Referred By: Confirmed By:VALERIO CARSON MD
--- NOTE | 2018-11-19 14:37 | EKG ---
Test Reason : Blood Pressure : / mmHG Vent. Rate : 100 BPM Atrial Rate : 100 BPM P-R Int : 148 ms QRS Dur : 080 ms QT Int : 348 ms P-R-T Axes : 055 024 050 degrees QTc Int : 448 ms POOR DATA QUALITY, INTERPRETATION MAY BE ADVERSELY AFFECTED NORMAL SINUS RHYTHM NORMAL ECG WHEN COMPARED WITH ECG OF 03-NOV-2018 18:13, NO SIGNIFICANT CHANGE WAS FOUND Confirmed by LALI WEIR, VALERIO ([id number]) on 11/19/2018 2:36:53 PM Referred By: Juwan ZARATE Confirmed By:VALERIO CARSON MD
--- NOTE | 2018-11-19 14:50 | PN ---
Progress Note (short form) - Note Progress Note: NAD ambulating with assistance still with perdomo no ore hematuria Vital Signs Period Temp Pulse Resp BP Sys/Rosales Pulse Ox Last 24 Hr 98.2 F-99.5 F 95-117 22-22 116-137/66-86 96 cor-rrr lungs clear abd soft,nt Perdomo ext no edema CBC, BMP 11/18/18 12:54 11/16/18 06:35 urine culture pending imp/reccd leukocytosis most likely secondary to urinary retention perdomo just placed by urologist with hematuria noted pod #3 s/p TURP await labs today
[2018-11-19] MEDS: ALLOPURINOL 100 MG TABLET (FP) PO SCH (15:57)
[2018-11-19] MEDS: POLYETHYLENE GLYCOL 3350 119 GM BTL PO SCH ×2 (16:00→21:16)
[2018-11-19] MEDS: DONEPEZIL HCL 5 MG TABLET (FP) PO SCH (16:17)
[2018-11-19 16:27] LABS: HEMATOCRIT 34.5 % (35.4-49); HEMOGLOBIN 11.7 GM/dL (11.7-16.9); MCH 29.9 pg (25.7-33.7); MCHC 34.1 g/dl (32.0-35.9); MEAN CELL VOLUME 87.7 fl (80-96); MEAN PLT VOLUME 7.8 fl (7.5-11.1); PLATELET COUNT 355 K/MM3 (134-434); RBC 3.93 M/mm3 (4.00-5.60); RDW 12.6 % (11.9-15.9); WHITE BLOOD COUNT 7.9 K/mm3 (4.0-10.0)
[2018-11-19] MEDS: TAMSULOSIN HCL 0.4 MG CAP PO SCH (16:28)
[2018-11-19] MEDS: DUTASTERIDE 0.5 MG CAP (FP) PO SCH (16:28)
[2018-11-19] MEDS: DIVALPROEX SODIUM 125 MG SPRINKLE CAPS PO SCH ×2 (16:29→21:16)
[2018-11-19] MEDS: ENOXAPARIN NA (PORCINE) 40 MG/0.4 ML DISP.SYRIN SQ SCH (16:29)
[2018-11-19] MEDS: OLANZapine 10 MG TABLET PO SCH ×2 (16:30→21:16)
[2018-11-19 16:41] LABS: ALBUMIN 3.1 g/dl (3.4-5.0); BILIRUBIN,TOTAL 0.8 mg/dL (0.2-1); BLOOD UREA NITROGEN 9.1 mg/dL (7-18); CALCIUM 8.6 mg/dL (8.5-10.1); CREATININE 0.6 mg/dL (0.55-1.3); POTASSIUM 3.7 mmol/L (3.5-5.1)
[2018-11-20 07:03] LABS: HEMATOCRIT 33.3 % (35.4-49); HEMOGLOBIN 11.6 GM/dL (11.7-16.9); MCHC 34.9 g/dl (32.0-35.9); PLATELET COUNT 354 K/MM3 (134-434); RBC 3.87 M/mm3 (4.00-5.60); RDW 12.9 % (11.9-15.9); WHITE BLOOD COUNT 9.5 K/mm3 (4.0-10.0)
[2018-11-20 07:24] LABS: ALBUMIN 3.1 g/dl (3.4-5.0); BILIRUBIN,TOTAL 0.5 mg/dL (0.2-1); CALCIUM 8.9 mg/dL (8.5-10.1); CREATININE 0.6 mg/dL (0.55-1.3); POTASSIUM 3.7 mmol/L (3.5-5.1); TOT PROT 5.9 g/dl (6.4-8.2)
[2018-11-20] MEDS: ALLOPURINOL 100 MG TABLET (FP) PO SCH (09:55)
[2018-11-20] MEDS: DONEPEZIL HCL 5 MG TABLET (FP) PO SCH (09:55)
[2018-11-20] MEDS: OLANZapine 10 MG TABLET PO SCH ×2 (09:55→21:32)
[2018-11-20] MEDS: DIVALPROEX SODIUM 125 MG SPRINKLE CAPS PO SCH ×2 (09:55→21:32)
[2018-11-20] MEDS: TAMSULOSIN HCL 0.4 MG CAP PO SCH (09:55)
[2018-11-20] MEDS: DUTASTERIDE 0.5 MG CAP (FP) PO SCH (09:55)
[2018-11-20] MEDS: ENOXAPARIN NA (PORCINE) 40 MG/0.4 ML DISP.SYRIN SQ SCH (09:56)
[2018-11-20] MEDS: POLYETHYLENE GLYCOL 3350 119 GM BTL PO SCH ×2 (09:56→21:35)
--- NOTE | 2018-11-20 13:13 | PN ---
Progress Note (short form) - Note Progress Note: NAD foly is out Vital Signs Period Temp Pulse Resp BP Sys/Rosales Pulse Ox Last 24 Hr 97.8 F-98.1 F 87-97 20-20 93-121/57-78 95 cor-rrr lungs clear abd soft,nt ext no edema CBC, BMP 11/20/18 06:48 11/20/18 06:48 Microbiology 11/18/18 18:20 Urine - Urine Perdomo Urine Culture - Preliminary Lactose Fermenting Neg Bacilli imp/reccd leukocytosis most likely secondary to urinary retention-has resolved-no fevers- LOW colony count urine culture- perdomo out- no need to treat pod #5 s/p TURP please call back if needed
[2018-11-20] MEDS: WITCH HAZEL 50% (TUCKS) 40 PAD/JAR PAD TP PRN ×2 (15:28→18:29)
[2018-11-20] MEDS: PHENYLEPHRINE 0.25%/STARCH 1 EACH SUPP.RECT PR SCH (21:32)
[2018-11-20] MEDS ORDERED: PRAMOXINE HCL/MINERAL OIL/ZNOX 30 GM TUBE RC SCH ×2 (22:00)
[2018-11-21] MEDS: PHENYLEPHRINE 0.25%/STARCH 1 EACH SUPP.RECT PR SCH ×2 (09:13→22:42)
--- NOTE | 2018-11-21 10:19 | PN ---
Progress Note, Physician Chief Complaint: ASLEEP NAD STRAIGHT CATH NEEDED FOR VOIDING URINE PER UROLOGY - Current Medication List Current Medications: Active Medications Acetaminophen (Tylenol -) 325 mg PO Q4H PRN PRN Reason: PAIN Acetaminophen (Tylenol -) 650 mg PO Q6H PRN PRN Reason: FEVER Allopurinol (Zyloprim -) 100 mg PO DAILY [facility] Last Admin: 11/20/18 09:55 Dose: 100 mg Divalproex Sodium (Depakote Sprinkle Caps -) 125 mg PO BID [facility] Last Admin: 11/20/18 21:32 Dose: 125 mg Donepezil HCl (Aricept -) 5 mg PO DAILY [facility] Last Admin: 11/20/18 09:55 Dose: 5 mg Dutasteride (Avodart -) 0.5 mg PO DAILY [facility] Last Admin: 11/20/18 09:55 Dose: 0.5 mg Enoxaparin Sodium (Lovenox -) 40 mg SQ DAILY [facility] Last Admin: 11/20/18 09:56 Dose: Not Given Ergocalciferol (Drisdol -) 50,000 unit PO Fr@1000 [facility] Last Admin: 11/19/18 16:29 Dose: Not Given Olanzapine (Zyprexa -) 10 mg PO BID [facility] Last Admin: 11/20/18 21:32 Dose: 10 mg Ondansetron HCl (Zofran Injection) 4 mg IVPUSH Q6H PRN PRN Reason: NAUSEA AND/OR VOMITING Polyethylene Glycol (Miralax (For Daily Use) -) 17 gm PO BID [facility] Last Admin: 11/20/18 21:35 Dose: 17 gm Pramoxine HCl (Tucks Ointment -) [address] [facility] Promethazine HCl (Phenergan Injection -) 12.5 mg IVPUSH Q6H PRN PRN Reason: NAUSEA-FOR RESCUE AFTER 15 MIN Starch (Anusol Suppository -) 1 each [place] BID [facility] Last Admin: 11/20/18 21:32 Dose: 1 each Tamsulosin HCl (Flomax -) 0.4 mg PO DAILY@0830 [facility] Last Admin: 11/20/18 09:55 Dose: 0.4 mg Witch Lily/Glycerin (Tucks Pads -) 1 pad TP PRN PRN PRN Reason: HEMORRHOIDS Last Admin: 11/20/18 18:29 Dose: 1 pad - Objective Vital Signs: Vital Signs Temperature 97.6 F 11/21/18 06:00 Pulse Rate 105 H 11/21/18 06:00 Respiratory Rate 20 11/21/18 09:00 Blood Pressure 140/90 11/21/18 06:00 O2 Sat by Pulse Oximetry (%) 95 11/21/18 09:00 Constitutional: Yes: No Distress Cardiovascular: Yes: Regular Rate and Rhythm Respiratory: Yes: WNL Gastrointestinal: Yes: WNL Genitourinary: Yes: Other (RETENTION) Musculoskeletal: Yes: Muscle Weakness Edema: No Neurological: Yes: Unsteady Gait Labs: CBC, BMP 11/20/18 06:48 11/20/18 06:48 INR, PTT INR 0.98 (0.83-1.09) 11/14/18 05:40 Problem List - Problems (1) BPH NOS w ur obs/LUTS Code(s): N40.1 - BENIGN PROSTATIC HYPERPLASIA WITH LOWER URINARY TRACT SYMP (2) Dislodged Hernandez catheter Code(s): T83.021A - DISPLACEMENT OF INDWELLING URETHRAL CATHETER, INIT (3) Hematuria Code(s): R31.9 - HEMATURIA, UNSPECIFIED (4) Leukocytosis Code(s): D72.829 - ELEVATED WHITE BLOOD CELL COUNT, UNSPECIFIED (5) Bladder wall thickening Code(s): N32.89 - OTHER SPECIFIED DISORDERS OF BLADDER (6) Dementia Code(s): F03.90 - UNSPECIFIED DEMENTIA WITHOUT BEHAVIORAL DISTURBANCE Assessment/Plan STRAIGHT CATH NEEDED FOR VOIDING FOLLOW UP DC PLANNING TOMORROW PT EVAL OOB TO CHAIR RENAL SONO NO ACUTE CHANGES
--- NOTE | 2018-11-21 10:19 | PN ---
Progress Note, Physician Chief Complaint: AWAKE ALERT SITTING IN A CHAIR NEXT TO NURSES STATION NO FEVER OR CHILLS CONFUSION - Current Medication List Current Medications: Active Medications Acetaminophen (Tylenol -) 325 mg PO Q4H PRN PRN Reason: PAIN Acetaminophen (Tylenol -) 650 mg PO Q6H PRN PRN Reason: FEVER Allopurinol (Zyloprim -) 100 mg PO DAILY [facility] Last Admin: 11/20/18 09:55 Dose: 100 mg Divalproex Sodium (Depakote Sprinkle Caps -) 125 mg PO BID [facility] Last Admin: 11/20/18 21:32 Dose: 125 mg Donepezil HCl (Aricept -) 5 mg PO DAILY [facility] Last Admin: 11/20/18 09:55 Dose: 5 mg Dutasteride (Avodart -) 0.5 mg PO DAILY [facility] Last Admin: 11/20/18 09:55 Dose: 0.5 mg Enoxaparin Sodium (Lovenox -) 40 mg SQ DAILY [facility] Last Admin: 11/20/18 09:56 Dose: Not Given Ergocalciferol (Drisdol -) 50,000 unit PO Fr@1000 [facility] Last Admin: 11/19/18 16:29 Dose: Not Given Olanzapine (Zyprexa -) 10 mg PO BID [facility] Last Admin: 11/20/18 21:32 Dose: 10 mg Ondansetron HCl (Zofran Injection) 4 mg IVPUSH Q6H PRN PRN Reason: NAUSEA AND/OR VOMITING Polyethylene Glycol (Miralax (For Daily Use) -) 17 gm PO BID [facility] Last Admin: 11/20/18 21:35 Dose: 17 gm Pramoxine HCl (Tucks Ointment -) 1 applic RC [facility] Promethazine HCl (Phenergan Injection -) 12.5 mg IVPUSH Q6H PRN PRN Reason: NAUSEA-FOR RESCUE AFTER 15 MIN Starch (Anusol Suppository -) [address] BID [facility] Last Admin: 11/20/18 21:32 Dose: 1 each Tamsulosin HCl (Flomax -) 0.4 mg PO DAILY@0830 [facility] Last Admin: 11/20/18 09:55 Dose: 0.4 mg Witch Lily/Glycerin (Tucks Pads -) 1 pad TP PRN PRN PRN Reason: HEMORRHOIDS Last Admin: 11/20/18 18:29 Dose: 1 pad - Objective Vital Signs: Vital Signs Temperature 97.6 F 11/21/18 06:00 Pulse Rate 105 H 11/21/18 06:00 Respiratory Rate 20 11/21/18 09:00 Blood Pressure 140/90 11/21/18 06:00 O2 Sat by Pulse Oximetry (%) 95 11/21/18 09:00 Constitutional: Yes: Mild Distress Cardiovascular: Yes: Regular Rate and Rhythm Respiratory: Yes: WNL Gastrointestinal: Yes: Normal Bowel Sounds Genitourinary: Yes: Incontinence, Other Musculoskeletal: Yes: Muscle Weakness Edema: No Integumentary: Yes: WNL Wound/Incision: Yes: Clean/Dry Neurological: Yes: Confusion, Pre-Existing Deficit Labs: CBC, BMP 11/20/18 06:48 11/20/18 06:48 INR, PTT INR 0.98 (0.83-1.09) 11/14/18 05:40 Problem List - Problems (1) BPH NOS w ur obs/LUTS Code(s): N40.1 - BENIGN PROSTATIC HYPERPLASIA WITH LOWER URINARY TRACT SYMP (2) Dislodged Clemons catheter Code(s): T83.021A - DISPLACEMENT OF INDWELLING URETHRAL CATHETER, INIT (3) Hematuria Code(s): R31.9 - HEMATURIA, UNSPECIFIED (4) Leukocytosis Code(s): D72.829 - ELEVATED WHITE BLOOD CELL COUNT, UNSPECIFIED (5) Bladder wall thickening Code(s): N32.89 - OTHER SPECIFIED DISORDERS OF BLADDER (6) Dementia Code(s): F03.90 - UNSPECIFIED DEMENTIA WITHOUT BEHAVIORAL DISTURBANCE (7) Gait difficulty Code(s): R26.9 - UNSPECIFIED ABNORMALITIES OF GAIT AND MOBILITY Assessment/Plan PT EVAL FOR SNF [facility] MONITOR URINE OUTPUT FOLLOW UP ID F/U ON ABX
[2018-11-21] MEDS: TAMSULOSIN HCL 0.4 MG CAP PO SCH (13:07)
[2018-11-21] MEDS: DIVALPROEX SODIUM 125 MG SPRINKLE CAPS PO SCH ×2 (13:08→22:42)
[2018-11-21] MEDS: ALLOPURINOL 100 MG TABLET (FP) PO SCH (13:08)
[2018-11-21] MEDS: DONEPEZIL HCL 5 MG TABLET (FP) PO SCH (13:08)
[2018-11-21] MEDS: DUTASTERIDE 0.5 MG CAP (FP) PO SCH (13:13)
[2018-11-21] MEDS: OLANZapine 10 MG TABLET PO SCH ×2 (13:14→22:42)
[2018-11-21] MEDS: ENOXAPARIN NA (PORCINE) 40 MG/0.4 ML DISP.SYRIN SQ SCH (16:13)
[2018-11-21] MEDS: POLYETHYLENE GLYCOL 3350 119 GM BTL PO SCH ×2 (16:14→22:44)
--- NOTE | 2018-11-21 18:55 | CONSULT ---
Consult Consult Specialty:: Nephrology Reason for Consultation:: hyponatremia - History of Present Illness Chief Complaint: dislodged suprapubic History of Present Illness: Pt is an 82 year old male with pmhd of urinary retention, dementia, htn, gout and bph who is admitted with suprapubic cath dysfunction. He also has history og UTI. I was called to evaluate him for hyponatramia. He is a poor historian and unable to follow instruction. He was found to be in urinary retention and has been getting straight caths. He denies shortness of breath. - History Source History Provided By: Medical Record Limitations to Obtaining History: Dementia - Past Medical History [employer]: Yes: Alzheimer's, Dementia Cardio/Vascular: Yes: HTN Gastrointestinal: Yes: Diverticulitis (diagnoses at [facility] 09/06/14 ) Renal/: Yes: Neurogenic Bladder, UTI Rheumatology: Yes: Gout - Past Surgical History Past Surgical History: Yes: Cataract Removal (pt is not sure of the type of his recent eye surgery) - Alcohol/Substance Use Hx Alcohol Use: No History of Substance Use: reports: None - Smoking History Smoking history: Unknown if ever smoked Have you smoked in the past 12 months: No If you are a former smoker, when did you quit?: 8 YRS - Social History Usual Living Arrangement: Senior Care ADL: Support Services 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 History of Recent Travel: No Home Medications - Allergies Allergies/Adverse Reactions: Allergies Allergy/AdvReac Type Severity Reaction Status Date / Time No Known Allergies Allergy Verified 11/14/18 04:03 - Home Medications Home Medications: Ambulatory Orders Allopurinol [Zyloprim -] 100 mg PO DAILY 09/08/14 Amlodipine Besylate [Norvasc -] 10 mg PO DAILY 09/08/14 Losartan Potassium 50 mg PO DAILY 09/08/14 Donepezil HCl [Aricept -] 5 mg PO DAILY tablet 11/02/18 Dutasteride [Avodart] 0.5 mg PO DAILY cap 11/02/18 Olanzapine [Zyprexa -] 10 mg PO BID tablet 11/02/18 Polyethylene Glycol 3350 [Miralax 119 gm Btl -] 17 gm PO BID bottle 11/02/18 Tamsulosin HCl [Flomax -] 0.4 mg PO DAILY@0830 cap.er.24h 11/02/18 Divalproex Sprinkle [Depakote Sprinkle -] 125 mg PO BID cap.sprink 11/09/18 Acetaminophen [Tylenol .Regular Strength -] 325 mg PO Q4H PRN 11/14/18 Cholecalciferol (Vitamin D3) [D3-50] 50,000 unit PO WEEKLY 11/14/18 Family Medical History Family History: Unable to Obtain Review of Systems - Review of Systems Constitutional: reports: No Symptoms Eyes: reports: No Symptoms HENT: reports: No Symptoms Neck: reports: No Symptoms Cardiovascular: reports: No Symptoms Respiratory: reports: No Symptoms Gastrointestinal: reports: No Symptoms Genitourinary: reports: Other (retention) Musculoskeletal: reports: No Symptoms Integumentary: reports: No Symptoms Neurological: reports: No Symptoms Endocrine: reports: No Symptoms Hematology/Lymphatic: reports: No Symptoms Physical Exam Vital Signs: Vital Signs Temperature 97.8 F 11/21/18 14:43 Pulse Rate 79 11/21/18 14:43 Respiratory Rate 18 11/21/18 14:43 Blood Pressure 115/65 11/21/18 14:43 O2 Sat by Pulse Oximetry (%) 95 11/21/18 09:00 Constitutional: Yes: Calm Eyes: Yes: Conjunctiva Clear HENT: Yes: Atraumatic Neck: Yes: Supple Cardiovascular: Yes: S1, S2 Respiratory: Yes: CTA Bilaterally Gastrointestinal: Yes: Normal Bowel Sounds, Soft Renal/: Yes: WNL Musculoskeletal: Yes: WNL Edema: No Neurological: Yes: Confusion Labs: CBC, BMP 11/20/18 06:48 11/20/18 06:48 Laboratory Tests 11/19/18 11/20/18 15:40 06:48 Sodium 130 L 132 L Problem List - Problems (1) Hyponatremia Code(s): E87.1 - HYPO-OSMOLALITY AND HYPONATREMIA (2) Dislodged Hernandez catheter Code(s): T83.021A - DISPLACEMENT OF INDWELLING URETHRAL CATHETER, INIT Assessment/Plan Current Medications Generic Name Dose Route Start Last Admin Trade Name Freq PRN Reason Stop Dose Admin Acetaminophen 325 mg 11/15/18 17:40 Tylenol - PO Q4H PRN PAIN Acetaminophen 650 mg 11/18/18 15:11 Tylenol - PO Q6H PRN FEVER Allopurinol 100 mg 11/16/18 10:00 11/21/18 13:08 Zyloprim - PO 100 mg DAILY [facility] Administration Divalproex Sodium 125 mg 11/15/18 22:00 11/21/18 13:08 Depakote Sprinkle Caps - PO 125 mg BID [facility] Administration Donepezil HCl 5 mg 11/16/18 10:00 11/21/18 13:08 Aricept - PO 5 mg DAILY [facility] Administration Dutasteride 0.5 mg 11/16/18 10:00 11/21/18 13:13 Avodart - PO 0.5 mg DAILY [facility] Administration Enoxaparin Sodium 40 mg 11/16/18 10:00 11/21/18 16:13 Lovenox - SQ Not Given DAILY [facility] Ergocalciferol 50,000 unit 11/19/18 10:00 11/19/18 16:29 Drisdol - PO Not Given Fr@1000 [facility] Olanzapine 10 mg 11/15/18 22:00 11/21/18 13:14 Zyprexa - PO 10 mg BID [facility] Administration Ondansetron HCl 4 mg 11/15/18 17:40 Zofran Injection IVPUSH Q6H PRN NAUSEA AND/OR VOMITING Polyethylene Glycol 17 gm 11/15/18 22:00 11/21/18 16:14 Miralax (For Daily Use) - PO Not Given BID [facility] Pramoxine HCl 1 applic 11/20/18 22:00 Tucks Ointment - RC HS [facility] Promethazine HCl 12.5 mg 11/15/18 17:40 Phenergan Injection - IVPUSH Q6H PRN NAUSEA-FOR RESCUE AFTER 15 MIN Starch 1 each 11/20/18 22:00 11/21/18 09:13 Anusol Suppository - [place] 1 each BID [facility] Administration Tamsulosin HCl 0.4 mg 11/16/18 08:30 11/21/18 13:07 Flomax - PO 0.4 mg DAILY@0830 [facility] Administration Witch Lily/Glycerin 1 pad 11/20/18 15:31 11/20/18 18:29 Tucks Pads - TP 1 pad PRN PRN Administration HEMORRHOIDS Impression 1. hyponatremia 2. gout 3. htn 4. urinary retention Plan - repeat sodium in am - restrict free water - urology follow up for retention - check plasma osm - check urine lytes and osm if possible
[2018-11-21] MEDS ORDERED: PT OWN MED DRAWER 7, Y5N ONE (22:40)
[2018-11-22 08:54] LABS: HEMATOCRIT 35.2 % (35.4-49); HEMOGLOBIN 11.7 GM/dL (11.7-16.9); MCH 29.2 pg (25.7-33.7); MCHC 33.2 g/dl (32.0-35.9); MEAN CELL VOLUME 87.9 fl (80-96); PLATELET COUNT 424 K/MM3 (134-434); RBC 4.01 M/mm3 (4.00-5.60); RDW 12.8 % (11.9-15.9); WHITE BLOOD COUNT 8.8 K/mm3 (4.0-10.0)
--- NOTE | 2018-11-22 08:58 | PN ---
Progress Note, Physician - Current Medication List Current Medications: Active Medications Acetaminophen (Tylenol -) 325 mg PO Q4H PRN PRN Reason: PAIN Acetaminophen (Tylenol -) 650 mg PO Q6H PRN PRN Reason: FEVER Allopurinol (Zyloprim -) 100 mg PO DAILY [facility] Last Admin: 11/21/18 13:08 Dose: 100 mg Divalproex Sodium (Depakote Sprinkle Caps -) 125 mg PO BID [facility] Last Admin: 11/21/18 22:42 Dose: 125 mg Donepezil HCl (Aricept -) 5 mg PO DAILY [facility] Last Admin: 11/21/18 13:08 Dose: 5 mg Dutasteride (Avodart -) 0.5 mg PO DAILY [facility] Last Admin: 11/21/18 13:13 Dose: 0.5 mg Enoxaparin Sodium (Lovenox -) 40 mg SQ DAILY [facility] Last Admin: 11/21/18 16:13 Dose: Not Given Ergocalciferol (Drisdol -) 50,000 unit PO Fr@1000 [facility] Last Admin: 11/19/18 16:29 Dose: Not Given Olanzapine (Zyprexa -) 10 mg PO BID [facility] Last Admin: 11/21/18 22:42 Dose: 10 mg Ondansetron HCl (Zofran Injection) 4 mg IVPUSH Q6H PRN PRN Reason: NAUSEA AND/OR VOMITING Polyethylene Glycol (Miralax (For Daily Use) -) 17 gm PO BID [facility] Last Admin: 11/21/18 22:44 Dose: 17 gm Pramoxine HCl (Tucks Ointment -) 1 applic [facility] Promethazine HCl (Phenergan Injection -) 12.5 mg IVPUSH Q6H PRN PRN Reason: NAUSEA-FOR RESCUE AFTER 15 MIN Starch (Anusol Suppository -) 1 each [place] BID [facility] Last Admin: 11/21/18 22:42 Dose: 1 each Tamsulosin HCl (Flomax -) 0.4 mg PO DAILY@0830 [facility] Last Admin: 11/21/18 13:07 Dose: 0.4 mg Witch Lily/Glycerin (Tucks Pads -) 1 pad TP PRN PRN PRN Reason: HEMORRHOIDS Last Admin: 11/20/18 18:29 Dose: 1 pad - Objective Vital Signs: Vital Signs Temperature 97.8 F 11/22/18 05:37 Pulse Rate 79 11/22/18 05:37 Respiratory Rate 18 11/22/18 05:37 Blood Pressure 125/77 11/22/18 05:37 O2 Sat by Pulse Oximetry (%) 97 11/21/18 21:00 Labs: CBC, BMP 11/22/18 06:45 INR, PTT INR 0.98 (0.83-1.09) 11/14/18 05:40 Problem List - Problems (1) BPH NOS w ur obs/LUTS Code(s): N40.1 - BENIGN PROSTATIC HYPERPLASIA WITH LOWER URINARY TRACT SYMP (2) Dislodged Hernandez catheter Code(s): T83.021A - DISPLACEMENT OF INDWELLING URETHRAL CATHETER, INIT (3) Hematuria Code(s): R31.9 - HEMATURIA, UNSPECIFIED (4) Leukocytosis Code(s): D72.829 - ELEVATED WHITE BLOOD CELL COUNT, UNSPECIFIED (5) Bladder wall thickening Code(s): N32.89 - OTHER SPECIFIED DISORDERS OF BLADDER (6) Dementia Code(s): F03.90 - UNSPECIFIED DEMENTIA WITHOUT BEHAVIORAL DISTURBANCE
[2018-11-22 09:30] LABS: CREATININE 0.6 mg/dL (0.55-1.3)
[2018-11-22 09:31] LABS: CALCIUM 9.4 mg/dL (8.5-10.1); POTASSIUM 4.3 mmol/L (3.5-5.1)
[2018-11-22] MEDS ORDERED: PT OWN MED DRAWER 7, Y5N ONE ×3 (11:43→13:54)
[2018-11-22] MEDS: ENOXAPARIN NA (PORCINE) 40 MG/0.4 ML DISP.SYRIN SQ SCH (11:45)
[2018-11-22] MEDS: DONEPEZIL HCL 5 MG TABLET (FP) PO SCH (11:45)
[2018-11-22] MEDS: ALLOPURINOL 100 MG TABLET (FP) PO SCH (11:46)
[2018-11-22] MEDS: DIVALPROEX SODIUM 125 MG SPRINKLE CAPS PO SCH ×2 (11:46→22:54)
[2018-11-22] MEDS: POLYETHYLENE GLYCOL 3350 119 GM BTL PO SCH ×2 (11:46→22:54)
[2018-11-22] MEDS: OLANZapine 10 MG TABLET PO SCH ×2 (11:46→22:54)
[2018-11-22] MEDS: DUTASTERIDE 0.5 MG CAP (FP) PO SCH (11:47)
[2018-11-22] MEDS: TAMSULOSIN HCL 0.4 MG CAP PO SCH (11:49)
--- NOTE | 2018-11-22 14:18 | PN ---
Progress Note, Physician Chief Complaint: patient examiend in bed distended bladder - Current Medication List Current Medications: Active Medications Acetaminophen (Tylenol -) 325 mg PO Q4H PRN PRN Reason: PAIN Acetaminophen (Tylenol -) 650 mg PO Q6H PRN PRN Reason: FEVER Allopurinol (Zyloprim -) 100 mg PO DAILY [facility] Last Admin: 11/22/18 11:46 Dose: 100 mg Divalproex Sodium (Depakote Sprinkle Caps -) 125 mg PO BID [facility] Last Admin: 11/22/18 11:46 Dose: 125 mg Donepezil HCl (Aricept -) 5 mg PO DAILY [facility] Last Admin: 11/22/18 11:45 Dose: 5 mg Dutasteride (Avodart -) 0.5 mg PO DAILY [facility] Last Admin: 11/22/18 11:47 Dose: 0.5 mg Enoxaparin Sodium (Lovenox -) 40 mg SQ DAILY [facility] Last Admin: 11/22/18 11:45 Dose: 40 mg Ergocalciferol (Drisdol -) 50,000 unit PO Fr@1000 [facility] Last Admin: 11/19/18 16:29 Dose: Not Given Olanzapine (Zyprexa -) 10 mg PO BID [facility] Last Admin: 11/22/18 11:46 Dose: 10 mg Ondansetron HCl (Zofran Injection) 4 mg IVPUSH Q6H PRN PRN Reason: NAUSEA AND/OR VOMITING Polyethylene Glycol (Miralax (For Daily Use) -) 17 gm PO BID [facility] Last Admin: 11/22/18 11:46 Dose: 17 gm Pramoxine HCl (Tucks Ointment -) 1 applic [facility] Promethazine HCl (Phenergan Injection -) 12.5 mg IVPUSH Q6H PRN PRN Reason: NAUSEA-FOR RESCUE AFTER 15 MIN Starch (Anusol Suppository -) 1 each [place] BID [facility] Last Admin: 11/21/18 22:42 Dose: 1 each Tamsulosin HCl (Flomax -) 0.4 mg PO DAILY@0830 [facility] Last Admin: 11/22/18 11:49 Dose: 0.4 mg Witch Lily/Glycerin (Tucks Pads -) 1 pad TP PRN PRN PRN Reason: HEMORRHOIDS Last Admin: 11/20/18 18:29 Dose: 1 pad - Objective Vital Signs: Vital Signs Temperature 98.1 F 11/22/18 10:00 Pulse Rate 92 H 11/22/18 10:00 Respiratory Rate 18 11/22/18 10:00 Blood Pressure 97/75 11/22/18 10:00 O2 Sat by Pulse Oximetry (%) 97 11/21/18 21:00 Constitutional: Yes: Calm Neck: Yes: Trachea Midline Cardiovascular: Yes: Regular Rate and Rhythm, S1, S2 Respiratory: Yes: CTA Bilaterally Gastrointestinal: Yes: Normal Bowel Sounds, Soft ...Rectal Exam: Yes: Other (bladder distended) Labs: CBC, BMP 11/22/18 06:45 11/22/18 06:45 INR, PTT INR 0.98 (0.83-1.09) 11/14/18 05:40 Problem List - Problems (1) BPH NOS w ur obs/LUTS Assessment/Plan: s/p TURP perdomo cath today urology folow up floamx and avodart Code(s): N40.1 - BENIGN PROSTATIC HYPERPLASIA WITH LOWER URINARY TRACT SYMP (2) Dementia Assessment/Plan: on depakote and aricept olanzipine bid restraints off Code(s): F03.90 - UNSPECIFIED DEMENTIA WITHOUT BEHAVIORAL DISTURBANCE (3) Hypertension Assessment/Plan: stop norvasc given low BP stop losartan for now Code(s): I10 - ESSENTIAL (PRIMARY) HYPERTENSION
--- NOTE | 2018-11-22 14:21 | DS ---
Physical Examination Vital Signs: Vital Signs Temperature 98.1 F 11/22/18 10:00 Pulse Rate 92 H 11/22/18 10:00 Respiratory Rate 18 11/22/18 10:00 Blood Pressure 97/75 11/22/18 10:00 O2 Sat by Pulse Oximetry (%) 97 11/21/18 21:00 Constitutional: Yes: Calm, Thin Cardiovascular: Yes: Regular Rate and Rhythm, S1, S2 Respiratory: Yes: CTA Bilaterally Gastrointestinal: Yes: Normal Bowel Sounds, Soft Renal/: Yes: Other (distended blader) Edema: No Neurological: Yes: Alert Labs: CBC, BMP 11/22/18 06:45 11/22/18 06:45 Discharge Summary Reason For Visit: SUPRAPUBIC CATHETER DYSFUNCTION Current Active Problems BPH NOS w ur obs/LUTS (Acute) Dislodged Perdomo catheter (Acute) Hematuria (Acute) Hyponatremia (Acute) Leukocytosis (Acute) Hospital Course: - Primary Care Physician PCP: Marybeth Benavides - Admission Chief Complaint: Pulled out Suprapubic Catheter History of Present Illness: This is a 82 y/o man from [facility] with a PMHx of Dementia, HTN, Urinary Retention, Gout, Frequent Falls. Who presents to the ED for dislodgement of suprapubic catheter. Patient was recently admitted and had a suprapubic catheter placed by Dr. Gamez. Patient is unable to provide HPI due to Dementia. s/p TURP onflomax and avodart straight cath PRN not working for paitent needs foleycath urology follow up dementia off restraints calm Condition: Stable - Instructions Diet, Activity, Other Instructions: urology follow up for urinary retention perdomo cath for retention as straight cath as needed was not working Disposition: NURSING HOME FACILITY - Home Medications Comprehensive Discharge Medication List: Ambulatory Orders Allopurinol [Zyloprim -] 100 mg PO DAILY 09/08/14 Amlodipine Besylate [Norvasc -] 10 mg PO DAILY 09/08/14 Losartan Potassium 50 mg PO DAILY 09/08/14 Donepezil HCl [Aricept -] 5 mg PO DAILY tablet 11/02/18 Dutasteride [Avodart] 0.5 mg PO DAILY cap 11/02/18 Olanzapine [Zyprexa -] 10 mg PO BID tablet 11/02/18 Polyethylene Glycol 3350 [Miralax 119 gm Btl -] 17 gm PO BID bottle 11/02/18 Tamsulosin HCl [Flomax -] 0.4 mg PO DAILY@0830 cap.er.24h 11/02/18 Divalproex Sprinkle [Depakote Sprinkle -] 125 mg PO BID cap.sprink 11/09/18 Acetaminophen [Tylenol .Regular Strength -] 325 mg PO Q4H PRN 11/14/18 Cholecalciferol (Vitamin D3) [D3-50] 50,000 unit PO WEEKLY 11/14/18
--- NOTE | 2018-11-22 15:01 | PN ---
Progress Note, Physician History of Present Illness: Pt seen and examined at bedside. He appear comfortable. He is confused. - Current Medication List Current Medications: Active Medications Acetaminophen (Tylenol -) 325 mg PO Q4H PRN PRN Reason: PAIN Acetaminophen (Tylenol -) 650 mg PO Q6H PRN PRN Reason: FEVER Allopurinol (Zyloprim -) 100 mg PO DAILY [facility] Last Admin: 11/22/18 11:46 Dose: 100 mg Divalproex Sodium (Depakote Sprinkle Caps -) 125 mg PO BID [facility] Last Admin: 11/22/18 11:46 Dose: 125 mg Donepezil HCl (Aricept -) 5 mg PO DAILY [facility] Last Admin: 11/22/18 11:45 Dose: 5 mg Dutasteride (Avodart -) 0.5 mg PO DAILY [facility] Last Admin: 11/22/18 11:47 Dose: 0.5 mg Enoxaparin Sodium (Lovenox -) 40 mg SQ DAILY [facility] Last Admin: 11/22/18 11:45 Dose: 40 mg Ergocalciferol (Drisdol -) 50,000 unit PO Fr@1000 [facility] Last Admin: 11/19/18 16:29 Dose: Not Given Olanzapine (Zyprexa -) 10 mg PO BID [facility] Last Admin: 11/22/18 11:46 Dose: 10 mg Ondansetron HCl (Zofran Injection) 4 mg IVPUSH Q6H PRN PRN Reason: NAUSEA AND/OR VOMITING Polyethylene Glycol (Miralax (For Daily Use) -) 17 gm PO BID [facility] Last Admin: 11/22/18 11:46 Dose: 17 gm Pramoxine HCl (Tucks Ointment -) 1 applic [facility] Promethazine HCl (Phenergan Injection -) 12.5 mg IVPUSH Q6H PRN PRN Reason: NAUSEA-FOR RESCUE AFTER 15 MIN Starch (Anusol Suppository -) 1 each [place] BID [facility] Last Admin: 11/21/18 22:42 Dose: 1 each Tamsulosin HCl (Flomax -) 0.4 mg PO DAILY@0830 [facility] Last Admin: 11/22/18 11:49 Dose: 0.4 mg Witch Lily/Glycerin (Tucks Pads -) 1 pad TP PRN PRN PRN Reason: HEMORRHOIDS Last Admin: 11/20/18 18:29 Dose: 1 pad - Objective Vital Signs: Vital Signs Temperature 98.4 F 11/22/18 14:10 Pulse Rate 84 11/22/18 14:10 Respiratory Rate 16 11/22/18 14:10 Blood Pressure 119/67 11/22/18 14:10 O2 Sat by Pulse Oximetry (%) 97 11/21/18 21:00 Constitutional: Yes: Calm Eyes: Yes: Conjunctiva Clear HENT: Yes: Atraumatic Neck: Yes: Supple Cardiovascular: Yes: S1, S2 Respiratory: Yes: CTA Bilaterally Gastrointestinal: Yes: Normal Bowel Sounds, Soft Genitourinary: Yes: Bladder Distention Musculoskeletal: Yes: WNL Edema: No Neurological: Yes: Confusion Labs: CBC, BMP 11/22/18 06:45 11/22/18 06:45 INR, PTT INR 0.98 (0.83-1.09) 11/14/18 05:40 Problem List - Problems (1) Hyponatremia Code(s): E87.1 - HYPO-OSMOLALITY AND HYPONATREMIA (2) Dislodged Hernandez catheter Code(s): T83.021A - DISPLACEMENT OF INDWELLING URETHRAL CATHETER, INIT Assessment/Plan Current Medications Generic Name Dose Route Start Last Admin Trade Name Freq PRN Reason Stop Dose Admin Acetaminophen 325 mg 11/15/18 17:40 Tylenol - PO Q4H PRN PAIN Acetaminophen 650 mg 11/18/18 15:11 Tylenol - PO Q6H PRN FEVER Allopurinol 100 mg 11/16/18 10:00 11/22/18 11:46 Zyloprim - PO 100 mg DAILY [facility] Administration Divalproex Sodium 125 mg 11/15/18 22:00 11/22/18 11:46 Depakote Sprinkle Caps - PO 125 mg BID [facility] Administration Donepezil HCl 5 mg 11/16/18 10:00 11/22/18 11:45 Aricept - PO 5 mg DAILY [facility] Administration Dutasteride 0.5 mg 11/16/18 10:00 11/22/18 11:47 Avodart - PO 0.5 mg DAILY [facility] Administration Enoxaparin Sodium 40 mg 11/16/18 10:00 11/22/18 11:45 Lovenox - SQ 40 mg DAILY [facility] Administration Ergocalciferol 50,000 unit 11/19/18 10:00 11/19/18 16:29 Drisdol - PO Not Given Fr@1000 [facility] Olanzapine 10 mg 11/15/18 22:00 11/22/18 11:46 Zyprexa - PO 10 mg BID [facility] Administration Ondansetron HCl 4 mg 11/15/18 17:40 Zofran Injection IVPUSH Q6H PRN NAUSEA AND/OR VOMITING Polyethylene Glycol 17 gm 11/15/18 22:00 11/22/18 11:46 Miralax (For Daily Use) - PO 17 gm BID [facility] Administration Pramoxine HCl 1 applic 11/20/18 22:00 Tucks Ointment - RC HS [facility] Promethazine HCl 12.5 mg 11/15/18 17:40 Phenergan Injection - IVPUSH Q6H PRN NAUSEA-FOR RESCUE AFTER 15 MIN Starch 1 each 11/20/18 22:00 11/21/18 22:42 Anusol Suppository - [place] 1 each BID [facility] Administration Tamsulosin HCl 0.4 mg 11/16/18 08:30 11/22/18 11:49 Flomax - PO 0.4 mg DAILY@0830 [facility] Administration Witch Lily/Glycerin 1 pad 11/20/18 15:31 11/20/18 18:29 Tucks Pads - TP 1 pad PRN PRN Administration HEMORRHOIDS Impression 1. hyponatremia 2. gout 3. htn 4. urinary retention Plan - sodium is improving - restrict free water - straight cath for retention - urology follow up - cont to monitor lytes
[2018-11-22] MEDS: PHENYLEPHRINE 0.25%/STARCH 1 EACH SUPP.RECT PR SCH ×2 (17:14→22:54)
[2018-11-23] MEDS ORDERED: LORazepam 1 MG TABLET PO ONE (01:37)
[2018-11-23 07:21] LABS: BLOOD UREA NITROGEN 10.1 mg/dL (7-18); CALCIUM 9.2 mg/dL (8.5-10.1); CREATININE 0.6 mg/dL (0.55-1.3)
[2018-11-23] MEDS: TAMSULOSIN HCL 0.4 MG CAP PO SCH (08:55)
--- NOTE | 2018-11-23 08:56 | PN ---
Progress Note (short form) - Note Progress Note: PAPERWORK COMPLETED NO DISTRESS DC TO SNF TODAY Problem List - Problems (1) BPH NOS w ur obs/LUTS Code(s): N40.1 - BENIGN PROSTATIC HYPERPLASIA WITH LOWER URINARY TRACT SYMP (2) Dislodged Hernandez catheter Code(s): T83.021A - DISPLACEMENT OF INDWELLING URETHRAL CATHETER, INIT (3) Hematuria Code(s): R31.9 - HEMATURIA, UNSPECIFIED (4) Leukocytosis Code(s): D72.829 - ELEVATED WHITE BLOOD CELL COUNT, UNSPECIFIED (5) Bladder wall thickening Code(s): N32.89 - OTHER SPECIFIED DISORDERS OF BLADDER (6) Dementia Code(s): F03.90 - UNSPECIFIED DEMENTIA WITHOUT BEHAVIORAL DISTURBANCE
[2018-11-23 10:55] VITALS: BP 109/66; PULSE 79; TEMP 97
[2018-11-23] MEDS ORDERED: PT OWN MED DRAWER 7, Y5N ONE (10:56)
[2018-11-23] MEDS: ENOXAPARIN NA (PORCINE) 40 MG/0.4 ML DISP.SYRIN SQ SCH (10:59)
[2018-11-23] MEDS: ALLOPURINOL 100 MG TABLET (FP) PO SCH (11:00)
[2018-11-23] MEDS: DONEPEZIL HCL 5 MG TABLET (FP) PO SCH (11:00)
[2018-11-23] MEDS: DIVALPROEX SODIUM 125 MG SPRINKLE CAPS PO SCH (11:00)
[2018-11-23] MEDS: OLANZapine 10 MG TABLET PO SCH (11:00)
[2018-11-23] MEDS: DUTASTERIDE 0.5 MG CAP (FP) PO SCH (11:00)
[2018-11-23] MEDS: POLYETHYLENE GLYCOL 3350 119 GM BTL PO SCH (11:00)
[2018-11-23] MEDS: PHENYLEPHRINE 0.25%/STARCH 1 EACH SUPP.RECT PR SCH ×2 (11:03→11:35)
[2018-11-23] MEDS ORDERED: SODIUM CHLORIDE 250 ML IV STA (12:42)
--- NOTE | 2018-11-23 12:42 | PN ---
Progress Note, Physician History of Present Illness: Pt seen and examined at bedside. He is awake and appears comfortable. - Current Medication List Current Medications: Active Medications Acetaminophen (Tylenol -) 325 mg PO Q4H PRN PRN Reason: PAIN Acetaminophen (Tylenol -) 650 mg PO Q6H PRN PRN Reason: FEVER Allopurinol (Zyloprim -) 100 mg PO DAILY [facility] Last Admin: 11/23/18 11:00 Dose: 100 mg Divalproex Sodium (Depakote Sprinkle Caps -) 125 mg PO BID [facility] Last Admin: 11/23/18 11:00 Dose: 125 mg Donepezil HCl (Aricept -) 5 mg PO DAILY [facility] Last Admin: 11/23/18 11:00 Dose: 5 mg Dutasteride (Avodart -) 0.5 mg PO DAILY [facility] Last Admin: 11/23/18 11:00 Dose: 0.5 mg Enoxaparin Sodium (Lovenox -) 40 mg SQ DAILY [facility] Last Admin: 11/23/18 10:59 Dose: 40 mg Ergocalciferol (Drisdol -) 50,000 unit PO Fr@1000 [facility] Last Admin: 11/19/18 16:29 Dose: Not Given Olanzapine (Zyprexa -) 10 mg PO BID [facility] Last Admin: 11/23/18 11:00 Dose: 10 mg Ondansetron HCl (Zofran Injection) 4 mg IVPUSH Q6H PRN PRN Reason: NAUSEA AND/OR VOMITING Polyethylene Glycol (Miralax (For Daily Use) -) 17 gm PO BID [facility] Last Admin: 11/23/18 11:00 Dose: 17 gm Pramoxine HCl (Tucks Ointment -) 1 applic RC HS [facility] Promethazine HCl (Phenergan Injection -) 12.5 mg IVPUSH Q6H PRN PRN Reason: NAUSEA-FOR RESCUE AFTER 15 MIN Starch (Anusol Suppository -) 1 each LA BID [facility] Last Admin: 11/23/18 11:35 Dose: 1 each Tamsulosin HCl (Flomax -) 0.4 mg PO DAILY@0830 [facility] Last Admin: 11/23/18 08:55 Dose: 0.4 mg Witch Lily/Glycerin (Tucks Pads -) 1 pad TP PRN PRN PRN Reason: HEMORRHOIDS Last Admin: 11/20/18 18:29 Dose: 1 pad - Objective Vital Signs: Vital Signs Temperature 97.0 F L 11/23/18 10:53 Pulse Rate 79 11/23/18 10:53 Respiratory Rate 14 11/23/18 10:53 Blood Pressure 109/66 11/23/18 10:53 O2 Sat by Pulse Oximetry (%) 95 11/22/18 10:00 Constitutional: Yes: Calm Eyes: Yes: Conjunctiva Clear HENT: Yes: Atraumatic Cardiovascular: Yes: S1, S2 Gastrointestinal: Yes: Soft Genitourinary: Yes: Perdomo Present Musculoskeletal: Yes: WNL Edema: No Neurological: Yes: Confusion Labs: CBC, BMP 11/22/18 06:45 11/23/18 05:30 INR, PTT INR 0.98 (0.83-1.09) 11/14/18 05:40 Problem List - Problems (1) Hyponatremia Code(s): E87.1 - HYPO-OSMOLALITY AND HYPONATREMIA (2) Dislodged Perdomo catheter Code(s): T83.021A - DISPLACEMENT OF INDWELLING URETHRAL CATHETER, INIT Assessment/Plan Current Medications Generic Name Dose Route Start Last Admin Trade Name Freq PRN Reason Stop Dose Admin Acetaminophen 325 mg 11/15/18 17:40 Tylenol - PO Q4H PRN PAIN Acetaminophen 650 mg 11/18/18 15:11 Tylenol - PO Q6H PRN FEVER Allopurinol 100 mg 11/16/18 10:00 11/23/18 11:00 Zyloprim - PO 100 mg DAILY [facility] Administration Divalproex Sodium 125 mg 11/15/18 22:00 11/23/18 11:00 Depakote Sprinkle Caps - PO 125 mg BID [facility] Administration Donepezil HCl 5 mg 11/16/18 10:00 11/23/18 11:00 Aricept - PO 5 mg DAILY [facility] Administration Dutasteride 0.5 mg 11/16/18 10:00 11/23/18 11:00 Avodart - PO 0.5 mg DAILY [facility] Administration Enoxaparin Sodium 40 mg 11/16/18 10:00 11/23/18 10:59 Lovenox - SQ 40 mg DAILY [facility] Administration Ergocalciferol 50,000 unit 11/19/18 10:00 11/19/18 16:29 Drisdol - PO Not Given Fr@1000 [facility] Olanzapine 10 mg 11/15/18 22:00 11/23/18 11:00 Zyprexa - PO 10 mg BID [facility] Administration Ondansetron HCl 4 mg 11/15/18 17:40 Zofran Injection IVPUSH Q6H PRN NAUSEA AND/OR VOMITING Polyethylene Glycol 17 gm 11/15/18 22:00 11/23/18 11:00 Miralax (For Daily Use) - PO 17 gm BID [facility] Administration Pramoxine HCl 1 applic 11/20/18 22:00 Tucks Ointment - RC HS [facility] Promethazine HCl 12.5 mg 11/15/18 17:40 Phenergan Injection - IVPUSH Q6H PRN NAUSEA-FOR RESCUE AFTER 15 MIN Starch 1 each 11/20/18 22:00 11/23/18 11:35 Anusol Suppository - LA 1 each BID [facility] Administration Tamsulosin HCl 0.4 mg 11/16/18 08:30 11/23/18 08:55 Flomax - PO 0.4 mg DAILY@0830 [facility] Administration Witch Lily/Glycerin 1 pad 11/20/18 15:31 11/20/18 18:29 Tucks Pads - TP 1 pad PRN PRN Administration HEMORRHOIDS Impression 1. hyponatremia 2. gout 3. htn 4. urinary retention Plan - monitor sodium - will give saline before he goes to rehab - monitor labs in rehab - pt has perdomo - urology follow up - cont to monitor lytes
== END 2018-11-23 12:51 | DRG 666 ==
LOC: JER 03:15 → JERBED 05:59 → INTOOBSV 05:59 → UNDOADMOB 05:59 → JERBED 07:59 → J5S 10:01 → OBSVTOIN 11-16 14:44
PROVIDERS: ADMIT Family Medicine; ATTEND Family Medicine
PROC: 0VT08ZZ Resection of Prostate, Via Natural or Artificial Opening Endoscopic (ICD-10-PCS; principal; 2018-11-15 14:00)
DX: N32.0 Bladder-neck obstruction (principal); T83.020A Displacement of cystostomy catheter, initial encounter; E87.1 Hypo-osmolality and hyponatremia; F02.81 Dementia in other diseases classified elsewhere, unspecified severity, with behavioral disturbance; N40.1 Benign prostatic hyperplasia with lower urinary tract symptoms; R33.9 Retention of urine, unspecified; M10.9 Gout, unspecified; G30.9 Alzheimer's disease, unspecified; Y83.9 Surgical procedure, unspecified as the cause of abnormal reaction of the patient, or of later complication, without mention of misadventure at the time of the procedure; D72.829 Elevated white blood cell count, unspecified; R31.9 Hematuria, unspecified; I10 Essential (primary) hypertension; R26.9 Unspecified abnormalities of gait and mobility
CPT/HCPCS: 36415; 76775-TC; 80048; 80053; 81003; 82436; 83930; 83935; 84133; 84300; 85025; 85027; 85610; 87086; 87186; 88305-TC; 93005; 93010; 94760; 99283-25; G0378

== ENCOUNTER 2018-11-23 20:23 | Emergency (ER) | payer OTHER | END 2018-11-24 03:41 | disposition home or self-care (01) | LOC: JER 20:23 ==

== ENCOUNTER 2018-11-24 15:31 | Inpatient (IN) | payer OTHER ==
--- NOTE | 2018-11-24 15:54 | PDOC ---
History of Present Illness - General Stated Complaint: URINE RETENTION Time Seen by Provider: 11/24/18 15:53 History Source: Patient Exam Limitations: Dementia (non verbal, follows simple commands) - History of Present Illness Initial Comments: 11/24/18 16:07 Miriam Madrigal is a 82yM w PMHx BPH, urine retention, dementia presenting fro [facility] with concern for urine retention. Pt is poor historian. Pt has hx of suprapubic catheter and recently had perdomo catheter. LA brought pt to ED d/t no urine output for past 8hrs. Was seen in ED yesterday for possible urinary retention, retention ruled out, UA showed UTI w prior culture +enterobacter. Past History - Past Medical History Allergies/Adverse Reactions: Allergies Allergy/AdvReac Type Severity Reaction Status Date / Time No Known Allergies Allergy Verified 11/24/18 16:20 Home Medications: Ambulatory Orders Allopurinol [Zyloprim -] 100 mg PO DAILY 09/08/14 Amlodipine Besylate [Norvasc -] 10 mg PO DAILY 09/08/14 Losartan Potassium 50 mg PO DAILY 09/08/14 Donepezil HCl [Aricept -] 5 mg PO DAILY tablet 11/02/18 Dutasteride [Avodart] 0.5 mg PO DAILY cap 11/02/18 Olanzapine [Zyprexa -] 10 mg PO BID tablet 11/02/18 Polyethylene Glycol 3350 [Miralax 119 gm Btl -] 17 gm PO BID bottle 11/02/18 Tamsulosin HCl [Flomax -] 0.4 mg PO DAILY@0830 cap.er.24h 11/02/18 Divalproex Sprinkle [Depakote Sprinkle -] 125 mg PO BID cap.sprink 11/09/18 Acetaminophen [Tylenol .Regular Strength -] 325 mg PO Q6H PRN 11/14/18 Cholecalciferol (Vitamin D3) [D3-50] 50,000 unit PO WEEKLY 11/14/18 COPD: No Dementia: Yes GI Disorders: Yes (H. PYLORI, DIVERTICULITIS) Disorders: Yes (KIDNEY STONES, BPH) HTN: Yes Hypercholesterolemia: Yes Psychiatric Problems: Yes (DEMENTIA) - Psycho Social/Smoking Cessation Hx Smoking Status: No Smoking History: Unknown if ever smoked Have you smoked in the past 12 months: No If you are a former smoker, when did you quit?: 8 YRS Hx Alcohol Use: No Drug/Substance Use Hx: No Substance Use Type: None Hx Substance Use Treatment: No Review of Systems - Review of Systems Able to Perform ROS?: No (dementia) *Physical Exam - Physical Exam General Appearance: Yes: Nourished, Appropriately Dressed. No: Apparent Distress HEENT: positive: EOMI, DIEGO, Normal Voice, Hearing Grossly Normal. negative: Scleral Icterus (R), Scleral Icterus (L), Nasal Congestion, Rhinorrhea Respiratory/Chest: positive: Lungs Clear, Normal Breath Sounds. negative: Chest Tender, Respiratory Distress, Crackles, Rales, Rhonchi, Stridor, Wheezing Cardiovascular: positive: Regular Rhythm, Regular Rate, S1, S2. negative: Edema , Murmur Gastrointestinal/Abdominal: positive: Normal Bowel Sounds, Tender (mild tender RLQ and R suprapic region), Flat, Soft, Other (well healed suprapubic catheter site w/o catheter, not warm/tender/or purulent). negative: Organomegaly, Hernia , Mass Male Genitalia: positive: normal genitalia. negative: discharge Musculoskeletal: negative: CVA Tenderness (R), CVA Tenderness (L) Extremity: positive: Normal Capillary Refill Integumentary: positive: Normal Color Neurologic: positive: Alert, Respond to painful stimul, Responsive. negative: Fully Oriented (A&Ox2, waxing/waning attention) ED Treatment Course - LABORATORY CBC & Chemistry Diagram: 11/24/18 17:20 11/24/18 17:20 Medical Decision Making - Medical Decision Making 11/24/18 18:14 Hgb 11.2, normal CMP, neg trop Pending EKG, CXR Pt tried urinating several times without success Pt abdomen strapped to bed bc pt attempted to climb out of bed multiple times 7p pt confused, pulled out IV. Nurse placed hand IV Miriam Madrigal is a 82yM w PMHx BPH, urine retention, dementia presenting fro [facility] with concern for urine retention. Bladder US showed 309mL - not retention. Pt straight cathed for 300mL, UA shows UTI, given 1g meropenem based on prior cultures. ACS unlikely w neg trop/chest pain Admitted to Dr Dobbins med/surg for complicated UTI Consulted Dr Gamez urology, told to continue straight cath PRN bc pt pulls out all lines. Pending CXR, EKG Signed out to night team Discharge - Discharge Information Problems reviewed: Yes Clinical Impression/Diagnosis: Complicated UTI (urinary tract infection) Condition: Good - Follow up/Referral - Patient Discharge Instructions - Post Discharge Activity
--- NOTE | 2018-11-24 16:39 | PDOC ---
Attending Attestation - Resident Resident Name: Carlo Martin - ED Attending Attestation I have performed the following: I have examined & evaluated the patient, The case was reviewed & discussed with the resident, I agree w/resident's findings & plan, Exceptions are as noted - HPI HPI: 11/24/18 16:[address] [facility] for decreased urine outpt x 8 hrs. Pt with hx of suprapubic catheter and recently had perdomo catheter. Pt with hx of dementia and cannot provide any history. Pt seen in ED last night for poss urinary retention - not in retention - ua sent that shows uti, prior culture + enterobacter. Pt sent again from [facility] for poss urinary retention. No suprapubic in place - no drainage, no perdomo catheter and diaper is dry. Mild lower abd ttp. No cva ttp. Pt cannot provide a complete hx. - Physicial Exam PE: 11/24/18 16:34 Gen: awake, pleasantly demented heart: +s1s2 reg lungs: cta b/l abd: soft, mild suprapubic ttp, suprapubic site clean - no catheter, or drainage gu: no perdomo in place, no blood at meatus, dry diaper ext: no c/c/e - Medical Decision Making 11/24/18 16:47 a/p: 82yo male from [facility] for urinary retention -bedside sono shows ~300cc in bladder -pt without fever -pt seen yesterday and ua +uti recent culture +enterobacter -will start iv abx -will discuss with [place] -will send labs, ua, ucx 11/24/18 16:[address] sam - will see patient in consult, recommends straight cath PRN - no perdomo or suprapubic catheter -will start iv abx pt will need admission
[2018-11-24 17:05] LABS: EPI CELLS 0.5 /HPF (0-5/HPF); HYALINE CASTS 13 /lpf (0-8); URINE APPEARANCE TURBID; URINE BACTERIA 311.3 /hpf (NEGATIVE); URINE BILIRUBIN NEGATIVE (NEGATIVE); URINE COLOR YELLOW; URINE GLUCOSE (UA) NEGATIVE (NEGATIVE); URINE KETONE NEGATIVE (NEGATIVE); URINE LEUK ESTERASE 3+ (NEGATIVE); URINE NITRITE POSITIVE (NEGATIVE); URINE PROTEIN 1+ (NEGATIVE); URINE RBC 51 /hpf (0-4); URINE WBC 986 /hpf (0-5)
[2018-11-24 17:33] LABS: BASO % 0.8 % (0-2.0); EOS % 8.8 % (0-4.5); HEMATOCRIT 33.2 % (35.4-49); HEMOGLOBIN 11.2 GM/dL (11.7-16.9); LYMPH % 16.8 % (8-40); MCH 29.5 pg (25.7-33.7); MCHC 33.8 g/dl (32.0-35.9); MEAN CELL VOLUME 87.3 fl (80-96); MEAN PLT VOLUME 6.6 fl (7.5-11.1); MONO % 9.7 % (3.8-10.2); NEUT % 63.9 % (42.8-82.8); PLATELET COUNT 463 K/MM3 (134-434); RDW 12.8 % (11.9-15.9); WHITE BLOOD COUNT 9.1 K/mm3 (4.0-10.0)
[2018-11-24] MEDS ORDERED: MEROPENEM 1 GM in DEXTROSE 5%-WATER 100 ML IVPB ONE (17:38)
--- NOTE | 2018-11-24 18:07 | PDOC ---
*Physical Exam - Vital Signs Last Vital Signs Temp Pulse Resp BP Pulse Ox 98.4 F 88 18 117/75 98 11/24/18 16:15 11/24/18 16:15 11/24/18 16:15 11/24/18 16:15 11/24/18 16:15 - Physical Exam Comments: 11/24/18 18:05 pt continues to get up from the stretcher and sit up at the edge of the bed endangering himself. numerous verbal interventions have failed. pt is in danger of self harm through falling. will apply vest. will reassess. ED Treatment Course - LABORATORY CBC & Chemistry Diagram: 11/29/18 07:48 11/29/18 07:48 Discharge - Discharge Information Problems reviewed: Yes Clinical Impression/Diagnosis: Complicated UTI (urinary tract infection) Condition: Good Disposition: [facility] - Admission Yes - Follow up/Referral - Patient Discharge Instructions - Post Discharge Activity
[2018-11-24 18:10] LABS: ALBUMIN 3.2 g/dl (3.4-5.0); BILIRUBIN,TOTAL 0.3 mg/dL (0.2-1); BLOOD UREA NITROGEN 11.7 mg/dL (7-18); CALCIUM 9.1 mg/dL (8.5-10.1); CREATININE 0.8 mg/dL (0.55-1.3); POTASSIUM 4.4 mmol/L (3.5-5.1); TOT PROT 6.4 g/dl (6.4-8.2)
--- NOTE | 2018-11-24 20:07 | HP ---
Admitting History and Physical - Primary Care Physician PCP: Dr. Benavides - Admission Chief Complaint: Urine retention History of Present Illness: 82 y/o man from [facility] with a PMHx of Dementia, HTN, Gout, Frequent Falls presents to ED for urine retention. Patient has been admitted multiple times in past month due to pulled out supra-pubic catheter, and Hernandez catheter. On s/p TURP for BPH and urinary retention, arrived to ED today for urinary retention as per [place] no urine output for 8 hours. Patient is poor historian. Patient was seen in ED yesterday for possible urinary retention, retention ruled out, UA showed UTI w prior culture +enterobacter. History Source: Medical Record Limitations to Obtaining History: Dementia - Past Medical History [employer] D[employer]: Yes: Alzheimer's, Dementia Cardiovascular: Yes: HTN Gastrointestinal: Yes: Diverticulitis (diagnoses at 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 History of Recent Travel: No Home Medications - Allergies Allergies/Adverse Reactions: Allergies Allergy/AdvReac Type Severity Reaction Status Date / Time No Known Allergies Allergy Verified 11/24/18 16:20 - Home Medications Home Medications: Ambulatory Orders Allopurinol [Zyloprim -] 100 mg PO DAILY 09/08/14 Amlodipine Besylate [Norvasc -] 10 mg PO DAILY 09/08/14 Losartan Potassium 50 mg PO DAILY 09/08/14 Donepezil HCl [Aricept -] 5 mg PO DAILY tablet 11/02/18 Dutasteride [Avodart] 0.5 mg PO DAILY cap 11/02/18 Olanzapine [Zyprexa -] 10 mg PO BID tablet 11/02/18 Polyethylene Glycol 3350 [Miralax 119 gm Btl -] 17 gm PO BID bottle 11/02/18 Tamsulosin HCl [Flomax -] 0.4 mg PO DAILY@0830 cap.er.24h 11/02/18 Divalproex Sprinkle [Depakote Sprinkle -] 125 mg PO BID cap.sprink 11/09/18 Acetaminophen [Tylenol .Regular Strength -] 325 mg PO Q6H PRN 11/14/18 Cholecalciferol (Vitamin D3) [D3-50] 50,000 unit PO WEEKLY 11/14/18 Family Medical History Family History: Unable to Obtain Review of Systems Unable to obtain ROS, reason: advance dementia Physical Examination Vital Signs: Vital Signs Temperature 98.4 F 11/24/18 16:15 Pulse Rate 88 11/24/18 16:15 Respiratory Rate 18 11/24/18 16:15 Blood Pressure 117/75 11/24/18 16:15 O2 Sat by Pulse Oximetry (%) 98 11/24/18 16:15 Constitutional: Yes: Anxious, Thin Eyes: Yes: Conjunctiva Clear, EOM Intact HENT: Yes: Atraumatic, Normocephalic Neck: Yes: Supple, Trachea Midline Cardiovascular: Yes: Regular Rate and Rhythm Respiratory: Yes: Regular, CTA Bilaterally Gastrointestinal: Yes: Normal Bowel Sounds, Soft Renal/: Yes: CVA Tenderness - Left, CVA Tenderness - Right, Incontinence Musculoskeletal: Yes: WNL Extremities: Yes: WNL Edema: No Neurological: Yes: Confusion Labs: CBC, BMP 11/24/18 17:20 11/24/18 17:20 Imaging - Results Ultrasound: Report Reviewed (-@ 16:47bedside sono shows: 300cc in bladder, straight cath done- - @20:07now urinated in urinal) Other: Report Reviewed (UA- positive Nitrite, +3 leukocyte) Problem List - Problems (1) Complicated UTI (urinary tract infection) Code(s): N39.0 - URINARY TRACT INFECTION, SITE NOT SPECIFIED (2) BPH NOS w ur obs/LUTS Code(s): N40.1 - BENIGN PROSTATIC HYPERPLASIA WITH LOWER URINARY TRACT SYMP (3) Dementia Code(s): F03.90 - UNSPECIFIED DEMENTIA WITHOUT BEHAVIORAL DISTURBANCE Qualifiers: Dementia type: unspecified type Dementia behavioral disturbance: with behavioral disturbance Qualified Code(s): F03.91 - Unspecified dementia with behavioral disturbance (4) Constipation Code(s): K59.00 - CONSTIPATION, UNSPECIFIED (5) Frequent falls Code(s): R29.6 - REPEATED FALLS (6) Gout Code(s): M10.9 - GOUT, UNSPECIFIED (7) Hypertension Code(s): I10 - ESSENTIAL (PRIMARY) HYPERTENSION (8) S/P TURP Code(s): Z90.79 - ACQUIRED ABSENCE OF OTHER GENITAL ORGAN(S) (9) Urinary retention Code(s): R33.9 - RETENTION OF URINE, UNSPECIFIED Assessment/Plan 82yM w PMHx BPH, urine retention s/p TURP , dementia, HTN, GOUT, presenting from [facility] with concern for urine retention. #Complicated UTI # urinary retention s/p TURP - Bladder US @ bedside: 309mL straight cath x1 - patient noted urinating in urinal, no retention - UA positive, given 1g meropenem based on prior cultures in ED - if noted with retention, consider bedside US, intermittent cath - follow up urology & ID in AM - repeat cbc, bmp in AM # BPH - Tamsulosin HCl 0.4 mg PO DAILY - Dutasteride 0.5 mg PO DAILY # Gout - Allopurinol 100 mg PO DAILY # HTN - Amlodipine Besylate 10 mg PO DAILY - Losartan Potassium 50 mg PO DAILY # Dementia - Donepezil HCl 5 mg PO DAILY - Olanzapine 10 mg PO BID - Divalproex Sprinkle 125 mg PO BID # Constipation - Polyethylene Glycol 3350 17 gm PO BID Visit type - Emergency Visit Emergency Visit: Yes ED Registration Date: 11/24/18 Care time: The patient presented to the Emergency Department on the above date and was hospitalized for further evaluation of their emergent condition. - New Patient This patient is new to me today: Yes Date on this admission: 11/24/18 - Critical Care Critical Care patient: No
[2018-11-24] MEDS ORDERED: ACETAMINOPHEN 325 MG TABLET (FP) PO PRN (20:36)
[2018-11-24] MEDS ORDERED: CHOLECALCIFEROL 50000 UNIT PO SCH (20:45)
[2018-11-24] MEDS ORDERED: [UNRECOGNIZED DRUG - OTHER] PO SCH (20:45)
[2018-11-24] MEDS ORDERED: OLANZapine 10 MG TABLET ONE (22:08)
[2018-11-24] MEDS ORDERED: DIVALPROEX SODIUM 125 MG TABLET E.C. ONE (22:08)
[2018-11-24] MEDS ORDERED: HEPARIN NA (PORCINE) 5,000 UNITS/ML 1ML VIAL ONE (22:09)
[2018-11-24] MEDS: DIVALPROEX SODIUM 125 MG SPRINKLE CAPS PO SCH (22:18)
[2018-11-24] MEDS: POLYETHYLENE GLYCOL 3350 119 GM BTL PO SCH (22:18)
[2018-11-24] MEDS: HEPARIN NA (PORCINE) 5,000 UNITS/ML 1ML VIAL SQ SCH (22:18)
[2018-11-24] MEDS: OLANZapine 5 MG TABLET PO SCH (22:18)
[2018-11-25 00:50] VITALS: BMI 26.0
[2018-11-25 08:10] LABS: BLOOD UREA NITROGEN 9.3 mg/dL (7-18); CALCIUM 9.2 mg/dL (8.5-10.1); CREATININE 0.7 mg/dL (0.55-1.3); POTASSIUM 3.9 mmol/L (3.5-5.1)
[2018-11-25 08:45] LABS: HEMATOCRIT 33.1 % (35.4-49); HEMOGLOBIN 11.5 GM/dL (11.7-16.9); MCH 29.9 pg (25.7-33.7); MCHC 34.8 g/dl (32.0-35.9); MEAN CELL VOLUME 85.9 fl (80-96); MEAN PLT VOLUME 6.8 fl (7.5-11.1); PLATELET COUNT 497 K/MM3 (134-434); RBC 3.85 M/mm3 (4.00-5.60); RDW 12.6 % (11.9-15.9)
[2018-11-25] MEDS: DIVALPROEX SODIUM 125 MG SPRINKLE CAPS PO SCH ×2 (09:44→21:34)
[2018-11-25] MEDS: ALLOPURINOL 100 MG TABLET (FP) PO SCH (09:44)
[2018-11-25] MEDS: DONEPEZIL HCL 5 MG TABLET (FP) PO SCH (09:44)
[2018-11-25] MEDS: HEPARIN NA (PORCINE) 5,000 UNITS/ML 1ML VIAL SQ SCH ×3 (09:44→21:34)
[2018-11-25] MEDS: LOSARTAN POTASSIUM 50 MG TABLET (FP) PO SCH (09:44)
[2018-11-25] MEDS: OLANZapine 5 MG TABLET PO SCH ×2 (09:44→21:28)
[2018-11-25] MEDS: TAMSULOSIN HCL 0.4 MG CAP PO SCH (09:44)
[2018-11-25] MEDS: DUTASTERIDE 0.5 MG CAP (FP) PO SCH (09:44)
[2018-11-25] MEDS: amLODIPine BESYLATE 10 MG TABLET (FP) PO SCH (09:44)
[2018-11-25] MEDS: POLYETHYLENE GLYCOL 3350 119 GM BTL PO SCH ×2 (09:45→21:34)
--- NOTE | 2018-11-25 10:56 | PN ---
Progress Note, Physician Chief Complaint: Urine Retention Dementia History of Present Illness: Previous notes and events reviewed awake and alert, pleasantly confused NAD no report of urine output Na 131 - Current Medication List Current Medications: Active Medications Acetaminophen (Tylenol -) 650 mg PO Q6H PRN PRN Reason: PAIN LEVEL 1-5 Allopurinol (Zyloprim -) 100 mg PO DAILY [facility] Last Admin: 11/25/18 09:44 Dose: 100 mg Amlodipine Besylate (Norvasc -) 10 mg PO DAILY [facility] Last Admin: 11/25/18 09:44 Dose: 10 mg Divalproex Sodium (Depakote Sprinkle Caps -) 125 mg PO BID [facility] Last Admin: 11/25/18 09:44 Dose: 125 mg Donepezil HCl (Aricept -) 5 mg PO DAILY [facility] Last Admin: 11/25/18 09:44 Dose: 5 mg Dutasteride (Avodart -) 0.5 mg PO DAILY [facility] Last Admin: 11/25/18 09:44 Dose: 0.5 mg Heparin Sodium (Porcine) (Heparin -) 5,000 unit SQ BID [facility] Last Admin: 11/25/18 10:01 Dose: Not Given Losartan Potassium (Cozaar -) 50 mg PO DAILY [facility] Last Admin: 11/25/18 09:44 Dose: 50 mg Non-Formulary Medication (Cholecalciferol (Vitamin D3) [D3-50]) 50,000 unit PO WEEKLY [facility] Olanzapine (Zyprexa -) 10 mg PO BID [facility] Last Admin: 11/25/18 09:44 Dose: 10 mg Polyethylene Glycol (Miralax (For Daily Use) -) 17 gm PO BID [facility] Last Admin: 11/25/18 09:45 Dose: 17 gm Tamsulosin HCl (Flomax -) 0.4 mg PO DAILY@0830 [facility] Last Admin: 11/25/18 09:44 Dose: 0.4 mg - Objective Vital Signs: Vital Signs Temperature 97.5 F L 11/25/18 09:00 Pulse Rate 83 11/25/18 09:00 Respiratory Rate 18 11/25/18 09:00 Blood Pressure 116/71 11/25/18 09:00 O2 Sat by Pulse Oximetry (%) 96 11/25/18 00:18 Constitutional: Yes: No Distress, Calm Eyes: Yes: Conjunctiva Clear HENT: Yes: Atraumatic Cardiovascular: Yes: Regular Rate and Rhythm Respiratory: Yes: Regular, CTA Bilaterally Gastrointestinal: Yes: Normal Bowel Sounds, Soft Genitourinary: Yes: Incontinence Musculoskeletal: Yes: Muscle Weakness Extremities: Yes: WNL Edema: No Neurological: Yes: Alert, Confusion, Pre-Existing Deficit Psychiatric: Yes: Alert Labs: CBC, BMP 11/25/18 07:20 11/25/18 07:20 Problem List - Problems (1) Complicated UTI (urinary tract infection) Assessment/Plan: -UA leuks +3, positive nitrite, blood +2 -UC pending -no leukocytosis -afebrile -received Meropenem x 1 in ER Code(s): N39.0 - URINARY TRACT INFECTION, SITE NOT SPECIFIED (2) Dementia Assessment/Plan: -Aricept Code(s): F03.90 - UNSPECIFIED DEMENTIA WITHOUT BEHAVIORAL DISTURBANCE Qualifiers: Dementia type: unspecified type Dementia behavioral disturbance: with behavioral disturbance Qualified Code(s): F03.91 - Unspecified dementia with behavioral disturbance (3) Urinary retention Assessment/Plan: -Urology consult -Flomax -Avodart -Bladder Scan, if >300cc retained straight cath Code(s): R33.9 - RETENTION OF URINE, UNSPECIFIED (4) Hypertension Assessment/Plan: -Norvasc, Losartan -low Na diet Code(s): I10 - ESSENTIAL (PRIMARY) HYPERTENSION Assessment/Plan see problem list dvt ppx
--- NOTE | 2018-11-25 12:42 | CONS ---
INFECTIOUS DISEASE CONSULTATION DATE OF CONSULTATION: DATE OF DICTATION: 11/25/2018 HISTORY: The patient is an 82-year-old male who was evaluated for positive urine culture. History was obtained from the chart as he cannot give a history secondary to dementia. The patient was recently hospitalized at [facility] from November 16 through November 23 with urinary retention. He has a history of a neurogenic bladder and a suprapubic tube. Because of his dementia, he has forcibly removed his suprapubic cystostomy tube. He underwent a TURP on November 15, 2018. His hospital course at that time was complicated by positive urine culture for Enterobacter, which was not treated. He now returns with acute urinary retention. He is a detention resident. He was brought back to the emergency room on November 24, 2018, with acute urinary retention. Bladder scan showed significant urinary retention. Urinalysis showed many white cells. Urine cultures now growing a gram negative. He is awake and alert; however, he is confused. He is unable to offer any additional details. He is in no acute distress. His vitals have been stable. He is afebrile. White blood cell count within normal limits. PAST MEDICAL HISTORY: Positive for dementia, neurogenic bladder, BPH, hypertension, gouty arthritis. PAST SURGICAL HISTORY: Status post suprapubic catheter. ALLERGIES: No known allergies. SOCIAL HISTORY: Resides in a [facility] facility. Suffers from dementia. Dependent in activities of daily living. No active tobacco or alcohol use. SYSTEMS REVIEW: Neurologic: Positive for dementia and neurogenic bladder. Cardiac: Negative chest pain or palpitations. Respiratory: Negative cough or sputum production. Gastrointestinal: Negative vomiting or diarrhea. Genitourinary: As per HPI. LABORATORY DATA: White count 8.0, hematocrit 33.1, platelets 497, creatinine 0.7. Urinalysis 986 white cells. Cultures pending. PHYSICAL EXAMINATION: General: He is awake. He is supine in bed. He is in no acute distress. Not acutely toxic appearing. Vital Signs: Temperature 97.5, blood pressure 116/71, pulse 83 regular, respirations 18 per minute. HEENT: Sclerae anicteric. Heart: Sounds S1, S2. Lungs: Clear. Abdomen: Soft. There is no tenderness elicited. No suprapubic tenderness. The suprapubic catheter exit site no erythema or drainage. Extremities: Negative for edema. IMPRESSION: 1. Bacteriuria. 2. Neurogenic bladder with acute urinary retention. 3. Status post suprapubic cystostomy now removed. 4. Status post transurethral resection of the prostate. PLAN: Patient afebrile with normal white blood cell count and no evidence of systemic infection. Would observe off antibiotic therapy. Will treat with antibiotics if patient requires a urological procedure. Otherwise, observe off. Urology follow up. Thank you for the kind referral. VALERIO CISNEROS M.D. [id number]
--- NOTE | 2018-11-25 14:10 | EKG ---
Test Reason : Blood Pressure : / mmHG Vent. Rate : 087 BPM Atrial Rate : 087 BPM P-R Int : 150 ms QRS Dur : 078 ms QT Int : 388 ms P-R-T Axes : 045 021 048 degrees QTc Int : 466 ms POOR DATA QUALITY, INTERPRETATION MAY BE ADVERSELY AFFECTED NORMAL SINUS RHYTHM NORMAL ECG WHEN COMPARED WITH ECG OF 18-NOV-2018 18:36, PREMATURE VENTRICULAR COMPLEXES ARE NO LONGER PRESENT Confirmed by KEYONNA WEIR, ANETTE ([id number]) on 11/25/2018 2:09:39 PM Referred By: Confirmed By:ANETTE NEWBY MD
--- NOTE | 2018-11-25 14:26 | CON.GU ---
Consult Consult Specialty:: Referred by:: Dominguez Reason for Consultation:: uti/urinary retention - History of Present Illness Chief Complaint: no u/o History of Present Illness: 82 y/o man from [facility] with a PMHx of Dementia, HTN, Gout, Frequent Falls presents to ED for urine retention. Patient has been admitted multiple times in past month due to pulled out supra-pubic catheter, and Hernandez catheter. On s/p TURP for BPH and urinary retention, arrived to ED today for urinary retention as per [place] no urine output for 8 hours. Patient is poor historian. Patient was seen in ED yesterday for possible urinary retention, retention ruled out, UA showed UTI w prior culture +enterobacter. cons req. 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: Yes: Alzheimer's, Dementia Cardio/Vascular: Yes: HTN Gastrointestinal: Yes: Diverticulitis (diagnoses at [facility] 09/06/14 ) Renal/: Yes: Neurogenic Bladder, UTI Rheumatology: Yes: Gout - Past Surgical History Past Surgical History: Yes: Cataract Removal (pt is not sure of the type of his recent eye surgery), TURP - Alcohol/Substance Use Hx Alcohol Use: No History of Substance Use: reports: None - Smoking History Smoking history: Unknown if ever smoked Have you smoked in the past 12 months: No If you are a former smoker, when did you quit?: 8 YRS - Social History Usual Living Arrangement: Correction ADL: Support Services 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 History of Recent Travel: No Home Medications - Allergies Allergies/Adverse Reactions: Allergies Allergy/AdvReac Type Severity Reaction Status Date / Time No Known Allergies Allergy Verified 11/24/18 16:20 - Home Medications Home Medications: Ambulatory Orders Allopurinol [Zyloprim -] 100 mg PO DAILY 09/08/14 Amlodipine Besylate [Norvasc -] 10 mg PO DAILY 09/08/14 Losartan Potassium 50 mg PO DAILY 09/08/14 Donepezil HCl [Aricept -] 5 mg PO DAILY tablet 11/02/18 Dutasteride [Avodart] 0.5 mg PO DAILY cap 11/02/18 Olanzapine [Zyprexa -] 10 mg PO BID tablet 11/02/18 Polyethylene Glycol 3350 [Miralax 119 gm Btl -] 17 gm PO BID bottle 11/02/18 Tamsulosin HCl [Flomax -] 0.4 mg PO DAILY@0830 cap.er.24h 11/02/18 Divalproex Sprinkle [Depakote Sprinkle -] 125 mg PO BID cap.sprink 11/09/18 Acetaminophen [Tylenol .Regular Strength -] 325 mg PO Q6H PRN 11/14/18 Cholecalciferol (Vitamin D3) [D3-50] 50,000 unit PO WEEKLY 11/14/18 Physical Exam- Vital Signs: Vital Signs Temperature 97.5 F L 11/25/18 09:00 Pulse Rate 83 11/25/18 09:00 Respiratory Rate 18 11/25/18 09:00 Blood Pressure 116/71 11/25/18 09:00 O2 Sat by Pulse Oximetry (%) 96 11/25/18 00:18 Gastrointestinal: Yes: Soft, Tenderness, Rebound (SP) Labs: CBC, BMP 11/25/18 07:20 11/25/18 07:20 Problem List - Problems (1) Complicated UTI (urinary tract infection) Assessment/Plan: ur cx Code(s): N39.0 - URINARY TRACT INFECTION, SITE NOT SPECIFIED (2) Dementia Code(s): F03.90 - UNSPECIFIED DEMENTIA WITHOUT BEHAVIORAL DISTURBANCE Qualifiers: Dementia type: unspecified type Dementia behavioral disturbance: with behavioral disturbance Qualified Code(s): F03.91 - Unspecified dementia with behavioral disturbance (3) Urinary retention Assessment/Plan: intermittent st cath q 6h prn, timed voiding q4h Code(s): R33.9 - RETENTION OF URINE, UNSPECIFIED
--- NOTE | 2018-11-25 18:38 | CONSULT ---
Consult Consult Specialty:: Nephrology Reason for Consultation:: hyponatremia - History of Present Illness Chief Complaint: sent in for urinary retention History of Present Illness: Pt is an 82 year old male with pmhx of bph, urine retention, and dementia who was sent in for retention. He was found to have a UTI. He was also found to be hyponatremia and I was called to evaluate him. 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: Alzheimer's, Dementia Cardio/Vascular: Yes: HTN Gastrointestinal: Yes: Diverticulitis (diagnoses at [facility] 09/06/14 ) Renal/: Yes: Neurogenic Bladder, UTI Rheumatology: Yes: Gout - Past Surgical History Past Surgical History: Yes: Cataract Removal (pt is not sure of the type of his recent eye surgery), TURP - Alcohol/Substance Use Hx Alcohol Use: No History of Substance Use: reports: None - Smoking History Smoking history: Unknown if ever smoked Have you smoked in the past 12 months: No If you are a former smoker, when did you quit?: 8 YRS - Social History Usual Living Arrangement: Half-Way ADL: Support Services 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 History of Recent Travel: No Home Medications - Allergies Allergies/Adverse Reactions: Allergies Allergy/AdvReac Type Severity Reaction Status Date / Time No Known Allergies Allergy Verified 11/24/18 16:20 - Home Medications Home Medications: Ambulatory Orders Allopurinol [Zyloprim -] 100 mg PO DAILY 09/08/14 Amlodipine Besylate [Norvasc -] 10 mg PO DAILY 09/08/14 Losartan Potassium 50 mg PO DAILY 09/08/14 Donepezil HCl [Aricept -] 5 mg PO DAILY tablet 11/02/18 Dutasteride [Avodart] 0.5 mg PO DAILY cap 11/02/18 Olanzapine [Zyprexa -] 10 mg PO BID tablet 11/02/18 Polyethylene Glycol 3350 [Miralax 119 gm Btl -] 17 gm PO BID bottle 11/02/18 Tamsulosin HCl [Flomax -] 0.4 mg PO DAILY@0830 cap.er.24h 11/02/18 Divalproex Sprinkle [Depakote Sprinkle -] 125 mg PO BID cap.sprink 11/09/18 Acetaminophen [Tylenol .Regular Strength -] 325 mg PO Q6H PRN 11/14/18 Cholecalciferol (Vitamin D3) [D3-50] 50,000 unit PO WEEKLY 11/14/18 Family Medical History Family History: Unable to Obtain Review of Systems Unable to obtain ROS, reason: unable to obtain Physical Exam Vital Signs: Vital Signs Temperature 98.0 F 11/25/18 14:49 Pulse Rate 74 11/25/18 14:49 Respiratory Rate 18 11/25/18 14:49 Blood Pressure 92/57 L 11/25/18 14:49 O2 Sat by Pulse Oximetry (%) 96 11/25/18 00:18 Constitutional: Yes: Calm Eyes: Yes: Conjunctiva Clear HENT: Yes: Atraumatic Neck: Yes: Supple Cardiovascular: Yes: S1, S2 Respiratory: Yes: CTA Bilaterally Gastrointestinal: Yes: Soft Renal/: Yes: Incontinence Musculoskeletal: Yes: WNL Neurological: Yes: Confusion Labs: CBC, BMP 11/25/18 07:20 11/25/18 07:20 Imaging - Results Chest X-ray: Report Reviewed Problem List - Problems (1) Complicated UTI (urinary tract infection) Code(s): N39.0 - URINARY TRACT INFECTION, SITE NOT SPECIFIED (2) Hyponatremia Code(s): E87.1 - HYPO-OSMOLALITY AND HYPONATREMIA Assessment/Plan Current Medications Generic Name Dose Route Start Last Admin Trade Name Freq PRN Reason Stop Dose Admin Acetaminophen 650 mg 11/24/18 20:36 Tylenol - PO Q6H PRN PAIN LEVEL 1-5 Allopurinol 100 mg 11/25/18 10:00 11/25/18 09:44 Zyloprim - PO 100 mg DAILY TOMER Administration Amlodipine Besylate 10 mg 11/25/18 10:00 11/25/18 09:44 Norvasc - PO 10 mg DAILY TOMER Administration Divalproex Sodium 125 mg 11/24/18 22:00 11/25/18 09:44 Depakote Sprinkle Caps - PO 125 mg BID TOMER Administration Donepezil HCl 5 mg 11/25/18 10:00 11/25/18 09:44 Aricept - PO 5 mg DAILY TOMER Administration Dutasteride 0.5 mg 11/25/18 10:00 11/25/18 09:44 Avodart - PO 0.5 mg DAILY TOMER Administration Heparin Sodium (Porcine) 5,000 unit 11/24/18 22:00 11/25/18 10:01 Heparin - SQ Not Given BID TOMER Losartan Potassium 50 mg 11/25/18 10:00 11/25/18 09:44 Cozaar - PO 50 mg DAILY TOMER Administration Olanzapine 10 mg 11/24/18 22:00 11/25/18 09:44 Zyprexa - PO 10 mg BID TOMER Administration Polyethylene Glycol 17 gm 11/24/18 22:00 11/25/18 09:45 Miralax (For Daily Use) - PO 17 gm BID TOMER Administration Tamsulosin HCl 0.4 mg 11/25/18 08:30 11/25/18 09:44 Flomax - PO 0.4 mg DAILY@0830 TOMER Administration Impression 1. hyponatremia 2. gout 3. htn 4. urinary retention 5. dementia Plan - will give saline - repeat labs in am - urology input appreciated - ID input appreciated - follow cultures
[2018-11-26 08:13] LABS: HEMATOCRIT 32.8 % (35.4-49); HEMOGLOBIN 11.3 GM/dL (11.7-16.9); MCH 29.7 pg (25.7-33.7); MCHC 34.4 g/dl (32.0-35.9); MEAN CELL VOLUME 86.2 fl (80-96); MEAN PLT VOLUME 6.6 fl (7.5-11.1); PLATELET COUNT 457 K/MM3 (134-434); RDW 12.8 % (11.9-15.9); WHITE BLOOD COUNT 6.4 K/mm3 (4.0-10.0)
[2018-11-26 08:38] LABS: ALBUMIN 3.1 g/dl (3.4-5.0); BILIRUBIN,TOTAL 0.4 mg/dL (0.2-1); BLOOD UREA NITROGEN 13.5 mg/dL (7-18); CALCIUM 8.7 mg/dL (8.5-10.1); CREATININE 0.6 mg/dL (0.55-1.3); POTASSIUM 4.2 mmol/L (3.5-5.1); TOT PROT 5.8 g/dl (6.4-8.2)
[2018-11-26] MEDS: HEPARIN NA (PORCINE) 5,000 UNITS/ML 1ML VIAL SQ SCH ×2 (09:55→21:06)
[2018-11-26] MEDS: DUTASTERIDE 0.5 MG CAP (FP) PO SCH (09:56)
[2018-11-26] MEDS: LOSARTAN POTASSIUM 50 MG TABLET (FP) PO SCH (09:56)
[2018-11-26] MEDS: DIVALPROEX SODIUM 125 MG SPRINKLE CAPS PO SCH ×2 (09:56→21:06)
[2018-11-26] MEDS: OLANZapine 5 MG TABLET PO SCH ×2 (09:56→21:06)
[2018-11-26] MEDS: ALLOPURINOL 100 MG TABLET (FP) PO SCH (09:56)
[2018-11-26] MEDS: DONEPEZIL HCL 5 MG TABLET (FP) PO SCH (09:56)
[2018-11-26] MEDS: amLODIPine BESYLATE 10 MG TABLET (FP) PO SCH (09:56)
[2018-11-26] MEDS: TAMSULOSIN HCL 0.4 MG CAP PO SCH (09:56)
[2018-11-26] MEDS: POLYETHYLENE GLYCOL 3350 119 GM BTL PO SCH ×2 (10:02→21:06)
--- NOTE | 2018-11-26 15:35 | PN ---
Progress Note, Physician History of Present Illness: Pt seen and examined at bedside. He is awake and is more interactive today. - Current Medication List Current Medications: Active Medications Acetaminophen (Tylenol -) 650 mg PO Q6H PRN PRN Reason: PAIN LEVEL 1-5 Last Admin: 11/26/18 09:56 Dose: 650 mg Allopurinol (Zyloprim -) 100 mg PO DAILY [facility] Last Admin: 11/26/18 09:56 Dose: 100 mg Amlodipine Besylate (Norvasc -) 10 mg PO DAILY [facility] Last Admin: 11/26/18 09:56 Dose: 10 mg Divalproex Sodium (Depakote Sprinkle Caps -) 125 mg PO BID [facility] Last Admin: 11/26/18 09:56 Dose: 125 mg Donepezil HCl (Aricept -) 5 mg PO DAILY [facility] Last Admin: 11/26/18 09:56 Dose: 5 mg Dutasteride (Avodart -) 0.5 mg PO DAILY [facility] Last Admin: 11/26/18 09:56 Dose: 0.5 mg Heparin Sodium (Porcine) (Heparin -) 5,000 unit SQ BID [facility] Last Admin: 11/26/18 09:55 Dose: 5,000 unit Losartan Potassium (Cozaar -) 50 mg PO DAILY [facility] Last Admin: 11/26/18 09:56 Dose: 50 mg Olanzapine (Zyprexa -) 10 mg PO BID [facility] Last Admin: 11/26/18 09:56 Dose: 10 mg Polyethylene Glycol (Miralax (For Daily Use) -) 17 gm PO BID [facility] Last Admin: 11/26/18 10:02 Dose: Not Given Tamsulosin HCl (Flomax -) 0.4 mg PO DAILY@0830 [facility] Last Admin: 11/26/18 09:56 Dose: 0.4 mg - Objective Vital Signs: Vital Signs Temperature 97.4 F L 11/26/18 14:58 Pulse Rate 75 11/26/18 14:58 Respiratory Rate 18 11/26/18 14:58 Blood Pressure 92/55 L 11/26/18 14:58 O2 Sat by Pulse Oximetry (%) 95 11/26/18 11:00 Constitutional: Yes: Calm Eyes: Yes: Conjunctiva Clear HENT: Yes: Atraumatic Neck: Yes: Supple Cardiovascular: Yes: S1, S2 Respiratory: Yes: CTA Bilaterally Gastrointestinal: Yes: Soft Genitourinary: Yes: Other (pt requires straight cath) Musculoskeletal: Yes: WNL Neurological: Yes: Confusion Labs: CBC, BMP 11/26/18 06:25 11/26/18 06:25 Problem List - Problems (1) Complicated UTI (urinary tract infection) Code(s): N39.0 - URINARY TRACT INFECTION, SITE NOT SPECIFIED (2) Hyponatremia Code(s): E87.1 - HYPO-OSMOLALITY AND HYPONATREMIA Assessment/Plan Current Medications Generic Name Dose Route Start Last Admin Trade Name Freq PRN Reason Stop Dose Admin Acetaminophen 650 mg 11/24/18 20:36 11/26/18 09:56 Tylenol - PO 650 mg Q6H PRN Administration PAIN LEVEL 1-5 Allopurinol 100 mg 11/25/18 10:00 11/26/18 09:56 Zyloprim - PO 100 mg DAILY TOMER Administration Amlodipine Besylate 10 mg 11/25/18 10:00 11/26/18 09:56 Norvasc - PO 10 mg DAILY TOMER Administration Divalproex Sodium 125 mg 11/24/18 22:00 11/26/18 09:56 Depakote Sprinkle Caps - PO 125 mg BID TOMER Administration Donepezil HCl 5 mg 11/25/18 10:00 11/26/18 09:56 Aricept - PO 5 mg DAILY TOMER Administration Dutasteride 0.5 mg 11/25/18 10:00 11/26/18 09:56 Avodart - PO 0.5 mg DAILY TOMER Administration Heparin Sodium (Porcine) 5,000 unit 11/24/18 22:00 11/26/18 09:55 Heparin - SQ 5,000 unit BID TOMER Administration Losartan Potassium 50 mg 11/25/18 10:00 11/26/18 09:56 Cozaar - PO 50 mg DAILY TOMER Administration Olanzapine 10 mg 11/24/18 22:00 11/26/18 09:56 Zyprexa - PO 10 mg BID TOMER Administration Polyethylene Glycol 17 gm 11/24/18 22:00 11/26/18 10:02 Miralax (For Daily Use) - PO Not Given BID TOMER Tamsulosin HCl 0.4 mg 11/25/18 08:30 11/26/18 09:56 Flomax - PO 0.4 mg DAILY@0830 TOMER Administration Impression 1. hyponatremia 2. gout 3. htn 4. urinary retention 5. dementia Plan - sodium improving - monitor lytes - straight cath per urology - monitor for fever - will follow PRN
--- NOTE | 2018-11-26 16:08 | PN ---
Progress Note, Physician Chief Complaint: Urine Retention Dementia History of Present Illness: Previous notes and events reviewed awake and alert, pleasantly confused NAD patient complain of difficulty urinating, RN reports 300cc urine output in urinal and bladder scan with urine <200cc Na 134 - Current Medication List Current Medications: Active Medications Acetaminophen (Tylenol -) 650 mg PO Q6H PRN PRN Reason: PAIN LEVEL 1-5 Last Admin: 11/26/18 09:56 Dose: 650 mg Allopurinol (Zyloprim -) 100 mg PO DAILY [facility] Last Admin: 11/26/18 09:56 Dose: 100 mg Amlodipine Besylate (Norvasc -) 10 mg PO DAILY [facility] Last Admin: 11/26/18 09:56 Dose: 10 mg Divalproex Sodium (Depakote Sprinkle Caps -) 125 mg PO BID [facility] Last Admin: 11/26/18 09:56 Dose: 125 mg Donepezil HCl (Aricept -) 5 mg PO DAILY [facility] Last Admin: 11/26/18 09:56 Dose: 5 mg Dutasteride (Avodart -) 0.5 mg PO DAILY [facility] Last Admin: 11/26/18 09:56 Dose: 0.5 mg Heparin Sodium (Porcine) (Heparin -) 5,000 unit SQ BID [facility] Last Admin: 11/26/18 09:55 Dose: 5,000 unit Losartan Potassium (Cozaar -) 50 mg PO DAILY [facility] Last Admin: 11/26/18 09:56 Dose: 50 mg Olanzapine (Zyprexa -) 10 mg PO BID [facility] Last Admin: 11/26/18 09:56 Dose: 10 mg Polyethylene Glycol (Miralax (For Daily Use) -) 17 gm PO BID [facility] Last Admin: 11/26/18 10:02 Dose: Not Given Tamsulosin HCl (Flomax -) 0.4 mg PO DAILY@0830 [facility] Last Admin: 11/26/18 09:56 Dose: 0.4 mg - Objective Vital Signs: Vital Signs Temperature 97.4 F L 11/26/18 14:58 Pulse Rate 75 11/26/18 14:58 Respiratory Rate 18 11/26/18 14:58 Blood Pressure 92/55 L 11/26/18 14:58 O2 Sat by Pulse Oximetry (%) 95 11/26/18 11:00 Constitutional: Yes: No Distress, Calm Eyes: Yes: Conjunctiva Clear HENT: Yes: Atraumatic Cardiovascular: Yes: Regular Rate and Rhythm Respiratory: Yes: Regular, CTA Bilaterally Gastrointestinal: Yes: Normal Bowel Sounds, Soft Genitourinary: Yes: Incontinence Musculoskeletal: Yes: Muscle Weakness Extremities: Yes: WNL Edema: No Neurological: Yes: Alert, Confusion, Pre-Existing Deficit Psychiatric: Yes: Alert Labs: CBC, BMP 11/26/18 06:25 11/26/18 06:25 Microbiology 11/24/18 16:41 Urine - Urine - Catheterized Urine Culture - Preliminary Lactose Fermenting Neg Bacilli 11/24/18 17:20 Blood - Peripheral Venous Blood Culture - Preliminary NO GROWTH OBTAINED AFTER 24 HOURS, INCUBATION TO CONTINUE FOR 4 DAYS. 11/24/18 17:20 Blood - Peripheral Venous Blood Culture - Preliminary NO GROWTH OBTAINED AFTER 24 HOURS, INCUBATION TO CONTINUE FOR 4 DAYS. Problem List - Problems (1) Complicated UTI (urinary tract infection) Assessment/Plan: -UA leuks +3, positive nitrite, blood +2 -UC prelim positive -no leukocytosis -afebrile -received Meropenem x 1 in ER Code(s): N39.0 - URINARY TRACT INFECTION, SITE NOT SPECIFIED (2) Dementia Assessment/Plan: -Aricept Code(s): F03.90 - UNSPECIFIED DEMENTIA WITHOUT BEHAVIORAL DISTURBANCE Qualifiers: Dementia type: unspecified type Dementia behavioral disturbance: with behavioral disturbance Qualified Code(s): F03.91 - Unspecified dementia with behavioral disturbance (3) Urinary retention Assessment/Plan: -Urology consult -Flomax -Avodart -Bladder Scan, if >300cc retained straight cath Code(s): R33.9 - RETENTION OF URINE, UNSPECIFIED (4) Hypertension Assessment/Plan: -Norvasc, Losartan -low Na diet Code(s): I10 - ESSENTIAL (PRIMARY) HYPERTENSION (5) Hyponatremia Assessment/Plan: -Na 134 -renal on board Code(s): E87.1 - HYPO-OSMOLALITY AND HYPONATREMIA Assessment/Plan see problem list dvt ppx
[2018-11-27 08:04] LABS: HEMATOCRIT 32.3 % (35.4-49); HEMOGLOBIN 11.2 GM/dL (11.7-16.9); MCH 29.4 pg (25.7-33.7); MCHC 34.5 g/dl (32.0-35.9); MEAN CELL VOLUME 85.2 fl (80-96); MEAN PLT VOLUME 6.3 fl (7.5-11.1); PLATELET COUNT 451 K/MM3 (134-434); RBC 3.79 M/mm3 (4.00-5.60); RDW 12.7 % (11.9-15.9); WHITE BLOOD COUNT 6.7 K/mm3 (4.0-10.0)
[2018-11-27] MEDS: TAMSULOSIN HCL 0.4 MG CAP PO SCH (08:20)
[2018-11-27 08:27] LABS: ALBUMIN 3.2 g/dl (3.4-5.0); BILIRUBIN,TOTAL 0.4 mg/dL (0.2-1); BLOOD UREA NITROGEN 12.2 mg/dL (7-18); CALCIUM 8.4 mg/dL (8.5-10.1); CREATININE 0.6 mg/dL (0.55-1.3); POTASSIUM 4.1 mmol/L (3.5-5.1); TOT PROT 5.8 g/dl (6.4-8.2)
[2018-11-27] MEDS: POLYETHYLENE GLYCOL 3350 119 GM BTL PO SCH ×2 (08:59→22:54)
[2018-11-27] MEDS: OLANZapine 5 MG TABLET PO SCH ×2 (09:20→22:53)
[2018-11-27] MEDS: DUTASTERIDE 0.5 MG CAP (FP) PO SCH (09:20)
[2018-11-27] MEDS: DONEPEZIL HCL 5 MG TABLET (FP) PO SCH (09:20)
[2018-11-27] MEDS: ALLOPURINOL 100 MG TABLET (FP) PO SCH (09:20)
[2018-11-27] MEDS: DIVALPROEX SODIUM 125 MG SPRINKLE CAPS PO SCH ×2 (09:20→22:53)
[2018-11-27] MEDS: amLODIPine BESYLATE 10 MG TABLET (FP) PO SCH (09:20)
[2018-11-27] MEDS: LOSARTAN POTASSIUM 50 MG TABLET (FP) PO SCH (09:20)
[2018-11-27] MEDS: HEPARIN NA (PORCINE) 5,000 UNITS/ML 1ML VIAL SQ SCH ×2 (09:20→22:54)
--- NOTE | 2018-11-27 14:41 | PN ---
Progress Note, Physician Chief Complaint: Urine Retention Dementia History of Present Illness: Previous notes and events reviewed awake and alert, pleasantly confused NAD patient was found by RN sitting on floor next to wheelchair, fall protocol initiated, unknown if hit head, no LOC - Current Medication List Current Medications: Active Medications Acetaminophen (Tylenol -) 650 mg PO Q6H PRN PRN Reason: PAIN LEVEL 1-5 Last Admin: 11/26/18 09:56 Dose: 650 mg Allopurinol (Zyloprim -) 100 mg PO DAILY [facility] Last Admin: 11/27/18 09:20 Dose: 100 mg Amlodipine Besylate (Norvasc -) 10 mg PO DAILY [facility] Last Admin: 11/27/18 09:20 Dose: 10 mg Divalproex Sodium (Depakote Sprinkle Caps -) 125 mg PO BID [facility] Last Admin: 11/27/18 09:20 Dose: 125 mg Donepezil HCl (Aricept -) 5 mg PO DAILY [facility] Last Admin: 11/27/18 09:20 Dose: 5 mg Dutasteride (Avodart -) 0.5 mg PO DAILY [facility] Last Admin: 11/27/18 09:20 Dose: 0.5 mg Heparin Sodium (Porcine) (Heparin -) 5,000 unit SQ BID [facility] Last Admin: 11/27/18 09:20 Dose: 5,000 unit Losartan Potassium (Cozaar -) 50 mg PO DAILY [facility] Last Admin: 11/27/18 09:20 Dose: 50 mg Olanzapine (Zyprexa -) 10 mg PO BID [facility] Last Admin: 11/27/18 09:20 Dose: 10 mg Polyethylene Glycol (Miralax (For Daily Use) -) 17 gm PO BID [facility] Last Admin: 11/27/18 08:59 Dose: Not Given Tamsulosin HCl (Flomax -) 0.4 mg PO DAILY@0830 [facility] Last Admin: 11/27/18 08:20 Dose: 0.4 mg - Objective Vital Signs: Vital Signs Temperature 97.5 F L 11/27/18 13:51 Pulse Rate 70 11/27/18 13:51 Respiratory Rate 18 11/27/18 13:07 Blood Pressure 98/58 L 11/27/18 13:51 O2 Sat by Pulse Oximetry (%) 95 11/27/18 08:52 Constitutional: Yes: No Distress, Calm Eyes: Yes: Conjunctiva Clear HENT: Yes: Atraumatic Cardiovascular: Yes: Regular Rate and Rhythm Respiratory: Yes: Regular, CTA Bilaterally Gastrointestinal: Yes: Normal Bowel Sounds, Soft Musculoskeletal: Yes: Muscle Weakness Extremities: Yes: WNL Edema: No Neurological: Yes: Alert, Confusion Psychiatric: Yes: Alert, Oriented (to self) Labs: CBC, BMP 11/27/18 07:15 11/27/18 07:15 Microbiology 11/24/18 16:41 Urine - Urine - Catheterized Urine Culture - Final Enterobacter Cloacae 11/24/18 17:20 Blood - Peripheral Venous Blood Culture - Preliminary NO GROWTH OBTAINED AFTER 48 HOURS, INCUBATION TO CONTINUE FOR 3 DAYS. 11/24/18 17:20 Blood - Peripheral Venous Blood Culture - Preliminary NO GROWTH OBTAINED AFTER 48 HOURS, INCUBATION TO CONTINUE FOR 3 DAYS. Problem List - Problems (1) Complicated UTI (urinary tract infection) Assessment/Plan: -UA leuks +3, positive nitrite, blood +2 -UC positive -no leukocytosis -afebrile -pending antibiotic regimen Code(s): N39.0 - URINARY TRACT INFECTION, SITE NOT SPECIFIED (2) Dementia Assessment/Plan: -Aricept Code(s): F03.90 - UNSPECIFIED DEMENTIA WITHOUT BEHAVIORAL DISTURBANCE Qualifiers: Dementia type: unspecified type Dementia behavioral disturbance: with behavioral disturbance Qualified Code(s): F03.91 - Unspecified dementia with behavioral disturbance (3) Urinary retention Assessment/Plan: -Urology consult -Flomax -Avodart -Bladder Scan, if >300cc retained straight cath Code(s): R33.9 - RETENTION OF URINE, UNSPECIFIED (4) Hypertension Assessment/Plan: -Norvasc, Losartan -low Na diet Code(s): I10 - ESSENTIAL (PRIMARY) HYPERTENSION (5) Hyponatremia Assessment/Plan: -Na 131 -renal on board Code(s): E87.1 - HYPO-OSMOLALITY AND HYPONATREMIA (6) Fall Assessment/Plan: -Fall risk precauions -Head CT scan -Xray R elbow and R forearm -Fall Protocol initiated Code(s): W19.XXXA - UNSPECIFIED FALL, INITIAL ENCOUNTER Assessment/Plan see problem list dvt ppx
[2018-11-27 17:19] LABS: INR 0.89 (0.83-1.09); PROTHROMBIN TIME (PATIENT) 10.5 SEC (9.7-13.0)
[2018-11-27 17:21] LABS: ACTIVATED PTT 37.2 SECONDS (25.2-36.5)
[2018-11-28 08:19] LABS: HEMATOCRIT 34.6 % (35.4-49); HEMOGLOBIN 11.8 GM/dL (11.7-16.9); MCH 29.5 pg (25.7-33.7); MCHC 34.2 g/dl (32.0-35.9); MEAN CELL VOLUME 86.1 fl (80-96); MEAN PLT VOLUME 6.5 fl (7.5-11.1); PLATELET COUNT 468 K/MM3 (134-434); RBC 4.02 M/mm3 (4.00-5.60); RDW 12.9 % (11.9-15.9); WHITE BLOOD COUNT 8.8 K/mm3 (4.0-10.0)
[2018-11-28] MEDS ORDERED: PT OWN MED DRAWER 7, Y5N ONE ×2 (08:21→09:22)
[2018-11-28 08:35] LABS: ALBUMIN 3.6 g/dl (3.4-5.0); BILIRUBIN,TOTAL 0.6 mg/dL (0.2-1); BLOOD UREA NITROGEN 9.2 mg/dL (7-18); CREATININE 0.6 mg/dL (0.55-1.3); POTASSIUM 4.1 mmol/L (3.5-5.1); TOT PROT 6.6 g/dl (6.4-8.2)
[2018-11-28] MEDS: DUTASTERIDE 0.5 MG CAP (FP) PO SCH (09:39)
[2018-11-28] MEDS: LOSARTAN POTASSIUM 50 MG TABLET (FP) PO SCH (09:39)
[2018-11-28] MEDS: ALLOPURINOL 100 MG TABLET (FP) PO SCH (09:39)
[2018-11-28] MEDS: OLANZapine 5 MG TABLET PO SCH ×2 (09:39→21:47)
[2018-11-28] MEDS: TAMSULOSIN HCL 0.4 MG CAP PO SCH (09:40)
[2018-11-28] MEDS: POLYETHYLENE GLYCOL 3350 119 GM BTL PO SCH ×2 (09:40→21:44)
[2018-11-28] MEDS: HEPARIN NA (PORCINE) 5,000 UNITS/ML 1ML VIAL SQ SCH ×2 (09:40→21:47)
[2018-11-28] MEDS: DONEPEZIL HCL 5 MG TABLET (FP) PO SCH (09:40)
[2018-11-28] MEDS: amLODIPine BESYLATE 10 MG TABLET (FP) PO SCH (09:40)
[2018-11-28] MEDS: DIVALPROEX SODIUM 125 MG SPRINKLE CAPS PO SCH ×2 (09:40→21:47)
--- NOTE | 2018-11-28 14:11 | PN ---
Progress Note, Physician Chief Complaint: Urine Retention Dementia History of Present Illness: Previous notes and events reviewed awake and alert, pleasantly confused NAD no acute events overnight Na 130 - Current Medication List Current Medications: Active Medications Acetaminophen (Tylenol -) 650 mg PO Q6H PRN PRN Reason: PAIN LEVEL 1-5 Last Admin: 11/26/18 09:56 Dose: 650 mg Allopurinol (Zyloprim -) 100 mg PO DAILY [facility] Last Admin: 11/28/18 09:39 Dose: 100 mg Amlodipine Besylate (Norvasc -) 10 mg PO DAILY [facility] Last Admin: 11/28/18 09:40 Dose: 10 mg Divalproex Sodium (Depakote Sprinkle Caps -) 125 mg PO BID [facility] Last Admin: 11/28/18 09:40 Dose: 125 mg Donepezil HCl (Aricept -) 5 mg PO DAILY [facility] Last Admin: 11/28/18 09:40 Dose: 5 mg Dutasteride (Avodart -) 0.5 mg PO DAILY [facility] Last Admin: 11/28/18 09:39 Dose: 0.5 mg Heparin Sodium (Porcine) (Heparin -) 5,000 unit SQ BID [facility] Last Admin: 11/28/18 09:40 Dose: 5,000 unit Losartan Potassium (Cozaar -) 50 mg PO DAILY [facility] Last Admin: 11/28/18 09:39 Dose: 50 mg Olanzapine (Zyprexa -) 10 mg PO BID [facility] Last Admin: 11/28/18 09:39 Dose: 10 mg Polyethylene Glycol (Miralax (For Daily Use) -) 17 gm PO BID [facility] Last Admin: 11/28/18 09:40 Dose: 17 gm Tamsulosin HCl (Flomax -) 0.4 mg PO DAILY@0830 [facility] Last Admin: 11/28/18 09:40 Dose: 0.4 mg - Objective Vital Signs: Vital Signs Temperature 97.6 F 11/28/18 09:44 Pulse Rate 80 11/28/18 09:44 Respiratory Rate 17 11/28/18 09:44 Blood Pressure 100/57 L 11/28/18 09:44 O2 Sat by Pulse Oximetry (%) 95 11/28/18 08:49 Constitutional: Yes: No Distress, Calm Eyes: Yes: Conjunctiva Clear HENT: Yes: Atraumatic Cardiovascular: Yes: Regular Rate and Rhythm Respiratory: Yes: Regular, CTA Bilaterally Gastrointestinal: Yes: Normal Bowel Sounds, Soft Genitourinary: Yes: Incontinence Musculoskeletal: Yes: Muscle Weakness Extremities: Yes: WNL Edema: No Neurological: Yes: Alert, Oriented Psychiatric: Yes: Alert, Oriented Labs: CBC, BMP 11/28/18 07:40 11/28/18 07:40 INR, PTT INR 0.89 (0.83-1.09) 11/27/18 16:35 Microbiology 11/24/18 17:20 Blood - Peripheral Venous Blood Culture - Preliminary NO GROWTH OBTAINED AFTER 72 HOURS, INCUBATION TO CONTINUE FOR 2 DAYS. 11/24/18 17:20 Blood - Peripheral Venous Blood Culture - Preliminary NO GROWTH OBTAINED AFTER 72 HOURS, INCUBATION TO CONTINUE FOR 2 DAYS. 11/24/18 16:41 Urine - Urine - Catheterized Urine Culture - Final Enterobacter Cloacae Problem List - Problems (1) Complicated UTI (urinary tract infection) Assessment/Plan: -UA leuks +3, positive nitrite, blood +2 -UC positive -no leukocytosis -afebrile -pending antibiotic regimen Code(s): N39.0 - URINARY TRACT INFECTION, SITE NOT SPECIFIED (2) Dementia Assessment/Plan: -Aricept Code(s): F03.90 - UNSPECIFIED DEMENTIA WITHOUT BEHAVIORAL DISTURBANCE Qualifiers: Dementia type: unspecified type Dementia behavioral disturbance: with behavioral disturbance Qualified Code(s): F03.91 - Unspecified dementia with behavioral disturbance (3) Urinary retention Assessment/Plan: -Urology consult -Flomax -Avodart -Bladder Scan, if >300cc retained straight cath Code(s): R33.9 - RETENTION OF URINE, UNSPECIFIED (4) Hypertension Assessment/Plan: -Norvasc, Losartan -low Na diet Code(s): I10 - ESSENTIAL (PRIMARY) HYPERTENSION (5) Hyponatremia Assessment/Plan: -Na 130 -renal on board Code(s): E87.1 - HYPO-OSMOLALITY AND HYPONATREMIA (6) Fall Assessment/Plan: -Fall risk precauions -Head CT scan unremarkable -Xray R elbow and R forearm no acute pathology -Fall Protocol initiated Code(s): W19.XXXA - UNSPECIFIED FALL, INITIAL ENCOUNTER Assessment/Plan see problem list dvt ppx
--- NOTE | 2018-11-28 16:51 | EKG ---
Test Reason : Blood Pressure : / mmHG Vent. Rate : 069 BPM Atrial Rate : 069 BPM P-R Int : 162 ms QRS Dur : 084 ms QT Int : 408 ms P-R-T Axes : 051 036 049 degrees QTc Int : 437 ms NORMAL SINUS RHYTHM NORMAL ECG WHEN COMPARED WITH ECG OF 24-NOV-2018 21:57, NO SIGNIFICANT CHANGE WAS FOUND Confirmed by JAKOB FORRESTER MD ([id number]) on 11/28/2018 4:51:44 PM Referred By: Kayla DIANE Confirmed By:JAKOB FORRESTER MD
[2018-11-29 08:42] LABS: HEMATOCRIT 32.6 % (35.4-49); HEMOGLOBIN 11.3 GM/dL (11.7-16.9); MCH 29.8 pg (25.7-33.7); MCHC 34.8 g/dl (32.0-35.9); MEAN CELL VOLUME 85.6 fl (80-96); MEAN PLT VOLUME 6.5 fl (7.5-11.1); PLATELET COUNT 437 K/MM3 (134-434); RDW 12.8 % (11.9-15.9); WHITE BLOOD COUNT 6.6 K/mm3 (4.0-10.0)
[2018-11-29 09:16] LABS: ALBUMIN 3.3 g/dl (3.4-5.0); BILIRUBIN,TOTAL 0.6 mg/dL (0.2-1); BLOOD UREA NITROGEN 11.2 mg/dL (7-18); CALCIUM 8.9 mg/dL (8.5-10.1); CREATININE 0.6 mg/dL (0.55-1.3); POTASSIUM 4.1 mmol/L (3.5-5.1); TOT PROT 6.1 g/dl (6.4-8.2)
[2018-11-29] MEDS: DUTASTERIDE 0.5 MG CAP (FP) PO SCH (09:25)
[2018-11-29] MEDS: TAMSULOSIN HCL 0.4 MG CAP PO SCH (09:25)
[2018-11-29] MEDS: OLANZapine 5 MG TABLET PO SCH ×2 (09:25→22:20)
[2018-11-29] MEDS: DIVALPROEX SODIUM 125 MG SPRINKLE CAPS PO SCH ×2 (09:26→22:20)
[2018-11-29] MEDS: DONEPEZIL HCL 5 MG TABLET (FP) PO SCH (09:26)
[2018-11-29] MEDS: HEPARIN NA (PORCINE) 5,000 UNITS/ML 1ML VIAL SQ SCH ×2 (09:26→22:20)
[2018-11-29] MEDS: LOSARTAN POTASSIUM 50 MG TABLET (FP) PO SCH (09:26)
[2018-11-29] MEDS: amLODIPine BESYLATE 10 MG TABLET (FP) PO SCH (09:26)
[2018-11-29] MEDS: ALLOPURINOL 100 MG TABLET (FP) PO SCH (09:26)
[2018-11-29] MEDS: POLYETHYLENE GLYCOL 3350 119 GM BTL PO SCH ×2 (09:28→22:20)
--- NOTE | 2018-11-29 11:23 | PN ---
Progress Note, Physician Chief Complaint: Urine Retention Dementia History of Present Illness: Previous notes and events reviewed awake and alert, pleasantly confused NAD no acute events overnight Na 132 UC positive - Current Medication List Current Medications: Active Medications Acetaminophen (Tylenol -) 650 mg PO Q6H PRN PRN Reason: PAIN LEVEL 1-5 Last Admin: 11/26/18 09:56 Dose: 650 mg Allopurinol (Zyloprim -) 100 mg PO DAILY [facility] Last Admin: 11/29/18 09:26 Dose: 100 mg Amlodipine Besylate (Norvasc -) 10 mg PO DAILY [facility] Last Admin: 11/29/18 09:26 Dose: 10 mg Divalproex Sodium (Depakote Sprinkle Caps -) 125 mg PO BID [facility] Last Admin: 11/29/18 09:26 Dose: 125 mg Donepezil HCl (Aricept -) 5 mg PO DAILY [facility] Last Admin: 11/29/18 09:26 Dose: 5 mg Dutasteride (Avodart -) 0.5 mg PO DAILY [facility] Last Admin: 11/29/18 09:25 Dose: 0.5 mg Heparin Sodium (Porcine) (Heparin -) 5,000 unit SQ BID [facility] Last Admin: 11/29/18 09:26 Dose: 5,000 unit Losartan Potassium (Cozaar -) 50 mg PO DAILY [facility] Last Admin: 11/29/18 09:26 Dose: 50 mg Olanzapine (Zyprexa -) 10 mg PO BID [facility] Last Admin: 11/29/18 09:25 Dose: 10 mg Polyethylene Glycol (Miralax (For Daily Use) -) 17 gm PO BID [facility] Last Admin: 11/29/18 09:28 Dose: 17 gm Tamsulosin HCl (Flomax -) 0.4 mg PO DAILY@0830 [facility] Last Admin: 11/29/18 09:25 Dose: 0.4 mg - Objective Vital Signs: Vital Signs Temperature 97.4 F L 11/29/18 06:00 Pulse Rate 76 11/29/18 06:00 Respiratory Rate 20 11/29/18 06:00 Blood Pressure 96/66 11/29/18 06:00 O2 Sat by Pulse Oximetry (%) 96 11/29/18 09:00 Constitutional: Yes: No Distress, Calm Eyes: Yes: Conjunctiva Clear HENT: Yes: Atraumatic Cardiovascular: Yes: Regular Rate and Rhythm Respiratory: Yes: Regular, CTA Bilaterally Gastrointestinal: Yes: Normal Bowel Sounds, Soft Musculoskeletal: Yes: Muscle Weakness Extremities: Yes: WNL Edema: No Neurological: Yes: Alert, Confusion Psychiatric: Yes: Alert, Oriented (to self only) Labs: CBC, BMP 11/29/18 07:48 11/29/18 07:48 INR, PTT INR 0.89 (0.83-1.09) 11/27/18 16:35 Microbiology 11/24/18 17:20 Blood - Peripheral Venous Blood Culture - Preliminary NO GROWTH OBTAINED AFTER 96 HOURS, INCUBATION TO CONTINUE FOR 1 DAYS. 11/24/18 17:20 Blood - Peripheral Venous Blood Culture - Preliminary NO GROWTH OBTAINED AFTER 96 HOURS, INCUBATION TO CONTINUE FOR 1 DAYS. 11/24/18 16:41 Urine - Urine - Catheterized Urine Culture - Final Enterobacter Cloacae Problem List - Problems (1) Complicated UTI (urinary tract infection) Assessment/Plan: -UA leuks +3, positive nitrite, blood +2 -UC positive -no leukocytosis -afebrile Code(s): N39.0 - URINARY TRACT INFECTION, SITE NOT SPECIFIED (2) Dementia Assessment/Plan: -Aricept Code(s): F03.90 - UNSPECIFIED DEMENTIA WITHOUT BEHAVIORAL DISTURBANCE Qualifiers: Dementia type: unspecified type Dementia behavioral disturbance: with behavioral disturbance Qualified Code(s): F03.91 - Unspecified dementia with behavioral disturbance (3) Urinary retention Assessment/Plan: -Urology consult -Flomax -Avodart -Bladder Scan, if >300cc retained straight cath Code(s): R33.9 - RETENTION OF URINE, UNSPECIFIED (4) Hypertension Assessment/Plan: -Norvasc, Losartan -low Na diet Code(s): I10 - ESSENTIAL (PRIMARY) HYPERTENSION (5) Hyponatremia Assessment/Plan: -Na 132 -renal on board Code(s): E87.1 - HYPO-OSMOLALITY AND HYPONATREMIA (6) Fall Assessment/Plan: -Fall risk precautions -Head CT scan unremarkable -Xray R elbow and R forearm no acute pathology -Fall Protocol initiated Code(s): W19.XXXA - UNSPECIFIED FALL, INITIAL ENCOUNTER Assessment/Plan see problem list dvt ppx
--- NOTE | 2018-11-29 13:29 | PN ---
Progress Note, Physician History of Present Illness: Pt seen and examined at bedside. He is more awake and interactive today. He remains confused. - Current Medication List Current Medications: Active Medications Acetaminophen (Tylenol -) 650 mg PO Q6H PRN PRN Reason: PAIN LEVEL 1-5 Last Admin: 11/26/18 09:56 Dose: 650 mg Allopurinol (Zyloprim -) 100 mg PO DAILY [facility] Last Admin: 11/29/18 09:26 Dose: 100 mg Amlodipine Besylate (Norvasc -) 10 mg PO DAILY [facility] Last Admin: 11/29/18 09:26 Dose: 10 mg Divalproex Sodium (Depakote Sprinkle Caps -) 125 mg PO BID [facility] Last Admin: 11/29/18 09:26 Dose: 125 mg Donepezil HCl (Aricept -) 5 mg PO DAILY [facility] Last Admin: 11/29/18 09:26 Dose: 5 mg Dutasteride (Avodart -) 0.5 mg PO DAILY [facility] Last Admin: 11/29/18 09:25 Dose: 0.5 mg Heparin Sodium (Porcine) (Heparin -) 5,000 unit SQ BID [facility] Last Admin: 11/29/18 09:26 Dose: 5,000 unit Losartan Potassium (Cozaar -) 50 mg PO DAILY [facility] Last Admin: 11/29/18 09:26 Dose: 50 mg Olanzapine (Zyprexa -) 10 mg PO BID [facility] Last Admin: 11/29/18 09:25 Dose: 10 mg Polyethylene Glycol (Miralax (For Daily Use) -) 17 gm PO BID [facility] Last Admin: 11/29/18 09:28 Dose: 17 gm Tamsulosin HCl (Flomax -) 0.4 mg PO DAILY@0830 [facility] Last Admin: 11/29/18 09:25 Dose: 0.4 mg - Objective Vital Signs: Vital Signs Temperature 97.9 F 11/29/18 10:00 Pulse Rate 88 11/29/18 10:00 Respiratory Rate 18 11/29/18 10:00 Blood Pressure 104/68 11/29/18 10:00 O2 Sat by Pulse Oximetry (%) 96 11/29/18 09:00 Constitutional: Yes: Calm Eyes: Yes: Conjunctiva Clear HENT: Yes: Atraumatic Cardiovascular: Yes: S1, S2 Gastrointestinal: Yes: Soft Genitourinary: Yes: Incontinence, Other (retention) Musculoskeletal: Yes: WNL Edema: No Neurological: Yes: Confusion Labs: CBC, BMP 11/29/18 07:48 11/29/18 07:48 INR, PTT INR 0.89 (0.83-1.09) 11/27/18 16:35 Problem List - Problems (1) Complicated UTI (urinary tract infection) Code(s): N39.0 - URINARY TRACT INFECTION, SITE NOT SPECIFIED (2) Hyponatremia Code(s): E87.1 - HYPO-OSMOLALITY AND HYPONATREMIA Assessment/Plan Current Medications Generic Name Dose Route Start Last Admin Trade Name Freq PRN Reason Stop Dose Admin Acetaminophen 650 mg 11/24/18 20:36 11/26/18 09:56 Tylenol - PO 650 mg Q6H PRN Administration PAIN LEVEL 1-5 Allopurinol 100 mg 11/25/18 10:00 11/29/18 09:26 Zyloprim - PO 100 mg DAILY TOMER Administration Amlodipine Besylate 10 mg 11/25/18 10:00 11/29/18 09:26 Norvasc - PO 10 mg DAILY [facility] Administration Divalproex Sodium 125 mg 11/24/18 22:00 11/29/18 09:26 Depakote Sprinkle Caps - PO 125 mg BID TOMER Administration Donepezil HCl 5 mg 11/25/18 10:00 11/29/18 09:26 Aricept - PO 5 mg DAILY [facility]OMER Administration Dutasteride 0.5 mg 11/25/18 10:00 11/29/18 09:25 Avodart - PO 0.5 mg DAILY [facility] Administration Heparin Sodium (Porcine) 5,000 unit 11/24/18 22:00 11/29/18 09:26 Heparin - SQ 5,000 unit BID TOMER Administration Losartan Potassium 50 mg 11/25/18 10:00 11/29/18 09:26 Cozaar - PO 50 mg DAILY [facility] Administration Olanzapine 10 mg 11/24/18 22:00 11/29/18 09:25 Zyprexa - PO 10 mg BID [facility]OMER Administration Polyethylene Glycol 17 gm 11/24/18 22:00 11/29/18 09:28 Miralax (For Daily Use) - PO 17 gm BID TOMER Administration Tamsulosin HCl 0.4 mg 11/25/18 08:30 11/29/18 09:25 Flomax - PO 0.4 mg DAILY@0830 TOMER Administration Impression 1. hyponatremia 2. gout 3. htn 4. urinary retention 5. dementia Plan - check spep as plasma osm normal - repeat urine osm and lytes - hyponatremia is mild, he remains at risk to fall - straight cath per urology
[2018-11-30] MEDS: OLANZapine 5 MG TABLET PO SCH (09:16)
[2018-11-30] MEDS: HEPARIN NA (PORCINE) 5,000 UNITS/ML 1ML VIAL SQ SCH (09:16)
[2018-11-30] MEDS: amLODIPine BESYLATE 10 MG TABLET (FP) PO SCH (09:16)
[2018-11-30] MEDS: TAMSULOSIN HCL 0.4 MG CAP PO SCH (09:16)
[2018-11-30] MEDS: LOSARTAN POTASSIUM 50 MG TABLET (FP) PO SCH (09:16)
[2018-11-30] MEDS: DUTASTERIDE 0.5 MG CAP (FP) PO SCH (09:16)
[2018-11-30] MEDS: ALLOPURINOL 100 MG TABLET (FP) PO SCH (09:16)
[2018-11-30] MEDS: DIVALPROEX SODIUM 125 MG SPRINKLE CAPS PO SCH (09:16)
[2018-11-30] MEDS: POLYETHYLENE GLYCOL 3350 119 GM BTL PO SCH (09:16)
[2018-11-30] MEDS: DONEPEZIL HCL 5 MG TABLET (FP) PO SCH (09:16)
[2018-11-30 11:53] VITALS: BP 118/66; PULSE 75; TEMP 97.9
--- NOTE | 2018-11-30 13:14 | DS ---
Physical Examination Vital Signs: Vital Signs Temperature 97.9 F 11/30/18 10:00 Pulse Rate 75 11/30/18 10:00 Respiratory Rate 20 11/30/18 10:00 Blood Pressure 118/66 11/30/18 10:00 O2 Sat by Pulse Oximetry (%) 95 11/30/18 08:42 Findings/Remarks: Laboratory Tests 11/24/18 11/24/18 11/24/18 16:41 17:20 17:20 WBC 9.1 RBC 3.80 L Hgb 11.2 L Hct 33.2 L MCV 87.3 MCH 29.5 MCHC 33.8 RDW 12.8 Plt Count 463 H MPV 6.6 L D Absolute Neuts (auto) 5.8 Neutrophils % 63.9 D Lymphocytes % 16.8 D Monocytes % 9.7 Eosinophils % 8.8 H D Basophils % 0.8 Nucleated RBC % 0 PT with INR INR PTT (Actin FS) Sodium Potassium Chloride Carbon Dioxide Anion Gap BUN Creatinine Est GFR (CKD-EPI)AfAm Est GFR (CKD-EPI)NonAf Random Glucose Serum Osmolality Calcium Total Bilirubin AST ALT Alkaline Phosphatase Creatine Kinase 68 Troponin I < 0.02 Total Protein Albumin Urine Color Yellow Urine Appearance Turbid Urine pH 8.0 D Ur Specific [place] 1.008 L Urine Protein 1+ H Urine Glucose (UA) Negative Urine Ketones Negative Urine Blood 2+ H Urine Nitrite Positive H Urine Bilirubin Negative Urine Urobilinogen 1.0 Ur Leukocyte Esterase 3+ H Urine WBC (Auto) 986 Urine RBC (Auto) 51 Urine Casts (Auto) 13 U Epithel Cells (Auto) 0.5 Urine Bacteria (Auto) 311.3 Urine Osmolality Ur Random Sodium Ur Random Potassium Ur Random Chloride 11/24/18 11/25/18 11/25/18 17:20 07:20 07:20 WBC 8.0 RBC 3.85 L Hgb 11.5 L Hct 33.1 L MCV 85.9 MCH 29.9 MCHC 34.8 RDW 12.6 Plt Count 497 H MPV 6.8 L Absolute Neuts (auto) Neutrophils % Lymphocytes % Monocytes % Eosinophils % Basophils % Nucleated RBC % PT with INR INR PTT (Actin FS) Sodium 134 L 131 L Potassium 4.4 3.9 Chloride 97 L 97 L Carbon Dioxide 27 26 Anion Gap 10 8 BUN 11.7 9.3 Creatinine 0.8 0.7 Est GFR (CKD-EPI)AfAm 97.10 102.58 Est GFR (CKD-EPI)NonAf 83.78 88.50 Random Glucose 113 H 107 H Serum Osmolality Calcium 9.1 9.2 Total Bilirubin 0.3 AST 11 L ALT 10 L Alkaline Phosphatase 89 Creatine Kinase Troponin I Total Protein 6.4 Albumin 3.2 L Urine Color Urine Appearance Urine pH Ur Specific [place] Urine Protein Urine Glucose (UA) Urine Ketones Urine Blood Urine Nitrite Urine Bilirubin Urine Urobilinogen Ur Leukocyte Esterase Urine WBC (Auto) Urine RBC (Auto) Urine Casts (Auto) U Epithel Cells (Auto) Urine Bacteria (Auto) Urine Osmolality Ur Random Sodium Ur Random Potassium Ur Random Chloride 11/26/18 11/26/18 11/27/18 06:25 06:25 07:15 WBC 6.4 6.7 RBC 3.80 L 3.79 L Hgb 11.3 L 11.2 L Hct 32.8 L 32.3 L MCV 86.2 85.2 MCH 29.7 29.4 MCHC 34.4 34.5 RDW 12.8 12.7 Plt Count 457 H 451 H MPV 6.6 L 6.3 L Absolute Neuts (auto) Neutrophils % Lymphocytes % Monocytes % Eosinophils % Basophils % Nucleated RBC % PT with INR INR PTT (Actin FS) Sodium 134 L Potassium 4.2 Chloride 99 Carbon Dioxide 25 Anion Gap 10 BUN 13.5 Creatinine 0.6 Est GFR (CKD-EPI)AfAm 109.29 Est GFR (CKD-EPI)NonAf 94.29 Random Glucose 95 Serum Osmolality Calcium 8.7 Total Bilirubin 0.4 AST 13 L ALT 8 L Alkaline Phosphatase 84 Creatine Kinase Troponin I Total Protein 5.8 L Albumin 3.1 L Urine Color Urine Appearance Urine pH Ur Specific [place] Urine Protein Urine Glucose (UA) Urine Ketones Urine Blood Urine Nitrite Urine Bilirubin Urine Urobilinogen Ur Leukocyte Esterase Urine WBC (Auto) Urine RBC (Auto) Urine Casts (Auto) U Epithel Cells (Auto) Urine Bacteria (Auto) Urine Osmolality Ur Random Sodium Ur Random Potassium Ur Random Chloride 11/27/18 11/27/18 11/28/18 07:15 16:35 07:40 WBC 8.8 RBC 4.02 Hgb 11.8 Hct 34.6 L MCV 86.1 MCH 29.5 MCHC 34.2 RDW 12.9 Plt Count 468 H MPV 6.5 L Absolute Neuts (auto) Neutrophils % Lymphocytes % Monocytes % Eosinophils % Basophils % Nucleated RBC % PT with INR 10.50 INR 0.89 PTT (Actin FS) 37.2 H Sodium 131 L Potassium 4.1 Chloride 97 L Carbon Dioxide 25 Anion Gap 8 BUN 12.2 Creatinine 0.6 Est GFR (CKD-EPI)AfAm 109.29 Est GFR (CKD-EPI)NonAf 94.29 Random Glucose 100 Serum Osmolality Calcium 8.4 L Total Bilirubin 0.4 AST 12 L ALT 8 L Alkaline Phosphatase 79 Creatine Kinase Troponin I Total Protein 5.8 L Albumin 3.2 L Urine Color Urine Appearance Urine pH Ur Specific [place] Urine Protein Urine Glucose (UA) Urine Ketones Urine Blood Urine Nitrite Urine Bilirubin Urine Urobilinogen Ur Leukocyte Esterase Urine WBC (Auto) Urine RBC (Auto) Urine Casts (Auto) U Epithel Cells (Auto) Urine Bacteria (Auto) Urine Osmolality Ur Random Sodium Ur Random Potassium Ur Random Chloride 11/28/18 11/29/18 11/29/18 07:40 07:48 07:48 WBC 6.6 RBC 3.80 L Hgb 11.3 L Hct 32.6 L MCV 85.6 MCH 29.8 MCHC 34.8 RDW 12.8 Plt Count 437 H MPV 6.5 L Absolute Neuts (auto) Neutrophils % Lymphocytes % Monocytes % Eosinophils % Basophils % Nucleated RBC % PT with INR INR PTT (Actin FS) Sodium 130 L 132 L Potassium 4.1 4.1 Chloride 96 L 99 Carbon Dioxide 26 25 Anion Gap 9 8 BUN 9.2 11.2 Creatinine 0.6 0.6 Est GFR (CKD-EPI)AfAm 109.29 109.29 Est GFR (CKD-EPI)NonAf 94.29 94.29 Random Glucose 116 H 106 Serum Osmolality Calcium 9.0 8.9 Total Bilirubin 0.6 0.6 AST 13 L 11 L ALT 8 L 9 L Alkaline Phosphatase 92 87 Creatine Kinase Troponin I Total Protein 6.6 6.1 L Albumin 3.6 3.3 L Urine Color Urine Appearance Urine pH Ur Specific [place] Urine Protein Urine Glucose (UA) Urine Ketones Urine Blood Urine Nitrite Urine Bilirubin Urine Urobilinogen Ur Leukocyte Esterase Urine WBC (Auto) Urine RBC (Auto) Urine Casts (Auto) U Epithel Cells (Auto) Urine Bacteria (Auto) Urine Osmolality Ur Random Sodium Ur Random Potassium Ur Random Chloride 11/29/18 11/29/18 11/29/18 07:48 16:00 16:00 WBC RBC Hgb Hct MCV MCH MCHC RDW Plt Count MPV Absolute Neuts (auto) Neutrophils % Lymphocytes % Monocytes % Eosinophils % Basophils % Nucleated RBC % PT with INR INR PTT (Actin FS) Sodium Potassium Chloride Carbon Dioxide Anion Gap BUN Creatinine Est GFR (CKD-EPI)AfAm Est GFR (CKD-EPI)NonAf Random Glucose Serum Osmolality 275 L Calcium Total Bilirubin AST ALT Alkaline Phosphatase Creatine Kinase Troponin I Total Protein Albumin Urine Color Urine Appearance Urine pH Ur Specific [place] Urine Protein Urine Glucose (UA) Urine Ketones Urine Blood Urine Nitrite Urine Bilirubin Urine Urobilinogen Ur Leukocyte Esterase Urine WBC (Auto) Urine RBC (Auto) Urine Casts (Auto) U Epithel Cells (Auto) Urine Bacteria (Auto) Urine Osmolality 371 D Ur Random Sodium 67 Ur Random Potassium 26.0 Ur Random Chloride 61 L Active Medications Generic Name Dose Route Start Last Admin Trade Name Freq PRN Reason Stop Dose Admin Acetaminophen 650 mg 11/24/18 20:36 11/26/18 09:56 Tylenol - PO 650 mg Q6H PRN Administration PAIN LEVEL 1-5 Allopurinol 100 mg 11/25/18 10:00 11/30/18 09:16 Zyloprim - PO 100 mg DAILY [facility]ER Administration Amlodipine Besylate 10 mg 11/25/18 10:00 11/30/18 09:16 Norvasc - PO 10 mg DAILY [facility] Administration Divalproex Sodium 125 mg 11/24/18 22:00 11/30/18 09:16 Depakote Sprinkle Caps - PO 125 mg BID [facility]OMER Administration Donepezil HCl 5 mg 11/25/18 10:00 11/30/18 09:16 Aricept - PO 5 mg DAILY [facility] Administration Dutasteride 0.5 mg 11/25/18 10:00 11/30/18 09:16 Avodart - PO 0.5 mg DAILY [facility]OM[facility] Administration Heparin Sodium (Porcine) 5,000 unit 11/24/18 22:00 11/30/18 09:16 Heparin - SQ 5,000 unit BID TOMER Administration Losartan Potassium 50 mg 11/25/18 10:00 11/30/18 09:16 Cozaar - PO 50 mg DAILY [facility] Administration Olanzapine 10 mg 11/24/18 22:00 11/30/18 09:16 Zyprexa - PO 10 mg BID TOMER Administration Polyethylene Glycol 17 gm 11/24/18 22:00 11/30/18 09:16 Miralax (For Daily Use) - PO Not Given BID [facility] Tamsulosin HCl 0.4 mg 11/25/18 08:30 11/30/18 09:16 Flomax - PO 0.4 mg DAILY@0830 TOMER Administration Microbiology 11/24/18 17:20 Blood - Peripheral Venous Blood Culture - Final NO GROWTH AFTER 5 DAYS INCUBATION 11/24/18 17:20 Blood - Peripheral Venous Blood Culture - Final NO GROWTH AFTER 5 DAYS INCUBATION 11/24/18 16:41 Urine - Urine - Catheterized Urine Culture - Final Enterobacter Cloacae Constitutional: Yes: No Distress, Calm Eyes: Yes: Conjunctiva Clear HENT: Yes: Atraumatic Cardiovascular: Yes: Regular Rate and Rhythm Respiratory: Yes: Regular, CTA Bilaterally Gastrointestinal: Yes: Normal Bowel Sounds, Soft Musculoskeletal: Yes: Muscle Weakness Extremities: Yes: WNL Edema: No Neurological: Yes: Alert, Confusion Psychiatric: Yes: Alert Labs: CBC, BMP 11/29/18 07:48 11/29/18 07:48 Discharge Summary Problems reviewed: Yes Reason For Visit: COMPLICATED UTI Current Active Problems Complicated UTI (urinary tract infection) (Acute) Fall (Acute) Hospital Course: 82 y/o man from [facility] with a PMHx of Dementia, HTN, Gout, Frequent Falls presents to ED for urine retention. Patient has been admitted multiple times in past month due to pulled out supra-pubic catheter, and Hernandez catheter. On s/p TURP for BPH and urinary retention, arrived to ED today for urinary retention as per [place] no urine output for 8 hours. Patient is poor historian. Patient was seen in ED yesterday for possible urinary retention, retention ruled out, UA showed UTI w prior culture +enterobacter. Patient evaluated by ID while in patient. UC positive but would observe off antibiotics and only give if having urological procedures. Patient was asymptomatic while in patient with no leukocytosis noted and afebrile. Condition: Good - Instructions Diet, Activity, Other Instructions: follow up with PMD follow up with Urologist Dr Gamez return to ER if develop severe pain, respiratory distress, chest pain, fall Referrals: Ry Gamez MD [Staff Physician] - Disposition: [facility] - Home Medications Comprehensive Discharge Medication List: Ambulatory Orders Allopurinol [Zyloprim -] 100 mg PO DAILY 09/08/14 Amlodipine Besylate [Norvasc -] 10 mg PO DAILY 09/08/14 Losartan Potassium 50 mg PO DAILY 09/08/14 Donepezil HCl [Aricept -] 5 mg PO DAILY tablet 11/02/18 Dutasteride [Avodart] 0.5 mg PO DAILY cap 11/02/18 Olanzapine [Zyprexa -] 10 mg PO BID tablet 11/02/18 Polyethylene Glycol 3350 [Miralax 119 gm Btl -] 17 gm PO BID bottle 11/02/18 Tamsulosin HCl [Flomax -] 0.4 mg PO DAILY@0830 cap.er.24h 11/02/18 Divalproex Sprinkle [Depakote Sprinkle -] 125 mg PO BID cap.sprink 11/09/18 Acetaminophen [Tylenol .Regular Strength -] 325 mg PO Q6H PRN 11/14/18 Cholecalciferol (Vitamin D3) [D3-50] 50,000 unit PO WEEKLY 11/14/18
--- NOTE | 2018-11-30 16:43 | PN ---
Progress Note, Physician History of Present Illness: Pt seen and examined at bedside. He has poor po intake. He does drink water and have the liquids on his tray. - Current Medication List Current Medications: Active Medications Acetaminophen (Tylenol -) 650 mg PO Q6H PRN PRN Reason: PAIN LEVEL 1-5 Last Admin: 11/26/18 09:56 Dose: 650 mg Allopurinol (Zyloprim -) 100 mg PO DAILY [facility] Last Admin: 11/30/18 09:16 Dose: 100 mg Amlodipine Besylate (Norvasc -) 10 mg PO DAILY [facility] Last Admin: 11/30/18 09:16 Dose: 10 mg Divalproex Sodium (Depakote Sprinkle Caps -) 125 mg PO BID [facility] Last Admin: 11/30/18 09:16 Dose: 125 mg Donepezil HCl (Aricept -) 5 mg PO DAILY [facility] Last Admin: 11/30/18 09:16 Dose: 5 mg Dutasteride (Avodart -) 0.5 mg PO DAILY [facility] Last Admin: 11/30/18 09:16 Dose: 0.5 mg Heparin Sodium (Porcine) (Heparin -) 5,000 unit SQ BID [facility] Last Admin: 11/30/18 09:16 Dose: 5,000 unit Losartan Potassium (Cozaar -) 50 mg PO DAILY [facility] Last Admin: 11/30/18 09:16 Dose: 50 mg Olanzapine (Zyprexa -) 10 mg PO BID [facility] Last Admin: 11/30/18 09:16 Dose: 10 mg Polyethylene Glycol (Miralax (For Daily Use) -) 17 gm PO BID [facility] Last Admin: 11/30/18 09:16 Dose: Not Given Tamsulosin HCl (Flomax -) 0.4 mg PO DAILY@0830 [facility] Last Admin: 11/30/18 09:16 Dose: 0.4 mg - Objective Vital Signs: Vital Signs Temperature 97.9 F 11/30/18 10:00 Pulse Rate 75 11/30/18 10:00 Respiratory Rate 20 11/30/18 10:00 Blood Pressure 118/66 11/30/18 10:00 O2 Sat by Pulse Oximetry (%) 95 11/30/18 08:42 Constitutional: Yes: Calm Eyes: Yes: Conjunctiva Clear HENT: Yes: Atraumatic Neck: Yes: Supple Cardiovascular: Yes: S1, S2 Respiratory: Yes: CTA Bilaterally Gastrointestinal: Yes: Soft Genitourinary: Yes: Other (pt gets straight cath) Musculoskeletal: Yes: WNL Edema: No Neurological: Yes: Confusion Labs: CBC, BMP 11/29/18 07:48 11/29/18 07:48 INR, PTT INR 0.89 (0.83-1.09) 11/27/18 16:35 Problem List - Problems (1) Complicated UTI (urinary tract infection) Code(s): N39.0 - URINARY TRACT INFECTION, SITE NOT SPECIFIED (2) Hyponatremia Code(s): E87.1 - HYPO-OSMOLALITY AND HYPONATREMIA Assessment/Plan Current Medications Generic Name Dose Route Start Last Admin Trade Name Freq PRN Reason Stop Dose Admin Acetaminophen 650 mg 11/24/18 20:36 11/26/18 09:56 Tylenol - PO 650 mg Q6H PRN Administration PAIN LEVEL 1-5 Allopurinol 100 mg 11/25/18 10:00 11/30/18 09:16 Zyloprim - PO 100 mg DAILY [facility] Administration Amlodipine Besylate 10 mg 11/25/18 10:00 11/30/18 09:16 Norvasc - PO 10 mg DAILY [facility] Administration Divalproex Sodium 125 mg 11/24/18 22:00 11/30/18 09:16 Depakote Sprinkle Caps - PO 125 mg BID [facility] Administration Donepezil HCl 5 mg 11/25/18 10:00 11/30/18 09:16 Aricept - PO 5 mg DAILY [facility] Administration Dutasteride 0.5 mg 11/25/18 10:00 11/30/18 09:16 Avodart - PO 0.5 mg DAILY [facility] Administration Heparin Sodium (Porcine) 5,000 unit 11/24/18 22:00 11/30/18 09:16 Heparin - SQ 5,000 unit BID [facility] Administration Losartan Potassium 50 mg 11/25/18 10:00 11/30/18 09:16 Cozaar - PO 50 mg DAILY [facility] Administration Olanzapine 10 mg 11/24/18 22:00 11/30/18 09:16 Zyprexa - PO 10 mg BID TOMER Administration Polyethylene Glycol 17 gm 11/24/18 22:00 11/30/18 09:16 Miralax (For Daily Use) - PO Not Given BID [facility] Tamsulosin HCl 0.4 mg 11/25/18 08:30 10/01/19 09:16 Flomax - PO 0.4 mg DAILY@0830 [facility]ER Administration Impression 1. hyponatremia 2. gout 3. htn 4. urinary retention 5. dementia Plan - encrouage po intake - restrict free water - monitor sodium as outpt - follow spep - hyponatremia is mild, he remains at risk to fall - straight cath per urology
== END 2018-11-30 18:27 | DRG 690 ==
LOC: JER 15:31 → JERBED 16:24 → J6S 23:57
PROVIDERS: ADMIT Internal Medicine; ATTEND Family Medicine
DX: N39.0 Urinary tract infection, site not specified (principal); E87.1 Hypo-osmolality and hyponatremia; R33.9 Retention of urine, unspecified; N31.9 Neuromuscular dysfunction of bladder, unspecified; I10 Essential (primary) hypertension; F03.90 Unspecified dementia, unspecified severity, without behavioral disturbance, psychotic disturbance, mood disturbance, and anxiety; M1A.9XX0 Chronic gout, unspecified, without tophus (tophi)
CPT/HCPCS: 36415; 70450-TC; 71045-TC-FY; 73070-TC-RT-FY; 73090-TC-RT-FY; 80048; 80053; 81003; 82436; 82550; 83930; 83935; 84133; 84155; 84165; 84300; 84484; 85025; 85027; 85610; 85730; 87040; 87086; 87186; 93005; 93010; 99283-25; 99285-25; J1644

== ENCOUNTER 2019-01-22 14:41 | Inpatient (IN) | payer OTHER ==
--- NOTE | 2019-01-22 15:01 | PDOC ---
History of Present Illness - General Chief Complaint: Injury Stated Complaint: FALL Time Seen by Provider: 01/22/19 15:01 Past History - Past Medical History Allergies/Adverse Reactions: Allergies Allergy/AdvReac Type Severity Reaction Status Date / Time No Known Allergies Allergy Verified 11/24/18 16:20 Home Medications: Ambulatory Orders Allopurinol [Zyloprim -] 100 mg PO DAILY 09/08/14 Amlodipine Besylate [Norvasc -] 10 mg PO DAILY 09/08/14 Losartan Potassium 50 mg PO DAILY 09/08/14 Donepezil HCl [Aricept -] 5 mg PO DAILY tablet 11/02/18 Dutasteride [Avodart] 0.5 mg PO DAILY cap 11/02/18 Olanzapine [Zyprexa -] 10 mg PO BID tablet 11/02/18 Polyethylene Glycol 3350 [Miralax 119 gm Btl -] 17 gm PO BID bottle 11/02/18 Tamsulosin HCl [Flomax -] 0.4 mg PO DAILY@0830 cap.er.24h 11/02/18 Divalproex Sprinkle [Depakote Sprinkle -] 125 mg PO BID cap.sprink 11/09/18 Acetaminophen [Tylenol .Regular Strength -] 325 mg PO Q6H PRN 11/14/18 Cholecalciferol (Vitamin D3) [D3-50] 50,000 unit PO WEEKLY 11/14/18 COPD: No Dementia: Yes GI Disorders: Yes (H. PYLORI, DIVERTICULITIS) Disorders: Yes (KIDNEY STONES, BPH) HTN: Yes Hypercholesterolemia: Yes Psychiatric Problems: Yes (DEMENTIA) - Psycho Social/Smoking Cessation Hx Smoking Status: No Smoking History: Unknown if ever smoked Have you smoked in the past 12 months: No If you are a former smoker, when did you quit?: 8 YRS Hx Alcohol Use: No Drug/Substance Use Hx: No Substance Use Type: None Hx Substance Use Treatment: No ED Treatment Course - LABORATORY CBC & Chemistry Diagram: 01/22/19 18:48 01/22/19 18:48 Medical Decision Making - Medical Decision Making 01/22/19 15:01 HPI: 83yo M hx gout, BPH, psychotic disorder with delusions, Alzheimer's, HTN, CVA, not on blood thinners, I[place]ian and Tajik BIBA from [facility] s/p fall from standing this afternoon. Per [facility], [place] ([phone]) , baseline uses wheelchair (non-compliant, prefers to walk but unsteady), mentation alert but confused, able to talk/communicate in Ivorian clearly. Per NH, fell from standing in dining room, believes + head injury, -LOC, unwitnessed but heard loud noise then saw him on floor with redness noted to right side of head, no change in behaviour or mental status, no N/V. NH believes mechanical fall due to unsteady gait. States pt was in [facility] prior to fall. Pt is unable to remember what happened and gives confused answers, but at one point endorses passing out and some chest pains and lightheadedness. Attending physician - Marybeth Benavides [phone] ROS: Limited due to dementia. Positive for syncope, lightheadedness, and chest pain. PE: Gen: Sleepy but arousable, snoring, NAD HEENT: PERRL, EOMI, MMM, NCAT. No conjunctival pallor. Sclera are non-icteric. CV: Regular rate and rhythm. No murmurs, rubs, or gallops. PULM: No resp distress. Exam limited due to snoring/mouth noise, but otherwise CTAB, no wheezes, rales, or rhonchi. ABD: soft, NT/ND, no rebound tenderness or guarding, no CVA tenderness. BACK: No TTP of c/t/l-spine. No step-offs or deformities. MSK: No bony deformities. 2+ pulses in all extremities. NEURO: AAOx3. PERRL. No gross CN deficits. Strength and sensation grossly intact throughout. EXTREMITIES: No cyanosis. No clubbing. No edema. No calf tenderness. PSYCH: Calm mood and confused thought pattern consistent with moderate dementia. SKIN: Warm and dry. Normal capillary refill. No rashes. No jaundice. No e/o trauma. MDM: 83yo M hx gout, BPH, psychotic disorder with delusions, Alzheimer's, HTN, CVA, not on blood thinners, Ivorian and Tajik-speaking BIBA from [facility] [place] for syncope vs mechanical fall from standing this afternoon. Hemodynamically stable, afebrile, sleepy but easily arousable, A&Ox3 but confused about what happened, limited history. Head injury and fall from standing at advanced age concerning for ICH or c- spine fx - CTs to r/o. No other pain or TTP concerning for other injuries. Unknown syncope vs mechanical fall, so must consider and w/u for syncope. Consider and eval for SAH, ACS/IN, arrythmia, infection, anemia, metabolic derangement, vasovagal, or orthostatic syncope. -CTH/c-spine -CXR -CBC,CMP,Coags,Cardiac profile,Mg,Phos,UA/UC -EKG -1L NS -Dispo: likely admit tele obs for syncope eval 01/22/19 18:43 CTH/C-spine reviewed: no acute pathology CXR reviewed: no acute pathology EKG reviewed: NSR, 66bpm, normal intervals, normal axis, no TWIs, no ST elevations or depressions Labs drawn by US IV. 01/22/19 19:[address] Ruiz. Pending labs, admit tele/obs for syncope. Discharge - Discharge Information Problems reviewed: Yes Clinical Impression/Diagnosis: Fall, Syncope Condition: Stable - Follow up/Referral Referrals: Marybeth Benavides MD [Primary Care Provider] - - Patient Discharge Instructions - Post Discharge Activity
[2019-01-22] MEDS ORDERED: SODIUM CHLORIDE 0.9% 500 ML INFUS.BAG IV ONE (16:53)
[2019-01-22 19:04] LABS: BASO % 0.7 % (0-2.0); HEMATOCRIT 37.4 % (35.4-49); HEMOGLOBIN 12.4 GM/dL (11.7-16.9); LYMPH % 26.6 % (8-40); MCH 28.4 pg (25.7-33.7); MCHC 33.2 g/dl (32.0-35.9); MEAN CELL VOLUME 85.6 fl (80-96); MEAN PLT VOLUME 7.3 fl (7.5-11.1); MONO % 8.6 % (3.8-10.2); NEUT % 39.9 % (42.8-82.8); PLATELET COUNT 307 K/MM3 (134-434); RBC 4.37 M/mm3 (4.00-5.60); WHITE BLOOD COUNT 7.1 K/mm3 (4.0-10.0)
[2019-01-22 19:12] LABS: INR 0.94 (0.83-1.09); PROTHROMBIN TIME (PATIENT) 11.1 SEC (9.7-13.0)
[2019-01-22 19:14] LABS: ACTIVATED PTT 36.5 SECONDS (25.2-36.5)
--- NOTE | 2019-01-22 19:15 | PDOC ---
*Physical Exam - Vital Signs Last Vital Signs Temp Pulse Resp BP Pulse Ox 97.3 F L 81 16 106/66 96 01/22/19 14:41 01/22/19 14:41 01/22/19 14:41 01/22/19 14:41 01/22/19 14:41 ED Treatment Course - LABORATORY CBC & Chemistry Diagram: 01/24/19 06:54 01/25/19 07:52 - ADDITIONAL ORDERS Additional order review: Laboratory Results 01/22/19 18:48 PT with INR 11.10 INR 0.94 01/22/19 18:48 RBC 4.37 MCV 85.6 MCHC 33.2 RDW 14.0 MPV 7.3 L D Neutrophils % 39.9 L D Lymphocytes % 26.6 D Monocytes % 8.6 Eosinophils % 24.2 H* D Basophils % 0.7 - Medications Given in the ED: ED Medications Discontinued Medications Generic Name Dose Route Start Last Admin Trade Name Freq PRN Reason Stop Dose Admin Sodium Chloride 1,000 ml 01/22/19 16:53 01/22/19 17:26 Normal Saline - IV 01/22/19 16:54 1,000 ml ONCE ONE Administration Medical Decision Making - Medical Decision Making 01/22/19 19:[address] Mitchell 83 y/o M hx of gout, bph, psychotic disordder with delusions from [facility] brought in s/p fall 01/22/19 19:16 CTH negative as well as C-spine CXR no acute pathology EKG: NSR Pending Labs Admit tele/obs for syncope PcP: Dr. Marybeth Benavides 01/22/19 19:26 Discharge - Discharge Information Problems reviewed: Yes Clinical Impression/Diagnosis: Fall Qualifiers: Encounter type: initial encounter Qualified Code(s): W19.XXXA - Unspecified fall, initial encounter Syncope Qualifiers: Syncope type: unspecified Qualified Code(s): R55 - Syncope and collapse Condition: Stable - Follow up/Referral - Patient Discharge Instructions - Post Discharge Activity
[2019-01-22 19:32] LABS: ALBUMIN 3.6 g/dl (3.4-5.0); BILIRUBIN,TOTAL 0.3 mg/dL (0.2-1); BLOOD UREA NITROGEN 23.7 mg/dL (7-18); CALCIUM 9.1 mg/dL (8.5-10.1); CREATININE 0.7 mg/dL (0.55-1.3); MAGNESIUM 2.3 mg/dL (1.8-2.4); PHOSPHOROUS 4.6 mg/dL (2.5-4.9); POTASSIUM 4.3 mmol/L (3.5-5.1); TOT PROT 6.3 g/dl (6.4-8.2)
[2019-01-22 20:58] LABS: PLATELET ESTIMATE ADEQUATE
[2019-01-22 20:59] LABS: EOS % 24.2 % (0-4.5)
--- NOTE | 2019-01-22 21:11 | HP ---
Admitting History and Physical - Primary Care Physician PCP: Marybeth Benavides ([facility]) - Admission Chief Complaint: s/p Fall, ? Syncope History of Present Illness: This is a 83 y/o man from [facility] with a PMHx of Alzheimer's, Dementia, Psychotic Disorder w/ Delusions, HTN, CVA, Dysphagia, BPH, Gout. Patient has Alzheimer's and Dementia unable to provide HPI. Per ED record: BIBA s/p fall from standing this afternoon. Per [facility] ([phone]), baseline uses wheelchair (non-compliant, prefers to walk but unsteady), mentation alert but confused, able to talk/communicate in Faroese clearly. Per NH, fell from standing in dining room, believes + head injury, -LOC, unwitnessed but heard loud noise then saw him on floor with redness noted to right side of head, no change in behaviour or mental status, no N/V. NH believes mechanical fall due to unsteady gait. States pt was in [facility] prior to fall. Pt is unable to remember what happened and gives confused answers, but at one point endorses passing out and some chest pains and lightheadedness. ED course was noted for: (1) Head CT- no evidence of acute intracranial pathology (2) C-Spine CT- moderate degenerative arthritis with no fracture or acute pathology History Source: Transfer Record Limitations to Obtaining History: Dementia - Past Medical History PREP PERSON: Yes: Alzheimer's, CVA, Dementia Cardiovascular: Yes: HTN Gastrointestinal: Yes: Diverticulitis (diagnoses at [facility] 09/06/14 ) Renal/: Yes: Neurogenic Bladder, UTI Rheumatology: Yes: Gout - Past Surgical History Past Surgical History: Yes: Cataract Removal (pt is not sure of the type of his recent eye surgery), TURP - Smoking History Smoking history: Unknown if ever smoked Have you smoked in the past 12 months: No If you are a former smoker, when did you quit?: 8 YRS - Alcohol/Substance Use Hx Alcohol Use: No History of Substance Use: reports: None - Social History Usual Living Arrangement: Yes: Shelter ADL: Support Services 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 History of Recent Travel: No Home Medications - Allergies Allergies/Adverse Reactions: Allergies Allergy/AdvReac Type Severity Reaction Status Date / Time No Known Allergies Allergy Verified 11/24/18 16:20 - Home Medications Home Medications: Ambulatory Orders Allopurinol [Zyloprim -] 100 mg PO DAILY 09/08/14 Amlodipine Besylate [Norvasc -] 10 mg PO DAILY 09/08/14 Losartan Potassium 50 mg PO DAILY 09/08/14 Donepezil HCl [Aricept -] 5 mg PO DAILY tablet 11/02/18 Dutasteride [Avodart] 0.5 mg PO DAILY cap 11/02/18 Olanzapine [Zyprexa -] 10 mg PO BID tablet 11/02/18 Polyethylene Glycol 3350 [Miralax 119 gm Btl -] 17 gm PO BID bottle 11/02/18 Tamsulosin HCl [Flomax -] 0.4 mg PO DAILY@0830 cap.er.24h 11/02/18 Divalproex Sprinkle [Depakote Sprinkle -] 125 mg PO BID cap.sprink 11/09/18 Acetaminophen [Tylenol .Regular Strength -] 325 mg PO Q6H PRN 11/14/18 Cholecalciferol (Vitamin D3) [D3-50] 50,000 unit PO WEEKLY 11/14/18 Family Medical History Family History: Unable to Obtain Review of Systems Unable to obtain ROS, reason: Dementia Physical Examination Vital Signs: Vital Signs Temperature 97.3 F L 01/22/19 14:41 Pulse Rate 81 01/22/19 14:41 Respiratory Rate 16 01/22/19 14:41 Blood Pressure 106/66 01/22/19 14:41 O2 Sat by Pulse Oximetry (%) 96 01/22/19 14:41 Constitutional: Yes: No Distress, Calm Eyes: Yes: WNL, Conjunctiva Clear, EOM Intact, PERRL HENT: Yes: WNL, Atraumatic, Normocephalic Neck: Yes: WNL, Supple Cardiovascular: Yes: Regular Rate and Rhythm, S1, S2 Respiratory: Yes: WNL, Regular, CTA Bilaterally Gastrointestinal: Yes: Normal Bowel Sounds, Soft ...Rectal Exam: Yes: Deferred Renal/: Yes: Incontinence Breast(s): Yes: WNL Musculoskeletal: Yes: WNL Extremities: Yes: WNL Edema: Yes Edema: LLE: 1+, RLE: 1+ Peripheral Pulses WNL: Yes Neurological: Yes: Alert, Confusion, Cran Nerves II-XII Intact ...Motor Strength: WNL Psychiatric: Yes: Alert Labs: CBC, BMP 01/22/19 18:48 01/22/19 18:48 Laboratory Results - last 24 hr 01/22/19 01/22/19 01/22/19 18:48 18:48 18:48 WBC 7.1 RBC 4.37 Hgb 12.4 Hct 37.4 MCV 85.6 MCH 28.4 MCHC 33.2 RDW 14.0 Plt Count 307 D MPV 7.3 L D Absolute Neuts (auto) 2.8 Neutrophils % 39.9 L D Neutrophils % (Manual) 38.0 L Lymphocytes % 26.6 D Lymphocytes % (Manual) 26.0 Monocytes % 8.6 Monocytes % (Manual) 13 H Eosinophils % 24.2 H* D Eosinophils % (Manual) 23.0 H Basophils % 0.7 Nucleated RBC % 0 Platelet Estimate Adequate PT with INR 11.10 INR 0.94 PTT (Actin FS) 36.5 Sodium Potassium Chloride Carbon Dioxide Anion Gap BUN Creatinine Est GFR (CKD-EPI)AfAm Est GFR (CKD-EPI)NonAf Random Glucose Calcium Phosphorus Magnesium Total Bilirubin AST ALT Alkaline Phosphatase Creatine Kinase 126 Troponin I < 0.02 Total Protein Albumin 01/22/19 18:48 WBC RBC Hgb Hct MCV MCH MCHC RDW Plt Count MPV Absolute Neuts (auto) Neutrophils % Neutrophils % (Manual) Lymphocytes % Lymphocytes % (Manual) Monocytes % Monocytes % (Manual) Eosinophils % Eosinophils % (Manual) Basophils % Nucleated RBC % Platelet Estimate PT with INR INR PTT (Actin FS) Sodium 132 L Potassium 4.3 Chloride 99 Carbon Dioxide 29 Anion Gap 4 L BUN 23.7 H Creatinine 0.7 Est GFR (CKD-EPI)AfAm 101.86 Est GFR (CKD-EPI)NonAf 87.88 Random Glucose 105 Calcium 9.1 Phosphorus 4.6 Magnesium 2.3 Total Bilirubin 0.3 AST 12 L ALT 8 L Alkaline Phosphatase 64 Creatine Kinase Troponin I Total Protein 6.3 L Albumin 3.6 Imaging - Results Chest X-ray: Image Reviewed Cat Scan: Report Reviewed, Image Reviewed EKG: Image Reviewed Problem List - Problems (1) Syncope Assessment/Plan: Likely secondary to arrhythmia Continue cardiac monitoring' Serial Enzymes negx1 will trend Appreciate Cardiology consult Echo check wall function Carotid Doppler r/o stenosis Chest Xray image reviewed EKG- NSR with no ST or TWI changes Monitor CBC, BMP Code(s): R55 - SYNCOPE AND COLLAPSE (2) Fall Assessment/Plan: r/o Arrhythmia vs Dementia Head CT- neg acute intracranial pathology C-Spine CT- no acute fx Frequent Fall fx Fall precautions Code(s): W19.XXXA - UNSPECIFIED FALL, INITIAL ENCOUNTER (3) Frequent falls Assessment/Plan: See above Code(s): R29.6 - REPEATED FALLS (4) Complicated UTI (urinary tract infection) Assessment/Plan: UA- +3 leukocyte esterase, 220 wbc, 5373 bacteria Urine Culture-pending hx enterobacter cloqcae, proteus mirabela Currently patient is afebrile, no leukocytosis, +eosinophilia > [id number] Appreciate ID consult Will hold off on ABX and defer to ID Code(s): N39.0 - URINARY TRACT INFECTION, SITE NOT SPECIFIED (5) Eosinophilia Assessment/Plan: r/o Infectious vs Inflammatory vs Malignancy Monitor CBC Monitor vitals Consider Hematology consult for further workup Code(s): D72.1 - EOSINOPHILIA (6) Hypertension Assessment/Plan: Stable Monitor BP Continue Norvasc Monitor renal function Code(s): I10 - ESSENTIAL (PRIMARY) HYPERTENSION (7) CVA, old, dysphagia Assessment/Plan: Head CT report- no evidence of acute intracranial pathology Dysphagia Precautions Code(s): I69.391 - DYSPHAGIA FOLLOWING CEREBRAL INFARCTION (8) Dementia Assessment/Plan: stable Continue supportive services Continue Aricept Fall Precautions Code(s): F03.90 - UNSPECIFIED DEMENTIA WITHOUT BEHAVIORAL DISTURBANCE Qualifiers: Dementia type: unspecified type Dementia behavioral disturbance: with behavioral disturbance Qualified Code(s): F03.91 - Unspecified dementia with behavioral disturbance (9) Gout Assessment/Plan: Stable Continue Allopurinol Code(s): M10.9 - GOUT, UNSPECIFIED Assessment/Plan This is a 83 y/o man with a PMhx of Alzheimer's, Dementia, Psychotic Disorder w / Delusions, HTN, CVA, Dysphagia, BPH, Gout. Placed in Telemetry for Syncope, Unwitnessed Fall, Complicated UTI for further evaluation of their emergent condition. Plan: See Problem List FEN Replete lytes prn Mechanical Soft, Low Na, Thin Liquids DVT ppx OOB SCDs Heparin SQ Code Status: Full Code, HCP- Denys Madrigal (daughter, ) Dispo: Observation Visit type - Emergency Visit Emergency Visit: Yes ED Registration Date: 01/22/19 Care time: The patient presented to the Emergency Department on the above date and was hospitalized for further evaluation of their emergent condition. - New Patient This patient is new to me today: Yes Date on this admission: 01/22/19 - Critical Care Critical Care patient: No
[2019-01-22] MEDS ORDERED: ACETAMINOPHEN 325 MG TABLET (FP) PO PRN (23:16)
[2019-01-23 01:46] LABS: EPI CELLS 0.4 /HPF (0-5/HPF); HYALINE CASTS 6 /lpf (0-8); PH,URINE 7.5 (5.0-8.0); URINE APPEARANCE CLOUDY; URINE BACTERIA 5373.7 /hpf (NEGATIVE); URINE BILIRUBIN NEGATIVE (NEGATIVE); URINE COLOR YELLOW; URINE GLUCOSE (UA) NEGATIVE (NEGATIVE); URINE KETONE NEGATIVE (NEGATIVE); URINE LEUK ESTERASE 3+ (NEGATIVE); URINE NITRITE NEGATIVE (NEGATIVE); URINE PROTEIN NEGATIVE (NEGATIVE); URINE RBC 3 /hpf (0-4); URINE UROBILINOGEN 0.2 mg/dL (0.2-1.0); URINE WBC 220 /hpf (0-5)
[2019-01-23] MEDS: VALPROATE SODIUM 250 MG/5 ML UNIT DOSE CUP PO SCH ×3 (07:11→21:47)
[2019-01-23 07:12] LABS: BASO % 0.6 % (0-2.0); EOS % 24.6 % (0-4.5); HEMATOCRIT 36.7 % (35.4-49); HEMOGLOBIN 12.6 GM/dL (11.7-16.9); LYMPH % 22.8 % (8-40); MCH 28.9 pg (25.7-33.7); MCHC 34.3 g/dl (32.0-35.9); MEAN CELL VOLUME 84.1 fl (80-96); MEAN PLT VOLUME 7.1 fl (7.5-11.1); MONO % 9.6 % (3.8-10.2); NEUT % 42.4 % (42.8-82.8); PLATELET COUNT 297 K/MM3 (134-434); RBC 4.36 M/mm3 (4.00-5.60); RDW 13.7 % (11.9-15.9); WHITE BLOOD COUNT 5.8 K/mm3 (4.0-10.0)
[2019-01-23 07:29] LABS: ANION GAP 5 MMOL/L (8-16); BLOOD UREA NITROGEN 15.8 mg/dL (7-18); CALCIUM 8.9 mg/dL (8.5-10.1); CHLORIDE 102 mmol/L (98-107); CO2 28 mmol/L (21-32); CREATININE 0.6 mg/dL (0.55-1.3); GLUCOSE,RANDOM 83 mg/dL (74-106); MAGNESIUM 2.2 mg/dL (1.8-2.4); PHOSPHOROUS 3.9 mg/dL (2.5-4.9); POTASSIUM 3.8 mmol/L (3.5-5.1); SODIUM 134 mmol/L (136-145)
--- NOTE | 2019-01-23 07:35 | CON.CARD ---
Consult Consult Specialty:: Cardiology Referred by:: Neftaly Dobbins Reason for Consultation:: Fall - History of Present Illness Chief Complaint: Patient cannot give history History of Present Illness: 83 year old male with a pmhx of alzheimer's, psych history, htn, cva, dysphagia , bph, and gout sent from [facility] after a fall. Patient is aware he is in the hospital but cannot give his medical history and cannot give history of event. As per chart, patient is normally uses a wheelchair due to unsteady gait and fell from standing position. No LOC. Patient cannot tell you he passed out or had any chest pain or palpitations. 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, CVA, Dementia Cardio/Vascular: Yes: HTN Gastrointestinal: Yes: Diverticulitis (diagnoses at [facility] 09/06/14 ) Renal/: Yes: Neurogenic Bladder, UTI Rheumatology: Yes: Gout - Past Surgical History Past Surgical History: Yes: Cataract Removal (pt is not sure of the type of his recent eye surgery), TURP - Alcohol/Substance Use Hx Alcohol Use: No History of Substance Use: reports: None - Smoking History Smoking history: Unknown if ever smoked Have you smoked in the past 12 months: No If you are a former smoker, when did you quit?: 8 YRS - Social History Usual Living Arrangement: Correction ADL: Support Services 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 [employer] History of Recent Travel: No Home Medications - Allergies Allergies/Adverse Reactions: Allergies Allergy/AdvReac Type Severity Reaction Status Date / Time No Known Allergies Allergy Verified 11/24/18 16:20 - Home Medications Home Medications: Ambulatory Orders Allopurinol [Zyloprim -] 100 mg PO DAILY 09/08/14 Amlodipine Besylate [Norvasc -] 10 mg PO DAILY 09/08/14 Losartan Potassium 50 mg PO DAILY 09/08/14 Donepezil HCl [Aricept -] 5 mg PO DAILY tablet 11/02/18 Dutasteride [Avodart] 0.5 mg PO DAILY cap 11/02/18 Olanzapine [Zyprexa -] 10 mg PO BID tablet 11/02/18 Polyethylene Glycol 3350 [Miralax 119 gm Btl -] 17 gm PO BID bottle 11/02/18 Tamsulosin HCl [Flomax -] 0.4 mg PO DAILY@0830 cap.er.24h 11/02/18 Divalproex Sprinkle [Depakote Sprinkle -] 125 mg PO BID cap.sprink 11/09/18 Acetaminophen [Tylenol .Regular Strength -] 325 mg PO Q6H PRN 11/14/18 Cholecalciferol (Vitamin D3) [D3-50] 50,000 unit PO WEEKLY 11/14/18 Vital Signs: Vital Signs Temperature 97.6 F 01/23/19 06:00 Pulse Rate 70 01/23/19 06:00 Respiratory Rate 18 01/23/19 06:00 Blood Pressure 113/75 01/23/19 06:00 O2 Sat by Pulse Oximetry (%) 95 01/22/19 22:20 Constitutional: Yes: No Distress Neck: Yes: Supple Respiratory: Yes: CTA Bilaterally Gastrointestinal: Yes: Soft Cardiovascular: Yes: Regular Rate and Rhythm JVD: No Carotid Bruit: No PMI: Non-Displaced Heart Sounds: Yes: S1, S2 Murmur: No: Systolic Murmur Edema: No - Other Data Labs, Other Data: CBC, BMP 01/23/19 06:35 INR, PTT INR 0.94 (0.83-1.09) 01/22/19 18:48 Troponin, BNP 01/22/19 01/23/19 18:48 00:26 Troponin I < 0.02 < 0.02 Troponin, BNP 01/22/19 01/23/19 18:48 00:26 Troponin I < 0.02 < 0.02 Imaging - Results Chest X-ray: Report Reviewed Assessment/Plan 83 year old male with a pmhx of alzheimer's, psych history, htn, cva, dysphagia , bph, and gout sent from [facility] after a fall. Patient is aware he is in the hospital but cannot give his medical history and cannot give history of event. As per chart, patient is normally uses a wheelchair due to unsteady gait and fell from standing position. No LOC. Patient cannot tell you he passed out or had any chest pain or palpitations. (1) Head CT- no evidence of acute intracranial pathology (2) C-Spine CT- moderate degenerative arthritis with no fracture or acute pathology 1) Fall -Sounds like a fall in patient with unsteady gait. Tele so far sinus with rare pac. Patient with dementia and cannot give medical history or any history of event. -Patient combative with holter monitor and continues to take it off. No ekg in the chart would get a 12 lead ekg and if no significant changes than no further cardiac work up. No significant murmurs on exam. No chf on exam. Would recommend not over treating his blood pressure. Med list on valsartan and amlodipine but bp here is on low side. Would check orthostatics and start with just amlodipine and adjust regimen as needed. -CE's negative +leukocytes in urine treat as per primary team. Will sign off from cardiac perspective. Please call back if needed.
[2019-01-23 09:08] LABS: PLATELET ESTIMATE NORMAL
--- NOTE | 2019-01-23 10:24 | PN ---
Progress Note, Physician Chief Complaint: Fall Syncope Dementia History of Present Illness: Previous notes and events reviewed patient sleeping but arousable to verbal and tactile stimuli NAD denies complaints of pain - Current Medication List Current Medications: Active Medications Acetaminophen (Tylenol -) 650 mg PO Q6H PRN PRN Reason: PAIN LEVEL 6-10 Allopurinol (Zyloprim -) 100 mg PO DAILY [facility] Amlodipine Besylate (Norvasc -) 10 mg PO DAILY [facility] Donepezil HCl (Aricept -) 5 mg PO DAILY [facility] Dutasteride (Avodart -) 0.5 mg PO DAILY [facility] Olanzapine (Zyprexa -) 10 mg PO DAILY [facility] Tamsulosin HCl (Flomax -) 0.4 mg PO DAILY@0830 [facility] Valproate Sodium (Depakene -) 250 mg PO TID [facility] Last Admin: 01/23/19 07:11 Dose: 250 mg - Objective Vital Signs: Vital Signs Temperature 97.6 F 01/23/19 06:00 Pulse Rate 70 01/23/19 06:00 Respiratory Rate 18 01/23/19 06:00 Blood Pressure 113/75 01/23/19 06:00 O2 Sat by Pulse Oximetry (%) 95 01/22/19 22:20 Constitutional: Yes: No Distress, Calm Eyes: Yes: Conjunctiva Clear HENT: Yes: Atraumatic Neck: Yes: Other (no tenderness) Cardiovascular: Yes: Regular Rate and Rhythm Respiratory: Yes: Regular, CTA Bilaterally Gastrointestinal: Yes: Normal Bowel Sounds, Soft Genitourinary: Yes: Incontinence Musculoskeletal: Yes: Muscle Weakness Extremities: Yes: WNL Edema: No Neurological: Yes: Alert, Confusion (to self only) Psychiatric: Yes: Alert Labs: CBC, BMP 01/23/19 06:35 01/23/19 06:35 INR, PTT INR 0.94 (0.83-1.09) 01/22/19 18:48 - ....Imaging X-ray: Report Reviewed Cat Scan: Report Reviewed Problem List - Problems (1) Fall Assessment/Plan: -Fall precaution -PT -Head CT scan shows no evidence of acute intracranial pathology -Cervical Spine CT scan shows moderate degenerative arthritis with no fracture or acute pathology Code(s): W19.XXXA - UNSPECIFIED FALL, INITIAL ENCOUNTER (2) Syncope Assessment/Plan: -Cardiology consult -Tele monitoring -Echocardiogram -Carotid US -Neuro checks -trop neg x 3 Code(s): R55 - SYNCOPE AND COLLAPSE (3) Dementia Assessment/Plan: -Aricept Code(s): F03.90 - UNSPECIFIED DEMENTIA WITHOUT BEHAVIORAL DISTURBANCE Qualifiers: Dementia type: unspecified type Dementia behavioral disturbance: with behavioral disturbance Qualified Code(s): F03.91 - Unspecified dementia with behavioral disturbance (4) Hypertension Assessment/Plan: -Amlodipine Code(s): I10 - ESSENTIAL (PRIMARY) HYPERTENSION (5) Urinary retention Assessment/Plan: -Avodart, Tamsulosin Code(s): R33.9 - RETENTION OF URINE, UNSPECIFIED Assessment/Plan see problem list SCDs
[2019-01-23] MEDS: DONEPEZIL HCL 5 MG TABLET (FP) PO SCH (11:23)
[2019-01-23] MEDS: amLODIPine BESYLATE 10 MG TABLET (FP) PO SCH (11:23)
[2019-01-23] MEDS: TAMSULOSIN HCL 0.4 MG CAP PO SCH (11:23)
[2019-01-23] MEDS: DUTASTERIDE 0.5 MG CAP (FP) PO SCH (11:23)
[2019-01-23] MEDS: ALLOPURINOL 100 MG TABLET (FP) PO SCH (11:23)
[2019-01-23] MEDS: OLANZapine 10 MG TABLET PO SCH (11:24)
--- NOTE | 2019-01-23 13:40 | EKG ---
Test Reason : Blood Pressure : / mmHG Vent. Rate : 066 BPM Atrial Rate : 066 BPM P-R Int : 170 ms QRS Dur : 098 ms QT Int : 410 ms P-R-T Axes : 050 042 050 degrees QTc Int : 429 ms NORMAL SINUS RHYTHM NORMAL ECG WHEN COMPARED WITH ECG OF 27-NOV-2018 13:25, NO SIGNIFICANT CHANGE WAS FOUND Confirmed by MD Bolanos Edward ([id number]) on 01/23/2019 1:40:00 PM Referred By: Confirmed By:Maco Bolanos MD
[2019-01-23] MEDS ORDERED: PT OWN MED DRAWER 7, Y5N ONE ×2 (15:12→21:42)
[2019-01-23] MEDS ORDERED: LORazepam 2 MG/ML SDV VIAL IVPUSH ONE (22:54)
[2019-01-24] MEDS ORDERED: PT OWN MED DRAWER 7, Y5N ONE ×4 (04:50→21:41)
[2019-01-24] MEDS: VALPROATE SODIUM 250 MG/5 ML UNIT DOSE CUP PO SCH ×3 (06:29→21:45)
[2019-01-24 07:19] LABS: HEMATOCRIT 38.7 % (35.4-49); HEMOGLOBIN 13.3 GM/dL (11.7-16.9); MCH 28.7 pg (25.7-33.7); MCHC 34.4 g/dl (32.0-35.9); MEAN CELL VOLUME 83.5 fl (80-96); MEAN PLT VOLUME 7.1 fl (7.5-11.1); PLATELET COUNT 292 K/MM3 (134-434); RBC 4.64 M/mm3 (4.00-5.60); RDW 14.2 % (11.9-15.9); WHITE BLOOD COUNT 6.8 K/mm3 (4.0-10.0)
[2019-01-24 07:43] LABS: ALBUMIN 3.6 g/dl (3.4-5.0); BILIRUBIN,TOTAL 0.8 mg/dL (0.2-1); BLOOD UREA NITROGEN 17.1 mg/dL (7-18); CALCIUM 8.9 mg/dL (8.5-10.1); CREATININE 0.6 mg/dL (0.55-1.3); POTASSIUM 4.1 mmol/L (3.5-5.1); TOT PROT 6.8 g/dl (6.4-8.2)
[2019-01-24] MEDS: TAMSULOSIN HCL 0.4 MG CAP PO SCH (11:52)
[2019-01-24] MEDS: amLODIPine BESYLATE 10 MG TABLET (FP) PO SCH (11:52)
[2019-01-24] MEDS: ALLOPURINOL 100 MG TABLET (FP) PO SCH (11:52)
[2019-01-24] MEDS: DUTASTERIDE 0.5 MG CAP (FP) PO SCH (11:52)
[2019-01-24] MEDS: OLANZapine 10 MG TABLET PO SCH (11:53)
[2019-01-24] MEDS: DONEPEZIL HCL 5 MG TABLET (FP) PO SCH (12:01)
[2019-01-24 12:25] VITALS: BMI 23.0
--- NOTE | 2019-01-24 12:29 | ECHO ---
Name: MOOKIE LAND Exam:Adult Echocardiogram Study Date: 01/24/2019 09:37 AM Age: 83 yrs Reason For Study: SYNCOPE Height: 71 in Weight: 167 lb BSA: 2.0 m2 MMode/2D Measurements & Calculations IVSd: 0.96 cm Ao root diam: 3.8 cm LVIDd: 3.4 cm LA dimension: 3.0 cm LVIDs: 2.3 cm LVPWd: 1.1 cm LVPWs: 0.92 cm EDV(Teich): 46.6 ml ESV(Teich): 17.5 ml LVOT diam: 3.0 cm RV S Binu: 11.1 cm/sec Doppler Measurements & Calculations MV E max binu: 64.0 cm/sec Ao V2 max: 119.9 cm/sec MV A max binu: 77.1 cm/sec Ao max P.8 mmHg MV E/A: 0.83 MV dec time: 0.26 sec JUNIOR(V,D): 4.8 cm2 LV V1 max P.5 mmHg Med Peak E' Binu: 6.2 cm/sec LV V1 max: 79.5 cm/sec Med E/e': 10.3 Lat Peak E' Binu: 7.8 cm/sec Lat E/e': 8.2 Procedure A complete two-dimensional transthoracic echocardiogram was performed (2D, M-mode, Doppler and color flow Doppler). Technically limited study. Left Ventricle The left ventricle is normal in size. Left ventricular systolic function is normal. Ejection Fraction = 65- 70%. Grade I diastolic dysfunction, (abnormal relaxation pattern). Ratio E/E'= 10. No regional wall m otion abnormalities noted. Right Ventricle The right ventricle is normal size. The right ventricular systolic function is normal. RV systolic TD I is 11 cm/s. Atria The left atrial size is normal. Right atrial size is normal. Mitral Valve The mitral valve is normal in structure and function. There is no mitral regurgitation noted. Tricuspid Valve The tricuspid valve is normal in structure and function. No tricuspid regurgitation. Aortic Valve There is mild aortic sclerosis.;. No aortic regurgitation is present. Pulmonic Valve The pulmonic valve is not well visualized. Great Vessels Mild aortic root dilatation. Pericardium/Pleura There is no pericardial effusion. Interpretation Summary Technically limited study The left ventricle is normal in size. Left ventricular systolic function is normal. No regional wall motion abnormalities noted. Ejection Fraction = 65-70%. Grade I diastolic dysfunction, (abnormal relaxation pattern). Ratio E/E'= 10 The right ventricular systolic function is normal. The left atrial size is normal. Right atrial size is normal. There is mild aortic sclerosis. Mild aortic root dilatation. No significant valvular regurgitations are seen There is no pericardial effusion. Travis Dowd MD 01/24/2019 12:28 PM
--- NOTE | 2019-01-24 13:37 | PN ---
Progress Note, Physician Chief Complaint: patient seen and examined admitted for fall agitated wanting to get out of bed earlier today- bed raillings elevated - Current Medication List Current Medications: Active Medications Acetaminophen (Tylenol -) 650 mg PO Q6H PRN PRN Reason: PAIN LEVEL 6-10 Allopurinol (Zyloprim -) 100 mg PO DAILY [facility] Last Admin: 01/24/19 11:52 Dose: 100 mg Amlodipine Besylate (Norvasc -) 10 mg PO DAILY [facility] Last Admin: 01/24/19 11:52 Dose: 10 mg Donepezil HCl (Aricept -) 5 mg PO DAILY [facility] Last Admin: 01/24/19 12:01 Dose: 5 mg Dutasteride (Avodart -) 0.5 mg PO DAILY [facility] Last Admin: 01/24/19 11:52 Dose: 0.5 mg Olanzapine (Zyprexa -) 10 mg PO DAILY [facility] Last Admin: 01/24/19 11:53 Dose: 10 mg Tamsulosin HCl (Flomax -) 0.4 mg PO DAILY@0830 [facility] Last Admin: 01/24/19 11:52 Dose: 0.4 mg Valproate Sodium (Depakene -) 250 mg PO TID [facility] Last Admin: 01/24/19 06:29 Dose: 250 mg - Objective Vital Signs: Vital Signs Temperature 98.2 F 01/24/19 09:44 Pulse Rate 78 01/24/19 09:44 Respiratory Rate 20 01/24/19 09:44 Blood Pressure 111/62 01/24/19 09:44 O2 Sat by Pulse Oximetry (%) 94 L 01/23/19 21:00 Constitutional: Yes: Calm Cardiovascular: Yes: Regular Rate and Rhythm, S1, S2, Other Respiratory: Yes: CTA Bilaterally Gastrointestinal: Yes: Normal Bowel Sounds, Soft Labs: CBC, BMP 01/24/19 06:54 01/24/19 06:54 INR, PTT INR 0.94 (0.83-1.09) 01/22/19 18:48 Problem List - Problems (1) Fall Assessment/Plan: PT eval Ct head no infarct, carotid doppler no significant stenosis echo shows normal left ventricle function UA positinve urine cultue prelim lactose fermenting beg bacilli rocpehin iv Code(s): W19.XXXA - UNSPECIFIED FALL, INITIAL ENCOUNTER (2) Dementia Assessment/Plan: zyprexa and aricept Code(s): F03.90 - UNSPECIFIED DEMENTIA WITHOUT BEHAVIORAL DISTURBANCE Qualifiers: Dementia type: unspecified type Dementia behavioral disturbance: with behavioral disturbance Qualified Code(s): F03.91 - Unspecified dementia with behavioral disturbance
[2019-01-24] MEDS ORDERED: CEFTRIAXONE 1 GM in DEXTROSE 5%-WATER - 50 ML IVPB SCH (13:45)
[2019-01-24] MEDS ORDERED: DEXTROSE 5%-WATER - 50 ML IVPB ONE (14:12)
[2019-01-24] MEDS ORDERED: cefTRIAXone SODIUM 1 GM VIAL ONE (14:12)
--- NOTE | 2019-01-24 21:45 | PN ---
Progress Note (short form) - Note Progress Note: ID CONSULT DICTATED UTI R/O SEPSIS SECONDARY TO UTI TOXIC METABOLIC ENCEPHALOPATHY AWAIT C/S CONTINUE EMPIRIC [id number]
[2019-01-25] MEDS ORDERED: PT OWN MED DRAWER 7, Y5N ONE ×4 (06:45→22:05)
[2019-01-25] MEDS: VALPROATE SODIUM 250 MG/5 ML UNIT DOSE CUP PO SCH ×3 (07:26→22:25)
[2019-01-25] MEDS ORDERED: CEFTRIAXONE 2 GM in DEXTROSE 5%-WATER 100 ML IVPB SCH (10:00)
[2019-01-25] MEDS ORDERED: DEXTROSE 5%-WATER 100 ML IVPB ONE (10:21)
[2019-01-25] MEDS: OLANZapine 10 MG TABLET PO SCH (11:00)
[2019-01-25] MEDS: TAMSULOSIN HCL 0.4 MG CAP PO SCH (11:00)
[2019-01-25] MEDS: DONEPEZIL HCL 5 MG TABLET (FP) PO SCH (11:00)
[2019-01-25] MEDS: amLODIPine BESYLATE 10 MG TABLET (FP) PO SCH (11:00)
[2019-01-25] MEDS: ALLOPURINOL 100 MG TABLET (FP) PO SCH (11:00)
[2019-01-25] MEDS: DUTASTERIDE 0.5 MG CAP (FP) PO SCH (11:00)
[2019-01-25 11:09] LABS: BLOOD UREA NITROGEN 17.2 mg/dL (7-18); CALCIUM 9.2 mg/dL (8.5-10.1); CREATININE 0.7 mg/dL (0.55-1.3); POTASSIUM 4.3 mmol/L (3.5-5.1)
--- NOTE | 2019-01-25 13:07 | DS ---
Physical Examination Vital Signs: Vital Signs Temperature 98.8 F 01/25/19 10:00 Pulse Rate 76 01/25/19 10:00 Respiratory Rate 20 01/25/19 10:00 Blood Pressure 135/99 01/25/19 10:00 O2 Sat by Pulse Oximetry (%) 96 01/25/19 09:00 Cardiovascular: Yes: S1, S2 Respiratory: Yes: Regular, CTA Bilaterally Gastrointestinal: Yes: Normal Bowel Sounds, Soft Edema: No Labs: CBC, BMP 01/24/19 06:54 01/25/19 07:52 Discharge Summary Problems reviewed: Yes Reason For Visit: SYNCOPE Current Active Problems CVA, old, dysphagia (Acute) Eosinophilia (Acute) Fall (Acute) Syncope (Acute) Hospital Course: - Problems (1) Fall Assessment/Plan: -Fall precaution -PT -Head CT scan shows no evidence of acute intracranial pathology -Cervical Spine CT scan shows moderate degenerative arthritis with no fracture or acute pathology Code(s): W19.XXXA - UNSPECIFIED FALL, INITIAL ENCOUNTER (2) Syncope Assessment/Plan: -Cardiology consult noted -Tele monitoring -Echocardiogram -Carotid US -Neuro checks -trop neg x 3 Code(s): R55 - SYNCOPE AND COLLAPSE (3) Dementia Assessment/Plan: -Aricept Code(s): F03.90 - UNSPECIFIED DEMENTIA WITHOUT BEHAVIORAL DISTURBANCE Qualifiers: Dementia type: unspecified type Dementia behavioral disturbance: with behavioral disturbance Qualified Code(s): F03.91 - Unspecified dementia with behavioral disturbance (4) Hypertension Assessment/Plan: -Amlodipine Code(s): I10 - ESSENTIAL (PRIMARY) HYPERTENSION (5) Urinary retention--UTI Assessment/Plan: -Avodart, Tamsulosin -abx---dc rocephin--rash--levaquin (6) Hyponatremia Assessment/Plan: -maybe med induced -Renal consult DC ONCE CLEARED BY RENAL Condition: Stable - Instructions Referrals: Marybeth Benavides MD [Primary Care Provider] - [facility]position[facility] - Home Medications Comprehensive Discharge Medication List: Ambulatory Orders Allopurinol [Zyloprim -] 100 mg PO DAILY 09/08/14 Amlodipine Besylate [Norvasc -] 10 mg PO DAILY 09/08/14 Losartan Potassium 50 mg PO DAILY 09/08/14 Donepezil HCl [Aricept -] 5 mg PO DAILY tablet 11/02/18 Dutasteride [Avodart] 0.5 mg PO DAILY cap 11/02/18 Olanzapine [Zyprexa -] 10 mg PO BID tablet 11/02/18 Polyethylene Glycol 3350 [Miralax 119 gm Btl -] 17 gm PO BID bottle 11/02/18 Tamsulosin HCl [Flomax -] 0.4 mg PO DAILY@0830 cap.er.24h 11/02/18 Divalproex Sprinkle [Depakote Sprinkle -] 125 mg PO BID cap.sprink 11/09/18 Acetaminophen [Tylenol .Regular Strength -] 325 mg PO Q6H PRN 11/14/18 Cholecalciferol (Vitamin D3) [D3-50] 50,000 unit PO WEEKLY 11/14/18 Ceftriaxone [Rocephin -] 1 gm IVPB DAILY vial 01/25/19
--- NOTE | 2019-01-25 14:30 | CONSULT ---
Consult Consult Specialty:: Nephrology Reason for Consultation:: hyponatremia - History of Present Illness Chief Complaint: s/p fall History of Present Illness: Pt is an 83 year old male with pmhx of alzheimers dementia, hyponatremia, delusion, htn, cva, bph, and gout who was sent in after a fall. He is lethargic and unable to give history. He is known to me from previous admissions. He is normals alert but confused. His sodium has been dropping. He in bed in restraints. 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: Yes: Alzheimer's, CVA, Dementia Cardio/Vascular: Yes: HTN Gastrointestinal: Yes: Diverticulitis (diagnoses at [facility] 09/06/14 ) Renal/: Yes: Neurogenic Bladder, UTI Rheumatology: Yes: Gout - Past Surgical History Past Surgical History: Yes: Cataract Removal (pt is not sure of the type of his recent eye surgery), TURP - Alcohol/Substance Use Hx Alcohol Use: No History of Substance Use: reports: None - Smoking History Smoking history: Unknown if ever smoked Have you smoked in the past 12 months: No If you are a former smoker, when did you quit?: 8 YRS - Social History Usual Living Arrangement: Long-Term ADL: Support Services 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 History of Recent Travel: No Home Medications - Allergies Allergies/Adverse Reactions: Allergies Allergy/AdvReac Type Severity Reaction Status Date / Time No Known Allergies Allergy Verified 11/24/18 16:20 - Home Medications Home Medications: Ambulatory Orders Allopurinol [Zyloprim -] 100 mg PO DAILY 09/08/14 Amlodipine Besylate [Norvasc -] 10 mg PO DAILY 09/08/14 Losartan Potassium 50 mg PO DAILY 09/08/14 Donepezil HCl [Aricept -] 5 mg PO DAILY tablet 11/02/18 Dutasteride [Avodart] 0.5 mg PO DAILY cap 11/02/18 Olanzapine [Zyprexa -] 10 mg PO BID tablet 11/02/18 Polyethylene Glycol 3350 [Miralax 119 gm Btl -] 17 gm PO BID bottle 11/02/18 Tamsulosin HCl [Flomax -] 0.4 mg PO DAILY@0830 cap.er.24h 11/02/18 Divalproex Sprinkle [Depakote Sprinkle -] 125 mg PO BID cap.sprink 11/09/18 Acetaminophen [Tylenol .Regular Strength -] 325 mg PO Q6H PRN 11/14/18 Cholecalciferol (Vitamin D3) [D3-50] 50,000 unit PO WEEKLY 11/14/18 Ceftriaxone [Rocephin -] 1 gm IVPB DAILY vial 01/25/19 Family Medical History Family History: Unable to Obtain Review of Systems Unable to obtain ROS, reason: lethargy Physical Exam Vital Signs: Vital Signs Temperature 97.5 F L 01/25/19 13:57 Pulse Rate 75 01/25/19 13:57 Respiratory Rate 20 01/25/19 13:57 Blood Pressure 101/58 L 01/25/19 13:57 O2 Sat by Pulse Oximetry (%) 96 01/25/19 09:00 Constitutional: Yes: Calm Eyes: Yes: Conjunctiva Clear Cardiovascular: Yes: S1, S2 Respiratory: Yes: CTA Bilaterally Gastrointestinal: Yes: Soft Renal/: Yes: Incontinence Musculoskeletal: Yes: Muscle Weakness Edema: LLE: Trace, RLE: Trace Neurological: Yes: Lethargy Labs: CBC, BMP 01/24/19 06:54 01/25/19 07:52 Laboratory Tests 11/24/18 11/24/18 11/25/18 16:41 17:20 07:20 Hgb 11.2 L 11.5 L Sodium Potassium Total Protein (PEP) Albumin/Globulin Ratio Beta Globulins Urine Blood 2+ H Urine Nitrite Positive H Urine Osmolality Ur Random Sodium KATERINA M-Gerald 11/25/18 11/29/18 11/29/18 07:20 07:48 16:00 Hgb Sodium 131 L Potassium 3.9 Total Protein (PEP) 5.9 L Albumin/Globulin Ratio 1.2 Beta Globulins 0.8 Urine Blood Urine Nitrite Urine Osmolality 371 D Ur Random Sodium KATERINA M-Gerald Not observed 11/29/18 01/22/19 01/23/19 16:00 18:48 06:35 Hgb Sodium 132 L 134 L Potassium Total Protein (PEP) Albumin/Globulin Ratio Beta Globulins Urine Blood Urine Nitrite Urine Osmolality Ur Random Sodium 67 KATERINA M-Gerald 01/24/19 01/25/19 06:54 07:52 Hgb Sodium 129 L 128 L Potassium Total Protein (PEP) Albumin/Globulin Ratio Beta Globulins Urine Blood Urine Nitrite Urine Osmolality Ur Random Sodium KATERINA M-Gerald Imaging - Results Cat Scan: Report Reviewed Problem List - Problems (1) Hyponatremia Code(s): E87.1 - HYPO-OSMOLALITY AND HYPONATREMIA Assessment/Plan Current Medications Generic Name Dose Route Start Last Admin Trade Name Freq PRN Reason Stop Dose Admin Acetaminophen 650 mg 01/22/19 23:16 Tylenol - PO Q6H PRN PAIN LEVEL 6-10 Allopurinol 100 mg 01/23/19 10:00 01/25/19 11:00 Zyloprim - PO 100 mg DAILY TOMER Administration Amlodipine Besylate 10 mg 01/23/19 10:00 01/25/19 11:00 Norvasc - PO 10 mg DAILY TOMER Administration Donepezil HCl 5 mg 01/23/19 10:00 01/25/19 11:00 Aricept - PO 5 mg DAILY TOMER Administration Dutasteride 0.5 mg 01/23/19 10:00 01/25/19 11:00 Avodart - PO 0.5 mg DAILY TOMER Administration Levofloxacin 250 mg 01/25/19 13:15 Levaquin - PO DAILY TOMER Olanzapine 10 mg 01/23/19 10:00 01/25/19 11:00 Zyprexa - PO 10 mg DAILY TOMER Administration Tamsulosin HCl 0.4 mg 01/23/19 08:30 01/25/19 11:00 Flomax - PO 0.4 mg DAILY@0830 TOMER Administration Valproate Sodium 250 mg 01/23/19 06:00 01/25/19 07:26 Depakene - PO 250 mg TID TOMER Administration Impression 1. hyponatremia 2. gout 3. htn 4. urinary retention 5. dementia Plan - will give saline as bp is low - repeat labs in am - spep from last admission was negative - pt has history of retention
[2019-01-25] MEDS ORDERED: SODIUM CHLORIDE 1,000 ML IV SCH (19:30)
--- NOTE | 2019-01-25 21:21 | PN ---
Progress Note, Physician History of Present Illness: AWAKE NO COMPLAINTS OFFERED URINE C/S ENTEROBACTER (S) LEVAQUIN NO C/O FEVER/CHILLS - Current Medication List Current Medications: Active Medications Acetaminophen (Tylenol -) 650 mg PO Q6H PRN PRN Reason: PAIN LEVEL 6-10 Allopurinol (Zyloprim -) 100 mg PO DAILY [facility] Last Admin: 01/25/19 11:00 Dose: 100 mg Amlodipine Besylate (Norvasc -) 10 mg PO DAILY [facility] Last Admin: 01/25/19 11:00 Dose: 10 mg Donepezil HCl (Aricept -) 5 mg PO DAILY [facility] Last Admin: 01/25/19 11:00 Dose: 5 mg Dutasteride (Avodart -) 0.5 mg PO DAILY [facility] Last Admin: 01/25/19 11:00 Dose: 0.5 mg Sodium Chloride (Normal Saline -) 1,000 mls @ 50 mls/hr IV ASDIR [facility] Stop: 01/26/19 19:16 Levofloxacin (Levaquin -) 250 mg PO DAILY [facility] Last Admin: 01/25/19 15:28 Dose: 250 mg Olanzapine (Zyprexa -) 10 mg PO DAILY [facility] Last Admin: 01/25/19 11:00 Dose: 10 mg Tamsulosin HCl (Flomax -) 0.4 mg PO DAILY@0830 [facility] Last Admin: 01/25/19 11:00 Dose: 0.4 mg Valproate Sodium (Depakene -) 250 mg PO TID [facility] Last Admin: 01/25/19 15:28 Dose: 250 mg - Objective Vital Signs: Vital Signs Temperature 98.1 F 01/25/19 20:50 Pulse Rate 67 01/25/19 20:50 Respiratory Rate 20 01/25/19 20:50 Blood Pressure 99/63 01/25/19 20:50 O2 Sat by Pulse Oximetry (%) 93 L 01/25/19 20:50 Constitutional: Yes: No Distress Eyes: Yes: Conjunctiva Clear Cardiovascular: Yes: Regular Rate and Rhythm, S1, S2 Respiratory: Yes: Diminished Gastrointestinal: Yes: Normal Bowel Sounds, Soft Labs: CBC, BMP 01/24/19 06:54 01/25/19 07:52 INR, PTT INR 0.94 (0.83-1.09) 01/22/19 18:48 Assessment/Plan ENTEROBACTER UTI TOXIC METABOLIC ENCEPHALOPATHY SUBSTITUTE PO LEVAQIN 250MG PO QD 10D
[2019-01-26 05:13] VITALS: PULSE 78
[2019-01-26] MEDS ORDERED: PT OWN MED DRAWER 7, Y5N ONE (06:04)
[2019-01-26] MEDS: VALPROATE SODIUM 250 MG/5 ML UNIT DOSE CUP PO SCH (06:13)
[2019-01-26 07:17] LABS: ALBUMIN 3.3 g/dl (3.4-5.0); BILIRUBIN,TOTAL 0.4 mg/dL (0.2-1); CALCIUM 8.4 mg/dL (8.5-10.1); CREATININE 0.7 mg/dL (0.55-1.3)
[2019-01-26] MEDS: TAMSULOSIN HCL 0.4 MG CAP PO SCH (09:36)
[2019-01-26] MEDS: DONEPEZIL HCL 5 MG TABLET (FP) PO SCH (09:37)
[2019-01-26] MEDS: OLANZapine 10 MG TABLET PO SCH (09:37)
[2019-01-26] MEDS: DUTASTERIDE 0.5 MG CAP (FP) PO SCH (09:37)
[2019-01-26] MEDS: amLODIPine BESYLATE 10 MG TABLET (FP) PO SCH (09:37)
[2019-01-26] MEDS: ALLOPURINOL 100 MG TABLET (FP) PO SCH (09:37)
--- NOTE | 2019-01-26 09:49 | DS ---
Physical Examination Vital Signs: Vital Signs Temperature 97.6 F 01/26/19 05:00 Pulse Rate 78 01/26/19 05:00 Respiratory Rate 20 01/26/19 05:00 Blood Pressure 103/80 01/26/19 05:00 O2 Sat by Pulse Oximetry (%) 93 L 01/25/19 20:50 Cardiovascular: Yes: Regular Rate and Rhythm Respiratory: Yes: Regular, CTA Bilaterally Gastrointestinal: Yes: Normal Bowel Sounds, Soft Labs: CBC, BMP 01/24/19 06:54 01/26/19 06:05 Discharge Summary Problems reviewed: Yes Reason For Visit: SYNCOPE Current Active Problems CVA, old, dysphagia (Acute) Eosinophilia (Acute) Fall (Acute) Syncope (Acute) Hospital Course: - Problems (1) Fall Assessment/Plan: -Fall precaution -PT -Head CT scan shows no evidence of acute intracranial pathology -Cervical Spine CT scan shows moderate degenerative arthritis with no fracture or acute pathology Code(s): W19.XXXA - UNSPECIFIED FALL, INITIAL ENCOUNTER (2) Syncope Assessment/Plan: -Cardiology consult noted -Tele monitoring -Echocardiogram -Carotid US -Neuro checks -trop neg x 3 Code(s): R55 - SYNCOPE AND COLLAPSE (3) Dementia Assessment/Plan: -Aricept Code(s): F03.90 - UNSPECIFIED DEMENTIA WITHOUT BEHAVIORAL DISTURBANCE Qualifiers: Dementia type: unspecified type Dementia behavioral disturbance: with behavioral disturbance Qualified Code(s): F03.91 - Unspecified dementia with behavioral disturbance (4) Hypertension Assessment/Plan: -Amlodipine Code(s): I10 - ESSENTIAL (PRIMARY) HYPERTENSION (5) Urinary retention--UTI Assessment/Plan: -Avodart, Tamsulosin -abx---dc rocephin--rash--levaquin (6) Hyponatremia Assessment/Plan: -maybe med induced -Renal consult noted -IVF-monitor Labs DC ONCE CLEARED BY RENAL Condition: Stable - Instructions Referrals: Marybeth Benavides MD [Primary Care Provider] - [facility]position[facility] - Home Medications Comprehensive Discharge Medication List: Ambulatory Orders Allopurinol [Zyloprim -] 100 mg PO DAILY 09/08/14 Donepezil HCl [Aricept -] 5 mg PO DAILY tablet 11/02/18 Dutasteride [Avodart] 0.5 mg PO DAILY cap 11/02/18 Olanzapine [Zyprexa -] 10 mg PO BID tablet 11/02/18 Polyethylene Glycol 3350 [Miralax 119 gm Btl -] 17 gm PO BID bottle 11/02/18 Tamsulosin HCl [Flomax -] 0.4 mg PO DAILY@0830 cap.er.24h 11/02/18 Divalproex Sprinkle [Depakote Sprinkle -] 125 mg PO BID cap.sprink 11/09/18 Acetaminophen [Tylenol .Regular Strength -] 325 mg PO Q6H PRN 11/14/18 Cholecalciferol (Vitamin D3) [D3-50] 50,000 unit PO WEEKLY 11/14/18 levoFLOXacin [Levaquin -] 250 mg PO DAILY tablet 01/26/19
--- NOTE | 2019-01-26 11:01 | PN ---
Progress Note, Physician History of Present Illness: Pt seen and examined at bedside. He is more awake and interactive today. - Current Medication List Current Medications: Active Medications Acetaminophen (Tylenol -) 650 mg PO Q6H PRN PRN Reason: PAIN LEVEL 6-10 Allopurinol (Zyloprim -) 100 mg PO DAILY [facility] Last Admin: 01/26/19 09:37 Dose: 100 mg Donepezil HCl (Aricept -) 5 mg PO DAILY [facility] Last Admin: 01/26/19 09:37 Dose: 5 mg Dutasteride (Avodart -) 0.5 mg PO DAILY [facility] Last Admin: 01/26/19 09:37 Dose: 0.5 mg Sodium Chloride (Normal Saline -) 1,000 mls @ 50 mls/hr IV ASDIR [facility] Stop: 01/26/19 19:16 Last Admin: 01/25/19 22:25 Dose: 50 mls/hr Levofloxacin (Levaquin -) 250 mg PO DAILY [facility] Last Admin: 01/26/19 09:36 Dose: 250 mg Olanzapine (Zyprexa -) 10 mg PO DAILY [facility] Last Admin: 01/26/19 09:37 Dose: 10 mg Tamsulosin HCl (Flomax -) 0.4 mg PO DAILY@0830 [facility] Last Admin: 01/26/19 09:36 Dose: 0.4 mg Valproate Sodium (Depakene -) 250 mg PO TID [facility] Last Admin: 01/26/19 06:13 Dose: 250 mg - Objective Vital Signs: Vital Signs Temperature 97.6 F 01/26/19 05:00 Pulse Rate 78 01/26/19 05:00 Respiratory Rate 20 01/26/19 05:00 Blood Pressure 103/80 01/26/19 05:00 O2 Sat by Pulse Oximetry (%) 93 L 01/25/19 20:50 Constitutional: Yes: Calm Eyes: Yes: Conjunctiva Clear HENT: Yes: Atraumatic Neck: Yes: Supple Cardiovascular: Yes: S1, S2 Respiratory: Yes: CTA Bilaterally Gastrointestinal: Yes: Soft Genitourinary: Yes: WNL Musculoskeletal: Yes: WNL Edema: No Neurological: Yes: Confusion Labs: CBC, BMP 01/24/19 06:54 01/26/19 06:05 INR, PTT INR 0.94 (0.83-1.09) 01/22/19 18:48 Problem List - Problems (1) Hyponatremia Code(s): E87.1 - HYPO-OSMOLALITY AND HYPONATREMIA Assessment/Plan Current Medications Generic Name Dose Route Start Last Admin Trade Name Meliza PRN Reason Stop Dose Admin Acetaminophen 650 mg 01/22/19 23:16 Tylenol - PO Q6H PRN PAIN LEVEL 6-10 Allopurinol 100 mg 01/23/19 10:00 01/26/19 09:37 Zyloprim - PO 100 mg DAILY TOMER Administration Donepezil HCl 5 mg 01/23/19 10:00 01/26/19 09:37 Aricept - PO 5 mg DAILY TOMER Administration Dutasteride 0.5 mg 01/23/19 10:00 01/26/19 09:37 Avodart - PO 0.5 mg DAILY TOMER Administration Sodium Chloride 1,000 mls @ 50 mls/hr 01/25/19 19:30 01/25/19 22:25 Normal Saline - IV 01/26/19 19:16 50 mls/hr ASDIR TOMER Administration Levofloxacin 250 mg 01/25/19 13:15 01/26/19 09:36 Levaquin - PO 250 mg DAILY TOMER Administration Olanzapine 10 mg 01/23/19 10:00 01/26/19 09:37 Zyprexa - PO 10 mg DAILY TOMER Administration Tamsulosin HCl 0.4 mg 01/23/19 08:30 01/26/19 09:36 Flomax - PO 0.4 mg DAILY@0830 TOMER Administration Valproate Sodium 250 mg 01/23/19 06:00 01/26/19 06:13 Depakene - PO 250 mg TID TOMER Administration Impression 1. hyponatremia 2. gout 3. htn 4. urinary retention 5. dementia Plan - mental status back to baseline - sodium improving - pt responded to saline - restrict free water - encourage PO intake of food
[2019-01-26 11:02] VITALS: BP 112/72; TEMP 98.2
--- NOTE | 2019-01-28 07:41 | PDOC ---
Documentation entered by Teresita Barone SCRIBE, acting as scribe for Leslie Ledesma MD. Leslie Ledesma MD: This documentation has been prepared by the scribe, Teresita Barone SCRIBE, under my direction and personally reviewed by me in its entirety. I confirm that the documentation accurately reflects all work, treatment, procedures, and medical decision making performed by me. Attending Attestation - Resident Resident Name: Yu Mitchell - HPI HPI: 01/22/19 18:13 The patient is an 83-year-old male with a past medical history significant for BPH, hx of GOUT, Alzheimers disease, HTN, and CVA who presents to the emergency department s/p a fall. The patient reports he woke up on the floor, unsure of how he fell. [facility] from standing while he was in the dining room, denies LOC. Allergies: NKA - Physicial Exam PE: 01/22/19 18:10 GENERAL: Awake and easily arousable. in no acute distress HEAD: normocephalic and atraumatic. LUNGS: Breath sounds equal, clear to auscultation bilaterally. No wheezes, and no crackles HEART: Regular rate and rhythm, normal S1 and S2, no murmurs, rubs or gallops ABDOMEN: Soft, nontender, nondistended. NEUROLOGICAL: +confused but followed commands, moving all extremities. - Medical Decision Making 01/22/19 18:47 pt presents o the Ed after unwitnessed fall vs syncope. Patient has no complaints, but is confused and unable to give any history. Will check CT head and C spine and admit to medicine for syncope work up. 01/22/19 19:03
== END 2019-01-26 11:50 | DRG 640 ==
LOC: JER 14:41 → JERBED 19:50 → J4W 22:36
PROVIDERS: ADMIT Internal Medicine; ATTEND Family Medicine
DX: E87.1 Hypo-osmolality and hyponatremia (principal); G93.41 Metabolic encephalopathy; N39.0 Urinary tract infection, site not specified; F02.81 Dementia in other diseases classified elsewhere, unspecified severity, with behavioral disturbance; R55 Syncope and collapse; B96.89 Other specified bacterial agents as the cause of diseases classified elsewhere; R33.9 Retention of urine, unspecified; G30.9 Alzheimer's disease, unspecified; D72.1 Eosinophilia; B95.2 Enterococcus as the cause of diseases classified elsewhere; N40.0 Benign prostatic hyperplasia without lower urinary tract symptoms; I69.391 Dysphagia following cerebral infarction; I10 Essential (primary) hypertension; M10.9 Gout, unspecified
CPT/HCPCS: 36415; 70450-TC; 71045-TC-FY; 72125-TC; 80048; 80053; 81003; 82550; 83735; 83930; 83935; 84100; 84484; 85025; 85027; 85610; 85730; 86850; 86900; 86901; 87086; 87186; 93005; 93010; 93306-TC; 93880-TC; 97116-GP; 97161-GP; 99282-25; J7030

== ENCOUNTER 2019-02-25 06:49 | Emergency (ER) | payer OTHER ==
--- NOTE | 2019-02-25 07:39 | PDOC ---
History of Present Illness - General Stated Complaint: FALL Time Seen by Provider: 02/25/19 07:39 History Source: Patient, Jail Records, Old Records Exam Limitations: Dementia - History of Present Illness Initial Comments: 83 year old male with PMH [facility] with of Alzheimer's Dementia, Psychotic Disorder w/ Delusions, HTN, CVA, Dysphagia, BPH, Gout, DM, eosinophilia, hyponatremia sent to ED from [facility] for a CT head after a fall at [place] today. Pt has dementia and does not remember the circumstances of the fall, reported no complaints. No blood thinners listed on [place] paperwork. ROS - unable to perform 2/2 dementia PE Constitutional: Well-nourished, Well-developed, appearing stated age. Airway: intact Breathing: bilateral breath sounds Circulation: 2+ carotid pulse B/L HEENT: head is normocephalic. right frontal scalp hematoma, no laceration. No facial bones tenderness to palpation. No richmond sign. No raccoon eyes. EOMI. PERRLA. Neck: supple. Full ROM. no midline c-spine tenderness to palpation. No step offs. Cardiovascular: regular heart rhythm. no murmurs. no pericardial friction rub. Chest wall: No tenderness to palpation of anterior chest wall. No deformity to anterior chest wall. Respiratory: clear to auscultation bilaterally. no crackles, rhonchi or wheezing. no stridor. Gastrointestinal: soft, nontender. normal bowel sounds. no rebound, guarding, masses. No ecchymoses. Back: no midline T-spine or L-spine tenderness to palpation. No step offs. Pelvis: lower extremities equal in length without external rotation. No hip tenderness to palpation. Extremities: peripheral pulses intact. no lower extremity edema. Neurological: CN 2-12 grossly intact. moves all four extremities. Psych: awake, alert, oriented x3. follows commands. answers questions appropriately. Past History - Past Medical History Allergies/Adverse Reactions: Allergies Allergy/AdvReac Type Severity Reaction Status Date / Time No Known Allergies Allergy Verified 02/25/19 07:57 Home Medications: Ambulatory Orders Allopurinol [Zyloprim -] 100 mg PO DAILY 09/08/14 Dutasteride [Avodart] 0.5 mg PO DAILY cap 11/02/18 Olanzapine [Zyprexa -] 10 mg PO BID tablet 11/02/18 Tamsulosin HCl [Flomax -] 0.4 mg PO DAILY@0830 cap.er.24h 11/02/18 Acetaminophen [Tylenol .Regular Strength -] 325 mg PO Q6H PRN 11/14/18 Cholecalciferol (Vitamin D3) [D3-50] 50,000 unit PO WEEKLY 11/14/18 Divalproex Sprinkle [Depakote Sprinkle -] 125 mg PO TID 02/25/19 Polyethylene Glycol 3350 [Miralax 119 gm Btl -] 17 gm PO DAILY 02/25/19 Sodium Chloride 1,000 mg MC DAILY 02/25/19 - Psycho Social/Smoking Cessation Hx Smoking Status: No Smoking History: Unknown if ever smoked Have you smoked in the past 12 months: No If you are a former smoker, when did you quit?: 8 YRS Hx Alcohol Use: No Drug/Substance Use Hx: No Substance Use Type: None Hx Substance Use Treatment: No ED Treatment Course - LABORATORY CBC & Chemistry Diagram: 02/25/19 08:14 02/25/19 08:14 Medical Decision Making - Medical Decision Making 83 year old male with above PMH sent to ED from [facility] for a CT head s/p fall. Initial Vital Signs Temp Pulse Resp BP Pulse Ox 98.3 F 72 18 119/86 94 L 02/25/19 07:30 02/25/19 07:30 02/25/19 07:30 02/25/19 07:30 02/25/19 07:30 Afebrile. No tachycardia. No tachypnea. No hypotension. Borderline hypoxia on room air. Labs ordered: none Imaging ordered: CT head, CT cervical spine, CXR, pelvis XR Medications ordered: Tylenol 975 mg PO once 02/25/19 09:24 CT head report: Name: [facility] Phys: Marcella Delgadillo RESIDENT : 1935 Age: 83 Sex: M [facility] Acct: [id number] Loc: [address] Exam Date: 02/25/19 Status: REG [place] [id number] Unit Number: [id number] EXAM#: TYPE/EXAM: RESULT: [id number] CT/HEAD CT WITHOUT CONTRAST REASON FOR THE STUDY. Status post fall. CT SCAN OF THE BRAIN C-. COMPARED STUDY. CT brain January 22, 2019 FINDINGS. Serial axial images of the brain were obtained from foramen magnum to the cranial vertex without intravenous contrast with coronal, sagittal reconstruction. There is no evidence of acute subarachnoid hemorrhage, acute intra-axial or extra-axial fluid collection consistent with subdural or epidural hematoma. No mass effect, midline shift, acute territorial ischemic changes, herniation or edema is present. Normal patel matter white matter differentiation. Loss of the volume the brain parenchyma with involutional changes. Frontoparietal cortical atrophy with asymmetric dilatation of the lateral ventricles(left greater than the right). Widened sylvian fissures. Intracranial vascular calcifications are noted. Examination of the bone windows show no fracture. The visualized paranasal sinuses and mastoid air cells are clear. Chronic deformity of the medial wall of the right orbit IMPRESSION. No evidence of acute intracranial hemorrhage, edema, midline shift, mass effect, or skull fracture. No CT evidence of acute territorial ischemic changes. No interval change in comparison to CT of the brain January 22, 2019. Reported By : Spenser Song MD 02/25/19918 CXR report: Name: [facility] Phys: Marcella Delgadillo RESIDENT : 1935 Age: 83 Sex: M [facility] Acct: [id number] Loc: [address] Exam Date: 02/25/19 Status: [place] [address] Unit Number: [id number] EXAM#: TYPE/EXAM: RESULT: [id number] RAD/CHEST - PA Chest: Fall. Pain. Single view of the chest has been submitted. Since 01/26/2019 there is a better inspiration with clear lungs, plaque in the aorta, normal lashell and normal heart. Angles are sharp and the soft tissues are intact. There may be some linear scarring or atelectasis in the posterior right sulcus. Correlation recommended. Reported By: Chad Hahn MD 02/25/19 09 Pelvis XR report: Name: [facility] Phys: Marcella Delgadillo RESIDENT : 1935 Age: 83 Sex: M [facility] Acct: [id number] Loc: [facility] Exam Date: 02/25/19 Status: RANGEL Cespedes Unit Number: [id number] EXAM#: TYPE/EXAM: RESULT: [id number] RAD/PELVIS Pelvis: Fall. Pain. A single AP view of the pelvis reveals no sign of fracture or subluxation and no sign of blastic or lytic changes. SI joints and hip joints appear intact. There are some minimal arthritic changes seen in the spine. There are vascular calcifications and some retained stool. If symptoms persist, further imaging may be of help. Impression: No acute pelvic pathology. Reported By: Chad Hahn MD 02/25/19 0922 02/25/19 09:37 Laboratory Last Values WBC 6.8 K/mm3 (4.0-10.0) 02/25/19 08:14 RBC 4.94 M/mm3 (4.00-5.60) 02/25/19 08:14 Hgb 13.8 GM/dL (11.7-16.9) 02/25/19 08:14 Hct 41.2 % (35.4-49) 02/25/19 08:14 MCV 83.4 fl (80-96) 02/25/19 08:14 MCH 27.9 pg (25.7-33.7) 02/25/19 08:14 MCHC 33.5 g/dl (32.0-35.9) 02/25/19 08:14 RDW 14.8 % (11.9-15.9) 02/25/19 08:14 Plt Count 295 K/MM3 (134-434) 02/25/19 08:14 MPV 7.7 fl (7.5-11.1) 02/25/19 08:14 Sodium 138 mmol/L (136-145) 02/25/19 08:14 Potassium 4.3 mmol/L (3.5-5.1) 02/25/19 08:14 Chloride 107 mmol/L (98-107) 02/25/19 08:14 Carbon Dioxide 22 mmol/L (21-32) 02/25/19 08:14 Anion Gap 8 MMOL/L (8-16) 02/25/19 08:14 BUN 17.2 mg/dL (7-18) 02/25/19 08:14 Creatinine 0.8 mg/dL (0.55-1.3) 02/25/19 08:14 Est GFR (CKD-EPI)AfAm 96.42 02/25/19 08:14 Est GFR (CKD-EPI)NonAf 83.19 02/25/19 08:14 Random Glucose 116 mg/dL (74-106) H 02/25/19 08:14 Calcium 9.2 mg/dL (8.5-10.1) 02/25/19 08:14 Total Bilirubin 0.4 mg/dL (0.2-1) 02/25/19 08:14 AST 12 U/L (15-37) L 02/25/19 08:14 ALT 10 U/L (13-61) L 02/25/19 08:14 Alkaline Phosphatase 74 U/L (45-117) 02/25/19 08:14 Total Protein 6.7 g/dl (6.4-8.2) 02/25/19 08:14 Albumin 3.7 g/dl (3.4-5.0) 02/25/19 08:14 CT cervical spine report: Name: [facility] Phys: Marcella Delgadillo RESIDENT : 1935 Age: 83 Sex: M [facility] Acct: [id number] Loc: [address] Exam Date: 02/25/19 Status: [place] [address] Unit Number: [id number] ACCESSION # : [id number] EXAM#: TYPE/EXAM: RESULT: [id number] CT/CERVICAL SPINE CT W/O CONTR Reason for the study. Was post fall. CT scan of the cervical spine C-. Direct axial images were obtained from the base of the skull through T1-T2 The study was supplemented with computer-generated sagittal, coronal reconstruction images. Comparison study. CT cervical spine January 22, 2019. Findings. Intact odontoid. The predental space is not widened. Symmetrical articulation of atlantoaxial and occipito atlantal joints. C3-C4. Disc space narrowing. Facet joint arthropathy. Mild retrolisthesis of C3 on C4. Osteoarthritis of uncovertebral joints. Bilateral neural foraminal stenosis. C4-C5. Disc space narrowing. Degenerative endplate sclerosis. Facet joint arthropathy. Retrolisthesis of C4 on C5. Central spinal canal stenosis. Osteoarthritis of uncovertebral joints. Neural foraminal stenosis. C5-C6. Facet joint arthropathy. C6-C7. Intervertebral disc space narrowing with degenerative endplate sclerosis vacuum phenomena. Anterior spondylosis. Posterior degenerative osteophytes. Osteoarthritis of uncovertebral joints. No acute bony abnormality seen in the upper thoracic spine. Posterior nuchal calcifications are seen. The intraspinal contents cannot be adequately evaluated due to the beam hardening artifacts. The airways are patent. No evidence of prevertebral soft tissue swelling. The lung apices are clear. Impression. No acute bony abnormalities are seen. Chronic degenerative changes. Please refer to the body of report. Reported By: Spenser Song MD 02/25/19 0926 No acute intracranial bleeding, no lab abnormalities, no acute cervical or skull fracture. Pt to be transported back to [place]. Copies of Reports and Labs included in [place] paperwork. Advised to F/U with PCP promptly. Dispo: Discharged 02/25/19 13:42 Transport arrived. Discharge - Discharge Information Problems reviewed: Yes Clinical Impression/Diagnosis: Fall, Closed head injury Condition: Stable Disposition: PENITENTIARY FACILITY - Admission No - Follow up/Referral Referrals: Marybeth Benavides MD [Primary Care Provider] - - Patient Discharge Instructions Patient Printed Discharge Instructions: How to Prevent Falls, DI for Closed Head Injury Additional Instructions: Follow up with your primary care doctor within 3 days regarding your Emergency Room visit. Your care is not complete until you follow up. Imaging reports and lab results as below: CT head report: Name: [facility] Phys: Marcella Delgadillo RESIDENT : 1935 Age: 83 Sex: M [facility] Acct: [id number] Loc: [address] Exam Date: 02/25/19 Status: [place] [id number] Unit Number: [id number] EXAM#: TYPE/EXAM: RESULT: [id number] CT/HEAD CT WITHOUT CONTRAST REASON FOR THE STUDY. Status post fall. CT SCAN OF THE BRAIN C-. COMPARED STUDY. CT brain January 22, 2019 FINDINGS. Serial axial images of the brain were obtained from foramen magnum to the cranial vertex without intravenous contrast with coronal, sagittal reconstruction. There is no evidence of acute subarachnoid hemorrhage, acute intra-axial or extra-axial fluid collection consistent with subdural or epidural hematoma. No mass effect, midline shift, acute territorial ischemic changes, herniation or edema is present. Normal patel matter white matter differentiation. Loss of the volume the brain parenchyma with involutional changes. Frontoparietal cortical atrophy with asymmetric dilatation of the lateral ventricles(left greater than the right). Widened sylvian fissures. Intracranial vascular calcifications are noted. Examination of the bone windows show no fracture. The visualized paranasal sinuses and mastoid air cells are clear. Chronic deformity of the medial wall of the right orbit IMPRESSION. No evidence of acute intracranial hemorrhage, edema, midline shift, mass effect, or skull fracture. No CT evidence of acute territorial ischemic changes. No interval change in comparison to CT of the brain January 22, 2019. Reported By : Spenser Song MD 02/25/19918 CXR report: Name: [facility] Phys: Marcella Delgadillo RESIDENT : 1935 Age: 83 Sex: M [facility] Acct: [id number] Loc: [address] Exam Date: 02/25/19 Status: [place] [id number] Unit Number: [id number] EXAM#: TYPE/EXAM: RESULT: [id number] RAD/CHEST - PA Chest: Fall. Pain. Single view of the chest has been submitted. Since 01/26/2019 there is a better inspiration with clear lungs, plaque in the aorta, normal lashell and normal heart. Angles are sharp and the soft tissues are intact. There may be some linear scarring or atelectasis in the posterior right sulcus. Correlation recommended. Reported By: Chad Hahn MD 02/25/19 0995 Pelvis XR report: Name: [facility] Phys: Marcella Delgadillo RESIDENT : 1935 Age: 83 Sex: M [facility] Acct: [id number] Loc: [facility] Exam Date: 02/25/19 Status: RANGEL Cespedes Unit Number: [id number] EXAM#: TYPE/EXAM: RESULT: [id number] RAD/PELVIS Pelvis: Fall. Pain. A single AP view of the pelvis reveals no sign of fracture or subluxation and no sign of blastic or lytic changes. SI joints and hip joints appear intact. There are some minimal arthritic changes seen in the spine. There are vascular calcifications and some retained stool. If symptoms persist, further imaging may be of help. Impression: No acute pelvic pathology. Reported By: Chad Hahn MD 02/25/19 09 Laboratory Last Values WBC 6.8 K/mm3 (4.0-10.0) 02/25/19 08:14 RBC 4.94 M/mm3 (4.00-5.60) 02/25/19 08:14 Hgb 13.8 GM/dL (11.7-16.9) 02/25/19 08:14 Hct 41.2 % (35.4-49) 02/25/19 08:14 MCV 83.4 fl (80-96) 02/25/19 08:14 MCH 27.9 pg (25.7-33.7) 02/25/19 08:14 MCHC 33.5 g/dl (32.0-35.9) 02/25/19 08:14 RDW 14.8 % (11.9-15.9) 02/25/19 08:14 Plt Count 295 K/MM3 (134-434) 02/25/19 08:14 MPV 7.7 fl (7.5-11.1) 02/25/19 08:14 Sodium 138 mmol/L (136-145) 02/25/19 08:14 Potassium 4.3 mmol/L (3.5-5.1) 02/25/19 08:14 Chloride 107 mmol/L (98-107) 02/25/19 08:14 Carbon Dioxide 22 mmol/L (21-32) 02/25/19 08:14 Anion Gap 8 MMOL/L (8-16) 02/25/19 08:14 BUN 17.2 mg/dL (7-18) 02/25/19 08:14 Creatinine 0.8 mg/dL (0.55-1.3) 02/25/19 08:14 Est GFR (CKD-EPI)AfAm 96.42 02/25/19 08:14 Est GFR (CKD-EPI)NonAf 83.19 02/25/19 08:14 Random Glucose 116 mg/dL (74-106) H 02/25/19 08:14 Calcium 9.2 mg/dL (8.5-10.1) 02/25/19 08:14 Total Bilirubin 0.4 mg/dL (0.2-1) 02/25/19 08:14 AST 12 U/L (15-37) L 02/25/19 08:14 ALT 10 U/L (13-61) L 02/25/19 08:14 Alkaline Phosphatase 74 U/L (45-117) 02/25/19 08:14 Total Protein 6.7 g/dl (6.4-8.2) 02/25/19 08:14 Albumin 3.7 g/dl (3.4-5.0) 02/25/19 08:14 CT cervical spine report: Name: [facility] Phys: Marcella Delgadillo RESIDENT : 1935 Age: 83 Sex: M [facility] Acct: [id number] Loc: [address] Exam Date: 02/25/19 Status: [place] [address] Unit Number: [id number] ACCESSION # : [id number] EXAM#: TYPE/EXAM: RESULT: [id number] CT/CERVICAL SPINE CT W/O CONTR Reason for the study. Was post fall. CT scan of the cervical spine C-. Direct axial images were obtained from the base of the skull through T1-T2 The study was supplemented with computer-generated sagittal, coronal reconstruction images. Comparison study. CT cervical spine January 22, 2019. Findings. Intact odontoid. The predental space is not widened. Symmetrical articulation of atlantoaxial and occipito atlantal joints. C3-C4. Disc space narrowing. Facet joint arthropathy. Mild retrolisthesis of C3 on C4. Osteoarthritis of uncovertebral joints. Bilateral neural foraminal stenosis. C4-C5. Disc space narrowing. Degenerative endplate sclerosis. Facet joint arthropathy. Retrolisthesis of C4 on C5. Central spinal canal stenosis. Osteoarthritis of uncovertebral joints. Neural foraminal stenosis. C5-C6. Facet joint arthropathy. C6-C7. Intervertebral disc space narrowing with degenerative endplate sclerosis vacuum phenomena. Anterior spondylosis. Posterior degenerative osteophytes. Osteoarthritis of uncovertebral joints. No acute bony abnormality seen in the upper thoracic spine. Posterior nuchal calcifications are seen. The intraspinal contents cannot be adequately evaluated due to the beam hardening artifacts. The airways are patent. No evidence of prevertebral soft tissue swelling. The lung apices are clear. Impression. No acute bony abnormalities are seen. Chronic degenerative changes. Please refer to the body of report. Reported By: Spenser Song MD 02/25/19 0926 Return to the Emergency Department for increasing confusion, weakness, numbness , tingling, chest pain, shortness of breath, continuous vomiting, ill- appearance or any other new, worsening or concerning symptoms. - Post Discharge Activity
--- NOTE | 2019-02-25 07:41 | PDOC ---
Attending Attestation - Resident Resident Name: Marcella Delgadillo - ED Attending Attestation I have performed the following: I have examined & evaluated the patient, The case was reviewed & discussed with the resident, I agree w/resident's findings & plan, Exceptions are as noted - HPI HPI: 02/25/19 07:41 83y M hx of htn, dementia, bph, hl, presents with complaint of fall (uncleared if witnessed) -it was noted that patient had a bump on his head so was sent to the ED for further evaluation. The patient is unable to give a clear history of what happened, his history may be limited due to his dementia but denies any complaints of pain including headache, neck pain, chest pain, abdominal pain, arm pain, leg pain, fever, chills, palpitations,, nausea, vomiting, cough. Physicial Exam: GENERAL: The patient is awake, alert, oriented x 1.5 (self, knows it is jan 2019 ) Nontoxic - in no acute distress. HEAD: Normocephalic, atraumatic, no focal tenderness or massess EYES: extraocular movements intact, sclera anicteric, conjunctiva clear. ENT: Normal voice, Moist mucous membranes. NECK: Normal range of motion, supple LUNGS: Breath sounds equal, clear to auscultation bilaterally. No wheezes, no rhonchi, no rales. HEART: Regular rate and rhythm, normal S1 and S2 without murmur, rub or gallop. ABDOMEN: Soft, nontender, No guarding, no rebound. No CVA tenderness EXTREMITIES: Normal range of motion, no edema. NEUROLOGICAL: No facial assymetry, Normal speech, PSYCH: Normal mood, normal affect. SKIN: Warm, Dry, normal turgor, BACK: No midline tenderness to the cervical, thoracic or lumbar spine MSK: FROM of b/l shoulders, elbows, wrist. FROM of hips, knees, ankles - No signs of ecchymosis, erythema, or crepitus noted on palpation extremities, chest wall, clavicals, ribs, back. Unwitnessed fall, no a/c will obtain screening bloodwork in light of unclear history ct head, ekg if ng anticipate dc back home - Physicial Exam PE: 02/25/19 09:48 see above - Medical Decision Making 02/25/19 09:48 pts labs and imaging rviewed pt asypmomatic will dc back to [facility]
[2019-02-25] MEDS ORDERED: ACETAMINOPHEN 325 MG TABLET (FP) PO ONE (08:02)
[2019-02-25 08:30] VITALS: PULSE 72; TEMP 98.3
[2019-02-25 09:19] LABS: HEMATOCRIT 41.2 % (35.4-49); HEMOGLOBIN 13.8 GM/dL (11.7-16.9); MCH 27.9 pg (25.7-33.7); MCHC 33.5 g/dl (32.0-35.9); MEAN CELL VOLUME 83.4 fl (80-96); MEAN PLT VOLUME 7.7 fl (7.5-11.1); PLATELET COUNT 295 K/MM3 (134-434); RBC 4.94 M/mm3 (4.00-5.60); RDW 14.8 % (11.9-15.9); WHITE BLOOD COUNT 6.8 K/mm3 (4.0-10.0)
[2019-02-25 09:34] LABS: ALBUMIN 3.7 g/dl (3.4-5.0); BILIRUBIN,TOTAL 0.4 mg/dL (0.2-1); BLOOD UREA NITROGEN 17.2 mg/dL (7-18); CALCIUM 9.2 mg/dL (8.5-10.1); CREATININE 0.8 mg/dL (0.55-1.3); POTASSIUM 4.3 mmol/L (3.5-5.1); TOT PROT 6.7 g/dl (6.4-8.2)
[2019-02-25] MEDS ORDERED: ACETAMINOPHEN 325 MG TABLET (FP) ONE (09:43)
[2019-02-25 11:06] VITALS: BMI 23.3
[2019-02-25 13:50] VITALS: BP 122/73
== END 2019-02-25 13:50 ==
LOC: JER 06:49
DX: S00.83XA Contusion of other part of head, initial encounter (principal); W18.39XA Other fall on same level, initial encounter; Y93.89 Activity, other specified; Y92.128 Other place in nursing home as the place of occurrence of the external cause; Y99.8 Other external cause status; I10 Essential (primary) hypertension; E11.9 Type 2 diabetes mellitus without complications; N40.0 Benign prostatic hyperplasia without lower urinary tract symptoms; G30.8 Other Alzheimer's disease; F02.80 Dementia in other diseases classified elsewhere, unspecified severity, without behavioral disturbance, psychotic disturbance, mood disturbance, and anxiety; F28 Other psychotic disorder not due to a substance or known physiological condition; Z86.73 Personal history of transient ischemic attack (TIA), and cerebral infarction without residual deficits
CPT/HCPCS: 36415; 70450-TC; 71045-TC-FY; 72125-TC; 72170-TC-FY; 80053; 85027; 99282-25

== ENCOUNTER 2021-07-20 15:29 | Inpatient (IN) | payer OTHER ==
[2021-07-20 15:48] VITALS: BMI 31.9
[2021-07-20] MEDS ORDERED: DIPHTH,PERTUSS(ACELL),TET 0.5 ML DISP.SYRIN IM ONE ×2 (15:52→15:59)
[2021-07-20 17:01] LABS: BASO % 0.3 % (0-2.0); EOS % 6.2 % (0-4.5); HEMATOCRIT 45.7 % (35.4-49); HEMOGLOBIN 15.3 GM/dL (11.7-16.9); LYMPH % 16.8 % (8-40); MCH 29.2 pg (25.7-33.7); MCHC 33.4 g/dl (32.0-35.9); MEAN CELL VOLUME 87.5 fl (80-96); MEAN PLT VOLUME 7.8 fl (7.5-11.1); MONO % 6.6 % (3.8-10.2); NEUT % 70.1 % (42.8-82.8); PLATELET COUNT 272 10^3/uL (134-434); RBC 5.22 M/mm3 (4.00-5.60); RDW 13.1 % (11.9-15.9); WHITE BLOOD COUNT 9.6 K/mm3 (4.0-10.0)
[2021-07-20 17:13] LABS: ALBUMIN 3.8 g/dl (3.4-5.0); CALCIUM 9.4 mg/dL (8.5-10.1)
[2021-07-20 17:14] LABS: BLOOD UREA NITROGEN 12.9 mg/dL (7-18)
[2021-07-20 17:17] LABS: CREATININE 0.6 mg/dL (0.55-1.3)
[2021-07-20 17:18] LABS: BILIRUBIN,TOTAL 0.8 mg/dL (0.2-1); TOT PROT 6.8 g/dl (6.4-8.2)
[2021-07-20] MEDS ORDERED: HALOPERIDOL LACTATE 5 MG/ML IV ONE (18:26)
[2021-07-20] MEDS ORDERED: HALOPERIDOL LACTATE 5 MG/ML ONE (18:28)
[2021-07-20] MEDS ORDERED: MIDAZOLAM HCL 2 MG/2 ML SINGLE DOSE VIAL IVPUSH ONE ×2 (18:50→19:20)
[2021-07-20] MEDS ORDERED: MIDAZOLAM HCL 2 MG/2 ML SINGLE DOSE VIAL ONE ×2 (18:53→19:22)
[2021-07-21] MEDS ORDERED: SODIUM CHLORIDE 250 ML IV STA (06:29)
[2021-07-21 07:49] LABS: BASO % 0.3 % (0-2.0); EOS % 1.2 % (0-4.5); HEMATOCRIT 48.4 % (35.4-49); HEMOGLOBIN 16.5 GM/dL (11.7-16.9); LYMPH % 13.9 % (8-40); MCH 29.7 pg (25.7-33.7); MEAN CELL VOLUME 87.2 fl (80-96); MEAN PLT VOLUME 7.9 fl (7.5-11.1); MONO % 5.3 % (3.8-10.2); NEUT % 79.3 % (42.8-82.8); PLATELET COUNT 274 10^3/uL (134-434); RBC 5.55 M/mm3 (4.00-5.60); RDW 13.4 % (11.9-15.9); WHITE BLOOD COUNT 11.4 K/mm3 (4.0-10.0)
[2021-07-21 08:01] LABS: CALCIUM 9.2 mg/dL (8.5-10.1)
[2021-07-21 08:02] LABS: ALBUMIN 4.2 g/dl (3.4-5.0); BLOOD UREA NITROGEN 13.8 mg/dL (7-18); MAGNESIUM 2.5 mg/dL (1.8-2.4)
[2021-07-21 08:05] LABS: CREATININE 0.7 mg/dL (0.55-1.3)
[2021-07-21 08:06] LABS: BILIRUBIN,TOTAL 1.7 mg/dL (0.2-1); TOT PROT 7.5 g/dl (6.4-8.2)
[2021-07-21] MEDS: DUTASTERIDE 0.5 MG CAP (FP) PO SCH (09:44)
[2021-07-21] MEDS: SODIUM CHLORIDE 1 GM TABLET PO SCH (09:44)
[2021-07-21] MEDS: TAMSULOSIN HCL 0.4 MG CAP PO SCH (09:44)
[2021-07-21 22:41] LABS: EPI CELLS 6 /uL (0-25.1); HYALINE CASTS 4 /uL (0-3.1); PH,URINE 5.5 (5.0-8.0); URINE APPEARANCE CLOUDY; URINE BACTERIA 8 /uL (0-1359); URINE BILIRUBIN NEGATIVE (NEGATIVE); URINE COLOR YELLOW; URINE GLUCOSE (UA) NEGATIVE (NEGATIVE); URINE KETONE 2+ (NEGATIVE); URINE LEUK ESTERASE TRACE (NEGATIVE); URINE NITRITE NEGATIVE (NEGATIVE); URINE PROTEIN 1+ (NEGATIVE); URINE RBC 300 /uL (0-23.9); URINE WBC 42 /uL (0-25.8)
[2021-07-22 07:35] LABS: BASO % 0.6 % (0-2.0); EOS % 5.2 % (0-4.5); HEMATOCRIT 44.8 % (35.4-49); HEMOGLOBIN 15.1 GM/dL (11.7-16.9); LYMPH % 18.3 % (8-40); MCH 29.7 pg (25.7-33.7); MCHC 33.7 g/dl (32.0-35.9); MEAN CELL VOLUME 88.1 fl (80-96); MONO % 8.6 % (3.8-10.2); NEUT % 67.3 % (42.8-82.8); PLATELET COUNT 249 10^3/uL (134-434); RBC 5.08 M/mm3 (4.00-5.60); RDW 13.6 % (11.9-15.9); WHITE BLOOD COUNT 8.5 K/mm3 (4.0-10.0)
[2021-07-22 08:36] LABS: CALCIUM 8.8 mg/dL (8.5-10.1)
[2021-07-22 08:37] LABS: BLOOD UREA NITROGEN 20.9 mg/dL (7-18)
[2021-07-22 08:38] LABS: ALBUMIN 3.5 g/dl (3.4-5.0)
[2021-07-22 08:41] LABS: BILIRUBIN,TOTAL 2.6 mg/dL (0.2-1); TOT PROT 6.1 g/dl (6.4-8.2)
[2021-07-22 08:44] LABS: CREATININE 0.5 mg/dL (0.55-1.3)
[2021-07-22] MEDS: DUTASTERIDE 0.5 MG CAP (FP) PO SCH (10:05)
[2021-07-22] MEDS: TAMSULOSIN HCL 0.4 MG CAP PO SCH (10:05)
[2021-07-22] MEDS: POLYETHYLENE GLYCOL (HEALTHYLAX) 3350 17 GM PACKET PO SCH (10:05)
[2021-07-22] MEDS: ALLOPURINOL 100 MG TABLET (FP) PO SCH (10:06)
[2021-07-22] MEDS: OLANZapine 5 MG TABLET PO SCH ×2 (10:06→17:26)
[2021-07-22] MEDS: SODIUM CHLORIDE 1 GM TABLET PO SCH (10:06)
[2021-07-23 06:46] VITALS: PULSE 76
[2021-07-23] MEDS: TAMSULOSIN HCL 0.4 MG CAP PO SCH (09:42)
[2021-07-23] MEDS: POLYETHYLENE GLYCOL (HEALTHYLAX) 3350 17 GM PACKET PO SCH (09:42)
[2021-07-23] MEDS: SODIUM CHLORIDE 1 GM TABLET PO SCH (09:42)
[2021-07-23] MEDS: OLANZapine 5 MG TABLET PO SCH (09:42)
[2021-07-23] MEDS: DUTASTERIDE 0.5 MG CAP (FP) PO SCH (09:42)
[2021-07-23] MEDS: ALLOPURINOL 100 MG TABLET (FP) PO SCH (09:42)
[2021-07-23 10:24] VITALS: BP 138/68; TEMP 97.8
[2021-07-23] MEDS ORDERED: ACETAMINOPHEN 500 MG TABLET (FP) PO PRN (12:22)
== END 2021-07-23 15:46 | DRG 683 ==
LOC: JER 15:29 → JERBED 22:03 → J4W 07-21 00:48
PROVIDERS: ADMIT Internal Medicine; ATTEND Family Medicine
PROC: 0HQGXZZ Repair Left Hand Skin, External Approach (ICD-10-PCS; principal; 2021-07-20)
DX: N17.9 Acute kidney failure, unspecified (principal); E87.1 Hypo-osmolality and hyponatremia; I10 Essential (primary) hypertension; E78.5 Hyperlipidemia, unspecified; G30.9 Alzheimer's disease, unspecified; F02.80 Dementia in other diseases classified elsewhere, unspecified severity, without behavioral disturbance, psychotic disturbance, mood disturbance, and anxiety; N40.0 Benign prostatic hyperplasia without lower urinary tract symptoms; N31.9 Neuromuscular dysfunction of bladder, unspecified; M10.9 Gout, unspecified; S05.12XA Contusion of eyeball and orbital tissues, left eye, initial encounter; S05.11XA Contusion of eyeball and orbital tissues, right eye, initial encounter; R26.9 Unspecified abnormalities of gait and mobility; S61.211A Laceration without foreign body of left index finger without damage to nail, initial encounter; I69.391 Dysphagia following cerebral infarction; R29.6 Repeated falls; S00.81XA Abrasion of other part of head, initial encounter; E66.9 Obesity, unspecified; Z68.31 Body mass index [BMI] 31.0-31.9, adult; W18.39XA Other fall on same level, initial encounter; Y92.098 Other place in other non-institutional residence as the place of occurrence of the external cause
CPT/HCPCS: 36415; 70450-TC; 70486-TC; 71045-TC-FY; 72125-TC; 72170-TC-FY; 73140-TC-LT-FY; 80048; 80053; 80061; 81003; 83036; 83735; 83930; 83935; 84300; 84443; 84484; 85025; 90715; 93005; 93010; 97116-GP; 97161-GP; 99285-25; C9803-CS; U0003; U0005

== ENCOUNTER 2023-02-15 17:32 | Inpatient (IN) | payer OTHER ==
[2023-02-15 19:43] LABS: BASO % 0.7 % (0-2.0); EOS % 4.1 % (0-4.5); HEMATOCRIT 47.2 % (35.4-49); HEMOGLOBIN 15.7 GM/dL (11.7-16.9); LYMPH % 24.7 % (8-40); MCH 30.3 pg (25.7-33.7); MCHC 33.3 g/dl (32.0-35.9); MEAN CELL VOLUME 91.1 fl (80-96); MEAN PLT VOLUME 7.6 fl (7.5-11.1); MONO % 13.2 % (3.8-10.2); NEUT % 57.3 % (42.8-82.8); PLATELET COUNT 242 10^3/uL (134-434); RBC 5.18 M/mm3 (4.00-5.60); RDW 13.5 % (11.9-15.9); WHITE BLOOD COUNT 6.2 K/mm3 (4.0-10.0)
[2023-02-15 19:50] LABS: INR 0.99 (0.83-1.09); PROTHROMBIN TIME (PATIENT) 11.5 SEC (9.7-13.0)
[2023-02-15 19:53] LABS: ACTIVATED PTT 34.2 SECONDS (25.2-36.5)
[2023-02-15 19:57] LABS: POTASSIUM 4.3 mmol/L (3.5-5.1)
[2023-02-15 19:59] LABS: ALBUMIN 3.5 g/dl (3.4-5.0); BLOOD UREA NITROGEN 21.9 mg/dL (7-18); CALCIUM 9.3 mg/dL (8.5-10.1)
[2023-02-15 20:02] LABS: CREATININE 0.8 mg/dL (0.55-1.3)
[2023-02-15 20:04] LABS: BILIRUBIN,TOTAL 0.7 mg/dL (0.2-1); TOT PROT 6.4 g/dl (6.4-8.2)
[2023-02-16] MEDS ORDERED: ALBUTEROL SO4 HFA INHALER IH PRN (00:08)
[2023-02-16] MEDS ORDERED: ACETAMINOPHEN 325 MG TABLET (FP) PO PRN ×2 (00:08→05:12)
[2023-02-16] MEDS ORDERED: REMDESIVIR 200 MG in SODIUM CHLORIDE 250 ML IVPB ONE (03:00)
[2023-02-16] MEDS ORDERED: TAMSULOSIN HCL 0.4 MG CAP ONE (07:58)
[2023-02-16 08:18] LABS: BASO % 1.3 % (0-2.0); EOS % 3.3 % (0-4.5); HEMATOCRIT 47.7 % (35.4-49); HEMOGLOBIN 16.1 GM/dL (11.7-16.9); LYMPH % 30.9 % (8-40); MCH 30.6 pg (25.7-33.7); MCHC 33.8 g/dl (32.0-35.9); MEAN CELL VOLUME 90.3 fl (80-96); MEAN PLT VOLUME 7.7 fl (7.5-11.1); MONO % 9.9 % (3.8-10.2); NEUT % 54.6 % (42.8-82.8); PLATELET COUNT 245 10^3/uL (134-434); RBC 5.28 M/mm3 (4.00-5.60); RDW 13.4 % (11.9-15.9); WHITE BLOOD COUNT 6.6 K/mm3 (4.0-10.0)
[2023-02-16 08:46] LABS: POTASSIUM 3.9 mmol/L (3.5-5.1)
[2023-02-16 08:56] LABS: CALCIUM 9.6 mg/dL (8.5-10.1)
[2023-02-16 08:57] LABS: ALBUMIN 3.7 g/dl (3.4-5.0); MAGNESIUM 2.5 mg/dL (1.8-2.4)
[2023-02-16 09:00] LABS: CREATININE 0.6 mg/dL (0.55-1.3); PHOSPHOROUS 3.3 mg/dL (2.5-4.9)
[2023-02-16 09:01] LABS: BILIRUBIN,TOTAL 1.1 mg/dL (0.2-1); TOT PROT 6.7 g/dl (6.4-8.2)
[2023-02-16] MEDS: INSULIN SLIDING SCALE (NOVOLOG) 1 VIAL SQ SCH ×3 (09:02→19:08)
[2023-02-16] MEDS: TAMSULOSIN HCL 0.4 MG CAP PO SCH (09:02)
[2023-02-16] MEDS ORDERED: AMMONIUM LACTATE 12% CREAM 140 GM TUBE TP SCH (10:00)
[2023-02-16] MEDS ORDERED: PATIENT'S OWN MEDICATION (NON-FORMULARY) (Menthol/Zinc Oxide [Calmoseptine Ointment] 71 GM TP SCH (10:00)
[2023-02-16] MEDS ORDERED: DUTASTERIDE 0.5 MG CAP (FP) PO SCH (10:00)
[2023-02-16] MEDS ORDERED: SERTRALINE HCL 50 MG TABLET (FP) ONE (10:40)
[2023-02-16] MEDS ORDERED: ENOXAPARIN NA (PORCINE) 40 MG/0.4 ML DISP.SYRIN SQ ONE (10:41)
[2023-02-16] MEDS: SERTRALINE HCL 25 MG TABLET (FP) PO SCH (11:12)
[2023-02-16] MEDS: ENOXAPARIN NA (PORCINE) 40 MG/0.4 ML DISP.SYRIN SQ SCH (11:12)
[2023-02-16] MEDS: ALLOPURINOL 100 MG TABLET (FP) PO SCH (11:12)
[2023-02-16] MEDS: MEMANTINE HCL 10 MG TABLET (FP) PO SCH ×2 (11:12→22:41)
[2023-02-16] MEDS ORDERED: SODIUM CHLORIDE 1,000 ML IV SCH (11:30)
[2023-02-16] MEDS: PETROLATUM, WHITE 30 GM TUBE TP SCH (12:35)
[2023-02-16] MEDS: HYDROCORTISONE 1% TOPICAL OINT 30 GM TUBE TP SCH (12:35)
[2023-02-16] MEDS: AMMONIUM LACTATE 12% LOTION 225 GM BOTTLE TP SCH (13:27)
[2023-02-16] MEDS: FINASTERIDE 5 MG TABLET (FP) PO SCH (17:45)
[2023-02-16] MEDS ORDERED: MELATONIN 5 MG TABLETS ONE (21:16)
[2023-02-16] MEDS: SODIUM CHLORIDE 1 GM TABLET PO SCH (22:41)
[2023-02-16] MEDS: MELATONIN 5 MG TABLETS PO SCH (22:41)
[2023-02-17] MEDS: INSULIN SLIDING SCALE (NOVOLOG) 1 VIAL SQ SCH ×5 (02:56→23:58)
[2023-02-17] MEDS: AMMONIUM LACTATE 12% LOTION 225 GM BOTTLE TP SCH ×3 (02:58→22:14)
[2023-02-17 08:31] LABS: BASO % 0.8 % (0-2.0); EOS % 2.9 % (0-4.5); HEMATOCRIT 43.5 % (35.4-49); HEMOGLOBIN 14.8 GM/dL (11.7-16.9); LYMPH % 27.9 % (8-40); MCH 30.8 pg (25.7-33.7); MEAN CELL VOLUME 90.5 fl (80-96); MEAN PLT VOLUME 8.2 fl (7.5-11.1); MONO % 9.9 % (3.8-10.2); NEUT % 58.5 % (42.8-82.8); PLATELET COUNT 246 10^3/uL (134-434); RBC 4.81 M/mm3 (4.00-5.60); RDW 13.1 % (11.9-15.9)
[2023-02-17 08:47] LABS: POTASSIUM 3.8 mmol/L (3.5-5.1)
[2023-02-17 08:50] LABS: ALBUMIN 3.4 g/dl (3.4-5.0)
[2023-02-17 08:53] LABS: CREATININE 0.6 mg/dL (0.55-1.3)
[2023-02-17 08:55] LABS: BILIRUBIN,TOTAL 1.5 mg/dL (0.2-1); TOT PROT 6.3 g/dl (6.4-8.2)
[2023-02-17] MEDS: MEMANTINE HCL 10 MG TABLET (FP) PO SCH ×2 (09:34→22:15)
[2023-02-17] MEDS: HYDROCORTISONE 1% TOPICAL OINT 30 GM TUBE TP SCH (09:34)
[2023-02-17] MEDS: ENOXAPARIN NA (PORCINE) 40 MG/0.4 ML DISP.SYRIN SQ SCH (09:34)
[2023-02-17] MEDS: REMDESIVIR 100 MG in SODIUM CHLORIDE 250 ML IVPB SCH (09:34)
[2023-02-17] MEDS: SODIUM CHLORIDE 1 GM TABLET PO SCH ×2 (09:34→22:16)
[2023-02-17] MEDS: FINASTERIDE 5 MG TABLET (FP) PO SCH (09:34)
[2023-02-17] MEDS: PETROLATUM, WHITE 30 GM TUBE TP SCH (09:34)
[2023-02-17] MEDS: TAMSULOSIN HCL 0.4 MG CAP PO SCH (09:34)
[2023-02-17] MEDS: ALLOPURINOL 100 MG TABLET (FP) PO SCH (09:35)
[2023-02-17] MEDS: SERTRALINE HCL 25 MG TABLET (FP) PO SCH (09:35)
[2023-02-17 15:08] LABS: BILIRUBIN,DIRECT 0.4 mg/dL (0.0-0.2)
[2023-02-17] MEDS: MELATONIN 5 MG TABLETS PO SCH (22:14)
[2023-02-17] MEDS ORDERED: MELATONIN 5 MG TABLETS ONE (23:24)
[2023-02-18 05:02] VITALS: BMI 28.3
[2023-02-18 09:39] VITALS: BP 138/78; PULSE 72; RESP 18; TEMP 98.2
[2023-02-18 10:02] LABS: HEMATOCRIT 42.8 % (35.4-49); HEMOGLOBIN 14.7 GM/dL (11.7-16.9); MCH 30.7 pg (25.7-33.7); MCHC 34.2 g/dl (32.0-35.9); MEAN CELL VOLUME 89.7 fl (80-96); MEAN PLT VOLUME 7.7 fl (7.5-11.1); PLATELET COUNT 251 10^3/uL (134-434); RBC 4.78 M/mm3 (4.00-5.60); RDW 12.9 % (11.9-15.9); WHITE BLOOD COUNT 6.1 K/mm3 (4.0-10.0)
[2023-02-18 10:22] LABS: POTASSIUM 3.5 mmol/L (3.5-5.1)
[2023-02-18] MEDS: ENOXAPARIN NA (PORCINE) 40 MG/0.4 ML DISP.SYRIN SQ SCH (10:23)
[2023-02-18] MEDS: AMMONIUM LACTATE 12% LOTION 225 GM BOTTLE TP SCH (10:24)
[2023-02-18] MEDS: FINASTERIDE 5 MG TABLET (FP) PO SCH (10:24)
[2023-02-18] MEDS: ALLOPURINOL 100 MG TABLET (FP) PO SCH (10:24)
[2023-02-18] MEDS: MEMANTINE HCL 10 MG TABLET (FP) PO SCH (10:24)
[2023-02-18] MEDS: HYDROCORTISONE 1% TOPICAL OINT 30 GM TUBE TP SCH (10:24)
[2023-02-18] MEDS: SERTRALINE HCL 25 MG TABLET (FP) PO SCH (10:24)
[2023-02-18] MEDS: SODIUM CHLORIDE 1 GM TABLET PO SCH (10:24)
[2023-02-18] MEDS: REMDESIVIR 100 MG in SODIUM CHLORIDE 250 ML IVPB SCH (10:24)
[2023-02-18] MEDS: TAMSULOSIN HCL 0.4 MG CAP PO SCH (10:24)
[2023-02-18] MEDS: PETROLATUM, WHITE 30 GM TUBE TP SCH (10:26)
[2023-02-18 10:27] LABS: ALBUMIN 3.2 g/dl (3.4-5.0); BLOOD UREA NITROGEN 13.8 mg/dL (7-18); CALCIUM 9.1 mg/dL (8.5-10.1)
[2023-02-18 10:28] LABS: MAGNESIUM 2.3 mg/dL (1.8-2.4)
[2023-02-18 10:30] LABS: CREATININE 0.7 mg/dL (0.55-1.3); PHOSPHOROUS 3.1 mg/dL (2.5-4.9)
[2023-02-18 10:31] LABS: TOT PROT 6.1 g/dl (6.4-8.2)
[2023-02-18 10:33] LABS: BILIRUBIN,TOTAL 1.7 mg/dL (0.2-1)
[2023-02-18] MEDS: INSULIN SLIDING SCALE (NOVOLOG) 1 VIAL SQ SCH ×2 (11:30→14:33)
== END 2023-02-18 16:00 | DRG 178 ==
LOC: JER 17:32 → JERBED 21:55 → OBSVTOIN 02-16 11:17 → J6S 02-18 01:23
PROVIDERS: ADMIT Internal Medicine; ATTEND Internal Medicine
PROC: XW033E5 Introduction of Remdesivir Anti-infective into Peripheral Vein, Percutaneous Approach, New Technology Group 5 (ICD-10-PCS; principal; 2023-02-15)
DX: U07.1 COVID-19 (principal); E87.1 Hypo-osmolality and hyponatremia; I10 Essential (primary) hypertension; E78.5 Hyperlipidemia, unspecified; G30.9 Alzheimer's disease, unspecified; F02.80 Dementia in other diseases classified elsewhere, unspecified severity, without behavioral disturbance, psychotic disturbance, mood disturbance, and anxiety; F31.9 Bipolar disorder, unspecified; E11.9 Type 2 diabetes mellitus without complications; N40.0 Benign prostatic hyperplasia without lower urinary tract symptoms; R29.6 Repeated falls; E86.0 Dehydration
CPT/HCPCS: 0241U-QW; 36415; 70450-TC; 71045-TC-FY; 76705-TC; 80053; 82248; 82550; 82962; 83036; 83735; 83880; 84100; 84484; 85025; 85027; 85610; 85730; 87040; 93005; 93010; 99285-25; G0378; J0248

== ENCOUNTER 2023-12-31 09:48 | Inpatient (IN) | payer OTHER ==
[2023-12-31 10:28] VITALS: BMI 28.3
[2023-12-31 11:53] LABS: BASO % 0.4 % (0-2.0); HEMOGLOBIN 14.7 GM/dL (11.7-16.9); LYMPH % 14.9 % (8-40); MCHC 34.3 g/dl (32.0-35.9); MEAN CELL VOLUME 90.6 fl (80-96); MEAN PLT VOLUME 8.2 fl (7.5-11.1); MONO % 7.4 % (3.8-10.2); NEUT % 70.3 % (42.8-82.8); PLATELET COUNT 237 10^3/uL (134-434); RBC 4.75 M/mm3 (4.00-5.60); RDW 13.4 % (11.9-15.9); WHITE BLOOD COUNT 7.7 K/mm3 (4.0-10.0)
[2023-12-31 12:09] LABS: POTASSIUM 3.8 mmol/L (3.5-5.1)
[2023-12-31 12:11] LABS: CALCIUM 9.1 mg/dL (8.5-10.1)
[2023-12-31 12:12] LABS: ALBUMIN 3.5 g/dl (3.4-5.0); BLOOD UREA NITROGEN 29.5 mg/dL (7-18)
[2023-12-31 12:15] LABS: CREATININE 0.7 mg/dL (0.55-1.3)
[2023-12-31 12:17] LABS: BILIRUBIN,TOTAL 0.8 mg/dL (0.2-1); TOT PROT 6.3 g/dl (6.4-8.2)
[2023-12-31] MEDS ORDERED: LORazepam 0.5 MG TABLET PO PRN (13:50)
[2023-12-31] MEDS: REMDESIVIR 200 MG in SODIUM CHLORIDE 250 ML IVPB ONE (15:53)
[2023-12-31] MEDS ORDERED: PIPERACILLIN/TAZOB 3.375 GM 3.375 GM/50 ML BAG IVPB SCH (16:45)
[2023-12-31] MEDS ORDERED: PIPERACILLIN/TAZOB 3.375 GM 3.375 GM/50 ML BAG IVPB ONE (18:11)
[2023-12-31 18:52] LABS: EPI CELLS 11 /uL (0-25.1); HYALINE CASTS 0 /uL (0-3.1); URINE APPEARANCE CLEAR; URINE BACTERIA 64 /uL (0-1359); URINE BILIRUBIN NEGATIVE (NEGATIVE); URINE COLOR YELLOW; URINE GLUCOSE (UA) NEGATIVE (NEGATIVE); URINE KETONE NEGATIVE (NEGATIVE); URINE LEUK ESTERASE 1+ (NEGATIVE); URINE NITRITE NEGATIVE (NEGATIVE); URINE PROTEIN NEGATIVE (NEGATIVE); URINE RBC 44 /uL (0-23.9); URINE WBC 35 /uL (0-25.8)
[2023-12-31] MEDS: PIPERACILLIN/TAZOB 3.375 GM 3.375 GM/50 ML BAG IVPB SCH (19:37)
[2024-01-01] MEDS ORDERED: HALOPERIDOL LACTATE 5 MG/ML ONE (00:43)
[2024-01-01] MEDS: HALOPERIDOL LACTATE 5 MG/ML IM ONE (01:44)
[2024-01-01] MEDS: MEMANTINE HCL 10 MG TABLET (FP) PO SCH (01:45)
[2024-01-01] MEDS: VALPROIC ACID 250 MG CAPSULE PO SCH (01:45)
[2024-01-01] MEDS ORDERED: SERTRALINE HCL 25 MG TABLET (FP) PO SCH (10:00)
[2024-01-01 11:11] LABS: HEMATOCRIT 45.6 % (35.4-49); MCH 30.4 pg (25.7-33.7); MCHC 32.9 g/dl (32.0-35.9); MEAN CELL VOLUME 92.3 fl (80-96); MEAN PLT VOLUME 8.6 fl (7.5-11.1); PLATELET COUNT 250 10^3/uL (134-434); RBC 4.94 M/mm3 (4.00-5.60); RDW 12.9 % (11.9-15.9); WHITE BLOOD COUNT 6.8 K/mm3 (4.0-10.0)
[2024-01-01 11:25] LABS: POTASSIUM 3.9 mmol/L (3.5-5.1)
[2024-01-01 11:30] LABS: CALCIUM 9.2 mg/dL (8.5-10.1)
[2024-01-01 11:31] LABS: ALBUMIN 3.6 g/dl (3.4-5.0); MAGNESIUM 2.4 mg/dL (1.8-2.4)
[2024-01-01 11:33] LABS: CREATININE 0.7 mg/dL (0.55-1.3); PHOSPHOROUS 2.9 mg/dL (2.5-4.9)
[2024-01-01 11:34] LABS: BILIRUBIN,TOTAL 1.4 mg/dL (0.2-1); TOT PROT 6.4 g/dl (6.4-8.2)
[2024-01-01] MEDS: SERTRALINE HCL 25 MG TABLET (FP) PO SCH (12:32)
[2024-01-01] MEDS: ALLOPURINOL 100 MG TABLET (FP) PO SCH (12:32)
[2024-01-01] MEDS: FINASTERIDE 5 MG TABLET (FP) PO SCH (12:33)
[2024-01-01] MEDS: ENOXAPARIN NA (PORCINE) 40 MG/0.4 ML DISP.SYRIN SQ SCH (12:33)
[2024-01-01] MEDS: QUEtiapine FUMARATE 25 MG TABLET PO ONE (14:08)
[2024-01-01] MEDS: REMDESIVIR 100 MG in SODIUM CHLORIDE 250 ML IVPB SCH (14:33)
[2024-01-01] MEDS: SILODOSIN 4 MG PO SCH (15:09)
[2024-01-01] MEDS: LORazepam 2 MG/ML SDV VIAL IVPUSH PRN (17:21)
[2024-01-01] MEDS: QUEtiapine FUMARATE 25 MG TABLET PO SCH (22:31)
[2024-01-02 10:00] LABS: EOS % 11.4 % (0-4.5); HEMATOCRIT 44.5 % (35.4-49); HEMOGLOBIN 15.2 GM/dL (11.7-16.9); LYMPH % 26.4 % (8-40); MCH 30.9 pg (25.7-33.7); MCHC 34.2 g/dl (32.0-35.9); MEAN CELL VOLUME 90.4 fl (80-96); MEAN PLT VOLUME 8.4 fl (7.5-11.1); MONO % 7.8 % (3.8-10.2); NEUT % 53.4 % (42.8-82.8); PLATELET COUNT 241 10^3/uL (134-434); RBC 4.92 M/mm3 (4.00-5.60); RDW 13.3 % (11.9-15.9); WHITE BLOOD COUNT 6.6 K/mm3 (4.0-10.0)
[2024-01-02 10:36] LABS: CALCIUM 9.1 mg/dL (8.5-10.1)
[2024-01-02 10:37] LABS: MAGNESIUM 2.5 mg/dL (1.8-2.4)
[2024-01-02 10:38] LABS: ALBUMIN 3.2 g/dl (3.4-5.0)
[2024-01-02 10:39] LABS: CREATININE 0.6 mg/dL (0.55-1.3)
[2024-01-02 10:42] LABS: BILIRUBIN,TOTAL 0.9 mg/dL (0.2-1)
[2024-01-02] MEDS: QUEtiapine FUMARATE 25 MG TABLET PO SCH (12:05)
[2024-01-03 10:42] LABS: BASO % 0.5 % (0-2.0); EOS % 10.1 % (0-4.5); HEMATOCRIT 44.4 % (35.4-49); HEMOGLOBIN 15.1 GM/dL (11.7-16.9); LYMPH % 23.7 % (8-40); MCH 31.1 pg (25.7-33.7); MCHC 33.9 g/dl (32.0-35.9); MEAN CELL VOLUME 91.6 fl (80-96); MEAN PLT VOLUME 8.3 fl (7.5-11.1); MONO % 6.3 % (3.8-10.2); NEUT % 59.4 % (42.8-82.8); PLATELET COUNT 233 10^3/uL (134-434); RBC 4.85 M/mm3 (4.00-5.60); WHITE BLOOD COUNT 6.4 K/mm3 (4.0-10.0)
[2024-01-03 10:44] LABS: ALBUMIN 3.3 g/dl (3.4-5.0); BLOOD UREA NITROGEN 17.1 mg/dL (7-18); MAGNESIUM 2.2 mg/dL (1.8-2.4)
[2024-01-03 10:47] LABS: CREATININE 0.7 mg/dL (0.55-1.3)
[2024-01-03 10:49] LABS: TOT PROT 6.2 g/dl (6.4-8.2)
[2024-01-03] MEDS: LORazepam 1 MG TABLET PO ONE (22:09)
[2024-01-04] MEDS ORDERED: LORazepam 2 MG TABLET PO ONE ×2 (07:30→08:30)
[2024-01-04] MEDS: LORazepam 1 MG TABLET PO ONE (08:34)
[2024-01-04 10:09] LABS: BASO % 0.9 % (0-2.0); EOS % 11.2 % (0-4.5); HEMATOCRIT 46.1 % (35.4-49); HEMOGLOBIN 15.6 GM/dL (11.7-16.9); MCH 30.8 pg (25.7-33.7); MCHC 33.9 g/dl (32.0-35.9); MEAN PLT VOLUME 8.1 fl (7.5-11.1); MONO % 7.9 % (3.8-10.2); PLATELET COUNT 233 10^3/uL (134-434); RBC 5.07 M/mm3 (4.00-5.60); WHITE BLOOD COUNT 6.4 K/mm3 (4.0-10.0)
[2024-01-04 10:30] LABS: ALBUMIN 3.4 g/dl (3.4-5.0); BLOOD UREA NITROGEN 18.4 mg/dL (7-18); CALCIUM 9.3 mg/dL (8.5-10.1); MAGNESIUM 2.3 mg/dL (1.8-2.4)
[2024-01-04 10:34] LABS: CREATININE 0.7 mg/dL (0.55-1.3)
[2024-01-04 10:35] LABS: TOT PROT 6.4 g/dl (6.4-8.2)
[2024-01-04 15:52] VITALS: RESP 18
[2024-01-04] MEDS: LORazepam 1 MG TABLET PO PRN (16:42)
[2024-01-04] MEDS: QUEtiapine FUMARATE 25 MG TABLET PO SCH (22:40)
[2024-01-05 07:43] VITALS: TEMP 97.7
[2024-01-05] MEDS: BACITRACIN ZINC 15 GM TUBE TOPICAL OINTMENT TP SCH (12:25)
[2024-01-05 13:21] VITALS: BP 120/89; PULSE 77
== END 2024-01-05 13:10 | DRG 178 ==
LOC: JER 09:48 → JERBED 11:54 → J8W 01-01 02:27
PROVIDERS: ADMIT Internal Medicine; ATTEND Nurse Practitioner Family
PROC: XW033E5 Introduction of Remdesivir Anti-infective into Peripheral Vein, Percutaneous Approach, New Technology Group 5 (ICD-10-PCS; principal; 2023-12-31)
DX: U07.1 COVID-19 (principal); F02.811 Dementia in other diseases classified elsewhere, unspecified severity, with agitation; R29.6 Repeated falls; G30.9 Alzheimer's disease, unspecified; F32.9 Major depressive disorder, single episode, unspecified; M10.9 Gout, unspecified; G40.909 Epilepsy, unspecified, not intractable, without status epilepticus; N40.0 Benign prostatic hyperplasia without lower urinary tract symptoms; I10 Essential (primary) hypertension; E78.5 Hyperlipidemia, unspecified
CPT/HCPCS: 0241U-QW; 36415; 70450-TC; 71045-TC-FY; 72125-TC; 80053; 81003; 83735; 84100; 85025; 85027; 87086; 93005; 93010; 97116-GP; 97161-GP; 99285-25; J0248

== ENCOUNTER 2024-03-23 00:26 | Inpatient (IN) | payer OTHER ==
[2024-03-23] MEDS ORDERED: ACETAMINOPHEN INJECTION 100 ML ONE (01:07)
[2024-03-23 01:10] VITALS: BMI 25.9
[2024-03-23] MEDS: ACETAMINOPHEN 1000 MG/100 ML BAG IVPB ONE (01:46)
[2024-03-23 01:47] LABS: BASO % 0.6 % (0-2.0); EOS % 4.8 % (0-4.5); HEMATOCRIT 42.8 % (35.4-49); HEMOGLOBIN 14.8 GM/dL (11.7-16.9); LYMPH % 20.7 % (8-40); MCH 31.2 pg (25.7-33.7); MCHC 34.6 g/dl (32.0-35.9); MEAN CELL VOLUME 90.2 fl (80-96); MEAN PLT VOLUME 8.4 fl (7.5-11.1); MONO % 8.2 % (3.8-10.2); NEUT % 65.7 % (42.8-82.8); PLATELET COUNT 157 10^3/uL (134-434); RBC 4.74 M/mm3 (4.00-5.60); RDW 13.8 % (11.9-15.9)
[2024-03-23 01:58] LABS: INR 0.99 (0.83-1.09); PROTHROMBIN TIME (PATIENT) 11.4 SEC (9.7-13.0)
[2024-03-23 02:00] LABS: ACTIVATED PTT 34.8 SECONDS (25.2-36.5)
[2024-03-23 02:22] LABS: POTASSIUM 3.6 mmol/L (3.5-5.1)
[2024-03-23 02:24] LABS: BLOOD UREA NITROGEN 20.9 mg/dL (7-18); CALCIUM 7.9 mg/dL (8.5-10.1)
[2024-03-23 02:25] LABS: ALBUMIN 2.5 g/dl (3.4-5.0)
[2024-03-23 02:27] LABS: CREATININE 0.6 mg/dL (0.55-1.3)
[2024-03-23 02:29] LABS: BILIRUBIN,TOTAL 0.4 mg/dL (0.2-1); TOT PROT 5.1 g/dl (6.4-8.2)
[2024-03-23 02:46] LABS: LACTIC ACID 2.3 mmol/L (0.4-2.0)
[2024-03-23] MEDS ORDERED: TETRACAINE 0.5% OPHTH SOLN 2 ML BOTTLE ONE (03:16)
[2024-03-23 03:21] LABS: PH,URINE 5.5 (5.0-8.0); URINE APPEARANCE CLEAR; URINE BILIRUBIN NEGATIVE (NEGATIVE); URINE COLOR YELLOW; URINE GLUCOSE (UA) NEGATIVE (NEGATIVE); URINE KETONE TRACE (NEGATIVE); URINE LEUK ESTERASE NEGATIVE (NEGATIVE); URINE NITRITE NEGATIVE (NEGATIVE); URINE PROTEIN NEGATIVE (NEGATIVE); URINE UROBILINOGEN 0.2 mg/dL (0.2-1.0)
[2024-03-23] MEDS: SODIUM CHLORIDE 0.9% 500 ML INFUS.BAG IV ONE (03:21)
[2024-03-23] MEDS: TETRACAINE 0.5% HCL 0.6ML DROPPER.BOTTLE OD ONE (03:33)
[2024-03-23] MEDS ORDERED: ACETAMINOPHEN 1000 MG/100 ML BAG IVPB PRN (06:02)
[2024-03-23] MEDS ORDERED: HALOPERIDOL LACTATE 5 MG/ML IM PRN (06:40)
[2024-03-23 09:12] LABS: HEMATOCRIT 40.5 % (35.4-49); HEMOGLOBIN 13.8 GM/dL (11.7-16.9); MCH 30.8 pg (25.7-33.7); MEAN CELL VOLUME 90.4 fl (80-96); MEAN PLT VOLUME 8.4 fl (7.5-11.1); PLATELET COUNT 147 10^3/uL (134-434); RBC 4.48 M/mm3 (4.00-5.60); WHITE BLOOD COUNT 5.9 K/mm3 (4.0-10.0)
[2024-03-23 09:33] LABS: POTASSIUM 3.9 mmol/L (3.5-5.1)
[2024-03-23 09:36] LABS: CALCIUM 8.7 mg/dL (8.5-10.1)
[2024-03-23 09:37] LABS: MAGNESIUM 2.1 mg/dL (1.8-2.4)
[2024-03-23 09:40] LABS: CREATININE 0.7 mg/dL (0.55-1.3)
[2024-03-23 09:41] LABS: PHOSPHOROUS 3.5 mg/dL (2.5-4.9)
[2024-03-23] MEDS ORDERED: ENOXAPARIN NA (PORCINE) 40 MG/0.4 ML DISP.SYRIN SQ SCH (10:00)
[2024-03-23] MEDS ORDERED: AZITHROMYCIN IVPB 500 MG in DEXTROSE 5%-WATER - 250 ML IVPB SCH (10:00)
[2024-03-23] MEDS ORDERED: QUEtiapine FUMARATE 50 MG TABLET PO SCH ×2 (10:00→22:00)
[2024-03-23] MEDS: VALPROIC ACID 250 MG CAPSULE PO SCH (11:00)
[2024-03-23] MEDS ORDERED: TAMSULOSIN HCL 0.4 MG CAP ONE (11:34)
[2024-03-23] MEDS ORDERED: CEFTRIAXONE 1 G/50 ML PREMIX 50 ML IVPB ONE (11:34)
[2024-03-23] MEDS ORDERED: DOXYCYCLINE HYCLATE 100 MG VIAL ONE (11:34)
[2024-03-23] MEDS: TAMSULOSIN HCL 0.4 MG CAP PO SCH (11:40)
[2024-03-23] MEDS: CEFTRIAXONE 1 G/50 ML PREMIX 50 ML IVPB SCH (11:40)
[2024-03-23] MEDS: DOXYCYCLINE INJECTION 100 MG in DEXTROSE 5%-WATER 100 ML IVPB SCH (12:05)
[2024-03-23] MEDS: MEMANTINE HCL 10 MG TABLET (FP) PO SCH (12:07)
[2024-03-23] MEDS: FINASTERIDE 5 MG TABLET (FP) PO SCH (12:07)
[2024-03-23] MEDS: QUEtiapine FUMARATE 50 MG TABLET PO SCH (12:07)
[2024-03-23] MEDS: SERTRALINE HCL 25 MG TABLET (FP) PO SCH (12:07)
[2024-03-23] MEDS: MELATONIN 5 MG TABLETS PO SCH (21:41)
[2024-03-24 08:57] LABS: BASO % 0.7 % (0-2.0); EOS % 10.2 % (0-4.5); HEMATOCRIT 39.7 % (35.4-49); HEMOGLOBIN 13.6 GM/dL (11.7-16.9); LYMPH % 27.8 % (8-40); MCH 31.2 pg (25.7-33.7); MCHC 34.4 g/dl (32.0-35.9); MEAN CELL VOLUME 90.6 fl (80-96); MEAN PLT VOLUME 8.5 fl (7.5-11.1); MONO % 10.9 % (3.8-10.2); NEUT % 50.4 % (42.8-82.8); PLATELET COUNT 147 10^3/uL (134-434); RBC 4.38 M/mm3 (4.00-5.60); RDW 13.8 % (11.9-15.9); WHITE BLOOD COUNT 6.1 K/mm3 (4.0-10.0)
[2024-03-24 09:11] LABS: POTASSIUM 4.3 mmol/L (3.5-5.1)
[2024-03-24 09:14] LABS: CALCIUM 8.7 mg/dL (8.5-10.1)
[2024-03-24 09:15] LABS: ALBUMIN 2.7 g/dl (3.4-5.0); BLOOD UREA NITROGEN 17.2 mg/dL (7-18)
[2024-03-24 09:18] LABS: CREATININE 0.6 mg/dL (0.55-1.3)
[2024-03-24 09:19] LABS: TOT PROT 5.4 g/dl (6.4-8.2)
[2024-03-24 09:22] LABS: BILIRUBIN,TOTAL 0.6 mg/dL (0.2-1)
[2024-03-25 09:17] LABS: BASO % 0.9 % (0-2.0); EOS % 12.5 % (0-4.5); HEMATOCRIT 39.5 % (35.4-49); HEMOGLOBIN 13.3 GM/dL (11.7-16.9); LYMPH % 36.2 % (8-40); MCH 30.6 pg (25.7-33.7); MCHC 33.6 g/dl (32.0-35.9); MEAN CELL VOLUME 91.1 fl (80-96); MEAN PLT VOLUME 8.8 fl (7.5-11.1); MONO % 12.2 % (3.8-10.2); NEUT % 38.2 % (42.8-82.8); PLATELET COUNT 153 10^3/uL (134-434); RBC 4.34 M/mm3 (4.00-5.60); RDW 13.8 % (11.9-15.9); WHITE BLOOD COUNT 6.2 K/mm3 (4.0-10.0)
[2024-03-25 09:46] LABS: POTASSIUM 4.1 mmol/L (3.5-5.1)
[2024-03-25 10:05] LABS: ALBUMIN 2.7 g/dl (3.4-5.0); BLOOD UREA NITROGEN 20.1 mg/dL (7-18)
[2024-03-25 10:08] LABS: CALCIUM 8.9 mg/dL (8.5-10.1); CREATININE 0.7 mg/dL (0.55-1.3)
[2024-03-25 10:09] LABS: TOT PROT 5.3 g/dl (6.4-8.2)
[2024-03-25 10:10] LABS: BILIRUBIN,TOTAL 0.7 mg/dL (0.2-1)
[2024-03-26 03:43] VITALS: TEMP 98.4
[2024-03-26 08:20] VITALS: BP 102/66; PULSE 72; RESP 16
== END 2024-03-26 12:06 | DRG 194 ==
LOC: JER 00:26 → JERBED 04:37 → OBSVTOIN 13:03 → J6S 15:50
PROVIDERS: ADMIT Internal Medicine
DX: J18.9 Pneumonia, unspecified organism (principal); E87.20 Acidosis, unspecified; F31.9 Bipolar disorder, unspecified; G30.9 Alzheimer's disease, unspecified; F02.80 Dementia in other diseases classified elsewhere, unspecified severity, without behavioral disturbance, psychotic disturbance, mood disturbance, and anxiety; I10 Essential (primary) hypertension; R29.6 Repeated falls; S05.11XA Contusion of eyeball and orbital tissues, right eye, initial encounter; N40.0 Benign prostatic hyperplasia without lower urinary tract symptoms; H05.231 Hemorrhage of right orbit; W19.XXXA Unspecified fall, initial encounter; Y93.9 Activity, unspecified; Y92.89 Other specified places as the place of occurrence of the external cause; Y99.9 Unspecified external cause status; R13.10 Dysphagia, unspecified
CPT/HCPCS: 0241U-QW; 36415; 70450-TC; 70486-TC; 71045-TC-FY; 71250-TC; 72125-TC; 72170-TC-FY; 80048; 80053; 80164; 81003; 83605; 83735; 84100; 84484; 85025; 85027; 85610; 85730; 86850; 86900; 86901; 87086; 93005; 93010; 97116-GP; 97161-GP; 99285-25; G0378; J0131

== ENCOUNTER 2024-09-09 17:48 | Inpatient (IN) | payer OTHER ==
[2024-09-09 18:20] VITALS: BMI 28.0
[2024-09-09 19:56] LABS: MCHC 33.1 g/dl (32.3-36.5); MEAN CELL VOLUME 92.2 fl (79.0-92.2); MEAN PLT VOLUME 10.5 fl (9.4-12.4); RDW 12.1 % (12.6-16.6)
[2024-09-09 20:12] LABS: INR 1.01 (0.83-1.09); PROTHROMBIN TIME (PATIENT) 11.1 SEC (9.7-13.0)
[2024-09-09 20:15] LABS: ACTIVATED PTT 34.4 SECONDS (25.2-36.5)
[2024-09-09 20:59] LABS: CO2 28.0 mmol/L (21-32); GLUCOSE,RANDOM 145.0 mg/dL (74-106)
[2024-09-09 21:01] LABS: CREATININE 0.7 mg/dL (0.55-1.3)
[2024-09-09 21:02] LABS: SGOT/AST 24.0 U/L (15-37); SGPT/ALT 13.0 U/L (13-61)
[2024-09-09 21:04] LABS: TOT PROT 5.9 g/dl (6.4-8.2)
[2024-09-09 21:05] LABS: ALK PHOS 69.0 U/L (45-117)
[2024-09-09 23:49] LABS: URINE APPEARANCE CLEAR; URINE BILIRUBIN NEGATIVE (NEGATIVE); URINE COLOR YELLOW; URINE GLUCOSE (UA) NEGATIVE (NEGATIVE); URINE KETONE NEGATIVE (NEGATIVE); URINE LEUK ESTERASE 2+ (NEGATIVE); URINE NITRITE NEGATIVE (NEGATIVE); URINE PROTEIN NEGATIVE (NEGATIVE); URINE UROBILINOGEN 1.0 mg/dL (0.2-1.0)
[2024-09-10] MEDS ORDERED: DIVALPROEX SODIUM 250 MG TABLET E.C. ONE (01:41)
[2024-09-10] MEDS: VALPROIC ACID 250 MG CAPSULE PO SCH (01:42)
[2024-09-10] MEDS: TAMSULOSIN HCL 0.4 MG CAP PO SCH (08:06)
[2024-09-10] MEDS: ENOXAPARIN NA (PORCINE) 40 MG/0.4 ML DISP.SYRIN SQ SCH (09:36)
[2024-09-10] MEDS: ALLOPURINOL 100 MG TABLET (FP) PO SCH (09:36)
[2024-09-10] MEDS: SERTRALINE HCL 25 MG TABLET (FP) PO SCH (09:36)
[2024-09-10] MEDS: FINASTERIDE 5 MG TABLET (FP) PO SCH (09:36)
[2024-09-10] MEDS: ASCORBIC ACID 500 MG TABLET (FP) PO SCH (09:36)
[2024-09-10] MEDS: MEMANTINE HCL 10 MG TABLET (FP) PO SCH (09:36)
[2024-09-10 10:34] LABS: MCHC 33.3 g/dl (32.3-36.5); MEAN CELL VOLUME 91.2 fl (79.0-92.2); MEAN PLT VOLUME 10.7 fl (9.4-12.4); RDW 12.2 % (12.6-16.6)
[2024-09-10 11:30] LABS: ALK PHOS 64.0 U/L (45-117); CO2 29.0 mmol/L (21-32); CREATININE 0.6 mg/dL (0.55-1.3); GLUCOSE,RANDOM 141.0 mg/dL (74-106); SGOT/AST 13.0 U/L (15-37); SGPT/ALT 9.0 U/L (13-61); TOT PROT 5.9 g/dl (6.4-8.2)
[2024-09-10] MEDS: ARTIFICIAL TEARS OPHTHALMIC DROPS OU SCH (13:03)
[2024-09-10] MEDS ORDERED: MAGNESIUM GLYCINATE 100 MG PO SCH (22:00)
[2024-09-11 09:52] LABS: MCHC 33.5 g/dl (32.3-36.5); MEAN CELL VOLUME 90.3 fl (79.0-92.2); MEAN PLT VOLUME 10.6 fl (9.4-12.4); RDW 11.9 % (12.6-16.6)
[2024-09-11 10:03] VITALS: RESP 18
[2024-09-11 10:38] LABS: ALK PHOS 64.0 U/L (45-117); CO2 25.0 mmol/L (21-32); CREATININE 0.7 mg/dL (0.55-1.3); GLUCOSE,RANDOM 91.0 mg/dL (74-106); SGOT/AST 17.0 U/L (15-37); SGPT/ALT 11.0 U/L (13-61); TOT PROT 5.9 g/dl (6.4-8.2)
[2024-09-12 09:14] VITALS: BP 115/80; PULSE 73; TEMP 98.4
[2024-09-12 09:44] LABS: MCHC 33.8 g/dl (32.3-36.5); MEAN CELL VOLUME 90.2 fl (79.0-92.2); MEAN PLT VOLUME 10.5 fl (9.4-12.4); RDW 12.1 % (12.6-16.6)
[2024-09-12 10:20] LABS: CO2 27.0 mmol/L (21-32); GLUCOSE,RANDOM 141.0 mg/dL (74-106)
[2024-09-12 10:23] LABS: CREATININE 0.7 mg/dL (0.55-1.3); SGOT/AST 15.0 U/L (15-37); SGPT/ALT 11.0 U/L (13-61)
[2024-09-12 10:26] LABS: ALK PHOS 66.0 U/L (45-117)
[2024-09-12 10:27] LABS: TOT PROT 5.9 g/dl (6.4-8.2)
[2024-09-12] MEDS ORDERED: SENNOSIDES 8.6MG TABLET (FP) PO SCH (22:00)
== END 2024-09-12 14:14 | DRG 605 ==
LOC: JER 17:48 → INTOOBSV 21:09 → OBSVTOIN 21:09 → JERBED 21:09 → OBSVTOIN 23:38 → J5S 09-10 06:27
PROVIDERS: ADMIT Student in an Organized Health Care Education/Training Program; ATTEND Internal Medicine
DX: S00.03XA Contusion of scalp, initial encounter (principal); I10 Essential (primary) hypertension; N40.0 Benign prostatic hyperplasia without lower urinary tract symptoms; F31.9 Bipolar disorder, unspecified; I69.391 Dysphagia following cerebral infarction; R13.10 Dysphagia, unspecified; D72.10 Eosinophilia, unspecified; W19.XXXA Unspecified fall, initial encounter; Y93.89 Activity, other specified; Y92.129 Unspecified place in nursing home as the place of occurrence of the external cause; Y99.8 Other external cause status; G30.9 Alzheimer's disease, unspecified; F02.80 Dementia in other diseases classified elsewhere, unspecified severity, without behavioral disturbance, psychotic disturbance, mood disturbance, and anxiety; L30.8 Other specified dermatitis; R29.6 Repeated falls
CPT/HCPCS: 36415; 70450-TC; 71045-TC-FY; 72125-TC; 72170-TC-FY; 80053; 80164; 81003; 82550; 83036; 83735; 84100; 84484; 85025; 85027; 85610; 85730; 87086; 93005; 93010; 97116-GP; 97161-GP; 99285-25; G0378